=== PATIENT | male | born 1960 | race Caucasian/White ===

== ENCOUNTER 2018-12-15 09:43 | Outpatient (CLI) | payer BC, SELFPAY ==
--- NOTE | 2018-12-15 09:28 | DI.RAD_ITS ---
SYMPTOMS/DIAGNOSIS: HIP PAIN, HAND PAIN LEFT HAND: Three views. No priors. At the first carpal metacarpal joint there is joint space narrowing, periarticular osteophytes and subchondral cysts. The interphalangeal joints of the hand show mild degrees of joint space narrowing, periarticular spurring and subchondral cyst formation. The findings are most marked at the PIP joint of the left middle finger. The joint spaces are otherwise well maintained. The bones are intact. The soft tissues are unremarkable. IMPRESSION: Mild degenerative changes of the left hand. RIGHT HAND: Three views. No priors. At the first carpal metacarpal joint there is joint space narrowing, subchondral sclerosis and cyst formation and osteophytes of the middle finger. There is soft tissue swelling in the right middle finger. No radiopaque foreign bodies are seen. The bones are intact. IMPRESSION: Moderate degenerative changes of the right hand. BILATERAL HIPS: No priors for comparison. The hip joints are well maintained. The bones are intact and normally mineralized. The sacroiliac joints and symphysis pubis appear intact. The soft tissues are grossly unremarkable. IMPRESSION: No acute abnormality.
== END 2018-12-15 10:03 ==
PROVIDERS: PCP Nurse Practitioner Family; Visit Provider Student in an Organized Health Care Education/Training Program
DX: M25.551 Pain in right hip (principal); M25.552 Pain in left hip; M79.641 Pain in right hand; M79.642 Pain in left hand; M19.041 Primary osteoarthritis, right hand; M19.042 Primary osteoarthritis, left hand
CPT/HCPCS: 73521; 73130

== ENCOUNTER 2018-12-25 00:40 | Outpatient (CLI) | payer BC, SELFPAY ==
--- NOTE | 2018-12-25 15:30 | DI.MRI_ITS ---
SYMPTOM/DIAGNOSIS: LOW BACK PAIN, M54.5, RT LEG, FOOT NUMBNESS LUMBAR SPINE MRI: Routine noncontrast examination was performed. The conus medullaris has a normal appearance. At L 5-S 1, there is no focal disc herniation, central spinal canal or neural foraminal stenosis. There is a mild right convex scoliosis of the lumbar spine. At L 4-5, there is disc desiccation. There is a mild diffuse disc bulge. No central spinal canal stenosis is seen. No focal disc herniation is appreciated. There is mild narrowing of the right neural foramen but no nerve root compression is seen. The left neural foramen is patent. At L 3-4, there are degenerative endplate signal changes and disc desiccation. There is a diffuse disc bulge slightly eccentric toward the right. No significant central spinal canal stenosis is seen. There is moderate narrowing of the right neural foramen and mild narrowing of the left neural foramen. At L 2-3, there does appear to be disc space narrowing. There are endplate degenerative signal changes, osteophytes and disc desiccation. There is a diffuse disc bulge present. No significant central spinal canal stenosis is seen. There is mild bilateral neural foraminal stenosis. At L 1-2, there are degenerative endplate signal changes, degenerative disc disease and a diffuse disc bulge eccentric to the left. No significant central spinal canal stenosis is seen. No right neural foraminal stenosis is seen. There is mild narrowing of the left neural foramen. There does appear to be 3 mm. of retrolisthesis of L 2 on L 3 and minimal retrolisthesis of L 1 on L 2. IMPRESSION: Multi level degenerative changes in the lumbar spine resulting in multi level neural foraminal stenosis as described above.
== END 2018-12-25 01:00 ==
PROVIDERS: PCP Nurse Practitioner Family; Visit Provider Nurse Practitioner Family
DX: M54.5 Low back pain (principal); R20.0 Anesthesia of skin; M51.16 Intervertebral disc disorders with radiculopathy, lumbar region
CPT/HCPCS: 72148

== ENCOUNTER 2019-02-17 08:02 | Outpatient (CLI) | payer BC, SELFPAY ==
--- NOTE | 2019-02-17 06:00 | DI.RAD_ITS ---
SYMPTOMS/DIAGNOSIS: LUMBAR RADICULOPATHY C-ARM FLUOROSCOPY OF THE LUMBAR SPINE: Fluoroscopy Time: 28.4 sec Fluoroscopy was provided for guidance with lumbar spine pain clinic injection. Please see procedure note for details.
[2019-02-17 08:10] VITALS: BP 106/75; PULSE 78; RESP 16; TEMP 37.1; O2SAT 100
[2019-02-17] MEDS: Dexamethasone Sod. Phos./Pres-Free 10 MG/ML VIAL IJ (09:15)
[2019-02-17] MEDS: Omnipaque 240 MG/ML 50 ML BTL IJ (09:16)
--- NOTE | 2019-02-17 09:18 | PDOC.PAIN ---
Pain Clinic Procedure Note Current Active Problems Problem Status Onset Lumbar radiculitis Acute LUMBAR / SACRAL TRANSFORAMINAL INJECTION TERRY MCLAUGHLIN has been [facility] for a transforaminal nerve root block and steroid injection. COMMENTS: I did review the notes from Ms. Jonas from this clinic on 01/27/19. Patient was interviewed and the medical record reviewed. There were no medical, pharmacologic, radiographic or other structural contraindications to attempting fluoroscopically guided transforaminal nerve root block and epidural steroid injection. Risks and expected side effects as well as potential benefit of the procedure were reviewed and voiced concerns addressed. The printed consent form was signed and witnessed. Standard time-out procedure was performed. Patient was placed in the prone position on the fluoroscopy table and automated blood pressure cuff and pulse oximeter applied. Fluoroscopy was utilized to identify the left [id number] foramen between L1 and L2. A skin juanita was made for the needle insertion site. A Chlorhexadine prep was carried out, and sterile drapes were applied. Local anesthesia was achieved in the skin and subcutaneous tissues. A 22 gauge 3.5 curved tip spinal needle was then inserted, advanced with fluoroscopic guidance into the neural foramen, confirmed on the lateral view. After negative aspiration, 2 ml of Omnipaque 240 was injected confirming position in A/P and lateral views. This showed a good spread of dye transforaminally into the epidural space. There was no vascular update with contrast injection under continuous fluoroscopy and digital substraction. 15 mg of Dexamethasone was injected, followed by 0.5 ml of 1% Xylocaine flush for the nerve root block, as well. There was no unusual discomfort expressed.The needle was withdrawn. The patient tolerated the procedure well. A Band-Aid was applied. Vital signs were stable throughout the procedure and were as recorded in nursing records. If given, dosages of intravenous drugs for anxiolysis and analgesia were documented in nursing records. Follow up plans and appointments were discussed. Post procedure instruction was given as documented in nursing records and patient was discharged in the care of an identified motor coach bus driver. COMMENTS: Pain-free at 5 minutes post-procedure. CC: Francesca Curiel
[2019-02-17 09:23] VITALS: BP 141/72; PULSE 81; RESP 18; O2SAT 100
== END 2019-02-17 08:22 ==
PROVIDERS: PCP Nurse Practitioner Family; Visit Provider Preventive Medicine Occupational Medicine
DX: M54.16 Radiculopathy, lumbar region (principal)
CPT/HCPCS: 64483; 72100; Q9967

== ENCOUNTER 2019-04-08 15:55 | Outpatient (CLI) | payer BC, SELFPAY ==
--- NOTE | 2019-04-08 15:53 | DI.RAD_ITS ---
SYMPTOM/DIAGNOSIS: LEFT KNEE PAIN LEFT KNEE: Femoral tibial joint spaces are well maintained. There is mild narrowing and spurring at the patellofemoral joint. No joint effusion or loose bodies are seen. IMPRESSION: Mild degenerative changes.
--- NOTE | 2019-04-08 15:53 | DI.RAD_ITS ---
SYMPTOM/DIAGNOSIS: RIGHT KNEE PAIN RIGHT KNEE: There is severe narrowing of the lateral patellofemoral joint as well as some lateral patellar subluxation. There is a bony fragment at the lateral aspect of the patella. The femoral tibial joint spaces are well maintained and show mild periarticular spurring. IMPRESSION: Severe degenerative changes of the lateral patellofemoral joint.
== END 2019-04-08 16:15 ==
PROVIDERS: PCP Nurse Practitioner Family; Visit Provider Physician Assistant
DX: M25.561 Pain in right knee (principal); M25.562 Pain in left knee; M17.0 Bilateral primary osteoarthritis of knee
CPT/HCPCS: 73564

== ENCOUNTER 2019-07-20 18:37 | Emergency (ER) | payer BC, SELFPAY ==
[2019-07-20 18:42] VITALS: BP 126/76; PULSE 84; RESP 16; TEMP 36.7; O2SAT 100
--- NOTE | 2019-07-20 19:02 | NUR.NOTE ---
Hives since this am. Taking amoxicillin for upcoming dental procedure. Took a meloxicam yesterday for foot pain, is wifes prescription. Noted to have hives all over trunk, olivia arms. Airway patent, LSCTA. No lip or tongue swelling.
--- NOTE | 2019-07-20 19:15 | ED.GENADUL_ITS ---
Discharge Plan Disposition Patient Disposition: HOME Condition: Fair Discharge Details Chief Complaint: Allergic Clinical Impression: Allergic reaction Primary Care Provider: Francesca Curiel ED Provider: Renetta Shabazz Home Meds and New Rx's Prescriptions: New prednisone 20 mg tablet 40 mg PO DAILY Qty: 8 RF: 0 clindamycin HCl 150 mg capsule 450 mg PO TID Qty: 18 RF: 0 Continued saw palmetto 160 mg capsule 160 mg PO BID RF: 0 ibuprofen 200 mg capsule 200 mg PO DAILY PRNRF: 0 aspirin 81 MG tablet,chewable 81 mg PO DAILY RF: 0 magnesium citrate 100 MG tablet 100 mg PO BID RF: 0 cholecalciferol (vitamin D3) [Vitamin D3] 2,000 unit Capsule 2,000 unit PO DAILY RF: 0 vitamin E 400 UNIT capsule 400 unit PO DAILY RF: 0 Discharge Instructions Instructions: Clindamycin (By mouth), Prednisone (By mouth), General Allergic Reaction (ED) Additional Instructions: Encourage hydration. Please take the prednisone as prescribed for your reaction. Please not take the amoxicillin any longer and please do not take the meloxicam. My hunch is that this is secondary to the meloxicam but as I do not want to continue have any worsening symptoms, will also change the amoxicillin to clindamycin. Clindamycin is 3 tabs 3 times a day. We will continue the rest of the 2-day course she should be having. Please discuss this further with your dentist. Please take a probiotic while taking the antibiotic. Please follow-up with primary at the end the week for reevaluation. If you develop shortness of breath, wheezing, worsening rash, intraoral lesions or other new/worsening symptoms please seek care urgently once again. Referrals: Francesca Curiel [Primary Care Provider] - Medical Decision Making Patient is a 59-year-old male presents today with chief complaint of urticarial rash. Reports that symptoms began around midnight last night. States that he is currently on amoxicillin is been on this for the past few days. Did take meloxicam last night and states that the first time he is taking his medication. Was also trimming bushes yesterday. On exam, patient has a diffuse urticarial rash consistent with allergic reaction in upper extremities, spares the hands, chest and back. Neck and face are not involved. No intraoral lesions. Lungs are clear with no wheezes or stridor. Patient appears nontoxic and vital signs are within normal limits. I do not believe this is associated with the content he came in with yesterday as it does not follow where his skin would have been in contact with the tree. This is likely associate with meloxicam as this unusual new medication for the patient. Have asked that he not take this again. However, as he has been on the amoxicillin and is to is new over the past few days, will stop this medication and transition to clindamycin. I advised that he needs to take a probiotic with this. I encouraged hydration. We will begin him on prednisone for his allergic reaction. Advised that he may use Benadryl to help with symptomatic management. We also discussed topical options to help with itch. He was given strict return precautions. I have asked that he follow-up with primary care at the end of the week for reevaluation. I also asked that he contact his dentist who prescribed the amoxicillin to advise on the change of antibiotics. All his questions and concerns were addressed and he is in agreement this plan. HPI General Mode of arrival: ambulatory . Date/Time Provider Initiated Documentation: 07/20/19 18:37 . Limitations to Documentation: no limitations . Information obtained by: patient and RN notes reviewed . History of Present Illness 59 year old M presents to the emergency department with the chief complaint of urticarial rash, described as moderate, Quality is described as other (itching), and is localized to the chest, back, abdomen, pelvis, genitals, left, right, upper extremity and lower extremity. Patient started experiencing this hour(s) and it has been constant. No relieving factors improve symptom(s), No exacerbating factors reported . Patient notes no other symptoms.; denies chest pain, cough, diaphoresis, fever/chills, headaches, loss of appetite, malaise, nausea/vomiting and shortness of breath. Patient did receive the following treatments prior to arrival, none Related Data Home Medications Medication Instructions Recorded Confirmed aspirin 81 mg PO DAILY tab-cap 03/25/18 07/20/19 magnesium citrate 100 mg PO BID 03/25/18 07/20/19 vitamin E 400 unit PO DAILY 04/23/18 07/20/19 saw palmetto 160 mg capsule 160 mg PO BID 12/15/18 07/20/19 cholecalciferol (vitamin D3) 2,000 unit PO DAILY 01/22/19 07/20/19 [Vitamin D3] ibuprofen 200 mg capsule 200 mg PO DAILY PRN cap 01/27/19 07/20/19 clindamycin HCl 450 mg PO TID #18 cap 07/20/19 prednisone 40 mg PO DAILY #8 tab 07/20/19 Previous Rx's Medication Instructions Recorded clindamycin HCl 450 mg PO TID #18 cap 07/20/19 prednisone 40 mg PO DAILY #8 tab 07/20/19 Allergies Allergy/AdvReac Type Severity Reaction Status Date / Time No Known Allergies Allergy Unverified 07/20/19 18:46 General Stated Complaint: Allergic CASPER: 4 Review of Systems Constitutional Constitutional: Reports as per HPI, Denies chills, Denies fever(s), Denies headache(s) and Denies poor appetite Eyes Eyes: Reports as per HPI, Denies eye discharge and Denies irritation ENT Ears, Nose, Mouth, and Throat: Reports as per HPI and Denies headache(s) Cardiovascular Cardiovascular: Reports as per HPI, Denies chest pain and Denies dyspnea Respiratory Respiratory: Reports as per HPI and Denies dyspnea Gastrointestinal Gastrointestinal: Reports as per HPI, Denies abdominal pain, Denies change in bowel habits, Denies nausea and Denies vomiting Integumentary/Breasts Skin/Breast: Reports as per HPI, Reports rash and Denies skin pain Neurologic Neurologic: Reports as per HPI and Denies headache(s) [facility] Medical History Actinic keratitis Anemia Bilateral hip pain Bilateral thumb pain Chronic pruritus Cold sore DDD (degenerative disc disease), lumbar (Chronic) Foot pain, left (Acute) Leg cramps Low back pain (Chronic) Nocturnal leg cramps Right knee pain Surgical History Colonoscopy - IV Sedation 2009- normal Colonoscopy - MAC EGD - MAC (04/28/18) Hx of tonsillectomy (Chronic) Social History Smoking/Tobacco Use Status: Never Alcohol Intake: current Alcohol Intake frequency: a few times a week Alcohol type: beer Drug use: Never Household members: spouse Housing: house Number of Children: 2 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 What is your relationship status?: Panel score (0-1 are the most socially isolated patients): 1 What type of physical activity do you participate in: weight lifting Duration: 30-45 minutes/day Frequency: 3-4 times per week Exam Const General: cooperative, healthy appearing, comfortable, no acute distress, well developed and well groomed Nutritional Appearance: average body habitus and well nourished Orientation: alert and awake [facility] Head: normal to inspection, normocephalic and atraumatic Ears: hearing grossly normal bilaterally Face and sinus: normal facial exam, sinuses nontender and face symmetric Mouth: oral mucosae normal, lip normal, tongue normal, oropharynx normal and moist mucous membranes Teeth and gingiva: dentition normal Throat: posterior oropharynx normal, tonsils normal and uvula midline Eyes General: appearance normal, both eyes and all related structures Neck Neck: normal visual inspection, full ROM, no lymphadenopathy and no meningeal signs Resp Effort & Inspection: normal respiratory effort, able to speak in complete sentences and no respiratory distress Auscultation: clear to auscultation bilaterally, no rales, no rhonchi and no wheezes Cardio Rate: regular rate Rhythm: regular rhythm Heart Sounds: S1 normal and S2 normal Skin Rashes: rashes noted (diffuse urticarial blanching rash to BUE, chest, back) Neuro General: alert and awake Cognition: normal cognition Speech: speech normal Gait: normal gait Extrem General: abnormal to inspection (rash as above, spares hands), full ROM and normal capillary refill Psych Appearance: grossly normal and well kempt Mental Status: mental status grossly normal Speech and Movement: speech and movement normal Course Vital Signs Vital signs: Vital Signs Temperature 36.7 C 07/20/19 18:42 Pulse 84 07/20/19 18:42 Respiratory Rate 16 07/20/19 18:42 Blood Pressure 126/76 07/20/19 18:42 Pulse Oximetry 100 07/20/19 18:42 Temperature 36.7 C 07/20/19 18:42 Temperature Source Skin 07/20/19 18:42 Pulse 84 07/20/19 18:42 Respiratory Rate 16 07/20/19 18:42 Respiratory Effort 07/20/19 19:01 Respiratory Pattern Normal 07/20/19 19:01 Blood Pressure 126/76 07/20/19 18:42 Blood Pressure Position Sitting 07/20/19 18:42 Pulse Oximetry 100 07/20/19 18:42 Oxygen Delivery Method Room Air 07/20/19 18:42 Oxygen Flow Rate 0 07/20/19 18:42 Pain Level 9 07/20/19 18:42
[2019-07-20] MEDS: Clindamycin 150 MG CAP 450 MG PO ×2 (19:47→19:48)
[2019-07-20] MEDS: predniSONE 20 MG TAB 40 MG PO (19:48)
== END 2019-07-20 19:50 | disposition home or self-care (01) ==
PROVIDERS: Emergency Provider Physician Assistant; PCP Nurse Practitioner Family
DX: L50.0 Allergic urticaria (principal)
CPT/HCPCS: 99283; J7512

== ENCOUNTER 2019-12-11 06:05 | Day surgery (SDC) | payer BC, SELFPAY ==
[2019-12-11] VITALS (7 sets, daily range): BP systolic 112–126; BP diastolic 74–81; PULSE 66–74; RESP 10–18; TEMP 36.4–36.7; O2SAT 99–100
[2019-12-11] MEDS: Lactated Ringers 1,000 ML 80 ML IV ×2 (06:37→09:35)
--- NOTE | 2019-12-11 06:57 | W.PM.HP.N ---
Date of service: 12/11/19 Time of Service: 06:58 History of Present Illness History of Present Illness Chief Complaint: Left bunion deformity and second and third hammertoe deformities Narrative: 59-year-old male with longstanding bunion and hammertoe deformities of the left foot which are progressed to the point that they are interfering with daily activities shoe gear and ambulation. Nonoperative treatments no longer provide relief of symptoms. [facility] Medical History Actinic keratitis Anemia Bilateral hip pain Bilateral thumb pain Chronic pruritus Cold sore DDD (degenerative disc disease), lumbar (Chronic) Foot pain, left (Acute) Leg cramps Low back pain (Chronic) Nocturnal leg cramps Right knee pain Surgical History Colonoscopy - IV Sedation 2010- normal Colonoscopy - MAC EGD - MAC (04/28/18) Hx of tonsillectomy (Chronic) Social History Smoking/Tobacco Use Status: Never Alcohol Intake: current Alcohol Intake frequency: a few times a week Alcohol type: beer Drug use: Never Substance use type: does not use Household members: spouse Housing: house Number of Children: 2 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 What is your relationship status?: Panel score (0-1 are the most socially isolated patients): 1 What type of physical activity do you participate in: weight lifting Duration: 30-45 minutes/day Frequency: 3-4 times per week Do you feel safe at home: Yes Do you feel safe in your relationship?: Yes Meds Home Medications and Allergies Home Medications Medication Instructions Recorded Confirmed Type aspirin 81 mg PO DAILY tab-cap 03/25/18 12/08/19 History magnesium citrate 100 mg PO BID 03/25/18 12/11/19 History vitamin E 400 unit PO DAILY 04/23/18 12/11/19 History saw palmetto 160 mg capsule 160 mg PO BID 12/15/18 12/11/19 History cholecalciferol (vitamin D3) 2,000 unit PO DAILY 01/22/19 12/11/19 History [Vitamin D3] ibuprofen 200 mg capsule 400 mg PO HS cap 01/27/19 12/11/19 History Allergies Allergy/AdvReac Type Severity Reaction Status Date / Time No Known Allergies Allergy Unverified 12/11/19 06:22 Exam Narrative Exam Narrative: Head is normocephalic eyes PERRLA hearing is unremarkable oropharynx is moist no suspicious lesions uvular is midline airway looks assessable heart had regular rate and rhythm without gallops rubs murmurs no chest pain mentioned or experienced lung nance are clear abdomen was soft nontender bowel sounds appreciated x4. Peripheral pulses easily palpable at the ankles 2 out of 4 bilaterally CFT under 3 seconds no edema calves soft to palpation Muscle groups 5 out of 5 bilaterally Skeletal exam is remarkable for a moderate left HAV deformity with slight lateral rotation range of motion is good some dorsal restriction appreciated no crepitance noted sesamoids were asymptomatic to palpation semirigid contractures of hammertoes 2 and 3 noted deformity primarily at the proximal interphalangeal joints Neurologically toes were downgoing no focal deficits were appreciated Impressions left bunion deformity second and third hammertoe deformities Plan: Epstein being brought to the OR for surgical repair of the left bunion second and third digits risk and complications have been disclosed including the potential for pain scarring infection overcorrection under correction malunion nonunion delayed union of osteotomies recurrence of deformities potentially requiring revisional procedures informed consents been obtained no promises made final outcome of surgery. Results Last Vital Signs Temp 36.7 C 12/11/19 06:15 Pulse 70 12/11/19 06:15 Resp 18 12/11/19 06:15 BP 119/80 12/11/19 06:15 Pulse Ox 99 12/11/19 06:15
[2019-12-11] MEDS: ceFAZolin 1 GM/50 ML BAG IVPB (07:29)
[2019-12-11] MEDS: Bupivacaine 0.5% Pres-Free 30 ML VIAL (07:35)
[2019-12-11] MEDS: Lidocaine 1% Pres-Free 5 ML VIAL (07:35)
[2019-12-11] MEDS: Dexamethasone 4 MG/ML VIAL (09:18)
--- NOTE | 2019-12-11 09:27 | W.PM.DSUDISC ---
Discharge Plan Disposition Patient Disposition: HOME Condition: Good Discharge Details Reason For Visit: correction left bunion second and third hammertoe Attending Provider: Asaf Bueno Primary Care Provider: Francesca Curiel Home Meds and New Rx's Prescriptions: No Action saw palmetto 160 mg capsule 160 mg PO BID RF: 0 ibuprofen 200 mg capsule 400 mg PO HS RF: 0 aspirin 81 MG tablet,chewable 81 mg PO DAILY RF: 0 magnesium citrate 100 MG tablet 100 mg PO BID RF: 0 cholecalciferol (vitamin D3) [Vitamin D3] 2,000 unit Capsule 2,000 unit PO DAILY RF: 0 vitamin E 400 UNIT capsule 400 unit PO DAILY RF: 0 Discharge Instructions Activity:: Elevate Remove Dressings/Wound Care:: Do Not Remove Shower/Bathe:: Cover Diet:: Normal Diet Discharge Orders Discharge Orders: Discharge Order (Routine); Ordered 12/11/19 Ordered By: Asaf Bueno DS: Diagnosis Discharge Diagnosis (1) Hallux valgus of left foot: Status: Acute (2) Hammertoe of left foot: Status: Acute
--- NOTE | 2019-12-11 09:39 | ROE_ITS ---
DATE: DECEMBER 11, 2019 Preoperative Diagnosis: 1. Symptomatic left hallux abducto-valgus deformity. 2. Symptomatic left second hammer toe. 3. Symptomatic left third hammer toe. Postoperative Diagnosis: same Operation: 1. Scarf-type bunionectomy with internal screw fixation, Synthes 2.7 and 3.5 screws, 16 mm. 2. Arthroplasty left second DIPJ with 0.062 K-wire fixation. 3. Arthroplasty left third DIPJ with 0.062 K-wire fixation. Anesthesia: General, LMA anesthesia. Anesthesia Provider: Leonardo Engel CRNA Surgeon: Asaf Bueno DPM Indications: 60 year-old male with progressive pain associated with a left bunion deformity, second and third hammer toe deformities. No operative treatments have failed to provide sufficient relief of symptoms. He understands the risks and complications of surgery pertaining to pain, scarring, infection, nonunion, mansion and delayed union of the osteotomy, over- correction or under-correction of the deformities potentially requiring provisional procedures. Informed consent has been obtained. No promises made to the final outcome of surgery. Procedure: Cristo was brought to the Operating Suite and placed in the supine position. Timeout was performed. Anesthesia was obtained initially with deep monitored anesthesia with local infiltration of the left first, second and third rays utilizing a total of 20 cc. 50/50 mixture 1% Lidocaine plain, 0.5% Marcaine plain. Upon the administration of systemic anesthesia, Cristo became very restless with his legs constantly moving and the case needed to be converted to an LMA/general. Once this was obtained we were able to proceed with surgery. The left foot was exsanguinated. A well-padded ankle tourniquet was inflated to 250 mm. of mercury. Attention was directed to the dorsal aspect of the first MP joint where 5 cm. incision was made medial to the EHL tendon. The incision was deepened in controlled depth fashion. Hemostasis was acquired with electrocautery as needed. A lateral dissection was performed consisting of a lateral capsulotomy, adductor tendon release, and fibular sesamoid mobilization. Attention was now directed medially and inverted L capsulotomy was performed. The joint capsule was reflected. Erosive change was noted over the dorsal medial aspect of the first metatarsal head where significant hypertrophy of bone was also observed. With power instrumentation, the medial hyperostosis was resected. A single small bone cyst was identified which was quite shallow. This was removed with a freer elevator. The remaining bony structures appeared solid. An offset V-osteotomy was then performed consistent with a Scarf bunionectomy leaving a longer dorsal wing than usual. The head was subsequently translocated laterally and impacted. Good correction was identified. Fixation was achieved with a 2.7 screws, 16 mm. followed by a 3.5 mm. screw, also 16 mm. Good stability was appreciated. The medial shelf and all hyperosmotic tissue was removed. Copious irrigation was performed. The joint capsule was repaired performing a medial capsulorrhaphy then closing it with simple interrupted suture of #3-0 Vicryl. The subcutaneous layer was repaired with simple interrupted suture of #4-0 Vicryl and the skin was coated with continuous running suture of #4-0 Monocryl. Attention was now directed to the DIPJ of digits two and three. Two convergent transverse elliptical incisions were placed over the DIPJs. These incisions were placed through controlled depth and the skin wedges excised. Each step was done simultaneously on the second and the third toe. Soft tissue mobilization was performed. With a #15 scalpel a transverse tenotomy capsulotomy was performed at the DIPJ level. The extensor tendon and joint capsule was dissected free of the head of the middle phalanx. The medial and lateral collaterals were released. The same procedure was done to the third toe. With power instrumentation using a 145 blade, the head of the middle phalanx was resected. All bony edges were rasped smooth and copious irrigation was performed. Stabilization was then performed in retrograde fashion utilizing 0.62 K-wire. The extensor tendons were repaired end to end with #3-0 Vicryl simple interrupted suture. The skin was coated with simple interrupted suture #4-0 nylon. 4 mg. of Dexamethasone phosphate was infused about the first MP joint. Betadine ointment was applied to the K-wire tips. Xeroform was applied to all sutured incisions. 1/2 inch STERIS-strips were applied over the bunion incision followed by Xeroform. Gauze fluff compression dressings were applied. The tourniquet was released at 93 minutes with vascularity returning immediately to all toes. Cristo left the Operating Room with vital signs stable and vascular status intact. Sharp and sponge counts were correct. He will be followed by myself in the office next week.
== END 2019-12-11 11:10 | disposition home or self-care (01) ==
PROVIDERS: PCP Nurse Practitioner Family; Visit Provider Podiatrist
PROC: (CPT 28292; principal; 2019-12-11 07:30)
PROC: (CPT 28306; 2019-12-11 07:30)
DX: M20.12 Hallux valgus (acquired), left foot (principal); M20.42 Other hammer toe(s) (acquired), left foot; M21.612 Bunion of left foot
CPT/HCPCS: 28306; 28285; 99236; J0690; J1100

== ENCOUNTER 2020-03-29 08:03 | Outpatient (CLI) | payer BC, SELFPAY ==
[2020-03-29 22:41] LABS: COVID-19 RT-PCR UVMMC Result Negative (Negative)
== END 2020-03-29 08:23 ==
PROVIDERS: PCP Nurse Practitioner Family; Visit Provider Podiatrist
DX: Z01.818 Encounter for other preprocedural examination (principal); Z11.59 Encounter for screening for other viral diseases
CPT/HCPCS: U0003

== ENCOUNTER 2020-04-01 06:04 | Day surgery (SDC) | payer BC, SELFPAY ==
[2020-04-01] VITALS (7 sets, daily range): BP systolic 100–118; BP diastolic 65–74; PULSE 63–74; RESP 11–18; TEMP 36.2–36.5; O2SAT 98–100
[2020-04-01] MEDS: Lactated Ringers 1,000 ML 80 ML IV (06:53)
--- NOTE | 2020-04-01 07:15 | HPE_ITS ---
Date of service: 04/01/20 Time of Service: 07:16 History of Present Illness History of Present Illness Chief Complaint: Symptomatic right bunion and third hammertoe deformity Narrative: 60-year-old male with increasing and chronic pain associated with a right bunion and third hammertoe deformity which is interfering in shoe gear daily activities and work. Nonsurgical treatment failed to provide significant relief of symptoms. He is opting to proceed with surgical repair of these deformities. [facility] Medical History Actinic keratitis Anemia Bilateral hip pain Bilateral thumb pain Chronic pruritus Cold sore DDD (degenerative disc disease), lumbar (Chronic) Foot pain, left (Acute) Leg cramps Low back pain (Chronic) Nocturnal leg cramps Right knee pain Surgical History Colonoscopy - IV Sedation 2009- normal Colonoscopy - MAC EGD - MAC (04/28/18) Hx of tonsillectomy (Chronic) Social History Smoking/Tobacco Use Status: Never Alcohol Intake: current Alcohol Intake frequency: a few times a week Alcohol type: beer Drug use: Never Substance use type: does not use Household members: spouse Housing: house Number of Children: 2 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 What is your relationship status?: Panel score (0-1 are the most socially isolated patients): 1 What type of physical activity do you participate in: weight lifting Duration: 30-45 minutes/day Frequency: 3-4 times per week Do you feel safe at home: Yes Do you feel safe in your relationship?: Yes Meds Home Medications and Allergies Home Medications Medication Instructions Recorded Confirmed Type aspirin 81 mg PO DAILY tab-cap 03/25/18 03/30/20 History magnesium citrate 100 mg PO BID 03/25/18 04/01/20 History vitamin E 400 unit PO DAILY 04/23/18 04/01/20 History saw palmetto 160 mg capsule 160 mg PO BID 12/15/18 04/01/20 History cholecalciferol (vitamin D3) 2,000 unit PO DAILY 01/22/19 04/01/20 History [Vitamin D3] ibuprofen 200 mg capsule 400 mg PO HS cap 01/27/19 04/01/20 History ibuprofen 600 mg PO Q6H PRN #40 tab 12/11/19 03/30/20 Rx Allergies Allergy/AdvReac Type Severity Reaction Status Date / Time No Known Allergies Allergy Verified 04/01/20 06:13 Exam Narrative Exam Narrative: Head is normocephalic Eyes PERRLA Hearing is adequate Uvula is midline, airway looks assessable Heart has regular rate and rhythm without gallops rubs or murmurs noted Lung nance were clear Abdomen is soft and nontender, bowel sounds x4 Peripheral pulses are manually palpable at the ankles 2 out of 4. Capillary fill time is under 3 seconds to all digits, no edema Muscle groups of 5 out of 5 bilaterally Skeletal exam is remarkable for a moderate right HAV deformity with a large medial bump with periarticular tenderness to direct palpation. Range of motion is adequate with mild reduction of dorsiflexion appreciated. No crepitance was noted. Flexion contracture of the right third toe is appreciated at the distal interphalangeal joint with hypersensitivity is noted dorsally over the joint. Neurologically he is grossly intact. Impression: Symptomatic right HAV deformity and third digit hammertoe Plan: Festus is being brought to the OR for surgical repair of the right bunion and third hammertoe deformities. Potential risk and complications including alternative treatments have been reviewed he is fully aware of the potential for pain, scarring, infection, overcorrection, under correction, malunion nonunion delayed union of the osteotomy as well as difficulty with the retained hardware potentially requiring its removal. All questions have been answered in detail. Informed consent has been obtained. No promises have been made to the final outcome of surgery. Results Last Vital Signs Temp 36.4 C L 04/01/20 06:17 Pulse 74 04/01/20 06:17 Resp 18 04/01/20 06:17 BP 118/73 04/01/20 06:17 Pulse Ox 99 04/01/20 06:17 COVID-19 Screening In the past 14 days, have you traveled outside of [place]?: NO Had IN PERSON contact w/suspected or confirmed C-19 person: Yes
[2020-04-01] MEDS: ceFAZolin 1 GM/50 ML BAG IVPB (07:33)
[2020-04-01] MEDS: Bupivacaine 0.5% Pres-Free 30 ML VIAL (07:35)
[2020-04-01] MEDS: Lidocaine 1% Multi-Dose 50 ML VIAL (07:45)
--- NOTE | 2020-04-01 09:25 | W.PM.DSUDISC ---
Discharge Plan Disposition Patient Disposition: HOME Condition: Good Discharge Details Reason For Visit: Right bunionectomy, hammertoe repair right third t Attending Provider: Asaf Bueno Primary Care Provider: Francesca Curiel Home Meds and New Rx's Prescriptions: Continued saw palmetto 160 mg capsule 160 mg PO BID RF: 0 ibuprofen 200 mg capsule 400 mg PO HS RF: 0 aspirin 81 MG tablet,chewable 81 mg PO DAILY RF: 0 magnesium citrate 100 MG tablet 100 mg PO BID RF: 0 cholecalciferol (vitamin D3) [Vitamin D3] 2,000 unit Capsule 2,000 unit PO DAILY RF: 0 vitamin E 400 UNIT capsule 400 unit PO DAILY RF: 0 ibuprofen 600 mg tablet 600 mg PO Q6H PRN (Reason: post op pain and inflamation) Qty: 40 RF: 1 Discharge Instructions Activity:: Elevate Remove Dressings/Wound Care:: Do Not Remove Shower/Bathe:: Cover Discharge Orders Discharge Orders: Discharge Order (Routine); Ordered 04/01/20 Ordered By: Asaf Bueno DS: Diagnosis Discharge Diagnosis (1) Hallux valgus (acquired), right foot: Status: Acute
--- NOTE | 2020-04-01 09:27 | W.PM.OP ---
Date of service: 04/01/20 Time of Service: 09:27 Operative Note Operative Note DATE OF PROCEDURE: 04/01/20 PRE-OP DIAGNOSIS: Hallux valgus, hammertoe third digit right foot POST-OP DIAGNOSIS: same PROCEDURE: Genaro type bunionectomy with internal screw fixation, arthroplasty third toe with 0.045 K wire fixation all to the right foot ANESTHESIA: GETA ESTIMATED BLOOD LOSS: 3 PATHOLOGY: none sent TOURNIQUET TIME: 70 COMPLICATIONS: None Patient was transported to: PACU Patient's condition: stable Implants: Synthes 2.7 cortical screws x2; 0.045 K wire third toe Indications: 60-year-old male with increasing pain associated with a right bunion and third hammertoe deformity. The deformity is a progressive causing discomfort in shoes interfering with daily activities and ambulation. Nonoperative treatments have failed to provide sufficient relief of symptoms. Procedure Description: Cristo was brought to the operative suite, placed in the supine position with the right foot prepped and draped in the usual sterile podiatric fashion . General Anesthesia and an ankle block being obtained attention was directed to the right foot. Timeout was performed per protocol. The right foot was exsanguinated well-padded ankle tourniquet inflated 250 mmHg. Attention was directed to the first MPJ where a 5 cm incision was placed medial and parallel to the EHL tendon. The incision was deepened in controlled depth fashion hemostasis being acquired with electrocautery as needed. Dissection was carried down to the joint capsule. Contracture along the lateral aspect of the joint was appreciated. A lateral capsulotomy was performed followed by a adductor tendon release. The great toe was more relaxed at this time. Attention was now directed medially where an inverted L capsulotomy was performed. Joint capsule was reflected. The head of the first metatarsal was delivered into the surgical wound. Hypertrophy was appreciated along the medial and medial dorsal aspects of the first metatarsal head. The articular surface appeared viable although somewhat degenerated. With power instrumentation the medial hyperostosis was resected. A offset V osteotomy was then performed through the O segment of the first metatarsal. The head was translocated impacted and subsequently fixated with 2 Synthes 2.7 cortical screws the medial shelf was resected all rough and bony edges rasped move. Copious irrigation was performed. Good correction was appreciated. A medial capsulorrhaphy was performed and the medial capsule repaired with simple interrupted suture of 3-0 Vicryl. I felt that there was still a little valgus pull to the hallux so a extensor hallucis brevis tenotomy was performed. The hallux looked to be in a good position. Mastisol was applied to the skin, half-inch Steri-Strips applied attention was now directed to the third toe where a transverse incision was made over the PIPJ. The incision was deepened in controlled depth fashion. A transverse tenotomy capsulotomy was performed at the DIPJ level and the joint was incised. Soft tissue dissection was performed in the head of the middle phalanx delivered into the surgical wound. With power instrumentation the head of the middle phalanx was resected. [place] was used to remove any rough and bony edges and a hand rasp used to smooth all remaining bone edges. Copious irrigation performed with normal saline. The third toe was then stabilized in retrograde fashion with a 0.45 K wire. The extensor tendon was repaired with simple interrupted suture 3-0 Vicryl and the skin was coapted with simple interrupted suture of 4-0 nylon. Xeroform was applied to all incisions. 4 mg of dexamethasone phosphate was injected and around the first MPJ. Betadine ointment was applied to the K wire, gauze fluff compression dressings were applied. Tourniquet was released at approximately 70 minutes with vascularity returning immediately to all toes. Festus left the OR with vital signs stable vascular status intact sharp and sponge counts were correct x2. He will be followed by myself in the office next week.
== END 2020-04-01 11:05 | disposition home or self-care (01) ==
PROVIDERS: PCP Nurse Practitioner Family; Visit Provider Podiatrist
PROC: (CPT 28292; principal; 2020-04-01 07:30)
PROC: (CPT 28296; 2020-04-01 07:30)
DX: M20.11 Hallux valgus (acquired), right foot (principal); M20.41 Other hammer toe(s) (acquired), right foot; M21.611 Bunion of right foot
CPT/HCPCS: 28296; 28285; 99223; J0690; J1100; J1885; J2001; J2405

== ENCOUNTER 2020-12-20 20:55 | Outpatient (REF) | payer BC, SELFPAY ==
[2020-12-20 12:16] LABS: Abs Immature Grans 0.02 10^3/uL (0.0-0.06); Absolute Basophil Count 0.06 10^3/uL (0.0-0.2); Absolute Eosinophil Count 0.13 10^3/uL (0.0-0.7); Absolute Lymphocyte Count 1.13 10^3/uL (1.2-3.4); Absolute Monocyte Count 0.58 10^3/uL (0.1-0.8); Absolute Neutrophil Count 3.46 10^3/uL (1.2-6.7); Basophils % 1.1; Eosinophils % 2.4; HCT 36.9 % (40.0-50.0); HGB 13.2 g/dL (13.5-17.5); Immature Grans % 0.4; MCH 31.4 pg (27.0-33.0); MCHC 35.8 % (32.0-36.0); MCV 87.9 fL (80-95); MPV 9.3 fL (8.0-11.0); Monocytes % 10.8; Neutrophils % 64.3; Nucleated RBC 0 %; Platelet Count 351 10^3/uL (130-400); RDW 13.6 % (11.8-14.1); RDW-SD 44.2 fL; WBC 5.38 10^3/uL (4.4-10.8)
[2020-12-20 12:21] LABS: Iron 63 ug/dL (65-175)
[2020-12-20 12:46] LABS: Anion Gap 8.5 mmol/L (3-11); BUN 15 mg/dL (7-18); CO2 27.5 mmol/L (21.0-32.0); CREATININE 0.9 mg/dL (0.70-1.30); Chloride 106 mmol/L (98-107); Glucose 110 mg/dL (74-106); Magnesium 2.1 mg/dL (1.8-2.4); Potassium 4.2 mmol/L (3.5-5.1); Sodium 142 mmol/L (136-145); TSH (W/Ref FT4) 3.05 uIU/mL (0.36-3.74); Vitamin B12 276 pg/mL (193-986)
== END 2020-12-20 20:56 | disposition home or self-care (01) ==
LOC: NCHCN 20:55
PROVIDERS: PCP Nurse Practitioner Family; Visit Provider Nurse Practitioner Family
DX: G47.62 Sleep related leg cramps (principal); G60.9 Hereditary and idiopathic neuropathy, unspecified; M54.5 Low back pain; M51.36 Other intervertebral disc degeneration, lumbar region
CPT/HCPCS: 80048; 82607; 83540; 83735; 84443; 85025

== ENCOUNTER 2021-02-21 07:36 | Outpatient (CLI) | payer BC, SELFPAY ==
--- NOTE | 2021-02-21 06:00 | DI.RAD_ITS ---
Exam(s) XR PAIN CLINIC LUMBAR SP 2V EXAM: XR PAIN CLINIC LUMBAR SP 2V CLINICAL HISTORY: Dx: Lumbar Spondylosis,LUMBAR MEDIAL BRANCH BLOCK TECHNIQUE: Fluoroscopy was provided for the referring physician for guidance with performing injecti on procedure. COMPARISON: No exams were available for comparison FINDINGS: Please see procedure note for details. RADIATION DOSE DELIVERED: jose antonio Montgomery= 11.05 mGy
[2021-02-21 07:49] VITALS: BP 119/71; PULSE 74; RESP 18; TEMP 36.8; O2SAT 99
--- NOTE | 2021-02-21 08:42 | PDOC.PAIN ---
Pain Clinic Procedure Note Procedure Note Procedure Note: Lumbar/Sacral Medial Branch Blocks TERRY MCLAUGHLIN has been referred to the [facility] for lumbar/sacral medial branch blocks. Pre-operative diagnosis: lumbar spondylosis Post-operative diagnosis: same as above COMMENTS: patient has on average pain level moderate to severe that impairs his daily functional activity. 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 he was evaluated by Ms Danya Jonas APRN in our pain clinic and referred for diagnostic bilateral lumbar medial branch nerve block. Patient was interviewed and the medical record reviewed. There were no medical, pharmacologic, radiographic or other structural contraindications to attempting fluoroscopically guided local anesthetic lumbar/sacral medial branch blocks. Risks and expected side effects as well as potential benefit of the procedure were reviewed and voiced concerns addressed. The printed consent form was signed and witnessed. Standard time-out procedure was performed. Patient was placed in the prone position on the fluoroscopy table and automated blood pressure cuff and pulse oximeter applied. The skin entry points for approaching the anatomic target points of the segmental medial branches of bilateral L3, L4, L5-DR were identified with anfluoroscopy and marked. Following thorough Chlorhexadine preparation of the skin and draping and 1% lidocaine infiltration of the skin entry points and subcutaneous tissues, a 22 gauge spinal needle was placed under fluoroscopic guidance down on to the target point for each respective segmental medial branch.Position was confirmed in A/P, oblique and lateral views with 0.25ml of omnipaque 240. Coult be this method 0.5ml 0.5% Bupivacaine was injected. Vital signs were stable throughout the procedure and were as recorded in the docflowsheet by the nursing staff. Follow up plans and appointments were discussed and was instructed to keep careful note of how the usual pain was modified by these injections. Specifically was asked to keep a pain diary for the next 24 hours using a numeric pain scale of 0-10 and report these results at the follow-up visit. Post procedure instruction was given as documented in the nursing documentation and having met discharge criteria. Patient was discharged from the [facility] Management [facility]. Based on the medial branches blocked today, if the patient has adequate relief and we are able to proceed to radiofrequency ablation, the treatment should result in the denervation of the bilateral L4/5 and L5/S1. We would expect to denervate a total of 4 facets during the radiofrequency ablation. COMMENTS: pre-procedure pain level 5 out of 10 and post-procedure pain level 0 out of 10. Tonja Connors MD Pain Management CC: Francesca Curiel
[2021-02-21 08:48] VITALS: BP 132/87; PULSE 84; RESP 14; O2SAT 100
[2021-02-21] MEDS: Omnipaque 240 MG/ML 50 ML BTL IJ (08:55)
[2021-02-21] MEDS: Bupivacaine 0.5% Pres-Free 10 ML VIAL IJ (08:55)
== END 2021-02-21 07:37 | disposition home or self-care (01) ==
PROVIDERS: PCP Nurse Practitioner Family; Visit Provider Internal Medicine
DX: M47.816 Spondylosis without myelopathy or radiculopathy, lumbar region (principal)
CPT/HCPCS: 64493; 64494; 72100; Q9967

== ENCOUNTER 2021-03-20 09:16 | Outpatient (REF) | payer BC, SELFPAY ==
[2021-03-20 14:29] LABS: Abs Immature Grans 0.01 10^3/uL (0.0-0.06); Absolute Basophil Count 0.06 10^3/uL (0.0-0.2); Absolute Eosinophil Count 0.18 10^3/uL (0.0-0.7); Absolute Lymphocyte Count 1.26 10^3/uL (1.2-3.4); Absolute Neutrophil Count 2.59 10^3/uL (1.2-6.7); Basophils % 1.3; Eosinophils % 3.8; HCT 39.9 % (40.0-50.0); HGB 13.5 g/dL (13.5-17.5); Immature Grans % 0.2; Lymphocytes % 26.8; MCH 29.3 pg (27.0-33.0); MCHC 33.8 % (32.0-36.0); MCV 86.6 fL (80-95); MPV 9.5 fL (8.0-11.0); Monocytes % 12.8; Neutrophils % 55.1; Nucleated RBC 0 %; Platelet Count 314 10^3/uL (130-400); RBC 4.61 10^6/uL (4.36-5.78); RDW 13.7 % (11.8-14.1); RDW-SD 43.3 fL
[2021-03-20 15:09] LABS: Iron 97 ug/dL (65-175); Total Iron Binding Capacity 264 ug/dL (250-450); Transferrin Sat 37 % (20-55)
[2021-03-20 15:18] LABS: Ferritin 124 ng/mL (26-388)
== END 2021-03-20 09:17 | disposition home or self-care (01) ==
LOC: NCHCN 09:16
PROVIDERS: PCP Nurse Practitioner Family; Visit Provider Nurse Practitioner Family
DX: G60.9 Hereditary and idiopathic neuropathy, unspecified (principal); M25.561 Pain in right knee; G47.62 Sleep related leg cramps; M51.36 Other intervertebral disc degeneration, lumbar region; M54.5 Low back pain
CPT/HCPCS: 82728; 83540; 83550; 85025

== ENCOUNTER 2021-03-23 13:06 | Outpatient (CLI) | payer BC, SELFPAY ==
--- NOTE | 2021-03-23 06:00 | DI.RAD_ITS ---
Exam(s) XR PAIN CLINIC LUMBAR SP 2V EXAM: XR PAIN CLINIC LUMBAR SP 2V CLINICAL HISTORY: Dx:Lumbar Spondylosis TECHNIQUE: 2D and realtime digital imaging was performed. Radiologist not present. CONTRAST MATERIAL: None. COMPARISON: No exams were available for comparison FINDINGS: Fluoroscopy was provided for pain management therapy. No submitted images. Please refer to procedure report or details. Cumulative dose: Ka,r=8.15 mGy IMPRESSION: RADIATION DOSE DELIVERED:
[2021-03-23 13:17] VITALS: BP 119/75; PULSE 64; RESP 17; TEMP 36.6; O2SAT 100
--- NOTE | 2021-03-23 14:18 | PDOC.PAIN_ITS ---
Pain Clinic Procedure Note Procedure Note Procedure Note: Date of service: March 23, 2021 Lumbar/Sacral Medial Branch Blocks #2 Cristo Guo has been referred to the [facility] for lumbar/sacral medial branch blocks. COMMENTS: He had his first block on 02/21/21 with excellent results. Pre- procedure pain VAS was 6/10 Dx: Lumbosacral spondylosis without myelopathy Patient was interviewed and the medical record reviewed. There were no medical, pharmacologic, radiographic or other structural contraindications to attempting fluoroscopically guided local anesthetic lumbar/sacral medial branch blocks. Risks and expected side effects as well as potential benefit of the procedure were reviewed and voiced concerns addressed. The printed consent form was signed and witnessed. Standard time-out procedure was performed. Patient was placed in the prone position on the fluoroscopy table and automated blood pressure cuff and pulse oximeter applied. The skin entry points for approaching the anatomic target points of the segmental medial branches of the bilateral L3-L5DR were identified with anfluoroscopy and marked. Following thorough Chlorhexadine preparation of the skin and draping and 1% lidocaine infiltration of the skin entry points and subcutaneous tissues, a 22 gauge spinal needle was placed under fluoroscopic guidance down on to the target point for each respective segmental medial branch.Position was confirmed in A/P, oblique and lateral views with 0.25ml of omnipaque 240. At this point 0.5cc of 2% Lidocaine was injected at each segmental sensory nerve. Vital signs were stable throughout the procedure and were as recorded in the docflowsheet by the nursing staff. Follow up plans and appointments were discussed and was instructed to keep careful note of how the usual pain was modified by these injections. Specifically was asked to keep a pain diary for the next 24 hours using a numeric pain scale of 0-10 and report these results at the follow-up visit. Post procedure instruction was given as documented in the nursing documentation and having met discharge criteria. Patient was discharged from the Pain Management Center. Based on the medial branches blocked today, if the patient has adequate relief and we are able to proceed to radiofrequency ablation, the treatment should result in the denervation of the bilateral L4-L5 and L5-S1 FACET JOINTS. We would expect to denervate a total of 4 facets during the radiofrequency ablation. COMMENTS: Post-procedure pain VAS of 0/10. Oneil Cloud DO, MPH Pain Management CC: Francesca Curiel
[2021-03-23 14:23] VITALS: BP 132/79; PULSE 76; RESP 18; O2SAT 100
[2021-03-23] MEDS: Lidocaine 2% Pres-Free 5 ML VIAL IJ (14:27)
[2021-03-23] MEDS: Omnipaque 240 MG/ML 50 ML BTL IJ (14:27)
== END 2021-03-23 13:07 | disposition home or self-care (01) ==
LOC: PC 13:06
PROVIDERS: PCP Nurse Practitioner Family; Visit Provider Preventive Medicine Occupational Medicine
DX: M47.816 Spondylosis without myelopathy or radiculopathy, lumbar region (principal)
CPT/HCPCS: 64493; 64494; 72100; Q9967

== ENCOUNTER 2021-05-25 09:18 | Outpatient (CLI) | payer BC, SELFPAY ==
[2021-05-25 09:31] VITALS: BP 126/74; PULSE 68; RESP 18; TEMP 36.7; O2SAT 100
[2021-05-25] MEDS: Lactated Ringers 1,000 ML 80 ML IV (10:00)
[2021-05-25] MEDS: fentaNYL 100 MCG/2 ML VIAL IVP ×4 (10:06→10:34)
[2021-05-25] MEDS: Midazolam 2 MG/2 ML VIAL IVP (10:06)
--- NOTE | 2021-05-25 10:42 | DI.RAD_ITS ---
Exam(s) XR PAIN CLINIC LUMBAR SP 2V EXAM: XR PAIN CLINIC LUMBAR SP 2V CLINICAL HISTORY: Dx: Lumbar Spondylosis TECHNIQUE: 2D and realtime digital imaging was performed. Radiologist not present. CONTRAST MATERIAL: None. COMPARISON: No exams were available for comparison FINDINGS: Fluoroscopy was provided for pain management therapy. Please refer to procedure report or details. Procedure images not supplied. Lumbar level radiofrequency ablation. Cumulative dose: Ka,r=11.43 mGy IMPRESSION: RADIATION DOSE DELIVERED:
[2021-05-25 10:43] VITALS: BP 142/85; PULSE 80; RESP 13; O2SAT 100
--- NOTE | 2021-05-25 10:47 | PDOC.PAIN_ITS ---
Pain Clinic Procedure Note Procedure Note Procedure Note: Bilateral Lumbar Radiofrequency with Coolief Machine PROCEDURE NOTE Date of Service: May 25, 2021 Patient: Cristo Guo Provider: Oneil Cloud DO, MPH Pre Operative Diagnosis: Lumbosacral Spondylosis without Myelopathy Post Operative Diagnosis: Same Post procedure pain; VAS= 6/10 PROCEDURE: Radiofrequency Ablation of medial branches - Bilateral L3 L4 L5DR and lateral branches of bilateral S1. Cristo Guo was brought into the fluoroscopy suite and positioned into the prone position on the fluoroscopy table and allowed to adjust to a position of comfort. A grounding pad was placed on the [right/left] thigh. The lumbar region was widely prepped with a chloraprep solution, allowed to air dry and draped in standard sterile surgical fashion. Local anesthesia was provided by a total of 8 mL of 2% Lidocaine delivered with a 25g needle. A 17g 100 mm radiofrequency introducer needle was placed to the planned anatomic targets guided with intermittent fluoroscopy with a perpendicular approach to terminally place at the junction of the superior articular process and the transverse process of the bilateral L3 L4 L5DR, the base of the sacral ala on the bilateral for the L5 medial branch nerve and the area between base of the sacral ala to the S1 foramen bilaterally. The stylets were removed and radiofrequency probes with a 4mm active tip were then inserted. Needle tip position of the probes was verified in the AP, oblique, and lateral views. At each site, the medial branch nerve was stimulated at 2 Hz to a maximum 1-2 volts determined to finalize safe needle and electrode placement. The patient was awake and responsive during this portion of the procedure. Each target was anesthetized with 1-2 mL of 2% Lidocaine for anesthesia for lesioning and then each target was lesioned at 80 degrees Celsius for 2 minutes and 30 seconds. Tissue impedences were noted to be between 250 and 500 Ohms. I then injected 1/4 cc of Depomedrol (40 mg/cc) and 1 cc of Bupivicaine at each sensory nerve location. Electrodes and needles were then removed and bandages placed over the needle placement sites, the patient then returned to the supine position on a stretcher and transported to the recovery room without hemodynamic, neurologi c, or allergic reactions. Fluoroscopic images were printed for hard copy recording and digitally archived. POST PROCEDURE EVALUATION: IMPRESSION: 1. Summary of procedure. Medication given is documented in the MAR. 2. The patient will be contacted in 1-3 weeks 3. Estimated Blood Loss: <5 mls 4. Fluoroscopy time: Documented in the EMR. Follow up plans and appointments were discussed with the Cristo . Post procedure instruction was given as documented in nursing documentation and having met discharge criteria, Cristo was discharged from the [facility]. COMMENTS: No apparent complications. Post-procedure pain: VAS= 1/10. F/U with our office as needed. I personally performed this entire procedure. Oneil Cloud DO, MPH Attending Physician Pain Management
[2021-05-25] MEDS: methylPREDNISolone ACETATE 40 MG/ML VIAL IJ (10:49)
[2021-05-25] MEDS: Lidocaine 2% Pres-Free 5 ML VIAL IJ (10:49)
[2021-05-25] MEDS: Bupivacaine 0.5% Pres-Free 10 ML VIAL IJ (10:49)
== END 2021-05-25 09:19 | disposition home or self-care (01) ==
LOC: PC 09:19
PROVIDERS: PCP Nurse Practitioner Family; Visit Provider Preventive Medicine Occupational Medicine
DX: M47.817 Spondylosis without myelopathy or radiculopathy, lumbosacral region (principal)
CPT/HCPCS: 64635; 64636; 72100; J1030; J2250; J3010

== ENCOUNTER 2021-08-24 10:14 | Outpatient (REF) | payer BC, SELFPAY ==
[2021-08-24 17:05] LABS: Hemoglobin A1C 5.5 % (<5.7)
[2021-08-25 12:01] LABS: Total Protein 7.4 g/dL (6.3-8.2)
== END 2021-08-24 10:15 | disposition home or self-care (01) ==
LOC: NCHCN 10:14
PROVIDERS: PCP Nurse Practitioner Family; Visit Provider Nurse Practitioner Family
DX: R73.9 Hyperglycemia, unspecified (principal); G62.9 Polyneuropathy, unspecified
CPT/HCPCS: 83036; 84165

== ENCOUNTER → 2022-05-21 01:10 | Outpatient (CLI) | payer BC, SELFPAY ==
--- NOTE | 2022-05-21 | DI.RAD_ITS ---
Exam(s) XR LUMBAR SPINE COMPLETE EXAM: XR LUMBAR SPINE COMPLETE CLINICAL HISTORY: DOT LEG PAIN, CHRONIC DOT LOW BACK PAIN W/O SCIATICA, M79.604, M79.605. TECHNIQUE: 2D digital imaging was performed. COMPARISON: No exams were available for comparison FINDINGS: Five views: There is no evidence of acute fracture. However, there is degenerative retrolisthesis of L2 upon L3, with approximately 11 millimeters retrolisthesis at this level and this may be causing an element of spinal canal stenosis. In addition there is advanced disc space narrowing both above and below the L 2 vertebral body at L1-2 and L2-3 levels. There is moderate-advanced disc space narrowing also lea dent at L3-4. L4-5 level exhibits mild narrowing. L5-S1 exhibits normal disc height. Sacroiliac lincoln ints appear unremarkable. Mild degenerative facet arthrosis. No osseous lesions. Bone density norm al. IMPRESSION: Findings as above. Suspect an element of spinal canal stenosis due to the significant retrolisthesis of L2 upon L3. If clinically indicated this can be further investigated with MRI. DATA REPOSITORY: RADIATION DOSE DELIVERED:
--- NOTE | 2022-05-21 | DI.MRI_ITS ---
Exam(s) MR LUMBAR SPINE WO EXAM: MR LUMBAR SPINE WO CLINICAL HISTORY: DOT LEG PAIN, CHRONIC LOW BACK, M79.604, M79.605, M54.50, G89.29. TECHNIQUE: Multiplanar multisequence MRI of the Lumbar spine was performed. COMPARISON: MR MR lumbar spine wo from 12/25/2018 CR XR LUMBAR SPINE COMPLETE from 05/21/2022 FINDINGS: Plain films performed earlier same day were reviewed. Conus medullaris is at normal level. There is no evidence of conus mass nor subjacent clumping of in trathecal nerve roots to suggest arachnoiditis. The distal thecal sac appears unremarkable.There is no evidence of Tarlov intrasacral cysts nor other significant findings within the sacral canal Bones:There are no fractures nor ominous osseous lesions in the lumbar vertebral bodies and visualize d sacrum. With respect to the individual levels... T12-L1: Unremarkable L1-2: Advanced disc space narrowing noted, more so on the left than right side and there are Modic ty pe 1 sub endplate marrow edema changes on the left side at this level. There is mild retrolisthesis of L1 upon L2. Mild annular bulging but no dominant disc herniation. Central canal dimensions lower normal.No significant foraminal stenosis on either side at this level. Mild degenerative changes in the facet joints. L2-3: This level also exhibits advanced disc space narrowing and Modic type 1 sub endplate marrow johnnie ma changes (mild). There is 8 millimeters retrolisthesis of L2 upon L3. There is some annular bulgi ng at this level without a dominant disc herniation. Mild central canal stenosis. There does not ap pear to be significant foraminal stenosis despite the retrolisthesis here. Mild facet joint degenera tive changes. L3-4: Moderate decreased disc height on both sides of the disc space. There is annular bulging into the floor both exiting neural foramina. However, there does not appear to be significant foraminal s tenosis. Also no evidence of significant central canal stenosis. L4-5: There is asymmetric disc space narrowing on the right side of this disc space with Modic type 1 sub endplate marrow edema changes at this level. There is no central canal stenosis. No disc herni ation posteriorly although there is annular bulging into the floor of the exiting right neural forame n. Mild right-sided foraminal stenosis. Left neural foramen unremarkable. L5-S1: Normal disc height and signal. No disc herniation or spinal canal stenosis. No foraminal bo nosis. Soft tissues: paraspinal soft tissues appear unremarkable. IMPRESSION: 1. Significant retrolisthesis L2 upon L3 and (lesser amount) L1 upon L2. However, there is no promin ent central canal stenosis at these levels. There is mild central canal stenosis at L2-3 (no signifi cant foraminal stenosis). 2. At L4-5 level there is mild right-sided foraminal stenosis which is due to asymmetric disc space n arrowing on the right side at this level as well as some mild annular bulging into the floor of the e xiting right neural foramen at this level. 3. Other findings as above. However, there is no prominent central canal stenosis nor severe foramin al stenosis in the lumbar spine. DATA REPOSITORY:
== END ==
PROVIDERS: PCP Nurse Practitioner Family; Visit Provider Physician Assistant
DX: M43.16 Spondylolisthesis, lumbar region (principal)
CPT/HCPCS: 72110; 72148

== ENCOUNTER 2022-06-20 12:18 | Outpatient (CLI) | payer BC, SELFPAY ==
[2022-06-20 12:32] VITALS: BP 116/71; PULSE 80; RESP 20; TEMP 36.5; O2SAT 94
[2022-06-20 13:03] VITALS: BP 120/84; PULSE 75; RESP 14; O2SAT 100
--- NOTE | 2022-06-20 13:05 | DI.RAD_ITS ---
Exam(s) XR PAIN CLINIC SACRIOILIAC 2V EXAM: XR PAIN CLINIC SACRIOILIAC 2V CLINICAL HISTORY: DX: SI Joint Dysfunction TECHNIQUE: 2D and realtime digital imaging was performed. Radiologist not present. CONTRAST MATERIAL: None. COMPARISON: No exams were available for comparison FINDINGS: Fluoroscopy was provided for pain management therapy. Please refer to procedure report or details. Cumulative dose: Ka,r=5.21 mGy IMPRESSION: RADIATION DOSE DELIVERED:
--- NOTE | 2022-06-20 13:07 | PDOC.PAIN_ITS ---
Pain Clinic Procedure Note Procedure Note Procedure Note: INTRA-ARTICULAR SI JOINT INJECTION Cristo Guo has been referred to the [facility] Management [facility] for intra- articular SI joint injection. COMMENTS: He was sent for this by his orthopedic surgeon. Pre-procedure pain VAS was 6/10. Dx: Sacroiliac joint dysfunction Patient was interviewed and the medical record reviewed. There were no medical, pharmacologic, radiographic or other structural contraindications to attempting fluoroscopically guided intra-articular SI joint injection. Risks and expected side effects as well as potential benefit of the procedure were reviewed and voiced concerns addressed. The printed consent form was signed and witnessed. Standard time-out procedure was performed. Patient was placed in the prone position on the fluoroscopy table and automated blood pressure cuff and pulse oximeter applied. The skin entry point for approaching the bilateral SI joints was identified under the most advantageous fluoroscopic view and marked. Following thorough Chlorhexadine preparation of the skin and draping and 1% lidocaine infiltration of the skin entry point and subcutaneous tissues, a 22 gauge spinal needle was placed under fluoroscopic guidance into the bilateral SI joints was identified under the most advantageous fluoroscopic view and marked. Intra-articular placement was confirmed by a clear arthrogram resulting from the injection of 0.25ml Omnipaque 240, 1ml 1% lidocaine, and 40mg Depomedrol were injected intra-articularily into each joint with an initial reproduction of a significant component of the usual pain. Vital signs were stable throughout the procedure and were as recorded in the docflowsheet by the nursing staff. If given, dosages of intravenous drugs for anxiolysis and analgesia were documented in MAR. Follow up plans and appointments were discussed with the patient. Post procedure instruction was given as documented in nursing documentation and having met discharge criteria, and was discharged from the Pain Management Center. COMMENTS: Post-procedure pain VAS was 1/10. Oneil Cloud DO, MPH [facility]-Pain Management [facility] CC: Francesca Curiel
[2022-06-20] MEDS: Omnipaque 240 MG/ML 50 ML BTL IJ (13:10)
[2022-06-20] MEDS: Lidocaine 1% Pres-Free 5 ML VIAL IJ (13:10)
[2022-06-20] MEDS: methylPREDNISolone ACETATE 40 MG/ML VIAL IJ (13:11)
== END 2022-06-20 12:19 | disposition home or self-care (01) ==
LOC: PC 12:19
PROVIDERS: PCP Nurse Practitioner Family; Visit Provider Preventive Medicine Occupational Medicine
DX: M53.3 Sacrococcygeal disorders, not elsewhere classified (principal)
CPT/HCPCS: 27096; 72200; J1030; Q9967

== ENCOUNTER 2022-10-18 15:46 | Outpatient (REF) | payer BC, SELFPAY ==
[2022-10-18 21:05] LABS: Abs Immature Grans 0.02 10^3/uL (0.0-0.06); Absolute Basophil Count 0.07 10^3/uL (0.0-0.2); Absolute Lymphocyte Count 1.51 10^3/uL (1.2-3.4); Absolute Monocyte Count 0.65 10^3/uL (0.1-0.8); Absolute Neutrophil Count 3.47 10^3/uL (1.2-6.7); Basophils % 1.2; Eosinophils % 1.7; HCT 37.4 % (40.0-50.0); HGB 12.3 g/dL (13.5-17.5); Immature Grans % 0.3; Lymphocytes % 25.9; MCH 29.3 pg (27.0-33.0); MCHC 32.9 % (32.0-36.0); MCV 89 fL (80-95); MPV 9.3 fL (8.0-11.0); Monocytes % 11.2; Neutrophils % 59.7; Platelet Count 352 10^3/uL (130-400); RDW 13.2 % (11.8-14.1); RDW-SD 43.4 fL; WBC 5.82 10^3/uL (4.4-10.8)
[2022-10-18 21:16] LABS: ESR 2 mm/hr (0-20)
[2022-10-18 21:27] LABS: ALT 24 U/L (16-63); AST 23 U/L (15-37); Alkaline Phosphatase 39 U/L (46-116); Anion Gap 5.7 mmol/L (3-11); BUN 15 mg/dL (7-18); Bilirubin, Total 0.4 mg/dL (0.2-1.0); CO2 30.3 mmol/L (21.0-32.0); Chloride 104 mmol/L (98-107); Glucose 90 mg/dL (74-106); Potassium 3.8 mmol/L (3.5-5.1); Sodium 140 mmol/L (136-145); Total Protein 6.8 g/dL (6.4-8.2)
== END 2022-10-18 15:47 | disposition home or self-care (01) ==
LOC: NCHCN 15:46
PROVIDERS: PCP Nurse Practitioner Family; Visit Provider Family Medicine
DX: L50.8 Other urticaria (principal)
CPT/HCPCS: 80053; 85652; 85025

== ENCOUNTER 2022-12-11 01:49 | Outpatient (CLI) | payer BC, SELFPAY ==
--- NOTE | 2022-12-11 | DI.MRI_ITS ---
Exam(s) MR IAC BRAIN WO/W EXAM: MR IAC BRAIN WO/W CLINICAL HISTORY: DIZZINESS R42 LOSS OF BALANCE R26.89 X 3 WEEKS, HEAD TRAUMA TECHNIQUE: Multiplanar multisequence MRI of the brain was performed. Both noninfused and contrast i nfused sequences were performed. IV Contrast injected was cc Dotarem. COMPARISON: No exams were available for comparison FINDINGS: CEREBRAL PARENCHYMA: No evidence of intracranial hemorrhage, mass effect nor shift of midline structu re. No extraaxial fluid collections. Ventricles are not enlarged nor shifted. There is no significant focal signal abnormality in the cerebellar hemispheres nor within the trish, m idbrain, and thalami. There is no abnormal signal abnormality in the periventricular white matter. DWI: No areas of restricted diffusion to suggest acute ischemic event. SWI: No microhemorrhages evident. There are no ring enhancing lesions in the brain. There is no abnormal meningeal enhancement. INTERNAL AUDITORY CANALS: No evidence of mass in the cerebellopontine angles. No evidence of intra c analicular acoustic neuroma. No enhancing lesions in the IAC's. Seventh and 8th cranial nerves appear unremarkable within the internal auditory canals on both sides. PITUITARY GLAND: No mass nor parasellar abnormality. No obvious abnormality in the cavernous sinuses. FLOW VOIDS: The expected flow void are noted. No evidence of obvious aneurysm nor obvious vascular ma lformation. PARANASAL SINUSES: The visualized paranasal sinuses appear unremarkable. ORBITS: No obvious abnormal findings. IMPRESSION: 1. No significant intracranial findings on this MRI scan of the brain. 2. No abnormal enhancing intracranial findings. There are no ring enhancing lesions in the brain and there is no abnormal meningeal enhancement. 3. No evidence of abnormality in the internal auditory canals. No masses in the cerebellopontine an gles. DATA REPOSITORY:
[2022-12-11] MEDS: Gadoterate meglumine 20 ML SYRINGE 14 ML IVP (09:19)
[2022-12-11] MEDS: Normal Saline Flush 10 ML SYR IVP (09:19)
== END 2022-12-11 02:09 ==
PROVIDERS: PCP Nurse Practitioner Family; Visit Provider Family Medicine
DX: R26.89 Other abnormalities of gait and mobility (principal); R42 Dizziness and giddiness; R51.9 Headache, unspecified; H53.8 Other visual disturbances
CPT/HCPCS: 70553

== ENCOUNTER 2023-07-03 10:08 | Outpatient (CLI) | payer BC, SELFPAY ==
--- NOTE | 2023-07-03 07:15 | DI.RAD_ITS ---
Exam(s) XR PAIN CLINIC SACRIOILIAC 2V EXAM: XR PAIN CLINIC SACRIOILIAC 2V CLINICAL HISTORY: DX: Sacroiliac Joint Dysfunction TECHNIQUE: 2D and realtime digital imaging was performed. CONTRAST MATERIAL: Refer to procedure report. COMPARISON: No exams were available for comparison FINDINGS: Fluoroscopy was provided for Dr. Cloud during the performance of a bilateral sacroiliac joint injecti ons. Please refer to the procedure report for complete details. Ka,r=2.43 mGy IMPRESSION:
[2023-07-03 10:23] VITALS: BP 128/88; PULSE 71; RESP 20; TEMP 36.6; O2SAT 98
[2023-07-03] MEDS: Dexamethasone Sod. Phos./Pres-Free 10 MG/ML VIAL (11:07)
[2023-07-03 11:17] VITALS: BP 101/49; PULSE 80; RESP 20
--- NOTE | 2023-07-03 11:17 | PDOC.PAIN ---
Date of service: 07/03/23 Time of Service: 11:17 Pain Managment Procedure Note Procedure Note Procedure Note: PROCEDURE NOTE BILATERAL INTRA-ARTICULAR SACROILIAC JOINT INJECTION Date of Service: July 03, 2023 Patient: Cristo Guo Provider: Oneil Mendoza DO, MPH COMMENTS: I previously evaluated the patient in the office and their symptoms in relation to the sacroiliac joint pain have remained the same. Questionable contrast allergy - will do this procedure without contrast Pre-operative diagnosis: Sacroiliac joint dysfunction Post-operative diagnosis: Same Pre-procedure pain: VAS= 5/10 Cristo Guo has been referred to our [facility] for a Right intra-articular Sacroiliac joint injection. Cristo was interviewed and the medical record reviewed. There were no medical, pharmacologic, radiographic or other structural contraindications to attempting a fluoroscopically-guided, contrast-enhanced, intra-articular Sacroiliac joint injection. The risks, benefits, and potential side effects of this procedure were reviewed with the patient. Questions and concerns were addressed. After it was clear that Cristo was fully informed about the procedure, the printed consent form was signed by the patient and myself. Cristo was placed in the prone position on the fluoroscopy table and an automated blood pressure cuff, 3 lead EKG, and pulse oximeter were applied. The skin entry point for approaching the Right sacroiliac joint was identified under the most advantageous fluoroscopic view and marked. Following thorough Chlorhexadine preparation of the skin and draping with sterile surgical drapes, 2 mls of 1% lidocaine was infiltrated into the skin at the entry point and the surrounding subcutaneous tissues. Next, a 3.5 22G spinal needle was placed under fluoroscopic guidance into the Right sacroiliac joint. Next, 0.75 ml of Dexamethasone (15 mg/ml) was injected intra-articularly with an initial reproduction of a significant component of the usual pain. This was followed with 1 ml of 1% Lidocaine. The needle was then removed without difficulty. The exact procedure was completed on the opposite sacroiliac joint. (48 ml of Omnipaque-240 was wasted). Cristo's vital signs were stable throughout the procedure and were as recorded in nursing records. Follow up plans and appointments were discussed with Cristo. Post procedure instructions were given as documented in nursing records. Having met discharge criteria, Cristo was discharged from the [facility]. COMMENTS: Post-procedure pain: VAS= 0/10. If the patient receives at least 50% improvement in pain and/or function for at least 3 months, this procedure can be repeated if needed. I personally performed this entire procedure. ONEIL MENDOZA DO, MPH ABPMR-subspecialty board certification in Pain Medicine [facility]-Center for Pain Management
== END 2023-07-03 10:09 | disposition home or self-care (01) ==
LOC: PC 10:09
PROVIDERS: PCP Nurse Practitioner Family; Visit Provider Preventive Medicine Occupational Medicine
DX: M46.1 Sacroiliitis, not elsewhere classified (principal)
CPT/HCPCS: 27096; 72200

== ENCOUNTER 2024-01-22 16:15 | Outpatient (CLI) | payer BC, SELFPAY ==
--- NOTE | 2024-01-22 06:00 | DI.RAD_ITS ---
Exam(s) XR PAIN CLINIC SACRIOILIAC 2V EXAM: XR PAIN CLINIC SACRIOILIAC 2V CLINICAL HISTORY: Dx: Sacroiliac Joint Dysfunction TECHNIQUE: 2D and realtime digital imaging was performed. CONTRAST MATERIAL: Refer to procedure report. COMPARISON: No exams were available for comparison FINDINGS: Fluoroscopy was provided for Dr. Cloud during the performance of a bilateral sacroiliac joint injecti on. Please refer to the procedure report for complete details. Ka,r=6.63 mGy IMPRESSION: RADIATION DOSE DELIVERED: 0.0 0.0 0
[2024-01-22 16:24] VITALS: BP 128/86; PULSE 75; RESP 20; TEMP 36.7; O2SAT 99
--- NOTE | 2024-01-22 16:47 | PDOC.PAIN_ITS ---
Date of service: 01/22/24 Time of Service: 16:47 Pain Managment Procedure Note Procedure Note Procedure Note: PROCEDURE NOTE BILATERAL INTRA-ARTICULAR SACROILIAC JOINT INJECTION Date of Service: January 22, 2024 Patient: Cristo Guo Provider: Oneil Mendoza DO, MPH COMMENTS: I previously evaluated the patient in the office and their symptoms in relation to the sacroiliac joint pain have remained the same. Pre-operative diagnosis: Sacroiliac joint dysfunction Post-operative diagnosis: Same Pre-procedure pain: VAS= 7/10 Cristo Guo has been referred to our [facility] for a Bilateral intra-articular Sacroiliac joint injection. Cristo was interviewed and the medical record reviewed. There were no medical, pharmacologic, radiographic or other structural contraindications to attempting a fluoroscopically-guided, contrast-enhanced, intra-articular Sacroiliac joint injection. The risks, benefits, and potential side effects of this procedure were reviewed with the patient. Questions and concerns were addressed. After it was clear that Cristo was fully informed about the procedure, the printed consent form was signed by the patient and myself. Cristo was placed in the prone position on the fluoroscopy table and an automated blood pressure cuff, 3 lead EKG, and pulse oximeter were applied. The skin entry point for approaching the Left sacroiliac joint was identified under the most advantageous fluoroscopic view and marked. Following thorough Chlorhexadine preparation of the skin and draping with sterile surgical drapes, 2 mls of 1% lidocaine was infiltrated into the skin at the entry point and the surrounding subcutaneous tissues. Next, a 3.5 22G spinal needle was placed under fluoroscopic guidance into the Left sacroiliac joint. Intra-articular placement was confirmed by a clear arthrogram resulting from the injection of 0.25ml of Omnipaque-240. Next, 1 ml of Depo- Medrol 40 mg/ml was injected intra- articularly with an initial reproduction of a significant component of the usual pain. This was followed with 1 ml of 1% Lidocaine. The needle was then removed without difficulty. (49 ml of Omnipaque-240 was wasted). The exact procedure was completed on the opposite sacroiliac joint. Cristo's vital signs were stable throughout the procedure and were as recorded in nursing records. Follow up plans and appointments were discussed with Cristo. Post procedure instructions were given as documented in nursing records. Having met discharge criteria, Cristo was discharged from the [facility]. COMMENTS: Post-procedure pain: VAS= 0/10. If the patient receives at least 50% improvement in pain and/or function for at least 3 months, this procedure can be repeated if needed. I personally performed this entire procedure. ONEIL MENDOZA DO, MPH ABPMR-subspecialty board certification in Pain Medicine [facility] [facility]
[2024-01-22 17:11] VITALS: BP 132/95; PULSE 81; RESP 17; O2SAT 99
[2024-01-22] MEDS: Omnipaque 240 MG/ML 50 ML BTL IJ (17:14)
[2024-01-22] MEDS: methylPREDNISolone ACETATE 40 MG/ML VIAL IJ (17:15)
[2024-01-22] MEDS: Nerve Block Tray 1 EACH MC (17:15)
== END 2024-01-22 16:16 | disposition home or self-care (01) ==
LOC: PC 16:16
PROVIDERS: PCP Nurse Practitioner Family; Visit Provider Preventive Medicine Occupational Medicine
DX: M46.1 Sacroiliitis, not elsewhere classified (principal)
CPT/HCPCS: 27096; 72200; J1010; Q9967

== ENCOUNTER → 2024-02-17 18:47 | Outpatient (CLI) | payer BC, SELFPAY ==
--- NOTE | 2024-02-17 | DI.RAD_ITS ---
Exam(s) XR SHOULDER RT COMPLETE 2+V EXAM: XR SHOULDER RT COMPLETE 2+V CLINICAL HISTORY: Atraumatic rt shoulder pain, M25.511, h/o OA, ? calcific tendinitis. TECHNIQUE: 2D digital imaging was performed. COMPARISON: No exams were available for comparison FINDINGS: Five views. No evidence of acute fracture or dislocation. Subacromial space is not diminished but there is promi nent soft tissue calcification adjacent to the greater tuberosity consistent with calcific tendinitis -bursitis. There are minimal degenerative changes in the glenohumeral joint. AC joint unremarkable. IMPRESSION: Calcific rotator cuff tendinitis-bursitis. DATA REPOSITORY: RADIATION DOSE DELIVERED:
--- NOTE | 2024-02-17 16:55 | DI.VRAD_ITS ---
PROCEDURE INFORMATION: Exam: XR Right Shoulder Exam date and time: 02/17/2024 4:35 PM Age: 63 years old Clinical indication: Right; Patient HX: Atraumatic RT shoulder pain, h/0 oa, ? calcific tendinitis TECHNIQUE: Imaging protocol: Radiologic exam of the right shoulder. Views: 2 or more views. COMPARISON: No relevant prior studies available. FINDINGS: Bones/joints: No evidence of acute fracture or dislocation. The alignment is anatomic. There are foci of calcification seen adjacent to the greater tubercle, concerning for calcific tendinosis. Mild foci of calcification also seen at the acromioclavicular joint. Soft tissues: No evidence of subcutaneous soft tissue edema. A lobulated appearance on the Y-view may represent underlying musculature. IMPRESSION: 1. No acute fracture or dislocation. 2. Calcifications noted in the region of the right greater tubercle and acromioclavicular joint, concerning for calcific tendinosis. Clinical correlation recommended to evaluate for tendinitis. Dictated and Authenticated by: Jessica Deal MD. Ordering:JACOB Fields MD
== END ==
PROVIDERS: PCP Nurse Practitioner Family; Visit Provider Physician Assistant
DX: M75.31 Calcific tendinitis of right shoulder (principal)
CPT/HCPCS: 73030

== ENCOUNTER 2024-04-13 15:06 | Outpatient (CLI) | payer BC, SELFPAY ==
--- NOTE | 2024-04-13 14:30 | DI.RAD_ITS ---
Exam(s) XR KNEE RT 2V AP,LAT XR STANDING ALIGNMENT EXAM: XR STANDING ALIGNMENT CLINICAL HISTORY: TKR planning. TECHNIQUE: 2D digital imaging was performed. Standing AP views were performed from the pelvis throu gh the ankles. COMPARISON: CR XR KNEE RT 2V AP,LAT from 04/13/2024 FINDINGS: BONES: No acute fracture is present. No bony destructive lesion is seen. Leg length discrepancy: No significant overall leg length discrepancy. JOINTS: Knees: Femoral tibial joint spaces are maintained. Mild spurring at the medial femoral condy le medial tibial plateau. Severe narrowing of the right patellofemoral joint, with a [id number] ap pearance. The ankle joints are unremarkable. The hip joints show mild narrowing and acetabular spurring.. SOFT TISSUE: Normal. IMPRESSION: Severe degenerative changes of the right patellofemoral joint.. No significant leg length discrepancy. DATA REPOSITORY: RADIATION DOSE DELIVERED:
--- NOTE | 2024-04-13 15:00 | DI.RAD_ITS ---
Exam(s) XR KNEE RT 2V AP,LAT XR STANDING ALIGNMENT EXAM: XR STANDING ALIGNMENT CLINICAL HISTORY: TKR planning. TECHNIQUE: 2D digital imaging was performed. Standing AP views were performed from the pelvis throu gh the ankles. COMPARISON: CR XR KNEE RT 2V AP,LAT from 04/13/2024 FINDINGS: BONES: No acute fracture is present. No bony destructive lesion is seen. Leg length discrepancy: No significant overall leg length discrepancy. JOINTS: Knees: Femoral tibial joint spaces are maintained. Mild spurring at the medial femoral condy le medial tibial plateau. Severe narrowing of the right patellofemoral joint, with a [id number] ap pearance. The ankle joints are unremarkable. The hip joints show mild narrowing and acetabular spurring.. SOFT TISSUE: Normal. IMPRESSION: Severe degenerative changes of the right patellofemoral joint.. No significant leg length discrepancy. DATA REPOSITORY: RADIATION DOSE DELIVERED:
== END 2024-04-13 15:07 | disposition home or self-care (01) ==
LOC: DIORS 15:10
PROVIDERS: PCP Nurse Practitioner Family; Visit Provider Physician Assistant
DX: M25.561 Pain in right knee (principal); M17.11 Unilateral primary osteoarthritis, right knee
CPT/HCPCS: 73560; 77073

== ENCOUNTER 2024-05-08 02:26 | Outpatient (CLI) | payer BC, SELFPAY ==
--- OUTSIDE RECORDS SUMMARY | 2024-05-08 02:47 | XMS_ITS | Encounter Summary ---
Author Organization [facility] Address [address] [place] [address] Care Team Providers Care Acquisition Cost Estimator Name Role Phone Francesca Curiel APRN Primary Care Provider [phone] Reason for Referral * PT/OT/ST (Routine/Next Available) - Closed Specialty Diagnoses / Procedures Referred By Contac t Referred To Contact Diagnoses Primary osteoarthritis of right knee Brenna Shoemaker PA-C [address] [place] [address] Referral ID Status Reason Start Date Expiration Date V isits Requested Visits Authorized [id number] Closed Specialty Services Required 12/28/2022 1 1 Question Answer Reason for Request: PF arthritis Comments VMO intensive quad strengthening HEP Reason for Visit * Reason Comments Pain * Referral (Routine) - Receiving Office to Obtain Authorization Specialty Diagnoses / Procedures Referred By Contac t Referred To Contact Orthopedic Surgery Diagnoses Knee pain, right Francesca Curiel APRN [address] [place] [address] [facility] [address] [place] [address] Referral ID Status Reason Start Date Expiration Date Visits Requested Visits Authorized [id number] Receiving Office to Obtain Authorization 1 1 Encounter Details Date Type Department Care Team (Late st Contact Info) Description 12/28/2022 10:[address] [facility] [place] [address] Brenna Shoemaker PA-C [address] [place] [address] Chronic pain of right knee (Primary Dx); Primary osteoarthritis of right knee; Primary osteoarthritis of both hips Social History Tobacco Use Types Packs/Day Years Used Date Smoking Tobacco: Never Smokeless Tobacco: Never Tobacco Cessation:Counseling Given: Not Answered Interpersonal Safety Answer Date Record ed Physically Hurt Never 08/30/2020 Verbally Threaten Not on file 08/30/2020 Sex and Gender Information Value Date Recorded Sex Assigned at Not on file Gender Identity Male 03/14/2022 13:05 EDT Sexual Orientation Not on file documented as of this encounter Functional Status Functional Status Response Date of Assess ment Because of a physical, menta l, or emotional condition, does this person have difficulty doing errands alone such as visiting a doctor's office or shopping? No 03/29/2022 Cognitive Status Response Date of Assessm ent Because of a physical, menta l, or emotional condition, does this person have serious difficulty concentrating, remembering, or making decisions? No 03/29/2022 documented as of this encounter Progress Notes * Brenna Shoemaker PA-C - 12/28/2022 1030 EDTAssociated Order(s): Large Joint Injection/Arthrocentesis: R knee Patient ID: Cristo Guo is a 62 y.o. male. Chief Complaint: Chief Complaint Patient presents with ??? Right Knee - Pain HPI: This is a 62 y.o. male with no significant past medical history who presents to the office with right knee pain. Onset of pain: Last 6 years Injury and DOI: Injury while skiing 30 years ago. He may have dislocated his patella and spontaneously reduce this, but had no insurance at the time, and did not have this investigated. He reports that it took roughly 3 years for improvement in pain Character of pain: Dull ache pain, occasionally sharp Location of pain: All over the knee, particularly anteriorly Mechanical symptoms: Denies other than occasional pop anterior Worsens: Stairs, being on his feet for longer periods of time Alleviating: Occasional ibuprofen with partial relief Swelling: Occasionally Medications tried: Ibuprofen Injections: None Physical Therapy: None. Patient performs home exercises 3 times a week including upper extremity weights and core exercises. He had to discontinue lower extremity exercises Braces/Assistive devices: None Previous surgeries: None Wakes at night? Yes Hip pain: Denies The patient was recently evaluated by Dr. Charles for back and right lower extremity pain. He reported onset of right lower extremity pain in March,. He reported sharp shooting pain along the right lateral calf to the ankle with mild buttock discomfort. He was using meloxicam and repair and all at nighttime. He attended PT, had bilateral RFA L3-S1, which was helpful. On MRI, there is no clear neural compression. EMG of the right lower extremity and possible subsequent nerve root block wasordered. Occupation: The patient works in [employer]. He uses knee pads that placed the majority of his weight onto his shins, see is not applying direct pressure History reviewed. No pertinent past medical history. Past Surgical History: Procedure Laterality Date ??? BUNIONECTOMY Bilateral ??? TONSILLECTOMY as child Family History Problem Relation Age of Onset ??? Arthritis Father Current Outpatient Medications: ??? aspirin chewable 81 mg tablet, Take 81 mg by mouth daily., Disp: , Rfl: ??? cholecalciferol, Vitamin D3, 25 mcg (1,000 unit) tablet, Take 1,000 Units by mouth daily., Disp: , Rfl: ??? ELDERBERRY FRUIT ORAL, Take by mouth., Disp: , Rfl: ??? ferrous fumarate/vit Bcomp,C (SUPER B COMPLEX ORAL), Take by mouth., Disp: , Rfl: ??? ferrous sulfate 325 mg (65 mg iron) tablet, Take 325 mg by mouth daily., Disp: , Rfl: ??? hydrOXYzine (ATARAX) 25 mg tablet, , Disp: , Rfl: ??? ibuprofen (MOTRIN) 200 mg tablet, Take 200 mg by mouth if needed for Pain. 2-3 at times, Disp: , Rfl: ??? MAGNESIUM CITRATE ORAL, Take by mouth., Disp: , Rfl: ??? meloxicam (MOBIC) 15 mg tablet, Take 15 mg by mouth at bedtime. 2 tabs at night (Patient not taking: No sig reported), Disp: , Rfl: ??? rOPINIRole (REQUIP) 1 mg tablet, Take 1 mg by mouth at bedtime. , Disp: , Rfl: ??? saw palmetto xtr/zinc picolin (SAW PALMETTO EXTRACT ORAL), Take by mouth., Disp: , Rfl: ??? UNABLE TO FIND, if needed. OTC leg quinine leg cramp supplement, Disp: , Rfl: Allergies Allergen Reactions ??? Amoxicillin Hives ??? Meloxicam Hives Physical Exam: There were no vitals taken for this visit. Exam of the right knee: - extension lag, + crepitus with active extension. Able to straight leg raise against gravity. ROM 0-130 degrees of flexion. - Shital's. -Theresa's. -Posterior drawer. -MJLT.-LJLT. 2+ effusion. - posterior fullness consistent with Victoria's cyst. Stable with varus and valgusstress in flexion and extension. Pes anserine bursa is nontender. + grind. Full and nonirritable left knee and bilateral hip range of motion Xrays that were obtained today and independently visualized by me: Weightbearing AP, notch, lateral, sunrise views of the right knee with 3 view comparisons of the left: Advanced patellofemoral arthritis on the right, mild left patellofemoral arthritis. Mild medial lateral compartment arthritis bilaterally. AP pelvis: Mild bilateral hip arthritis. Assessment: 1. Advanced right knee patellofemoral arthritis, mild medial and lateral compartment arthritis, questionable patella dislocation 30 years ago, never investigated. 2. Asymptomatic mild left tricompartmental knee arthritis 3. Asymptomatic mild bilateral hip arthritis Plan: 1. Patient would like to pursue cortisone injection today. The indications and contraindication as well as the risks and benefits of the injection were reviewed with the patient. The patient understands the risks, including failure to relieve pain, infection, allergic reaction, and increased pain. At this time, the patient elects to proceed with the cortisone injection. A verbal consent was obtained. A procedural timeout was performed confirming the patient's identity, procedure, and laterality. Using ethyl chloride as a local anesthetic, under sterile conditions, the right knee was injected with 1cc of 0.5% bupivacaine, 1cc of 1% lidocaine, and 1cc of 80 mg/ml of depo-medrol via 22 gauge needle. There were no complications. The patient tolerated this well. 2. The patient may have repeat cortisone injection every 3 months at the soonest if effective. If he does not have improvement, he may phone the office for an order for Monovisc injection for the right knee. This can be arranged over the phone. 3. He is not interested in any sort of knee replacement at that time. He is currently hoping to improve symptoms so he can exercise more. I advised him that this will likely not improve any nerve type pain to his lower leg. 4. PT prescription for VMO intensive quad strengthening. 5. Follow-up visit as needed. If patient does wish to pursue possible patellofemoral replacement, would like to investigate the integrity of the MPFL on exam. I was directly supervised by Dr. Prescott, who was in the suite and immediately available for the entire length of the service that was provided. Please note: This note was transcribed using voice recognition software. Because of this technology, there are often unintended grammatical, spelling, and other firmware developer errors. Please disregardthese errors. I spent a total of 40 minutes on the date of this encounter meeting with the patient and reviewing documentation/coordinating care as described in the above note. This was separate from any procedures performed at the time of the visit. Procedure: Large Joint Injection/Arthrocentesis: R knee on 12/28/2022 10:30 Indications: pain Details: 22 G needle Medications: 1 mL bupivacaine (PF) 0.5%; 80 mg methylPREDNISolone ACETATE 80 mg/mL; 1 mL lidocaine (PF) 10 mg/mL (1 %) Outcome: tolerated well, no immediate complications Procedure, treatment alternatives, risks and benefits explained, specific risks discussed. Consent was given by the patient. Immediately prior to procedure a time out was called to verify the correctpatient, procedure, equipment, medical support assistant and site/side marked as required. Patient was prepped and draped in the usual sterile fashion. documented in this encounter Plan of Treatment Scheduled Referrals Name Type Priority Associated Diagnoses Orde r Schedule AMB CONS/FOLLOW UP PHYSICAL THERAPY - OUTSIDE OF NETWORK Outpatient Referral Routine/Next Available Primary osteoarthritis of right knee Expected: 01/04/2023 (Approximate), Expires: 12/29/2023 documented as of this encounter Procedures Procedure Name Priority Date/Time Associated Diagnosis Comments LARGE JOINT INJECTION/ARTHROCE NTESIS Routine 12/28/2022 10:30 EDT Primary osteoarthritis of right knee XR PELVIS 1-2 VIEWS Routine 12/28/2022 10:20 EDT Chronic pain of right knee documented in this encounter Results * CT ARTHROCENTESIS ASPIR&/INJ MAJOR JT/BURSA W/O US (12/28/2022 10:30 EDT) Narrative [facility] POINT OF CARE - 12/28/2022 10:30 EDT Brenna Shoemaker PA-C ? 12/28/2022 19:01 Large Joint Injection/Arthrocentesis: R knee on 12/28/2022 10:30 Indications: pain Details: 22 G needle Medications: 1 mL bupivacaine (PF) 0.5%; 80 mg methylPREDNISolone ACETATE 80 mg/mL; 1 mL lidocaine (PF) 10 mg/mL (1 %) Outcome: tolerated well, no immediate complications Procedure, treatment alternatives, risks and benefits explained, specific risks discussed. Consent was given by the patient. Immediately prior to procedure a time out was called to verify the correct patient, procedure, equipment, medical support assistant and site/side marked as required. Patient was prepped and draped in the usual sterile fashion. Brenna Shoemaker PA-C PROCEDURE/MINOR S URGICAL ORDERABLES [facility] POINT OF CARE * XR PELVIS 1-2 VIEWS (12/28/2022 10:20 EDT) Anatomical Region Laterality Modality Body, Pelvis Computed Radiogr aphy 12/28/2022 15:2 7 EDT Impressions 12/28/2022 15:27 EDT FINDINGS / IMPRESSION: * ??Moderate bilateral hip degenerative changes. * ??Lower lumbar spine degenerative changes. * ??Mild osseous demineralization without evidence of fracture. Narrative 12/28/2022 15:27 EDT EXAM/TECHNIQUE: 12/28/2022 10:15 AM ??XR PELVIS 1-2 VIEWS 1 views ?? HISTORY: ??hip pain Procedure Note Jerson Pitts MD - 12/28/2022 EXAM/TECHNIQUE: 12/28/2022 10:15 AM XR PELVIS 1-2 VIEWS 1 views HISTORY: hip pain IMPRESSION FINDINGS / IMPRESSION: * Moderate bilateral hip degenerative changes. * Lower lumbar spine degenerative changes. * Mild osseous demineralization without evidence of fracture. Brenna Shoemaker PA-C IMG DIAGNOSTIC IM AGING ORDERABLES * XR KNEE LEFT 3 VIEWS (12/28/2022 10:20 EDT) Anatomical Region Laterality Modality Lower Extremities Left Computed Radio graphy 12/28/2022 15:2 7 EDT Impressions 12/28/2022 15:27 EDT FINDINGS / IMPRESSION: * ??Right knee 4 views: Compartment degenerative changes which are severe in the patellofemoral compartment. Moderate joint effusion. Mild osseous demineralization. * ??Left knee 3 views: Tricompartment degenerative changes which are moderate. Narrative 12/28/2022 15:27 EDT EXAM/TECHNIQUE: 12/28/2022 10:15 AM ??XR KNEE LEFT 3 VIEWS, XR KNEE RIGHT 4 OR MORE VIEWS 3 (accession [id number]), 4 (accession [id number]) views ?? HISTORY: ??Left Knee for Comparison Procedure Note Jerson Pitts MD - 12/28/2022 EXAM/TECHNIQUE: 12/28/2022 10:15 AM XR KNEE LEFT 3 VIEWS, XR KNEE RIGHT 4OR MORE VIEWS 3 (accession [id number]), 4 (accession [id number]) views HISTORY: Left Knee for Comparison IMPRESSION FINDINGS / IMPRESSION: * Right knee 4 views: Compartment degenerative changes which are severein the patellofemoral compartment. Moderate joint effusion. Mild osseousdemineralization. * Left knee 3 views: Tricompartment degenerative changes which aremoderate. Brenna Pérezch PA-C IMG DIAGNOSTIC IM AGING ORDERABLES * XR KNEE RIGHT 4 OR MORE VIEWS (12/28/2022 10:20 EDT) Anatomical Region Laterality Modality Lower Extremities Right Computed Radio graphy 12/28/2022 15:2 7 EDT Impressions 12/28/2022 15:27 EDT FINDINGS / IMPRESSION: * ??Right knee 4 views: Compartment degenerative changes which are severe in the patellofemoral compartment. Moderate joint effusion. Mild osseous demineralization. * ??Left knee 3 views: Tricompartment degenerative changes which are moderate. Narrative 12/28/2022 15:27 EDT EXAM/TECHNIQUE: 12/28/2022 10:15 AM ??XR KNEE LEFT 3 VIEWS, XR KNEE RIGHT 4 OR MORE VIEWS 3 (accession [id number]), 4 (accession [id number]) views ?? HISTORY: ??Left Knee for Comparison Procedure Note Jerson Pitts MD - 12/28/2022 EXAM/TECHNIQUE: 12/28/2022 10:15 AM XR KNEE LEFT 3 VIEWS, XR KNEE RIGHT 4OR MORE VIEWS 3 (accession [id number]), 4 (accession [id number]) views HISTORY: Left Knee for Comparison IMPRESSION FINDINGS / IMPRESSION: * Right knee 4 views: Compartment degenerative changes which are severein the patellofemoral compartment. Moderate joint effusion. Mild osseousdemineralization. * Left knee 3 views: Tricompartment degenerative changes which aremoderate. Brenna Shoemaker PA-C IMG DIAGNOSTIC IM AGING ORDERABLES documented in this encounter Visit Diagnoses Diagnosis Chronic pain of right knee- Primary Primary osteoarthritis of right knee Primary localized osteoarthrosis, lower leg Primary osteoarthritis of both hips Primary localized osteoarthrosis, pelvic region and thigh Chronic pain of right knee documented in this encounter Administered Medications Inactive Administered Medications - up to 3 most recent administrations Medication Order MAR Action Action Date Dose Rate Site BUPivacaine (PF) (MARCAINE) 0.5% injection 1 mL 1 mL, injection, Once PRN Procedure, 1 dose, Starting on Sat12/28/22 at 1030, Until Sat12/28/22 at 1030, Routine Given 12/28/2022 10:30 EDT 1 mL lidocaine (PF) 10 mg/mL (1 %) injection 1 mL 1 mL, other, Once PRN Procedure, 1 dose, Starting on Sat12/28/22 at 1030, Until Sat12/28/22 at 1030, Routine Given 12/28/2022 10:30 EDT 1 mL methylPREDNISolone ACETATE (DEPO-MEDROL) injection 80 mg 80 mg, intra-articular, Once PRN Procedure, 1 dose, Starting on Sat12/28/22 at 1030, Until Sat12/28/22 at 1030, Routine Given 12/28/2022 10:30 EDT 80 mg documented in this encounter Historical Medications * This list may reflect changes made after this encounter. Medication Sig Dispensed Refills Start Date End Date MAGNESIUM CITRATE ORAL Take by mouth. cholecalciferol, Vitamin D3, 25 mcg (1,000 unit) tablet Take 1 Tablet by mouth daily. aspirin chewable 81 mg tablet Take 1 Tablet by mouth daily. saw palmetto xtr/zinc picolin (SAW PALMETTO EXTRACT ORAL) Take by mouth. ferrous sulfate 325 mg (65 mg iron) tablet Take 1 Tablet by mouth daily. ELDERBERRY FRUIT ORAL Take by mouth. added in this encounter Care Teams Acquisition Cost Estimator Relationship Specialty Start Date End Date Francesca Curiel APRN [address] [address] PCP - General 03/22/22 documented as of this encounter
--- OUTSIDE RECORDS SUMMARY | 2024-05-08 02:47 | XMS_ITS | Encounter Summary ---
Author Organization [facility] Address [address] [place] [address] Care Team Providers Care Systems Developer Name Role Phone Francesca Curiel APRN Primary Care Provider [phone] [phone] Reason for Visit * Reason Comments Follow-up Rash on back and leg s Encounter Details Date Type Department Care Team (Late st Contact Info) Description 12/04/2023 10:30 EST Office Visit [facility] Dermatology 3rd [address] [address] Anirudh Asher, TESSIE [address] [place] [address], [address] [place] [address] Actinic keratoses (Primary Dx) Social History Tobacco Use Types Packs/Day Years [...] No 03/29/2022 documented as of this encounter Patient Instructions * Patient Instructions* Anirudh Asher PA-C - 12/04/2023 10:30 EST WOUND CARE INSTRUCTIONS FOR CRYOSURGERY (FREEZING THERAPY) Treatment with liquid nitrogen (cryosurgery) causes localized swelling, throbbing, and blister formation. Do not pop an intact blister. If the blisters open, apply Vaseline/petroleum jelly daily until the area heals. We do not recommend the use of triple antibiotic ointment or other ointments as they can cause allergic reactions and do not significantly reduce the incidence of infection, which is very rare to start with. . CONTACT THE OFFICE IF YOU EXPERIENCE: increasing redness warmth to touch increasing pain drainage with a foul odor rapid swelling of the wound fever or chills It was a pleasure taking care of you today. Please call our office or if you have any concerns or questions. documented in this encounter Progress Notes * Anirudh Asher PA-C - 12/04/2023 1030 EST Dermatology Outpatient Visit Note Chief Complaint Patient presents with Follow-up Rash on back and legs Dermatologic History: No specialty comments available. Last Dermatology office visit: 06/20/23 SUBJECTIVE Mr. Guo is a 63 y.o. male who presents for follow up for a rash. Cutaneous concerns listed below. History of red irritating rash on back and legs, resolves with moisturizing cream. None present today Rough spots on nose and cheeks He is otherwise feeling well and has no other cutaneous concerns today. OBJECTIVE A focused exam of the face, back, chest, thighs was performed. The examination was significant for the following: - left nasal sidewall, left inferomedial cheek: pink to brown non-indurated gritty thin papules ASSESSMENT/PLAN Actinic keratoses Etiology discussed. Discussed options for treatment including observation, cryosurgery and topical 5-FU (Efudex). Given the risk for actinic keratoses to progress to squamous cell carcinomas, recommend treatment with liquid nitrogen cryosurgery today. The patient will return if lesion fails to fully resolve. See procedure note below. History of rash Resolved. Continue moisturizing cream as needed PROCEDURE NOTE Cryotherapy procedure note A total of 2 AKs on the left nasal sidewall and left inferomedial cheek were treated with liquid nitrogen cryotherapy. Risks of the procedure were discussed, including pain, blistering, possible infection, resultant hypo-or hyperpigmentation and possibility of incomplete resolution. Verbal consent was obtained prior to the procedure. Wound care was discussed. He will f/u as planned or in the interim should problems arise. Return in about 1 year (around 12/04/2024) for FBSE, h/o AKs . The attending physician was available for this visit. Anirudh Asher PA-C 12/04/2023 11:51 documented in this encounter Plan of Treatment Not on file documented as of this encounter Visit Diagnoses Diagnosis Actinic keratoses- Primary Actinic keratosis documented in this encounter Care Teams Systems Developer Relationship Specialty Start Date End Date Francesca Curiel APRN [address] [place] [id number] PCP - General 03/22/22 documented as of this encounter
--- OUTSIDE RECORDS SUMMARY | 2024-05-08 02:47 | XMS_ITS | Encounter Summary ---
Author Organization [facility] Address [address] [place] [address] Care Team Providers Care Area Relief Pilot Name Role Phone Francesca Curiel APRN Primary Care Provider [phone] [phone] Reason for Referral * Laboratory Services (Routine/Next Available) - New Request Specialty Diagnoses / Procedures Referred By Contac t Referred To Contact Diagnoses Pain of both sacroiliac joints Bilateral leg pain Procedures HLA B27 SCREEN, DNA Jaimee Singh PA-C [address] [place] [address] Referral ID Status Reason Start Date Expiration Date V isits Requested Visits Authorized [id number] New Request 07/05/2022 1 1 * Laboratory Services (Routine/Next Available) - New Request Specialty Diagnoses / Procedures Referred By Contac t Referred To Contact Diagnoses Pain of both sacroiliac joints Bilateral leg pain Procedures C REACTIVE PROTEIN Jaimee Singh PA-C [address] [address] Referral ID Status Reason Start Date Expiration Date V isits Requested Visits Authorized [id number] New Request 07/05/2022 1 1 * Laboratory Services (Routine/Next Available) - New Request Specialty Diagnoses / Procedures Referred By Contac t Referred To Contact Diagnoses Pain of both sacroiliac joints Procedures SED RATE Jaimee Singh PA-C [address] [facility] [address] [place] [address] Referral ID Status Reason Start Date Expiration Date V isits Requested Visits Authorized [id number] New Request 07/05/2022 1 1 Reason for Visit * Reason Comments Pain Pain Pain Encounter Details Date Type Department Care Team (Late st Contact Info) Description 07/05/2022 10:[address] [facility] [address] [place] [address] Jaimee Singh PA-C [address] [id number] Pain of both sacroiliac joints (Primary Dx); Bilateral leg pain; Chronic bilateral low back pain without sciatica Social History Tobacco Use Types Packs/Day Years Used Date Smoking Tobacco: Never Smokeless Tobacco: Never Interpersonal Safety Answer Date Record ed Physically Hurt Never 08/30/2020 Verbally Threaten Not on file 08/30/2020 Sex and Gender Information Value Date Recorded Sex Assigned at Not on file Gender Identity Male 03/14/2022 13:05 EDT Sexual Orientation Not on file COVID-19 Exposure Response Date Recorded In the last 10 days, have yo u been in contact with someone who was confirmed or suspected to have Coronavirus/COVID-19? No / Unsure 07/05/2022 9:55 EDT documented as of this encounter Functional Status [...] as of this encounter Progress Notes * Jaimee Singh PA-C - 07/05/2022 1000 EDT History of Present Illness: Festus is a pleasant 62-year-old male whom I last saw as a new patient 03/29/2022, at which time Festus was complaining of chronic low back pain that had previously been mitigated with radiofrequency ablation spanning L3 to the sacrum in May 2021, providing him with about a month and a half of good pain relief. The pain in his low back was located in the region of his sacrum and bilateral sacroiliac joints. Aggravated with activities involving a lot of bending and lifting and with sitting for an extended period of time. In regard to his leg symptoms he had reported severe muscle cramping and spasms mainly occurring atnight and once laying with his feet up. Main muscle group involved seem to be the quadriceps, but also the anterior lower legs. The feet also cramp up. Patient takes quinine, ropinirole, and does exercises before he goes to bed, and drinks an excessive amount of water all day to help mitigate the symptoms. Does also get some numbness in his toes bilaterally. This seems to affect mostly the great and second toe slightly more on the left than the right. Symptoms have been ongoing for 30 years. At the time of this visit, we had decided to update his imaging, and I also recommended trialing bilateral sacroiliac joint injections to see if this could mitigate his pain in the low back. Today, Festus presents reporting that he had approximately 70% relief in his low back pain after his SI joint injection that was done about 2 weeks ago at [facility]. He is quite pleased about this, but sitting for a long period of time still starts to aggravate that back pain. The legs seems to be slightly improved after he changed his pillow, reporting that I told him that it might be coming from his neck, so he got a special kind of pillow. This seems to have helped. He is here to review his MRI. Conservative Treatment: Meds: Gabapentin, ropinirole, quinine PT: Relatively recently with continued HEP aimed at helping the leg cramping, lateral hip pain, andlow back pain Injections: [facility] MBB L3-5 02/21/2021 and 03/23/2021 Bilateral RFA L3-S1 05/25/2021 with relief of back symptoms for about 6 weeks [facility] in the distant past with no relief 06/07/2022 bilateral SI joint injection with 70% relief, so far sustained Review of Systems: As per HPI. I reviewed medications, allergies, medical, surgical and social history with the patient. Physical Examination: Pain Score (from Vitals) 07/05/2022 Initial score - Final score 3 Location BACK Comment at times Well developed, well nourished 62-year-old male, in no acute distress, appearing fairly comfortablein seated position Breathing non-labored Skin is warm and dry Patient stands with normal upright posture Ambulates with a normal gait No trouble heel and toe walking Reflexes mildly hyperreflexive throughout Image Review: Reviewed his lumbar spine MRI from 05/21/2022 that does show scoliotic deformity convex to the right, and multilevel degenerative disc changes. There is no evidence of spinal stenosis throughout the length of his visible thoracolumbar study. There are areas of mild to moderate foraminal stenosis such as at L4-5 and L3-4 on the right, but no clear nerve impingement that I can appreciate that would explain his symptoms. He does have fairly significant retrolisthesis at L2-3, and minimal retrolisthesis at L1-2 and L3-4. No clear evidence of anterolisthesis. Does have small facet effusions bilaterally at L2-3. Lumbar spine plain films without flexion and extension views shows a scoliotic deformity convex to the right with apex at L2. He does appear to have some degenerative changes to his bilateral sacroiliac joints. No anterolisthesis. Several levels of retrolisthesis Imaging read by me Assessment: 1. Chronic low back pain 2. Suspect sacroiliac joint pain 3. Bilateral leg pain with RLS Cristo Guo is a pleasant and straightforward 62-year-old male presenting for reevaluation of hischronic low back pain after he had his sacroiliac joint, which did mitigate his pain by 70%. Seems to be in an okay place at this point. In regard to his leg symptoms, I do not see any evidence of nerve compression that would explain his bilateral leg symptoms with cramping. I told the patient it really likely is from the diagnosis of RLS. I can try and do some research and see if there are any other options for treatment of this. He has is quite the regimen that he does at this point that doeshelp it to be more tolerable than it had been. In regard to his low back pain, it does follow a bit of an inflammatory pattern, and there is the option of considering working him up for spondyloarthropathy. Would like to recheck his primary care,versus ordering some labs to see if we can further evaluate for this. Patient is amenable to this plan. Patient encouraged to call with any questions, concerns, or worsening of condition. I spent a total of 30 minutes on the date of this encounter meeting with the patient and reviewing documentation/coordinating care as described in the above note. Plan: 1. Evaluate for inflammatory arthritis 2. Continue meds for RLS 3. Repeat SI joint injection as needed This document was produced using [employer]. Please excuse any grammatical or verbal errors. documented in this encounter Plan of Treatment Not on file documented as of this encounter Results * HLA B27 SCREEN, DNA (09/17/2022 12:18 EST) HLAB-B27 Result Negative Not Applicable 09/19/2022 14:09 EST [facility] [employer] Interpretation SEE NOTE 09/19/2022 14:09 EST [facility] [employer] Comment: RESULT: HLA-B27 antigen was not detected. ADDITIONAL INFORMATION Method: Flow Cytometry CLIA: [id number] ??CLIA Sealer Dry Cell: CASIMIRO CLARK MD,PhD Test Performed by: [address] [address] Sealer Dry Cell: Casimiro Clark M.D. Ph.D.; CLIA# [id number] Blood VENOUS BLOOD / Unknown Venipuncture / Unknown 09/17/2022 12:18 EST 09/17/2022 13:59 EST Jaimee Singh PA-C TISSUE TYPING ORD ERABLES [address] [address] * C REACTIVE PROTEIN (09/17/2022 12:18 EST) C-Reactive Protein <5.0 <10.0 mg/L 09/17/2022 13:52 EST [facility] Blood VENOUS BLOOD / Unknown Venipuncture / Unknown 09/17/2022 12:18 EST 09/17/2022 13:18 EST Jaimee Singh PA-C CHEMISTRY & BLOOD GAS ORDERABLES Performing Organization Address City/[facility]/ZIP Co de Phone Number [facility] [address] [place] [address] * SED RATE (09/17/2022 12:18 EST) Sed Rate <1 0 - 20 mm/hr 09/17/2022 14:05 EST [facility] Blood VENOUS BLOOD / Unknown Venipuncture / Unknown 09/17/2022 12:18 EST 09/17/2022 13:59 EST Jaimee Singh PA-C HEMATOLOGY & PF4 ORDERABLES Performing Organization Address City/[facility] de Phone Number [facility] [address] [place] [address] documented in this encounter Visit Diagnoses Diagnosis Pain of both sacroiliac joints- Primary Disorders of sacrum Bilateral leg pain Pain in limb Chronic bilateral low back pain without sciatica documented in this encounter Historical Medications * This list may reflect changes made after this encounter. Medication Sig Dispensed Refills Start Date End Date meloxicam (MOBIC) 15 mg tablet Take 15 mg by mouth at bedtime. 2 tabs at night added in this encounter Care Teams Area Relief Pilot Relationship Specialty Start Date End Date Francesca Curiel APRN [address] [facility] [address] [place] [address] PCP - General 03/22/22 documented as of this encounter
--- OUTSIDE RECORDS SUMMARY | 2024-05-08 02:47 | XMS_ITS | Clinical Summary ---
Author Organization [facility] Address [address] [place] [address] Care Team Providers Care Senior Test Engineer Name Role Phone Francesca Curiel APRN Primary Care Provider [phone] [phone] Allergies Active Allergy Reactions Criticality Noted Date Comments Amoxicillin Hives 03/06/2022 Medications Medication Sig Dispensed Refills Start Date End Date Status rOPINIRole (REQUIP) 1 mg tablet Take 1 Tablet by mouth at bedtime. 01/02/2022 Active ibuprofen (MOTRIN) 200 mg tablet Take 1 Tablet by mouth if needed for Pain. 2-3 at times Active UNABLE TO FIND if needed. OTC leg quinine leg cramp supplement Active meloxicam (MOBIC) 15 mg tablet Take 15 mg by mouth at bedtime. 2 tabs at night Active hydrOXYzine (ATARAX) 25 mg tablet 09/10/2022 Active ferrous fumarate/vit Bcomp,C (SUPER B COMPLEX ORAL) Take by mouth. Active ELDERBERRY FRUIT ORAL Take by mouth. Active ferrous sulfate 325 mg (65 mg iron) tablet Take 1 Tablet by mouth daily. Active saw palmetto xtr/zinc picolin (SAW PALMETTO EXTRACT ORAL) Take by mouth. Active aspirin chewable 81 mg tablet Take 1 Tablet by mouth daily. Active cholecalciferol, Vitamin D3, 25 mcg (1,000 unit) tablet Take 1 Tablet by mouth daily. Active MAGNESIUM CITRATE ORAL Take by mouth. Active Active Problems No known active problems Surgical History Surgery Date Site/Laterality Comments BUNIONECTOMY Bilateral TONSILLECTOMY as child Family History Medical History Relation Comments Arthritis Father Relation Status Comments Father alzhimers Mother Alive Social History Tobacco Use Types Packs/Day Years Used Date Smoking Tobacco: Never Smokeless Tobacco: Never Tobacco Cessation:Counseling Given: Not Answered Interpersonal Safety Answer Date Record ed Physically Hurt Never 08/30/2020 Verbally Threaten Not on file 08/30/2020 Sex and Gender Information Value Date Recorded Sex Assigned at Not on file Gender Identity Male 03/14/2022 13:05 EDT Sexual Orientation Not on file Obstetrics History Last Filed Vital Signs Vital Sign Reading Time Taken Comments Blood Pressure - - Pulse - - Temperature - - Respiratory Rate - - Oxygen Saturation - - Inhaled Oxygen Concentration - - Weight 70.8 kg (156 lb 1.6 oz) 03/29/2022916 E DT Height 173.4 cm (5' 8.25) 03/29/2022916 EDT Body Mass Index 23.56 03/29/2022916 EDT Plan of Treatment Health Maintenance Due Date Last Done Comments Hepatitis C Screen 1960 RSV Immunization ( o r 60+ Years) (1 - 1-dose 60+ series) 2020 COVID-19 Vaccine ( season) 2023 Care Teams Senior Test Engineer Relationship Specialty Start Date End Date Francesca Curiel APRN [address] [place] [phone] PCP - General 03/22/22
--- OUTSIDE RECORDS SUMMARY | 2024-05-08 02:47 | XMS_ITS | Referral Summary ---
Author Organization [facility] Address [address] [place] [address] Care Team Providers Care Maintenance Helper Utility Engineer Name Role Phone Francesca Curiel APRN Primary Care Provider [phone] [phone] Allergies Active Allergy Reactions Criticality Noted Date [...] Active Active Problems No known active problems Social History Tobacco Use Types Packs/Day Years Used Date Smoking Tobacco: Never Smokeless Tobacco: Never Tobacco Cessation:Counseling Given: Not Answered Interpersonal Safety Answer Date Record ed Physically Hurt Never 08/30/2020 Verbally Threaten Not on file 08/30/2020 Sex and Gender Information Value Date Recorded Sex Assigned at Not on file Gender Identity Male 03/14/2022 13:05 EDT Sexual Orientation Not on file Last Filed Vital Signs Vital Sign Reading Time Taken Comments Blood Pressure - - Pulse - - Temperature - - Respiratory Rate - - Oxygen Saturation - - Inhaled Oxygen Concentration - - Weight 70.8 kg (156 lb 1.6 oz) 03/29/2022916 E DT Height 173.4 cm (5' 8.25) 03/29/2022916 EDT Body Mass Index 23.56 03/29/2022916 EDT Functional Status Functional Status Response Date of [...] concentrating, remembering, or making decisions? No 03/29/2022 Plan of Treatment Not on file Care Teams Maintenance Helper Utility Engineer Relationship Specialty Start Date End Date Francesca Curiel APRN [address] [place] [phone] PCP - General 03/22/22
--- OUTSIDE RECORDS SUMMARY | 2024-05-08 02:47 | XMS_ITS | Encounter Summary ---
Author Organization [facility] Address [address] [place] [address] Care Team Providers Care Corporate Events Director Name Role Phone Francesca Curiel APRN Primary Care Provider +1 [phone] Encounter Details Date Type Department Care Team (Latest Contact Info) Description 09/17/2022 8:43 EST - 09/17/2022 23:59 EST Hospital Encounter [address] [facility] [address] [place] [address] Low back pain, unspecified back pain laterality, unspecified chronicity, unspecified whether sciatica present Discharge Disposition: Home or Self Care Social History Tobacco Use Types Packs/Day Years [...] No 03/29/2022 documented as of this encounter Medications at Time of Discharge Medication Sig Dispensed Refills Start Date End Date ferrous fumarate/vit Bcomp,C (SUPER B COMPLEX ORAL) Take by mouth. hydrOXYzine (ATARAX) 25 mg tablet 09/10/2022 ibuprofen (MOTRIN) 200 mg tablet Take 1 Tablet by mouth if needed for Pain. 2-3 at times meloxicam (MOBIC) 15 mg tablet Take 15 mg by mouth at bedtime. 2 tabs at night rOPINIRole (REQUIP) 1 mg tablet Take 1 Tablet by mouth at bedtime. 01/02/2022 UNABLE TO FIND if needed. OTC leg quinine leg cramp supplement documented as of this encounter Discharge Disposition Disposition Code Departure Means Destination Home or Self Care documented in this encounter Plan of Treatment Not on file documented as of this encounter Procedures Procedure Name Priority Date/Time Associated Diagnosis Comments XR LUMBAR SPINE BENDING VIEWS, 2 OR 3 VIEWS Routine 09/17/2022 8:59 EST Low back pain, unspecified back pain laterality, unspecified chronicity, unspecified whether sciatica present documented in this encounter Results * XR LUMBAR SPINE BENDING VIEWS, 2 OR 3 VIEWS (09/17/2022 8:59 EST) Anatomical Region Laterality Modality Computed Radiogr aphy 09/20/2022 17:0 6 EST Impressions 09/20/2022 17:06 EST Findings/Impression: Retrolisthesis of L1 on L2, L2 on L3, and L3 on L4 is unchanged compared to prior MRI. No significant change in alignment between flexion and extension given slight rotation of the spine on the extension view. Vertebral body heights are normal. Disc height loss most notable L1-L4 is unchanged. Narrative 09/20/2022 17:06 EST XR LUMBAR SPINE BENDING VIEWS, 2 OR 3 VIEWS ??09/17/2022 9:30 AM Clinical History/Comments: low back pain. Technique: Lateral flexion and extension views of the lumbar spine Comparison: Lumbar MRI May 21, 2022. Lumbar radiographs May 21, 2022 Procedure Note Mykel Roberts MD - 09/20/2022 XR LUMBAR SPINE BENDING VIEWS, 2 OR 3 VIEWS 09/17/2022 9:30 AM Clinical History/Comments: low back pain. Technique: Lateral flexion and extension views of the lumbar spine Comparison: Lumbar MRI May 21, 2022. Lumbar radiographs May 21, 2022 IMPRESSION Findings/Impression: Retrolisthesis of L1 on L2, L2 on L3, and L3 on L4 is unchanged comparedto prior MRI. No significant change in alignment between flexion andextension given slight rotation of the spine on the extension view.Vertebral body heights are normal. Disc height loss most notable L1-L4 isunchanged. Oneil Charles MD IMG DIAGNOSTIC IMAG ING ORDERABLES documented in this encounter Visit Diagnoses Diagnosis Low back pain, unspecified back pain laterality, unspecified chronicity, unspecified whether sciatica present documented in this encounter Care Teams Corporate Events Director Relationship Specialty Start Date End Date Francesca Curiel APRN [address] [phone] PCP - General 03/22/22 documented as of this encounter
--- OUTSIDE RECORDS SUMMARY | 2024-05-08 02:47 | XMS_ITS | Encounter Summary ---
Author Organization [facility] Address [address] [place] [address] Care Team Providers Care Software Development Leader Name Role Phone Francesca Curiel APRN Primary Care Provider [phone] [phone] Reason for Visit * Reason Onset Date Comments Coordination Of Care 11/15/2022 Encounter Details Date Type Department Care Team (Late st Contact Info) Description 11/15/2022 Telephone [facility] Spine Program - [address] [place] [address] Oneil Charles MD [address] [place] [phone] Coordination Of Care Social History Tobacco Use Types Packs/Day [...] No 03/29/2022 documented as of this encounter Miscellaneous Notes * Telephone Encounter - Oneil Charles MD - 11/15/2022 1351 EST EMG without any radiculolpathy. Images reviewed again, really no visible L5 root compression. Couldconsider right L5-S1 TFESI for diagnostic purposes. Called to speak with Cristo, no answer, left VM. documented in this encounter Plan of Treatment Not on file documented as of this encounter Visit Diagnoses Not on filedocumented in this encounter Care Teams Software Development Leader Relationship Specialty Start Date End Date Francesca Curiel APRN [address] [place] [phone] PCP - General 03/22/22 documented as of this encounter
--- OUTSIDE RECORDS SUMMARY | 2024-05-08 02:47 | XMS_ITS | Encounter Summary ---
Author Organization [facility] Address [address] [place] [address] Care Team Providers Care Creeler Name Role Phone Francesca Curiel APRN Primary Care Provider [phone] [phone] Encounter Details Date Type Department Care Team (Late st Contact Info) Description 09/05/2022 Orders Only [facility] Spine Program - [address] [place] [address] Oneil Charles MD [address] [place] [address] Low back pain, unspecified back pain laterality, unspecified chronicity, unspecified whether sciatica present (Primary Dx) Social History Tobacco Use Types [...] No 03/29/2022 documented as of this encounter Plan of Treatment Not on file documented as of this encounter Results * XR LUMBAR SPINE [...] pain laterality, unspecified chronicity, unspecified whether sciatica present- Primary Low back pain, unspecified back pain laterality, unspecified chronicity, unspecified whether sciatica present documented in this encounter Care Teams Creeler Relationship Specialty Start Date End Date Francesca Curiel APRN [address] [phone] PCP - General 03/22/22 documented as of this encounter
--- OUTSIDE RECORDS SUMMARY | 2024-05-08 02:47 | XMS_ITS | Encounter Summary ---
Author Organization [facility] Address [address] [place] [address] Care Team Providers Care Muffler Installer Name Role Phone Francesca Curiel APRN Primary Care Provider [phone] [phone] Encounter Details Date Type Department Care Team (Latest Contact Info) Description 12/28/2022 10:04 EDT - 12/28/2022 23:59 EDT Hospital Encounter [address] [facility] [address] [place] [address] Chronic pain of right knee Discharge Disposition: Home or Self Care Social [...] Sig Dispensed Refills Start Date End Date aspirin chewable 81 mg tablet Take 1 Tablet by mouth daily. cholecalciferol, Vitamin D3, 25 mcg (1,000 unit) tablet Take 1 Tablet by mouth daily. ELDERBERRY FRUIT ORAL Take by mouth. ferrous fumarate/vit Bcomp,C (SUPER B COMPLEX ORAL) Take by mouth. ferrous sulfate 325 mg (65 mg iron) tablet Take 1 Tablet by mouth daily. hydrOXYzine (ATARAX) 25 mg tablet 09/10/2022 ibuprofen (MOTRIN) 200 mg tablet Take 1 Tablet by mouth if needed for Pain. 2-3 at times MAGNESIUM CITRATE ORAL Take by mouth. meloxicam (MOBIC) 15 mg tablet Take 15 mg by mouth at bedtime. 2 tabs at night rOPINIRole (REQUIP) 1 mg tablet Take 1 Tablet by mouth at bedtime. 01/02/2022 saw palmetto xtr/zinc picolin (SAW PALMETTO EXTRACT ORAL) Take by mouth. UNABLE TO FIND if needed. OTC leg quinine leg cramp supplement documented as of this encounter Discharge Disposition Disposition Code Departure Means Destination Home or Self Care documented in this encounter Plan of Treatment Not on file documented as of this encounter Procedures Procedure Name Priority Date/Time Associated Diagnosis Comments XR PELVIS 1-2 VIEWS Routine 12/28/2022 1 0:20 EDT Chronic pain of right knee XR KNEE RIGHT 4 OR MORE VIEWS Routine 12/28/2022 10:20 EDT Chronic pain of right knee XR KNEE LEFT 3 VIEWS Routine 12/28/2022 10:20 EDT Chronic pain of right knee documented in this encounter Results * XR KNEE LEFT 3 VIEWS (12/28/2022 [...] RIGHT 4 OR MORE VIEWS 3 (accession [id number]), 4 (accession [id number]) views ?? HISTORY: ??Left Knee for Comparison Procedure Note Jerson Pitts MD - 12/28/2022 EXAM/TECHNIQUE: 12/28/2022 10:15 AM XR KNEE LEFT 3 VIEWS, XR KNEE RIGHT 4OR MORE VIEWS 3 (accession [id number]), 4 (accession [id number]) views HISTORY: Left Knee for Comparison IMPRESSION [...] RIGHT 4 OR MORE VIEWS 3 (accession [id number]), 4 (accession [id number]) views ?? HISTORY: ??Left Knee for Comparison Procedure Note Jerson Pitts MD - 12/28/2022 EXAM/TECHNIQUE: 12/28/2022 10:15 AM XR KNEE LEFT 3 VIEWS, XR KNEE RIGHT 4OR MORE VIEWS 3 (accession [id number]), 4 (accession [id number]) views HISTORY: Left Knee for Comparison IMPRESSION FINDINGS / IMPRESSION: * Right knee 4 views: Compartment degenerative changes which are severein the patellofemoral compartment. Moderate joint effusion. Mild osseousdemineralization. * Left knee 3 views: Tricompartment degenerative changes which aremoderate. Brenna Shoemaker PA-C IMG DIAGNOSTIC IM AGING ORDERABLES documented in this encounter Visit Diagnoses Diagnosis Chronic pain of right knee documented in this encounter Care Teams Muffler Installer Relationship Specialty Start Date End Date Francesca Curiel APRN [address] [facility] [address] [address] [place] [phone] PCP - General 03/22/22 documented as of this encounter
--- OUTSIDE RECORDS SUMMARY | 2024-05-08 02:47 | XMS_ITS | Encounter Summary ---
Author Organization [facility] Address [address] [place] [address] Care Team Providers Care Behavioral Analyst Name Role Phone Francesca Curiel APRN Primary Care Provider [phone] [phone] Reason for Visit * Laboratory Services (Routine/Next Available) - New Request Specialty Diagnoses / Procedures [facility] Referred To Contact Diagnoses Pain of both sacroiliac joints Procedures SED RATE Jaimee Singh PA-C [address] [facility] [address] [place] [address] Referral ID Status Reason Start Date Expiration Date V isits Requested Visits Authorized [id number] New Request 07/05/2022 1 1 Encounter Details Date Type Department Care Team (Late st Contact Info) Description 09/17/2022 12:05 EST Phlebotomy Only [facility] - Outpatient Phlebotomy Drawing [address] [place] [address] Lab, [facility] [place] [place] Op Phlebotomy Pain of both sacroiliac joints; Bilateral leg pain Social History Tobacco Use Types Packs/Day Years [...] Procedure Name Priority Date/Time Associated Diagnosis Comments HLA B27 SCREEN, DNA Routine 09/17/2022 1 2:18 EST Pain of both sacroiliac joints Bilateral leg pain SED RATE Routine 09/17/2022 12:18 EST Pain of both sacroiliac joints C REACTIVE PROTEIN Routine 09/17/2022 12 :18 EST Pain of both sacroiliac joints Bilateral leg pain documented in this encounter Results * HLA B27 SCREEN, DNA (09/17/2022 12:18 EST) Pathologist [facility] HLAB-B27 Result Negative Not Applicable 09/19/2022 14:09 EST [facility] Lionical Interpretation SEE NOTE 09/19/2022 14:09 EST [facility] Comment: RESULT: HLA-B27 antigen was not detected. ADDITIONAL INFORMATION Method: Flow Cytometry CLIA: [id number] ??CLIA Social Service Agency Director: CASIMIRO CLARK MD,PhD Test Performed by: [address] [address] Social Service Agency Director: Casimiro Clark M.D. Ph.D.; CLIA# [id number] Blood VENOUS BLOOD / Unknown Venipuncture / Unknown 09/17/2022 12:18 EST 09/17/2022 13:59 EST Jaimee Singh PA-C TISSUE TYPING ORD ERABLES [address] [address] * C REACTIVE PROTEIN (09/17/2022 12:18 EST) C-Reactive Protein <5.0 <10.0 mg/L 09/17/2022 13:52 EST [facility] Blood VENOUS BLOOD / Unknown Venipuncture / Unknown 09/17/2022 12:18 EST 09/17/2022 13:18 EST Jaimee Singh PA-C CHEMISTRY & BLOOD GAS ORDERABLES Performing Organization Address City/[facility]/ZIP Co de Phone Number [facility] [address] [place] [address] * SED RATE (09/17/2022 12:18 EST) Sed Rate <1 0 - 20 mm/hr 09/17/2022 14:05 EST [facility] Blood VENOUS BLOOD / Unknown Venipuncture / Unknown 09/17/2022 12:18 EST 09/17/2022 13:59 EST Jaimee Singh PA-C HEMATOLOGY & PF4 ORDERABLES Performing Organization Address City/[facility] de Phone Number [facility] [address] [place] [address] documented in this encounter Visit Diagnoses Diagnosis Pain of both sacroiliac joints Disorders of sacrum Bilateral leg pain Pain in limb documented in this encounter Care Teams Behavioral Analyst Relationship Specialty Start Date End Date Francesca Curiel APRN 26 [facility] [address] [place] [address] PCP - General 03/22/22 documented as of this encounter
--- OUTSIDE RECORDS SUMMARY | 2024-05-08 02:47 | XMS_ITS | Encounter Summary ---
Author Organization [facility] Address [address] [place] [address] Care Team Providers Care Pig Handler Name Role Phone Francesca Curiel APRN Primary Care Provider [phone] [phone] Reason for Referral * Office Procedure (Routine/Next Available) - Authorization Not Required Specialty Diagnoses / Procedures Referred By Contac t Referred To Contact Neurology Diagnoses Chronic midline low back pain without sciatica Procedures EMG/NERVE CONDUCTION STUDY Oneil Charles MD [address] [place] [address] Los Dias MD [address] [place] [address] [address] [place] [phone] Referral ID Status Reason Start Date Expiration Date Visits Requested Visits Authorized [id number] Authorization Not Required Specialty Services Required 09/17/20 22 1 1 Encounter Details Date Type Department Care Team (Late st Contact Info) Description 09/17/2022 Orders Only [facility] - [address] [place] [address] Oneil Charles MD [address] [place] [phone] Chronic midline low back pain without sciatica (Primary Dx) Social History Tobacco Use Types [...] documented as of this encounter Results * EMG/NERVE CONDUCTION STUDY (10/18/2022 9:00 EST) Narrative [facility] - 10/18/2022 9:00 EST Los Dias MD ? 10/18/2022 ??9:42 [facility] Clinical Neurophysiology Nerve Conduction and Electromyography Report PATIENT NAME: Cristo Guo PATIENT : 1960 PCP: ??Francesca Curiel DATE OF SERVICE: 10/18/2022 History: Cristo Guo is a 62 y.o. male who presents to EMG on referral by Oneil Charles MD for evaluation of right leg symptoms. He describes a few months of pain radiating from the right knee down the anterolateral right leg and into the top of the right foot. ?? He wonders whether this is related to an old knee injury he had. ?? He also has chronic low back pain and has had injections in the low back. ??Prior nerve conduction testing done by Dr. Parrish at [facility] was suggestive of peripheral neuropathy. ??EMG was not performed. Clinical Exam: Limbs studied were warmed if necessary with moist heat, and skin temperature of the feet was measured at 30 deg C before starting the study. Motor Exam: Normal bulk in the mild bilateral intrinsic foot atrophy. ??Full strength bilaterally with toe extension, ankle inversion, knee flexion and extension and hip flexion.. DTRs: Absent bilateral patellar and Achilles reflexes. Sensation: Mild pinprick hypoesthesia on the anterolateral right lower leg predominantly in the proximal region but otherwise normal throughout the remainder of the feet and legs. Electrodiagnostic Findings: Nerve Conduction: -The bilateral sural sensory responses were normal. -The right peroneal motor onset latency was mildly prolonged and the amplitude was mildly diminished, with very subtly diminished velocity. ??The bilateral tibial motor responses were normal, though he had trouble tolerating proximal stimulation which because of that was not supramaximal. EMG: -All muscles examined were normal including the right tibialis anterior, gastrocnemius, tibialis posterior, quadriceps, short head of the biceps femoris, and lower right lumbar paraspinal musculature. For waveforms/values/tables of EMG/nerve conduction study please see accompanying scanned document in the scans tab in EMR. Electrodiagnostic Impression: - This study was normal. ??There is no electrodiagnostic evidence of large fiber polyneuropathy or right lumbosacral radiculopathy. There is no evidence of right peroneal neuropathy at the knee. Clinical Impression: -This study was unfortunately unable to elucidate a neurogenic etiology for the patient's symptoms. ??Prior nerve conduction testing abnormalities noted in [facility] testing were likely due to cool limb noted in the report rather than a neurogenic process. Los Dias MD Oneil Charles MD PROCEDURE/MINOR ANA GICAL ORDERABLES [facility] documented in this encounter Visit Diagnoses Diagnosis Chronic midline low back pain without sciatica- Primary Pain in right lower leg- Primary Chronic midline low back pain without sciatica documented in this encounter Care Teams Pig Handler Relationship Specialty Start Date End Date Francesca Curiel APRN [address],[facility] [address] [place] [address] PCP - General 03/22/22 documented as of this encounter
--- OUTSIDE RECORDS SUMMARY | 2024-05-08 02:47 | XMS_ITS | Encounter Summary ---
Author Organization [facility] Address [address] [place] [address] Care Team Providers Care Nutrition Assistant Name Role Phone Francesca Curiel APRN Primary Care Provider [phone] [phone] Reason for Visit * Reason Comments EMG (Electomyography) * Office Procedure (Routine/Next Available) - Authorization Not Required Specialty Diagnoses / Procedures [facility] Referred To Contact Neurology Diagnoses Chronic midline low back pain without sciatica Procedures EMG/NERVE CONDUCTION STUDY Oneil Charles MD [address] [place] [phone] Los Dias MD [address] [place] [address] [address] Referral ID Status Reason Start Date Expiration Date Visits Requested Visits Authorized [id number] Authorization Not Required Specialty Services Required 09/17/20 22 1 1 Encounter Details Date Type Department Care Team (Late st Contact Info) Description 10/18/2022 9:00 EST Procedure visit [facility] [address] [place] [address] Los Dias MD [address] [place] [address] [address] Pain in right lower leg (Primary Dx); Chronic midline low back pain without sciatica Social History [...] No 03/29/2022 documented as of this encounter Procedure Notes * Los Dias MD - 10/18/2022 0900 ESTAssociated Order(s): EMG/NERVE CONDUCTION STUDY [facility] Clinical Neurophysiology Nerve Conduction and Electromyography Report PATIENT NAME: Cristo Guo PATIENT : 1960 PCP: Francesca Curiel DATE OF SERVICE: 10/18/2022 History: Cristo Guo is a 62 y.o. male who presents to EMG on referral by Oneil Charles MD for evaluation of right leg symptoms. He describes a few months of pain radiating from the right knee down theanterolateral right leg and into the top of the right foot. He wonders whether this is related to an old knee injury he had. He also has chronic low back pain and has had injections in the low back. Prior nerve conduction testing done by Dr. Parrish at [facility] was suggestive of peripheral neuropathy. EMG was not performed. Clinical Exam: Limbs studied were warmed if necessary with moist heat, and skin temperature of the feet was measured at 30 deg C before starting the study. Motor Exam: Normal bulk in the mild bilateral intrinsic foot atrophy. Full strength bilaterally with toe extension, ankle inversion, [...] mildly diminished, with very subtly diminished velocity. The bilateral tibial motor responses were normal, though hehad trouble tolerating proximal stimulation which because of that was not supramaximal. EMG: -All muscles examined were normal including the right tibialis anterior, gastrocnemius, tibialis posterior, quadriceps, short head of the biceps femoris, and lower right lumbar paraspinal musculature. For waveforms/values/tables of EMG/nerve conduction study please see accompanying scanned document in the scans tab in EMR. Electrodiagnostic Impression: - This study was normal. There is no electrodiagnostic evidence of large fiber polyneuropathy or right lumbosacral radiculopathy. There is no evidence of right peroneal neuropathy at the knee. Clinical Impression: -This study was unfortunately unable to elucidate a neurogenic etiology for the patient's symptoms.Prior nerve conduction testing abnormalities noted in [facility] testing were likely due to cool limb noted in the report rather than a neurogenic process. Los Dias MD documented in this encounter Plan of Treatment Not on file documented as of this encounter Procedures Procedure Name Priority Date/Time Associated Diagnosis Comments EMG/NERVE CONDUCTION STUDY Routine/Next Available 10/18/2022 9:00 EST Chronic midline low back pain without sciatica documented in this encounter Results * EMG/NERVE CONDUCTION STUDY (10/18/2022 9:00 EST) Narrative [facility] - 10/18/2022 9:00 EST Los Dias MD ? 10/18/2022 ??9:42 [facility] Clinical Neurophysiology Nerve Conduction and [...] conduction testing done by Dr. Parrish at [facility] was suggestive of peripheral neuropathy. ??EMG was [...] ??Prior nerve conduction testing abnormalities noted in [facility] testing were likely due to cool limb noted in the report rather than a neurogenic process. Los Dias MD Oneil Charles MD PROCEDURE/MINOR ANA GICAL ORDERABLES [facility] documented in this encounter Visit Diagnoses Diagnosis Pain in right lower leg- Primary Chronic midline low back pain without sciatica documented in this encounter Care Teams Nutrition Assistant Relationship Specialty Start Date End Date Francesca Curiel APRN [address] [place] [address] PCP - General 03/22/22 documented as of this encounter
--- OUTSIDE RECORDS SUMMARY | 2024-05-08 02:47 | XMS_ITS | Encounter Summary ---
Author Organization [facility] Address [address] [place] [address] Care Team Providers Care Engineer Assistant Name Role Phone Francesca Curiel APRN Primary Care Provider [phone] [phone] Reason for Visit * Reason Comments Pain * Referral (Routine) - Receiving Office to Obtain Authorization Specialty Diagnoses / Procedures Referred By Contac t Referred To Contact Orthopedic Surgery Diagnoses Other intervertebral disc degeneration, lumbar region Francesca Curiel, [place] [address] [place] [address] [facility] Ortho Spine [address] [place] [address] Referral ID Status Reason Start Date Expiration Date Visits Requested Visits Authorized [id number] Receiving Office to Obtain Authorization 1 1 Encounter Details Date Type Department Care Team (Late st Contact Info) Description 09/17/2022 9:30 EST Office Visit [facility] Spine Program [place] [address] Oneil Charles MD [address] [place] [address] Chronic midline low back pain without sciatica (Primary Dx); Right leg pain Social History Tobacco Use Types [...] as of this encounter Progress Notes * Oneil Charles MD - 09/17/2022 0992 EST Chief Complaint Patient presents with ??? Lower Back - Pain HPI Cristo Guo is a 62 y.o. male coming to clinic today with a chief complaint of back and RLE pain. He states that he has had usp LBP, helped recently ~70% by bilateral SI joint injections. Larger issue is 6 months of sharp shooting pain along the R lateral calf to the ankle. Mild buttock discomfort, no thigh symptoms. No left leg pain. No change in his LBP in relation to the onset of his Rleg symptoms. Taking Meloxicam and Ropinerol for night time cramping which is helping. He has done PT, and had bilateral RFA L3-S1 which was helpful. He does also endorse morning stiffness which improves throughout the day. VB 4-5 VL 5-6 ELLEN 28 Past Medical History none Past Surgical History Bunionectomy Social History Lives in [facility]. 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 Allergies NKDA Current Outpatient Medications Medication ??? ferrous fumarate/vit Bcomp,C (SUPER B COMPLEX ORAL) ??? hydrOXYzine (ATARAX) 25 mg tablet ??? ibuprofen (MOTRIN) 200 mg tablet ??? meloxicam (MOBIC) 15 mg tablet ??? rOPINIRole (REQUIP) 1 mg tablet ??? UNABLE TO FIND No current facility-administered medications for this visit. Review of Systems Pertinents included in HPI. See intake form for complete 13 system review. Physical Exam There were no vitals taken for this visit. The patient is a well developed, well nourished male, with normal body habitus. He is awake and alert, appropriately interactive, of normal mood and affect. The patient ambulates fluidly. Heel walking and toe walking normal and symmetric Hip exam reveals no significant limitations in ROM, and no pain with ROM. Sensory examination of bilateral lower extremities shows normal Lower extremity muscle tone is normal bilaterally. Manual strength testing of the lower extremities 4+ EHL bilaterally, 5/5 peroneal Knee exam shows no instability, slight flexion contracture, no joint line tenderness, (+) pain under lateral patella Seated straight leg raise neg bilaterally Reflexes muted achilles bilat Imaging Imaging studies and reports were personally reviewed by me, including AP/Lat/Flex/Ext of the lumbarspine, and lumbar MRI from May 2022 Imaging shows multi-level spondylosis, particularly mid/upper lumbar with some curvature. No listhesis. MRI without any overt neural compression. Specifically the right L5 root has minimal lateral recess and no foraminal stenosis. There is mild/moderate right L4 foraminal stenosis Assessment Cristo Guo is a very pleasant 62 y.o. male with longstanding back pain and R lateral calf pain of unclear etiology. I do not see any clear neural compression to explain. We discussed that moving forward with RLE EMG and possible subsequent nerve root block to further evaluate. I do also agree withDrea Singh that based on a multitude of features, eval for inflammatory arthritis with Rheum may be beneficial as well. They were appreciative of the opinion and I will be in touch after EMG is completed. Plan RLE EMG Phone f/u Consider ?L4 vs L5 nerve root block I spent a total of at least 30 minutes on the date of this encounter meeting with the patient and reviewing documentation/coordinating care as described in the above note. documented in this encounter Plan of Treatment Not on file documented as of this encounter Visit Diagnoses Diagnosis Chronic midline low back pain without sciatica- Primary Right leg pain Pain in limb documented in this encounter Historical Medications * This list may reflect changes made after this encounter. Medication Sig Dispensed Refills Start Date End Date ferrous fumarate/vit Bcomp,C (SUPER B COMPLEX ORAL) Take by mouth. hydrOXYzine (ATARAX) 25 mg tablet 09/10/2022 added in this encounter Care Teams Engineer Assistant Relationship Specialty Start Date End Date Francesca Curiel APRN [address] [facility] [address] [place] [address] PCP - General 03/22/22 documented as of this encounter
--- OUTSIDE RECORDS SUMMARY | 2024-05-08 02:47 | XMS_ITS | Encounter Summary ---
Author Organization [facility] Address [address] [place] [address] Care Team Providers Care Nuclear Equipment Test Engineer Name Role Phone Francesca Curiel APRN Primary Care Provider [phone] [phone] Reason for Visit * Reason Comments New Patient Visit Sun damage on face. Worse on L cheek, becomes sore and bleeds intermittently * Referral (Routine) - Authorization Not Required Specialty Diagnoses / Procedures [facility] Referred To Contact Dermatology Diagnoses Chronic urticaria Jan Villasenor MD [address] [place] [address] [facility] Dermatology [address] [place] [address] Referral ID Status Reason Start Date Expiration Date Visits Requested Visits Authorized [id number] Authorization Not Required 1 1 Encounter Details Date Type Department Care Team (Late st Contact Info) Description 06/20/2023 8:30 EDT Office Visit [facility] Dermatology 3rd [address] [address] Anirudh Asher PA-C [address] [place] [address], [address] [place] [address] Actinic keratoses (Primary Dx); Lentigines; Diffuse photodamage of skin Social History Tobacco Use Types Packs/Day Years [...] * Patient Instructions* Anirudh Asher PA-C - 06/20/2023 8:30 EDT DERMATOLOGY WOUND CARE INSTRUCTIONS FOR CRYOSURGERY The area you had treated with liquid nitrogen therapy may swell, blister and throb for 24 hours. You may see blood in the blisters. If the blisters open, apply Vaseline/petroleum jelly until the areahas healed. We do not recommend the use of triple antibiotic ointment or other ointments as they can cause allergic reactions. Any scabs that form should fall off within 14-21 days. CONTACT THE OFFICE IF YOU EXPERIENCE: increasing redness warmth to touch increasing pain drainage with a foul odor rapid swelling of the wound fever or chills Please call our office or . WOUND CARE INSTRUCTIONS FOR CRYOSURGERY (FREEZING THERAPY) [...] Progress Notes * Anirudh Asher PA-C - 06/20/2023 0827 EDT Dermatology Outpatient Visit Note Chief Complaint Patient presents with ??? New Patient Visit Sun damage on face. Worse on L cheek, becomes sore and bleeds intermittently Dermatologic History: No specialty comments available. Last Dermatology office visit: NPV SUBJECTIVE Mr. Guo is a 63 y.o. male who presents for new evaluation and treatment for a spot of concern. Cutaneous concerns listed below. ??? Denies personal history of skin cancer and history of first degree relatives with melanoma. ??? Rough spot on left cheek that intermittently scales and bleeds He is otherwise feeling well and has no other cutaneous concerns today. MEDICATION LIST He has a current medication list which includes the following prescription(s): aspirin chewable, cholecalciferol (vitamin d3), elderberry fruit, ferrous fumarate/vit bcomp,c, ferrous sulfate, hydroxyzine, ibuprofen, magnesium citrate, meloxicam, ropinirole, saw palmetto xtr/zinc picolin, and UNABLETO FIND. ALLERGY LIST He is allergic to amoxicillin and meloxicam. OBJECTIVE Mr. Guo is a well appearing and in no acute distress male, with a normal affect. He has fair skin. Cutaneous waist-up examination including the hair, scalp, face, eyelids, lips, neck, chest, back,abdomen, upper extremities, hands, digits and nails was performed. Patient deferred full exam. The examination was significant for the following: - photo-distribution: diffuse actinic injury, numerous brown smudged macules and mottled pigmentation - right zygoma, left zygoma and left malar cheek: non-indurated pink gritty thin papules ASSESSMENT/PLAN Actinic keratoses Etiology discussed. Discussed options for treatment including observation, cryosurgery and topical 5-FU (Efudex). Given the risk for actinic keratoses to progress to squamous cell carcinomas, recommend treatment with liquid nitrogen cryosurgery today. The patient will return if lesion fails to fully resolve. See procedure note below. Lentigines Diffuse photodamage of skin The nature of sun-induced photo-aging and skin cancers is discussed. Sun avoidance, protective clothing, and the use of OTC broad spectrum 50+-SPF sunscreens with both UVA and UVB coverage is advised. Observe closely for skin damage/changes, and call if such occurs. The ABCDE's of melanoma were reviewed (asymmetry, border, color, diameter, evolution). Also reviewed signs and symptoms of non-melanoma skin cancers. Advised to call office with any questions or concerns. Reviewed the ugly duckling sign and the importance of monthly self-surveilance. PROCEDURE NOTE Cryotherapy procedure note A total of 3 AKs were treated with liquid nitrogen cryotherapy. Risks of the procedure were discussed, including pain, blistering, possible infection, resultant hypo-or hyperpigmentation and possibility of incomplete resolution. Verbal consent was obtained prior to the procedure. Wound care was discussed. He will f/u as planned or in the interim should problems arise. Return in about 2 years (around 06/20/2025) for FBSE h/o AKs . The attending physician was available for this visit. Anirudh Asher PA-C 06/20/2023 8:47 documented in this encounter Plan of Treatment Not on file documented as of this encounter Visit Diagnoses Diagnosis Actinic keratoses- Primary Actinic keratosis Lentigines Other dyschromia Diffuse photodamage of skin Other chronic dermatitis due to solar radiation documented in this encounter Care Teams Nuclear Equipment Test Engineer Relationship Specialty Start Date End Date Francesca Curiel APRN [address] [address] PCP - General 03/22/22 documented as of this encounter
--- OUTSIDE RECORDS SUMMARY | 2024-05-08 02:47 | XMS_ITS | Encounter Summary ---
Author Organization [facility] Address [address] [place] [address] Care Team Providers Care Lathe Tender Name Role Phone Francesca Curiel APRN Primary Care Provider +1 -[phone] Encounter Details Date Type Department Care Team (Latest Contact Info) Description 07/05/2022 Travel Social History Tobacco Use Types Packs/Day Years [...] on filedocumented in this encounter Care Teams Lathe Tender Relationship Specialty Start Date End Date Francesca Curiel APRN [address] [place] [address] PCP - General 03/22/22 documented as of this encounter
--- OUTSIDE RECORDS SUMMARY | 2024-05-08 02:47 | XMS_ITS | Encounter Summary ---
Author Organization [facility] Address [address] [place] [address] Care Team Providers Care Water Resources Engineer Name Role Phone Francesca Curiel APRN Primary Care Provider +1 -[phone] Encounter Details Date Type Department Care Team (Late st Contact Info) Description 08/10/2022 Orders Only [facility] Neurosurgery - [address] [address] India Pickens NP [address] [facility], [address] [place] [id number] Lumbar radiculopathy (Primary Dx) Social History Tobacco Use Types [...] as of this encounter Visit Diagnoses Diagnosis Lumbar radiculopathy- Primary Thoracic or lumbosacral neuritis or radiculitis, unspecified documented in this encounter Care Teams Water Resources Engineer Relationship Specialty Start Date End Date Francesca Curiel, MERCHANDISING CONSULTANT [address] [place] [phone] PCP - General 03/22/22 documented as of this encounter
--- OUTSIDE RECORDS SUMMARY | 2024-05-08 02:48 | XMS_ITS | Encounter Summary ---
Author Organization [facility] Address [facility] [place] [address] Care Team Providers Care Underwriting Account Representative Name Role Phone Francesca Curiel APRN Primary Care Provider +1 -[phone] Reason for Visit * Consultation (Routine) - Closed Specialty Diagnoses / Procedures Referred By Patricia santana Referred To Contact Vascular Surgery Diagnoses Hereditary and idiopathic neuropathy, unspecified Francesca Curiel APRN [address] [place] [address] [facility] Vascular Surg [address] [place] [address] Referral ID Status Reason Start Date Expiration Date V isits Requested Visits Authorized [id number] Closed Consult, [facility] PCP Updated and/or Approved 02/15/2021 02/15/2022 6 6 Encounter Details Date Type Department Care Team (Late st Contact Info) Description 03/07/2021 2:30 PM EDT Office Visit [place] [address] Oneil Ramos MD [facility] [place] [address] Bilateral leg pain Social History Tobacco Use Types Packs/Day Years Used Date Smoking Tobacco: Never Smokeless Tobacco: Never Sex and Gender Information Value Date Recorded Sex Assigned at Not on file Gender Identity Not on file Sexual Orientation Not on file documented as of this encounter Last Filed Vital Signs Vital Sign Reading Time Taken Comments Blood Pressure 119/68 03/07/2021 2:31 PM EDT Pulse 68 03/07/2021 2:31 PM EDT Temperature - - Respiratory Rate - - Oxygen Saturation 100% 03/07/2021 2:31 PM EDT Inhaled Oxygen Concentration - - Weight - - Height - - Body Mass Index - - documented in this encounter Progress Notes * Oneil Ramos MD - 03/07/2021 2:30 PM EDT This is a new patient to the practice who is being evaluated for bilateral calf cramping at night and was referred by Francesca Curiel APRN. This has bothered the patient for many years although ithas worsened recently. He has known low back problems for which he has been undergoing branch blocks and possible upcoming radiofrequency ablation. He underwent FATOU testing today. PMHx: No past medical history on file. PSxHx: No past surgical history on file. Family Hx: No family history on file. Social Hx: Social History Tobacco Use ??? Smoking status: Never Smoker ??? Smokeless tobacco: Never Used Substance Use Topics ??? Alcohol use: Not on file Medications: Medications 03/07/21 1431 Not on File Allergies: No Known Allergies Review of Systems: Constitutional (weight change, fever) - Denies Neuro (dizziness, seizures, numbness, tingling) - Denies Eyes (vision) - Denies Ears, nose, throat (hearing) - Denies Cardiovascular (CP) - Denies Respiratory (SOB) - Denies GI (abd pain, nausea, emesis, blood in stool) - Denies (hematuria, dysuria, frequency) - Denies Muscoloskeletal (extremity pain, weakness) - bilateral calf cramping Skin (ulcers, rashes) - denies All other ROS negative Physical Exam: Vitals: Patient Vitals for the past 24 hrs: Pulse BP SpO2 03/07/21 1431 68 119/68 100 % Gen: No acute distress. HEENT: Normocephalic, atraumatic. PERR, EOMs intact bilaterally. No scleral icterus. Normal dentition Neck: Supple, no JVD. Heart: Regular rate and rhythm. (+) S1/S2. No snaps, clicks, rubs, or murmurs. No lifts/heaves Lungs: Regular respiratory rate with no increased work of breathing. Clear to auscultation bilaterally. Abd: Soft, nontender, not distended. Audible bowel sounds. No bruits or pulsatile mass on exam. No hepato/splenomegaly. Aortic pulsation normal Vascular Exam: R L Carotid 2/2 bruit (-) 2/2 bruit (-) Radial 2/2 2/2 Femoral 2/2 2/2 Popliteal 2/2 2/2 DP 2/2 2/2 PT 2/2 2/2 No edema or varicosities bilateral lower extremities <3 sec cap refill Skin: normal Digits/Nails: No evidence of clubbing, cyanosis, ischemia, or tissue loss. Musculoskeletal: Gait - normal, no notable motor sensory deficits on gross examination. Psych: AAOx3, mood/affect congruent Labs/Studies: Findings: ?? Right ?Pressure (mm Hg) ?? FATOU ??Waveform ?? Brachial Artery ?119 ? Common Femoral Artery ?Triphasic ?? Popliteal Artery ? Triphasic ?? Dorsalis Pedis (Ankle) Artery ?138 ? 1.14 ??Triphasic ?? Posterior Tibial (Ankle) Artery ??131 ? 1.08 ??Triphasic ? Left ? Pressure (mm Hg) ?? FATOU ??Waveform ?? Brachial Artery ?121 ? Common Femoral Artery ?Triphasic ?? Popliteal Artery ? Triphasic ?? Dorsalis Pedis (Ankle) Artery ?136 ? 1.12 ??Triphasic ?? Posterior Tibial (Ankle) Artery ??147 ? 1.21 ??Triphasic ? Interpretation: ?? RIGHT: No significant lower extremity arterial occlusive disease identifiable at rest. Normal ankle/brachial pressure ratios and ankle Doppler waveforms. ?? LEFT: No significant lower extremity arterial occlusive disease identifiable at rest. Normal ankle/brachial pressure ratios and ankle Doppler waveforms. Impression: Mr. Guo's ABIs are normal. He has no peripheral artery disease. His leg symptoms areunrelated to vascular causes. We will see him back in vascular clinic as needed. documented in this encounter Plan of Treatment Not on file documented as of this encounter Visit Diagnoses Diagnosis Bilateral leg pain Pain in limb documented in this encounter Care Teams Underwriting Account Representative Relationship Specialty Start Date End Date Francesca Curiel APRN [address] [place] [address] PCP - General Family Medicine 02/20/21 documented as of this encounter
--- OUTSIDE RECORDS SUMMARY | 2024-05-08 02:48 | XMS_ITS | Encounter Summary ---
[place] [address] Care Team Providers Care Book Critic Name Role Phone Francesca Curiel APRN Primary Care Provider +1 [phone] Encounter Details Date Type Department Care Team (Late st Contact Info) Description 03/23/2021 Ancillary Procedure Radiology Library at [facility] [place] [address] Francesca Curiel APRN [address] [place] [address] Social History Tobacco Use Types Packs/Day Years Used Date Smoking Tobacco: Never Smokeless Tobacco: Never Sex and Gender Information Value Date Recorded Sex Assigned at Not on file Gender Identity Not on file Sexual Orientation Not on file documented as of this encounter Plan of Treatment Not on file documented as of this encounter Procedures Procedure Name Priority Date/Time Associated Diagnosis Comments FILM LIBRARY STORAGE ONLY DX SPINE Routine 03/23/2021 12:00 AM EDT documented in this encounter Results * Film Library- Storage Only DX Spine (03/23/2021 12:00 AM EDT) Narrative [facility] - 07/26/2022 11:22 AM EDT This exam is auto-finalizing. It's purpose is for storage only. Francesca Curiel APRN IMG FILM LIBRARY ORDERABLES [place], [place] documented in this encounter Visit Diagnoses Not on filedocumented in this encounter Care Teams Book Critic Relationship Specialty Start Date End Date Francesca Curiel APRN [address] [place] [address] PCP - General Family Medicine 02/20/21 documented as of this encounter
--- OUTSIDE RECORDS SUMMARY | 2024-05-08 02:48 | XMS_ITS | Encounter Summary ---
Author Organization [facility] [place] [address] Care Team Providers Care Compensation Vice President Name Role Phone Francesca Curiel APRN Primary Care Provider +1 -[phone] Encounter Details Date Type Department Care Team (Late st Contact Info) Description 06/20/2022 Ancillary Procedure Radiology Library at [facility] [place] [address] Francesca Curiel APRN [address] [place] [address] Social History Tobacco Use Types [...] FILM LIBRARY STORAGE ONLY DX SPINE Routine 06/20/2022 12:00 AM EDT documented in this encounter Results * Film Library- Storage Only DX Spine (06/20/2022 12:00 AM EDT) Narrative [facility] - 07/26/2022 11:27 AM EDT This exam is auto-finalizing. It's purpose is for storage only. Francesca Curiel APRN IMG FILM LIBRARY ORDERABLES [place], [place] documented in this encounter Visit Diagnoses Not on filedocumented in this encounter Care Teams Compensation Vice President Relationship Specialty Start Date End Date Francesca Curiel APRN [address] [place] [address] PCP - General Family Medicine 02/20/21 documented as of this encounter
--- OUTSIDE RECORDS SUMMARY | 2024-05-08 02:48 | XMS_ITS | Encounter Summary ---
Author Organization [facility] Address [address] [place] [address] Care Team Providers Care Toys And Games Hand Finisher Name Role Phone Francesca Curiel APRN Primary Care Provider +1 [phone] Encounter Details Date Type Department Care Team (Late st Contact Info) Description 03/29/[address] [facility] Pathology & [place] [address] Outr Resulting Lab, Provider Social History Tobacco Use Types Packs/Day Years Used Date Smoking Tobacco: Never Assessed Sex and Gender Information Value Date Recorded Sex Assigned at Not on file Gender Identity Male 03/14/2022 13:05 EDT Sexual Orientation Not on file documented as of this encounter Plan of Treatment Not on file documented as of this encounter Procedures Procedure Name Priority Date/Time Associated Diagnosis Comments ZZCOVID-19 TEST [facility] PCR Today 03/29/2020 9:50 EDT COVID-19 TESTING Routine 03/29/2020 9:50 EDT documented in this encounter Results * COVID-19 TEST [facility] PCR (03/29/2020 9:50 EDT) Swab ENTIRE NASOPHARYNX / Unknown 03/29/2020 9:50 EDT 03/29/2020 15:41 EDT Provider Outr Resulting Lab MICROBIOLOGY - GENERAL ORDERABLES [facility] [address] [place] [address] * COVID-19 TESTING (03/29/2020 9:50 EDT) COVID-19 rt-PCR Result Negative Negative 03/29/2020 22:36 EDT [facility] Comment: This test has not been FDA cleared or approved. This test has been authorized by FDA under an EUA for use by authorized laboratories. This test has been authorized only for detection of nucleic acid from 2019-nCoV, not for any other viruses or pathogens. This test is only authorized for the duration of the declaration that circumstances exist justifying the authorization of emergency use of in vitro diagnostic tests for detection and/or diagnosis of 2019-nCoV under section 564(b)(1) of Act, 21 U.S.C ?? 360bbb-3(b) (1), unless the authorization is terminated or revoked sooner. Negative results do not preclude 2019-nCoV infection and should not be used as the sole basis for treatment or other patient management decisions. Negative results must be combined with clinical observations, patient history, and epidemiological information. Performed on the [employer] instrument Performing Lab [place] [facility] Lab 03/29/2020 22:36 EDT [facility] Swab 03/29/2020 9:50 EDT 03/29/2020 15:41 EDT Provider Outr Resulting Lab MICROBIOLOGY - GENERAL ORDERABLES [facility] [address] [place] [address] documented in this encounter Visit Diagnoses Not on filedocumented in this encounter Care Teams Toys And Games Hand Finisher Relationship Specialty Start Date End Date Francesca Curiel APRN [address] [place] [phone] PCP - General 03/22/22 documented as of this encounter
--- OUTSIDE RECORDS SUMMARY | 2024-05-08 02:48 | XMS_ITS | Encounter Summary ---
Author Organization [facility] Address [address] [place] [address] Care Team Providers Care Car Sealer Name Role Phone Francesca Curiel APRN Primary Care Provider +1 -[phone] Encounter Details Date Type Department Care Team (Late st Contact Info) Description 08/24/2021 Lab Requisition [facility] Pathology & Laboratory Medicine - [address] [address] Outr Resulting Lab, Provider Social History Tobacco Use Types Packs/Day Years Used Date Smoking Tobacco: Never Assessed Interpersonal Safety Answer Date Record ed Physically [...] Procedure Name Priority Date/Time Associated Diagnosis Comments SPEP, INCLUDES QUANTITATION OF MONOCLONAL SPIKE PERFORMABLE Today 08/24/2021 9:45 EST SPEP, INCLUDES QUANTITATION OF MONOCLONAL SPIKE Routine 08/24/2021 9:45 EST PROTEIN, TOTAL Today 08/24/2021 9:45 EST documented in this encounter Results * SPEP, INCLUDES QUANTITATION OF MONOCLONAL SPIKE PERFORMABLE (08/24/2021 9:45 EST) Albumin % 66.0 55.8 - 66.1 % 08/25/2021 11:55 [facility] Alpha-1 % 3.4 2.9 - 4.9 % 08/25/2021 11:55 [facility] Alpha-2 % 7.6 7.1 - 11.8 % 08/25/2021 11:55 [facility] Beta % 9.5 8.4 - 13.1 % 08/25/2021 11:55 [facility] Gamma % 13.5 11.1 - 18.8 % 08/25/2021 11:55 [facility] SPEP Comment No apparent monoclonal protein seen on serum electrophoresis 08/25/2021 11:55 [facility] Comment:See scanned/suppleme ntary report. Total Protein 7.4 6.3 - 8.2 g/dL 08/25/2021 11:55 [facility] Blood VENOUS BLOOD / Unknown 08/24/2021 9:45 EST 08/24/2021 21:06 EST Provider Outr Resulting Lab CHEMISTRY & BLOOD GAS ORDERABLES Performing Organization Address [facility] Co de Phone Number [facility] [address] [place] [address] * PROTEIN, TOTAL (08/24/2021 9:45 EST) Blood VENOUS BLOOD / Unknown 08/24/2021 9:45 EST 08/24/2021 21:06 EST Provider Outr Resulting Lab CHEMISTRY & BLOOD GAS ORDERABLES Performing Organization Address City/[facility] Co de Phone Number [facility] [address] [place] [address] documented in this encounter Visit Diagnoses Not on filedocumented in this encounter Care Teams Car Sealer Relationship Specialty Start Date End Date Francesca Curiel APRN [address] [address] [place] [address] PCP - General 03/22/22 documented as of this encounter
--- OUTSIDE RECORDS SUMMARY | 2024-05-08 02:48 | XMS_ITS | Clinical Summary ---
[place] [address] Care Team Providers Care Campus Dean Name Role Phone Francesca Curiel APRN Primary Care Provider +1 -[phone] Allergies No known active allergies Medications No known medications Social History Tobacco Use Types Packs/Day Years Used Date Smoking Tobacco: Never Smokeless Tobacco: Never Sex and Gender Information Value Date Recorded Sex Assigned at Not on file Gender Identity Not on file Sexual Orientation Not on file Last Filed Vital Signs Vital Sign Reading Time Taken Comments Blood Pressure 119/68 03/07/2021 2:31 PM EDT Pulse 68 03/07/2021 2:31 PM EDT Temperature - - Respiratory Rate - - Oxygen Saturation 100% 03/07/2021 2:31 PM EDT Inhaled Oxygen Concentration - - Weight - - Height - - Body Mass Index - - Plan of Treatment Health Maintenance Due Date Last Done Comments CT Colonography 1960 Colonoscopy 1960 Colorectal Cancer Screening 1960 FIT DNA 1960 FIT 1960 Sigmoidoscopy (10 year) with FIT yearly 1960 Sigmoidoscopy 1960 HIV screen 1978 Hepatitis C Screening 1978 Lipid Screening 1978 Tdap adult 1979 Tetanus vaccine 1979 Zoster vaccine (1 of 2) 2010 Advance Directive 2015 Covid-19 Vaccine ( season) 2023 Influenza (Flu) vaccine (1 o f 1 - Influenza standard series) 06/07/2024 Care Teams Campus Dean Relationship Specialty Start Date End Date Francesca Curiel APRN [address] [place], [place] [id number] PCP - General Family Medicine 02/20/21
--- OUTSIDE RECORDS SUMMARY | 2024-05-08 02:48 | XMS_ITS | Encounter Summary ---
[place] [address] Care Team Providers Care Estimating Manager Name Role Phone Francesca Curiel APRN Primary Care Provider +1 -[phone] Encounter Details Date Type Department Care Team (Late st Contact Info) Description 02/21/2021 Ancillary Procedure Radiology Library at [facility] [place] [address] Francesca Curiel APRN [address] [place] [address] Social History Tobacco Use Types [...] FILM LIBRARY STORAGE ONLY DX SPINE Routine 02/21/2021 12:00 AM EDT documented in this encounter Results * Film Library- Storage Only DX Spine (02/21/2021 12:00 AM EDT) Narrative [facility] - 07/26/2022 11:24 AM EDT This exam is auto-finalizing. It's purpose is for storage only. Francesca Curiel APRN IMPraneeth FILM LIBRARY ORDERABLES [place], [place] documented in this encounter Visit Diagnoses Not on filedocumented in this encounter Care Teams Estimating Manager Relationship Specialty Start Date End Date Francesca Curiel APRN [address] [place] [address] PCP - General Family Medicine 02/20/21 documented as of this encounter
--- OUTSIDE RECORDS SUMMARY | 2024-05-08 02:48 | XMS_ITS | Encounter Summary ---
Author Organization [facility] Address [facility] [address] Care Team Providers Care Smt Machine Operator Name Role Phone Francesca Curiel APRN Primary Care Provider +1 -[phone] Encounter Details Date Type Department Care Team (Late st Contact Info) Description 05/21/2022 12:05 AM EDT Ancillary Procedure Radiology Library at [facility] [place] [address] Francesca Curiel APRN [address] [place] [id number] Social History Tobacco Use Types Packs/Day Years [...] Associated Diagnosis Comments FILM LIBRARY STORAGE ONLY MR SPINE Routine 05/21/2022 12:05 AM EDT documented in this encounter Results * Film Library- Storage Only MR Spine (05/21/2022 12:05 AM EDT) Narrative [facility] - 07/26/2022 11:28 AM EDT This exam is auto-finalizing. It's purpose is for storage only. Francesca Curiel APRN IMG FILM LIBRARY ORDERABLES [place], [place] documented in this encounter Visit Diagnoses Not on filedocumented in this encounter Care Teams Smt Machine Operator Relationship Specialty Start Date End Date Francesca Curiel APRN [address] [place] [address] PCP - General Family Medicine 02/20/21 documented as of this encounter
--- OUTSIDE RECORDS SUMMARY | 2024-05-08 02:48 | XMS_ITS | Encounter Summary ---
Author Organization [facility] Address [address] [place] [address] Care Team Providers Care Pit Inspector Name Role Phone Francesca Curiel APRN Primary Care Provider +1 -[phone] Reason for Visit * Reason Onset Date Comments Other 04/27/2022 Encounter Details Date Type Department Care Team (Late st Contact Info) Description 04/27/2022 Telephone [facility] Orthopedics & Spine Medicine [address] [place], [place] [id number] Jaimee Singh PA-C [address] [facility] [address] [place] [address] Other Social History Tobacco Use Types Packs/Day Years Used Date Smoking Tobacco: Former Smokeless Tobacco: Never Interpersonal Safety Answer Date [...] suspected to have Coronavirus/COVID-19? No / Unsure 03/29/2022 9:14 EDT documented as of this encounter Functional [...] encounter Miscellaneous Notes * Telephone Encounter - Alethea Bauer LPN - 04/27/2022 0296 EDT Radiology leaves VM today asking for signed orders for this pt, I had printed and had Drea sign MRIorder 04/17/22, they say they never got that but also needs one for x-ray, Drea not here to sign, ifyou go to certain part of referral it does say electronically signed, when I called radiology back they said if I could print that and be sure electronically part shows I could just fax that to them,so I did that for MRI and x-ray today. They are running out of a[proval time frame given by insurance for MRI. documented in this encounter Plan of Treatment Not on file documented as of this encounter Visit Diagnoses Not on filedocumented in this encounter Care Teams Pit Inspector Relationship Specialty Start Date End Date Francesca Curiel, [place] [address] [place] [id number] PCP - General 03/22/22 documented as of this encounter
--- OUTSIDE RECORDS SUMMARY | 2024-05-08 02:48 | XMS_ITS | Encounter Summary ---
Author Organization [facility] Address [address] [place] [address] Care Team Providers Care Utilization Reviewer Name Role Phone Francesca Curiel APRN Primary Care Provider +1 [phone] Reason for Visit * Reason Onset Date Comments Referral Request 04/13/2022 Encounter Details Date Type Department Care Team (Late st Contact Info) Description 04/13/2022 Telephone [facility] - [facility] [address] [id number] Jaimee Singh PA-C [address] [place] [address] [place], [place] [id number] Referral Request Social History Tobacco Use Types Packs/Day Years [...] Telephone Encounter - Alethea Bauer LPN - 05/07/2022 1629 EDT Noted, pt has imaging F/U in Jun. * Telephone Encounter - Marily Benz - 05/07/2022 1100 EDT I called patient to schedule, and he wants to wait until after he gets xrays and MRI at [facility]. I told him that If he decides to proceed, to call me, and I could put him back on the cancellation list. Pt agreed * Telephone Encounter - Audrey Valerio - 04/17/2022 1546 EDT Sent referral to [facility] for injection. * Telephone Encounter - Alethea Bauer LPN - 04/17/2022 1309 EDT Pt left VM twice today, returning my call, I did call pt, he is happy to have order for bilat SI joint injections sent to [facility], I do not know why insurance said [facility] for injection out of network so he had to go to [facility], yet they did get approval for MRI at [facility], pt will make F/U after he gets MRI date. And if he does not hear from pain clinic in a week he will call [facility] pain clinic, reminded him once he gets injection date he needs an OV or TM to review results,pt happy with this plan.Audrey can you send SI joint injection order to [facility]. * Telephone Encounter - Marily Benz - 04/13/2022 1533 EDT Pt just called here, stating that he just missed call. And to call back at [phone] to discuss Insurance issue. * Telephone Encounter - Alethea Bauer LPN - 04/13/2022 1523 EDT I called pt, left VM to call me to discuss, little further down on referral Ngoc did speak with pt yesterday and [facility] would be covered as they are with in his insurance net work, I asked pt to callback and let me know he does want to go to [facility]. * Telephone Encounter - Marily Benz - 04/13/2022 0949 EDT Cassandra, Can you follow up with this patient? He LMM , but when I reviewed referral it showed this reply as denied: Dear Jaimee Singh: The referral that you have requested for Cristo Guo has been denied for the following reason: Not a Covered Benefit Comments: [facility] out of network with patient's insurance, patient is aware. Sincerely, Ngoclana Brady There is nothing I can do unless he wants to be self pay? Let me know. Marily Moss documented in this encounter Plan of Treatment Not on file documented as of this encounter Visit Diagnoses Not on filedocumented in this encounter Care Teams Utilization Reviewer Relationship Specialty Start Date End Date Francesca Curiel APRN [address] [place] [address] PCP - General 03/22/22 documented as of this encounter
--- OUTSIDE RECORDS SUMMARY | 2024-05-08 02:48 | XMS_ITS | Encounter Summary ---
Author Organization [facility] Address [address] [place] [address] Care Team Providers Care Escape Wheel Tooth Cutter Name Role Phone Francesca Curiel APRN Primary Care Provider [phone] [phone] Reason for Visit * Reason Onset Date Comments Other 04/17/2022 Encounter Details Date Type Department Care Team (Late st Contact Info) Description 04/17/2022 Telephone [facility] Orthopedics & Spine Medicine [address] [place], [place] [phone] Jaimee Singh PA-C [address] [facility] [address] [place] [address] Other Social History Tobacco Use [...] Encounter - Alethea Bauer LPN - 04/17/2022 1348 EDT Order did appear as electronically signed but we printed order, Drea signed and I did fax. * Telephone Encounter - Jaimee Singh PA-C - 04/17/2022 1345 EDT Thanks Cassandra! * Telephone Encounter - Alethea Bauer LPN - 04/17/2022 1053 EDT Radiology calls today, they received referral for lumbar MRI but it was not an electronically signed order, they will need that or printed order to be fax DANIEL, they have approval all ready but can not schedule pt till they get that order, approval only good till May 28 so they need to get that order today. Drea can you give me a printed order to fax? documented in this encounter Plan of Treatment Not on file documented as of this encounter Visit Diagnoses Not on filedocumented in this encounter Care Teams Escape Wheel Tooth Cutter Relationship Specialty Start Date End Date Francesca Curiel, [place] [address] [place] [address] PCP - General 03/22/22 documented as of this encounter
--- OUTSIDE RECORDS SUMMARY | 2024-05-08 02:48 | XMS_ITS | Encounter Summary ---
Author Organization [facility] [place] [address] Care Team Providers Care Supervisor Tubing Name Role Phone Francesca Curiel APRN Primary Care Provider [phone] Reason for Visit * Consultation (Routine) - Closed Specialty Diagnoses / Procedures Referred By Patricia santana Referred To Contact Vascular Surgery Diagnoses Hereditary and idiopathic neuropathy, unspecified Francesca Curiel APRN [address] [place] [address] [facility] Vascular Surg [address] [place] [address] Referral ID Status Reason Start Date Expiration Date V isits Requested Visits Authorized [id number] Closed Consult, Test & Treat Connection [facility] PCP Updated and/or Approved 02/15/2021 02/15/2022 6 6 Encounter Details Date Type Department Care Team (Late st Contact Info) Description 03/07/2021 2:00 PM EDT Tech [place] [address] Praful Donald, RVT Leg cramps; Neuropathy Social History Tobacco Use Types Packs/Day Years Used Date Smoking Tobacco: Never Smokeless Tobacco: Never Sex and Gender Information Value Date Recorded Sex Assigned at Not on file Gender Identity Not on file Sexual Orientation Not on file documented as of this encounter Plan of Treatment Not on file documented as of this encounter Procedures Procedure Name Priority Date/Time Associated Diagnosis Comments FATOU, LEGS, MULTIPLE LEVELS Routine 03/07/2021 1:52 PM EDT Leg cramps Neuropathy documented in this encounter Results * FATOU, legs, multiple levels (03/07/2021 1:52 PM EDT) VB Text Report Department: Vascular Surgery Lab Patient: [id number] (TERRY MCLAUGHLIN) CPT: 65946 ICD10: R25.2;G62.9 Referring Physician: LILLIAN FRANKLIN APRN ?? Indications: ??leg cramping at night, ? PVD Diabetes mellitus: no ICD10 Diagnosis Code: R25.2, G62.9 Findings: Right ?Pressure (mm Hg) ?? FATOU ??Waveform ?? Brachial Artery ?119 ? Common Femoral Artery ?Triphasic ?? Popliteal Artery ? Triphasic ?? Dorsalis Pedis (Ankle) Artery ?138 ? 1.14 ??Triphasic ?? Posterior Tibial (Ankle) Artery ??131 ? 1.08 ??Triphasic ?? Left ? Pressure (mm Hg) ?? FATOU ??Waveform ?? Brachial Artery ?121 ? Common Femoral Artery ?Triphasic ?? Popliteal Artery ? Triphasic ?? Dorsalis Pedis (Ankle) Artery ?136 ? 1.12 ??Triphasic ?? Posterior Tibial (Ankle) Artery ??147 ? 1.21 ??Triphasic ?? Interpretation: RIGHT: No significant lower extremity arterial occlusive disease identifiable at rest. Normal ankle/brachial pressure ratios and ankle Doppler waveforms. LEFT: No significant lower extremity arterial occlusive disease identifiable at rest. Normal ankle/brachial pressure ratios and ankle Doppler waveforms. Comparison: ??No previous study in our vascular lab database for comparison. Electronically Signed by: ROSA ALEX on 2021-03-10 09:24:25 AM VASCUBASE VB Text Report End of Report VASCUBASE 03/07/2021 1:52 PM EDT Lillian Franklin APRN VASCULAR ORDERABLE S VASCUBASE documented in this encounter Visit Diagnoses Diagnosis Leg cramps Cramp of limb Neuropathy Mononeuritis of unspecified site documented in this encounter Care Teams Supervisor Tubing Relationship Specialty Start Date End Date Francesca Curiel APRN [address] [place] [address] PCP - General Family Medicine 02/20/21 documented as of this encounter
--- OUTSIDE RECORDS SUMMARY | 2024-05-08 02:48 | XMS_ITS | Encounter Summary ---
Author Organization [facility] Address [address] [place] [address] Care Team Providers Care Cotton Jammer Name Role Phone Francesca Curiel APRN Primary Care Provider [phone] Reason for Visit * Reason Onset Date Comments Other 04/04/2022 Encounter Details Date Type Department Care Team (Late st Contact Info) Description 04/04/2022 Telephone [facility] Orthopedics & Spine Medicine [address] [place], [place] [phone] Jaimee Singh PA-C [address] [facility] [address] [place] [address] Other Social History Tobacco Use [...] Telephone Encounter - Alethea Bauer LPN - 04/04/2022 1328 EDT Pt leaves VM today, wants more information re injection ordered, wants Drea to call his insurance to give that info for coverage. I called pt, explained that pain clinic will be working on approval from insurance, referral was [facility] to [facility], pt states he will wait till they call to scheduleand he will make sure insurance approval was obtained, pt happy with this plan and thankful for return call. documented in this encounter Plan of Treatment Not on file documented as of this encounter Visit Diagnoses Not on filedocumented in this encounter Care Teams Cotton Jammer Relationship Specialty Start Date End Date Francesca Curiel APRN [address] [place] [address] PCP - General 03/22/22 documented as of this encounter
--- OUTSIDE RECORDS SUMMARY | 2024-05-08 02:48 | XMS_ITS | Encounter Summary ---
Author Organization [facility] Address [address] [place] [address] Care Team Providers Care Manager Web Name Role Phone Francesca Curiel APRN Primary Care Provider [phone] [phone] Reason for Visit * Reason Onset Date Comments Other 04/02/2022 Encounter Details Date Type Department Care Team (Late st Contact Info) Description 04/02/2022 Telephone [facility] Orthopedics & Spine Medicine [address] [place], [place] [phone] Jaimee Singh PA-C [address] [facility] [address] [place] [address] Other Social History Tobacco Use [...] Telephone Encounter - Alethea Bauer LPN - 04/02/2022 0917 EDT Pt calls today, states MRI approved but insurance wants to know what steroid injection was ordered,reviewed chart bilateral SI joint injections were ordered. documented in this encounter Plan of Treatment Not on file documented as of this encounter Visit Diagnoses Not on filedocumented in this encounter Care Teams Manager Web Relationship Specialty Start Date End Date Francesca Curiel APRN [address] [place] [address] PCP - General 03/22/22 documented as of this encounter
--- OUTSIDE RECORDS SUMMARY | 2024-05-08 02:48 | XMS_ITS | Encounter Summary ---
Author Organization [facility] Address [address] [place] [address] Care Team Providers Care Spout Positioner Name Role Phone Francesca Curiel APRN Primary Care Provider [phone] [phone] Reason for Referral * Radiology Services (Routine/Next Available) - Authorization Not Required Specialty Diagnoses / Procedures Referred By Contac t Referred To Contact Diagnoses Bilateral leg pain Chronic bilateral low back pain without sciatica Procedures XR LUMBAR SPINE 4+ VIEWS Jaimee Singh PA-C [address] [facility] [address] [place] [address] External Referral ID Status Reason Start Date Expiration Date Visits Requested Visits Authorized [id number] Authorization Not Required 03/29/2022 1 1 Reason for Visit * Reason Comments Pain * Referral (Routine) - Authorization Not Required Specialty Diagnoses / Procedures Referred By Contac t Referred To Contact Orthopedic Surgery Diagnoses Low back pain, unspecified Francesca Curiel APRN [address] [facility] [address] [place] [address] [facility] Ortho & Spine [address] [place] [address] Referral ID Status Reason Start Date Expiration Date Visits Requested Visits Authorized [id number] Authorization Not Required 1 1 Encounter Details Date Type Department Care Team (Late st Contact Info) Description 03/29/2022 9:15 EDT Office Visit [facility] Orthopedics & Spine Medicine [address] [place] [address] Jaimee Singh PA-C [address] [facility] [address] [place], [place] [phone] Bilateral leg pain (Primary Dx); Chronic bilateral low back pain without sciatica; Sacroiliac joint pain Social History Tobacco Use Types Packs/Day [...] 9:14 EDT documented as of this encounter Last Filed Vital Signs Vital Sign Reading Time Taken Comments Blood Pressure - - Pulse - - Temperature - - Respiratory Rate - - Oxygen Saturation - - Inhaled Oxygen Concentration - - Weight 70.8 kg (156 lb 1.6 oz) 03/29/2022 0917 E DT Height 173.4 cm (5' 8.25) 03/29/2022 0917 EDT Body Mass Index 23.56 03/29/2022 0917 EDT documented in this encounter Functional Status Functional Status Response [...] Progress Notes * Jaimee Singh PA-C - 03/29/2022 0915 EDT History of Present Illness: This is a 62-year-old male who has been referred by Francesca Curiel APRN of [facility] for evaluation of ongoing low back pain issues. Patient has been following with a pain clinic, as well as neurology for nocturnal leg cramps, and bilateral foot numbness. 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 It was thought it could be related to spine disease, but they did acknowledge that his imaging had not been impressive. It was noted that the patient has chronic low back pain developing numbness in the bottoms of his bilateral feet around 2019 or 2020. Had seen Dr. Bundy in 2019 for a surgical consult and was told that surgery was not recommended at that time. Leg cramping had responded to ropinirole. Today, Festus presents complaining of chronic low back pain, which had previously been mitigated withradiofrequency ablation spanning L3 to the sacrum in May 2021, providing him with approximately a month and a half of good pain relief. Patient's low back pain is located over the region of his sacrum, and bilateral sacroiliac joints. Pain is aggravated with activities involving a lot of bending and lifting, and with sitting for an extended period of time. His leg symptoms involve severe muscle cramping and spasms that mainly occur at night and once he is laying with his feet up. The main muscle group that is involved is the quadriceps, but he gets spasms also of the anterior lower legs. He does report that his feet cramp up as well. The only way that he is found to mitigate these nighttime symptoms is taking fair doses of quinine, ropinirole, and doing a set of exercises before he goes to bed at night, preceded by drinking a significant amount of water all day. He does also get some numbness of his toes bilaterally. Seems to affect mostly the great and second toe more on the left than the right. He feels that the spasms in his legs also occur slightly more often on the left than the right, and are aggravated with laying on his side. No reported change in bowel or bladder function. Symptoms have been ongoing for approximately 30 years. They do seem like they have increased in intensity somewhat, and in frequency. He had a bunionectomy bilaterally, after which the symptoms went from occurring in the posterior aspect of his legs to the anterior aspect of his legs. Conservative Treatment: Meds: Gabapentin, ropinirole, quinine PT: Recent physical therapy with continued home exercise program aimed at helping the leg cramping,lateral hip pain, and low back pain Injection History: [facility] MBB L3-5 02/21/2021, and 03/23/2021 Bilateral RFA L3-S1 05/25/2021 which provided him with relief of back symptoms lasting approximately6 weeks CASPER in distant past with no relief Review of Systems: As per HPI. I reviewed medications, allergies, medical, surgical and social history with the patient. Physical Examination: Pain Score (from Vitals) 03/29/2022 Initial score - Final score 3 Location BACK Comment 10+/10 at times Well developed, physically fit 62-year-old male, in no acute distress, appearing fairly comfortablein a seated position HEENT without gross abnormalities Breathing non-labored Skin is warm and dry Patient stands with minimally forward flexed posture Palpation reveals some tenderness to palpation over his bilateral right greater than left sacroiliac joints. No tenderness to palpation over his lumbar spinous processes or paraspinal musculature Ambulates with a normal gait Heel and toe walking without difficulty Range of motion of lumbar spine reasonable, with pain aggravation with lateral bending in the direction of the pain Strength: 5 out of 5 in his hip knee flexion and extension, ankle dorsiflexion and plantarflexion Sensation: Intact to light touch bilateral lower extremities DTRs: Bilateral bicep, tricep, brachioradialis deep tendon reflexes 0-1 negative Marjan bilaterally Bilateral patellar and Achilles deep tendon reflexes are absent. Negative clonus. Provocative maneuvers: Positive Feroz sign eliciting pain in the lateral aspects of his hips, or he is noted to be tender over his greater trochanters Image Review: Lumbar spine MRI dated 12/25/2018 shows multilevel degenerative disc changes, most advanced at L1-2 and L2-3, with retrolisthesis at both of these levels resulting in a mild hyperlordosis. He appears to have multilevel facet arthropathy, with bilateral facet effusions at L1-2 and L2-3 where he is noted to have the retrolisthesis. He has broad-based disc bulge with focal disc protrusion to the right likely leading to some extra foraminal stenosis, and certainly with some mild left foraminal stenosis. At L3-4, patient also has some mild foraminal stenosis on the right. He has on coronal view scoliotic deformity convex to the right with apex at L1-2, and lateral listhesis of L2 on 3 to the right Imaging read by me I did review an EMG that had been done and was in the scanned in records, 08/23/2021, that showed aprimary motor neuropathy. I gathered from neurology's note that they suspected the leg symptoms were related to possible restless leg syndrome, whereas the numbness that he experiences in his feet could possibly be from the lumbar spine. Assessment: 1. Chronic low back pain 2. Bilateral leg pain Cristo Guo is a pleasant and straightforward 62-year-old male presenting for evaluation of chronic low back pain as well as bilateral leg symptoms. His low back pain had responded positively to radiofrequency ablation, but only for approximately 6 weeks after which he feels like his low back pain returned to baseline. Currently, it seems that his back pain is coming from the region of his sacroiliac joints bilaterally, right greater than left today. This is not just based on physical exam, but also the clinical scenario of what aggravates his pain. We discussed the option of considering sacroiliac joint injections to see if this mitigates his pain. He is doing exercises that would be reasonable for sacroiliac related pain from his physical therapist, and he does state that when he doesthe exercises consistently it does he seem to help the low back pain as well as his lateral hip pain. He is interested in trying the sacroiliac joint injections, and referral was placed for this to be considered at [facility] where he has had his previous injections. In regard to his leg symptoms, I do not see anything in his lumbar spine MRI from 2019 that would explain his bilateral leg cramping. The symptoms he gets into his toes the most consistent with an [id number], and there is not clear nerve impingement that I can appreciate. The symptoms seem tohave come on after his MRI had been completed. The cramping in the legs has been ongoing for the last 30 years. We did discuss the option of getting a lumbar spine MRI as this 1 is relatively updatedto see if it provides us with any new information, as far as I can tell I have no explanation from his lumbar spine why his legs are cramping. I did consider that this could be coming from either thoracic or a cervical myelopathy, as he does report some balance issues and sense of weakness in the legs when he first gets up in the morning, but his gait is unremarkable, he has no trouble walking on his toes and heels, and he is rather hyporeflexive. We will plan on moving forward with bilateral SI joint injections, obtaining an updated MRI, plain films with flexion and extension and have him follow-up for reevaluation. Patient encouraged to call with any questions, concerns, or worsening of condition. I spent a total of 50 minutes on the date of this encounter meeting with the patient and reviewing documentation/coordinating care as described in the above note. Plan: 1. Lumbar spine MRI 2. LS plain films with flexion-extension views 3. Bilateral SI joint injections 4. Follow-up after the above is complete This document was produced using [employer]. Please excuse any grammatical or verbal errors. documented in this encounter Plan of Treatment Scheduled Orders Name Type Priority Associated Diagnoses Orde r Schedule XR LUMBAR SPINE 4+ VIEWS Imaging Routine Bilateral leg pain Chronic bilateral low back pain without sciatica Ordered: 03/29/2022 documented as of this encounter Visit Diagnoses Diagnosis Bilateral leg pain- Primary Pain in limb Chronic bilateral low back pain without sciatica Sacroiliac joint pain Disorders of sacrum documented in this encounter Historical Medications * This list may reflect changes made after this encounter. Medication Sig Dispensed Refills Start Date End Date UNABLE TO FIND if needed. OTC leg quinine leg cramp supplement ibuprofen (MOTRIN) 200 mg tablet Take 1 Tablet by mouth if needed for Pain. 2-3 at times rOPINIRole (REQUIP) 1 mg tablet Take 1 Tablet by mouth at bedtime. 01/02/2022 added in this encounter Care Teams Spout Positioner Relationship Specialty Start Date End Date Francesca Curiel APRN [address] [place] [id number] PCP - General 03/22/22 documented as of this encounter
--- OUTSIDE RECORDS SUMMARY | 2024-05-08 02:48 | XMS_ITS | Encounter Summary ---
[place] [address] Care Team Providers Care Slag Wheeler Name Role Phone Francesca Curiel APRN Primary Care Provider [phone] Encounter Details Date Type Department Care Team (Late st Contact Info) Description 05/25/2021 Ancillary Procedure Radiology Library at [facility] [place] [address] Francesca Curiel APRN [address] [place] [address] Social History Tobacco Use Types [...] FILM LIBRARY STORAGE ONLY DX SPINE Routine 05/25/2021 12:00 AM EDT documented in this encounter Results * Film Library- Storage Only DX Spine (05/25/2021 12:00 AM EDT) Narrative [facility] - 07/26/2022 11:25 AM EDT This exam is auto-finalizing. It's purpose is for storage only. Francesca Curiel APRN IMG FILM LIBRARY ORDERABLES [place], [place] documented in this encounter Visit Diagnoses Not on filedocumented in this encounter Care Teams Slag Wheeler Relationship Specialty Start Date End Date Francesca Curiel APRN [address] [place] [address] PCP - General Family Medicine 02/20/21 documented as of this encounter
--- OUTSIDE RECORDS SUMMARY | 2024-05-08 02:48 | XMS_ITS | Encounter Summary ---
Author Organization [facility] Address [address] [place] [address] Care Team Providers Care Manager Port Name Role Phone Francesca Curiel APRN Primary Care Provider [phone] Encounter Details Date Type Department Care Team (Late st Contact Info) Description 05/05/[address] [facility] [place] [facility] Orthopedics & Spine Medicine [address], [address] [place], [place] [id number] Jaimee Singh PA-C [address] [facility] [address] [place], [place] [id number] Pain of both sacroiliac joints (Primary Dx) Social History Tobacco Use Types [...] as of this encounter Visit Diagnoses Diagnosis Pain of both sacroiliac joints- Primary Disorders of sacrum documented in this encounter Care Teams Manager Port Relationship Specialty Start Date End Date Francesca Curiel APRN [address] [place] [address] PCP - General 03/22/22 documented as of this encounter
--- OUTSIDE RECORDS SUMMARY | 2024-05-08 02:48 | XMS_ITS | Encounter Summary ---
Author Organization [facility] Address [facility] [place] [address] Care Team Providers Care Aluminum Pourer Name Role Phone MoisésFrancesca alexander Kirsty MCGREGOR Primary Care Provider [phone] Reason for Referral * Diagnostic Test (Routine) - Closed Specialty Diagnoses / Procedures Referred By Patrciia santana Referred To Contact Diagnoses Leg cramps Neuropathy Procedures FATOU, legs, multiple levels Lillian Franklin APRN [facility] [place] [address] [facility] [address] [place] [address] Referral ID Status Reason Start Date Expiration Date V isits Requested Visits Authorized [id number] Closed Specialty Service Requested 02/21/2021 02/21/2022 1 1 Encounter Details Date Type Department Care Team (Late st Contact Info) Description 02/21/2021 Orders Only [place] [address] Lillian Franklin APRN [facility] [place] [address] Leg cramps; Neuropathy Social History Tobacco Use Types Packs/Day Years Used Date Smoking Tobacco: Never Assessed Sex and Gender Information Value Date Recorded Sex Assigned at Not on file Gender Identity Not on file Sexual Orientation Not on file documented as of this encounter Plan of Treatment Not on file documented as of this encounter Results * FATOU, legs, multiple levels (03/07/2021 1:52 PM EDT) [facility] VB Text Report Department: Vascular Surgery Lab Patient: [id number] (TERRY MCLAUGHLIN) CPT: 97115 ICD10: R25.2;G62.9 Referring Physician: LILLIAN FRANKLIN APRN [...] site documented in this encounter Care Teams Aluminum Pourer Relationship Specialty Start Date End Date Francesca Curiel APRN [address] [place] [address] PCP - General Family Medicine 02/20/21 documented as of this encounter
--- OUTSIDE RECORDS SUMMARY | 2024-05-08 02:48 | XMS_ITS | Encounter Summary ---
Author Organization [facility] Address [address] [place] [address] Care Team Providers Care Mushroom Press Operator Name Role Phone Francesca Curiel APRN Primary Care Provider [phone] Encounter Details Date Type Department Care Team (Latest Contact Info) Description 03/29/2022 Travel Social History Tobacco Use Types Packs/Day [...] on filedocumented in this encounter Care Teams Mushroom Press Operator Relationship Specialty Start Date End Date Francesca Curiel APRN [address] [place] [address] PCP - General 03/22/22 documented as of this encounter
--- OUTSIDE RECORDS SUMMARY | 2024-05-08 02:48 | XMS_ITS | Encounter Summary ---
[facility] [place] [address] Care Team Providers Care Printed Circuit Board Preassembler Name Role Phone Francesca Curiel APRN Primary Care Provider [phone] Encounter Details Date Type Department Care Team (Late st Contact Info) Description 05/21/2022 Ancillary Procedure Radiology Library at [facility] [place] [address] Francesca Curiel APRN [address] [place] [address] Social History Tobacco Use Types [...] FILM LIBRARY STORAGE ONLY DX SPINE Routine 05/21/2022 12:00 AM EDT documented in this encounter Results * Film Library- Storage Only DX Spine (05/21/2022 12:00 AM EDT) Narrative [facility] - 07/26/2022 11:26 AM EDT This exam is auto-finalizing. It's purpose is for storage only. Francesca Curiel APRN IMG FILM LIBRARY ORDERABLES [place], [place] documented in this encounter Visit Diagnoses Not on filedocumented in this encounter Care Teams Printed Circuit Board Preassembler Relationship Specialty Start Date End Date Francesca Curiel APRN [address] [place] [address] PCP - General Family Medicine 02/20/21 documented as of this encounter
[2024-05-08 10:00] LABS: HCT 39.4 % (40.0-50.0); HGB 13.2 g/dL (13.5-17.5); MCH 29.3 pg (27.0-33.0); MCHC 33.5 % (32.0-36.0); MCV 87 fL (80-95); MPV 8.8 fL (8.0-11.0); Platelet Count 313 10^3/uL (130-400); RBC 4.51 10^6/uL (4.36-5.78); RDW 13.7 % (11.8-14.1); RDW-SD 43.8 fL; WBC 5.67 10^3/uL (4.4-10.8)
[2024-05-08 10:59] LABS: Anion Gap 6.1 mmol/L (3-11); BUN 19 mg/dL (7-18); CO2 30.9 mmol/L (21.0-32.0); CREATININE 1.1 mg/dL (0.70-1.30); Calcium 9.2 mg/dL (8.5-10.1); Chloride 104 mmol/L (98-107); Estimated GFR 74.96 (mL/min/1.73m2); Glucose 94 mg/dL (74-106); Potassium 4.3 mmol/L (3.5-5.1); Sodium 141 mmol/L (136-145)
== END 2024-05-08 02:27 | disposition home or self-care (01) ==
LOC: LBO 02:26
PROVIDERS: PCP Nurse Practitioner Family; Visit Provider Student in an Organized Health Care Education/Training Program
DX: M17.11 Unilateral primary osteoarthritis, right knee (principal); Z01.818 Encounter for other preprocedural examination
CPT/HCPCS: 36415; 80048; 85027

== ENCOUNTER 2024-05-20 07:10 | Day surgery (SDC) | payer BC, SELFPAY ==
[2024-05-20] VITALS (24 sets, daily range): BP systolic 98–125; BP diastolic 53–75; PULSE 65–85; RESP 10–22; TEMP 36.1–36.8; O2SAT 97–100; BMI 22.4
--- NOTE | 2024-05-20 07:29 | PDOC.DSDIS_ITS ---
Date of service: 05/20/24 Time of Service: 07:29 Discharge Plan Disposition Patient Disposition: Home Condition: Good Discharge Details Reason For Visit: R TKR Attending Provider: Jerson Calderon Primary Care Provider: Francesca Curiel Home Meds and New Rx's Prescriptions: New celecoxib 200 mg capsule 200 mg PO BID Qty: 60 0RF aspirin 81 mg tablet,delayed release (DR/EC) 81 mg PO BID Qty: 60 0RF acetaminophen 500 mg tablet 1,000 mg PO TID Qty: 90 3RF pantoprazole 40 mg tablet,delayed release (DR/EC) 40 mg PO DAILY Qty: 30 0RF dexamethasone 4 mg tablet 4 mg PO DAILY Qty: 2 0RF gabapentin 300 mg capsule 300 mg PO QHS Qty: 14 0RF oxycodone 5 mg tablet 5 mg PO Q4H MDD 6 tabs PRN (Reason: pain) Qty: 20 0RF Continued High Potency Iron 134 mg (27 mg iron) tablet 134 mg PO DAILY elderberry fruit and flower 460-115 mg capsule 1 cap PO DAILY saw palmetto 160 mg capsule 580 mg PO BID magnesium citrate 125 mg capsule 210 mg PO DAILY ropinirole 2 mg tablet 2 mg PO QHS Qty: 90 3RF Rx Instructions: administer 1-3 hours before bedtime cholecalciferol (vitamin D3) [Vitamin D3] 2,000 unit Capsule 2,000 unit PO DAILY vitamin E 400 UNIT capsule 400 unit PO DAILY Discontinued ibuprofen 200 mg capsule 400 mg PO HS PRN aspirin 81 MG tablet,chewable 81 mg PO DAILY Discharge Instructions Additional Instructions: Total Knee Discharge Instructions Activity: The most important activity is to walk and to work on gentle motion (both flexion and extension). You should try to take short walks a few times a day. It is important that when resting you work on keeping the knee straight. Avoid putting a pillow behind the knee as this will encourage flexion. Work on range of motion exercises as provided by Physical Therapy. - Start outpatient physical therapy within 2 weeks. - You should wear the CECIL hose on both legs for 2 weeks. You may remove these at night. You may also use any compression sock in place of the CECIL hose. - Utilize [employer] to review exercises, see videos on exercises and obtain basic information pertaining to your surgery and your recovery. Dressing: Remove the Johan wrap by 2 days after your surgery and put on the CECIL stocking given to you from the hospital. Keep the surgical dressing (underneath the JOHAN wrap) in place for at least one week. After the first week it may be removed and replaced with light gauze and tape or nothing. The wound and dressing may get wet after 3 days but avoid soaking the dressing or otherwise it will need to be changed. Many people prefer covering the dressing with cling wrap (saran wrap) to minimize it from getting soaked. If it gets wet, just pat dry. If it starts to peel off then it will need to be changed. Medications: - You should take Tylenol and anti-inflammatory Celebrex as your primary pain control medications. If the Celebrex is too expensive or not covered, please call the office for another alternative (Advil/Ibuprofen or Naproxen/Aleve) - You have been prescribed a stronger pain medication Oxycodone for breakthrough pain, take as needed as prescribed. - You have also been prescribed a stomach acid reduction agent Pantoprozole to help reduce stomach acid and reflux. - You have been prescribed Gabapentin to take at night for restlessness and nerve pain. - You will be taking Aspirin 81mg twice a day for DVT prevention unless instructed otherwise. - You have also been prescribed Decadron to take to control post-operative nausea and pain. You will start this tomorrow. - If you have constipation you should take Colace or Miralax (both [id number]). It takes most people 3-4 days to have a bowel movement. Follow-up: 2 weeks If you have any acute concerns or questions, please do not hesitate to contact [facility] office at [phone]. You may contact Dr. Calderon with any questions after hours through the hospital at [phone] or on his cell phone at [phone]. Referrals: Jerson Calderon MD [ [facility] STAFF PHYSICIAN] - Equipment/Supplies: Walker Activity:: Activity as Tolerated Shower/Bathe:: 72 hours Diet:: As Tolerated Discharge Orders Discharge Orders: Discharge Order (Routine); Ordered 05/20/24 Ordered By: Festus Everett DS: Diagnosis Discharge Diagnosis (1) Osteoarthritis of right knee: Status: Acute
[2024-05-20] MEDS: Celecoxib 200 MG CAP 400 MG PO (08:02)
[2024-05-20] MEDS: Acetaminophen 500 MG TAB 1000 MG PO (08:02)
[2024-05-20] MEDS: Lactated Ringers 1,000 ML 80 ML IV (08:03)
[2024-05-20] MEDS: Gabapentin 300 MG CAP PO (08:03)
--- NOTE | 2024-05-20 08:13 | W.ANESPRE ---
General Info Date of Service Date Performed: 05/20/24 Height: 5 ft 9 in Weight: 68.946 kg Body Mass Index (BMI): 22.4 Surgical Procedure: Operation Date: 05/20/24 09:25 Proposed Procedure Side Surgeon p Knee Total Arthroplasty Right Jerson Calderon MD Meds Allergies and Home Medications Allergies Allergy/AdvReac Type Severity Reaction Status Date / Time No Known Allergies Allergy Verified 05/20/24 07:22 Home Medication ?Medication ?Instructions ?Recorded aspirin 81 mg chewable tablet 81 mg PO DAILY 03/25/18 vitamin E 268 mg (400 unit) capsule 400 unit PO DAILY 04/23/18 cholecalciferol (vitamin D3) 50 2,000 unit PO DAILY 01/22/19 mcg (2,000 unit) capsule (Vitamin D3) elderberry fruit 460 mg-elderberry 1 cap PO DAILY 06/29/21 flower 115 mg capsule ferrous sulfate 134 mg (27 mg 134 mg PO DAILY 06/29/21 iron) tablet (High Potency Iron) saw palmetto 160 mg capsule 580 mg PO BID 06/29/21 ibuprofen 200 mg capsule 400 mg PO HS PRN 08/01/22 ropinirole 2 mg tablet 2 mg PO QHS #90 tabs 01/23/24 magnesium citrate 125 mg capsule 210 mg PO DAILY 04/02/24 Current Visit Medications: Current Medications Generic Name Dose Route Start Last Admin Trade Name Freq PRN Reason Stop Dose Admin Acetaminophen 1,000 mg 05/20/24 06:00 05/20/24 08:02 Acetaminophen 500 Mg Tab PO 05/20/24 23:59 1,000 mg PREOP SUSIE Administration Acetaminophen 1,000 mg 05/20/24 07:28 Acetaminophen 500 Mg Tab PO 06/19/24 07:27 TID PRN PRN Analgesia Celecoxib 400 mg 05/20/24 06:00 05/20/24 08:02 Celecoxib 200 Mg Cap PO 05/20/24 23:59 400 mg PREOP SUSIE Administration Docusate Sodium 100 mg 05/20/24 07:28 Docusate Sodium 100 Mg Cap PO 06/19/24 07:27 BID PRN PRN Constipation Droperidol 0.625 mg 05/20/24 07:59 Droperidol 5 Mg/2 Ml Vial IVP 06/19/24 07:58 DIRECTED PRN Nausea Ephedrine Sulfate 0 mg 05/20/24 07:59 Ephedrine 25 Mg/5 Ml Syringe IVP 06/19/24 07:58 DIRECTED PRN Fentanyl 0 mcg 05/20/24 07:59 Fentanyl 100 Mcg/2 Ml Vial IVP 06/19/24 07:58 DIRECTED PRN Gabapentin 300 mg 05/20/24 06:00 05/20/24 08:03 Gabapentin 300 Mg Cap PO 05/20/24 23:59 300 mg PREOP SUSIE Administration Hydromorphone HCl 0 mg 05/20/24 07:59 Hydromorphone 2 Mg/Ml Syr IVP 06/19/24 07:58 DIRECTED PRN Ringer's Solution 1,000 mls @ 80 mls/hr 05/20/24 06:00 05/20/24 08:03 IV 05/20/24 23:59 80 mls/hr INFUSION SUSIE Administration Cefazolin Sodium/Dextrose 2 gm in 50 mls @ 100 mls/hr 05/20/24 06:00 Ancef Duplex IVPB 05/20/24 23:59 PREOP SUSIE Tranexamic Acid/Sodium Chloride 1,000 mg in 100 mls @ 600 mls/hr 05/20/24 06:00 IVPB 05/20/24 23:59 PREOP SUSIE IV Miscellaneous Supplies 1 each 05/20/24 06:00 Iv Access IV 05/20/24 23:59 DIRECTED SUSIE Naloxone HCl 0 mg 05/20/24 07:59 Naloxone 0.4 Mg/Ml Vial IVP 06/19/24 07:58 PRN PRN Ondansetron HCl 4 mg 05/20/24 07:28 Ondansetron 4 Mg/2 Ml Vial IVP 06/19/24 07:27 Q6H PRN PRN Nausea Oxycodone HCl 0 mg 05/20/24 07:28 Oxycodone 5 Mg Tab PO 06/19/24 07:27 Q3H PRN PRN Pain Polyethylene Glycol 17 gm 05/20/24 07:28 Polyethylene Glycol 3350 17 Gm Packet PO 06/19/24 07:27 BID PRN PRN Constipation Sodium Chloride 0 ml 05/20/24 06:00 Normal Saline Flush 10 Ml Syr IV 05/20/24 23:59 PRN PRN Sodium Chloride 0 ml 05/20/24 06:00 Normal Saline 10 Ml Vial IJ 05/20/24 23:59 DIRECTED PRN Sterile Water 0 ml 05/20/24 06:00 Water,Injection,Sterile 10 Ml Vial IJ 05/20/24 23:59 DIRECTED PRN PFSH Active Problems Active Problems: Problem Status Onset Code Osteoarthritis of right knee Acute M17.11 Calcific tendinitis of right shoulder Acute M75.31 Sacroiliac joint dysfunction of both sides Acute M53.3 Imbalance Acute R26.89 Sensorineural hearing loss, bilateral Acute H90.3 Restless leg Acute G25.81 Hallux valgus (acquired), right foot Acute M20.11 Impacted cerumen of both ears Acute H61.23 Osteoarthritis of left patellofemoral joint Chronic M17.12 Lumbar radiculitis Acute M54.16 Hammertoe of left foot Acute M20.42 Hallux valgus of left foot Acute M20.12 Arthritis of carpometacarpal (CMC) joint of left thumb Acute M18.12 Tendonitis involving right hip abductors Acute M76.891 Tendonitis involving left hip abductors Acute M76.892 Weakness of both hips Acute R29.898 Arthritis of carpometacarpal (CMC) joint of right thumb Acute M18.11 Nocturnal leg cramps Acute 04/22/18 G47.62 Conductive hearing loss, external ear Acute 14 H90.2 Medical History Medical History Hyperglycemia Actinic keratoses Acute hip pain, bilateral Degenerative disc disease Nausea Peripheral neuropathy Urticaria, acute Low back pain Foot pain, left DDD (degenerative disc disease), lumbar Right knee pain Bilateral hip pain Bilateral thumb pain Leg cramps Anemia Actinic keratitis Cold sore Nocturnal leg cramps Chronic pruritus Surgical History Surgical History H/O radiofrequency ablation (RFA) of nerve of lumbar spine History of cardiac radiofrequency ablation (RFA) Pt. states it was not a CARDIAC ablation but in his back History of bunionectomy Hx of tonsillectomy EGD - MAC (04/28/18) Colonoscopy - MAC Colonoscopy - IV Sedation 2010- normal Tobacco Smoking/Tobacco Use Status: Never Alcohol Alcohol Intake: current Alcohol intake frequency: a few times a week Alcohol type: beer Substance Use Substance use: Never Substance use type: does not use Vital Signs and Lab Results Vital Signs Most Recent Vital Signs in EMR: Most Recent Vital Signs Temp Pulse Resp BP Pulse Ox 36.6 C 67 16 125/75 98 05/20/24 07:57 05/20/24 07:57 05/20/24 07:57 05/20/24 07:57 05/20/24 07:57 Lab Results Blood Type / Crossmatch: No Data to Display Complete Blood Count: White Blood Count 5.67 10^3/uL (4.4-10.8) 05/08/24 09:50 Red Blood Count 4.51 10^6/uL (4.36-5.78) 05/08/24 09:50 Hemoglobin 13.2 g/dL (13.5-17.5) L 05/08/24 09:50 Hematocrit 39.4 % (40.0-50.0) L 05/08/24 09:50 Platelet Count 313 10^3/uL (130-400) 05/08/24 09:50 Complete Metabolic Panel: Sodium 141 mmol/L (136-145) 05/08/24 09:50 Potassium 4.3 mmol/L (3.5-5.1) 05/08/24 09:50 Chloride 104 mmol/L (98-107) 05/08/24 09:50 Carbon Dioxide 30.9 mmol/L (21.0-32.0) 05/08/24 09:50 BUN 19 mg/dL (7-18) H 05/08/24 09:50 Creatinine 1.1 mg/dL (0.70-1.30) 05/08/24 09:50 Est GFR (CKD-EPI 2020) 74.96 (mL/min/1.73m2) 05/08/24 09:50 Calcium 9.2 mg/dL (8.5-10.1) 05/08/24 09:50 Glucose 94 mg/dL (74-106) 05/08/24 09:50 Liver Function Panel: No Data to Display Coagulation Panel: No Data to Display Cardiac Panel: No Data to Display Arterial Blood Gas: No Data to Display Venous Blood Gas: No Data to Display Pancreas Panel: No Data to Display Thyroid Panel: No Data to Display Infectious Disease: No Data to Display Blood Cultures: No Data to Display Toxicology Panel: No Data to Display Anesthesia Assessment and Plan Anesthesia History Personal History: No History of Anesthesia Complications Family History: No Family History of Anesthesia Complications Exercise Tolerance Exercise Tolerance: Metabolic Equivalents>4 Pertinent Negatives Pertinent Negatives: No Symptoms of GERD Cardiac & Pulmonary Exam Cardiac Exam: Normal S1/S2 Heart Sounds Pulmonary Exam: Clear Bilateral Breath Sounds Implantable Cardiac Device Does patient have a Pacemaker or an ICD?: No Airway Exam Known Difficult Airway: No Mallampati Class: 2 Mouth Opening: Normal (> 3cm) Thyromental Distance: Greater than 3 cm Neck Range of Motion: Full ROM Neck Circumference: Normal Teeth Condition: Normal Dentition ASA Classification ASA Score: ASA 2 Emergency Case?: No NPO Status NPO Status: NPO Clears >2 hours, Solids >8 hours Anesthesia Plan Resuscitation Status: Full Code Anesthesia Technique: Spinal Anesthesia Airway Planned: Natural Airway Pain Management: Surgeon and patient request nerve block Monitors Used: Standard Monitors
--- NOTE | 2024-05-20 08:46 | W.ANESNERVE ---
Nerve Block Single Injection Procedure Date and Time Date Performed: 05/20/24 Procedure Start: 08:20 Location Where Procedure Performed Procedure Location: Day Surgery Unit Reason Performed: Postoperative Analgesia Requesting Provider: Jerson Calderon Timeout Performed Timeout Performed: Yes Monitoring Used ECG, Blood Pressure and See EMR for corresponding vital signs Sterility Sterility: Hand Hygiene, Surgical Cap, Sterile Gloves, Eye Protection and Chlorhexidine Sedation Given During Procedure Sedation Given (Indicate Dose Given): Versed IV Dose:: 3mg IVP Patient Mental Status Patient Mental Status: Sedate with meaningful communication Nerve Block 1st Nerve Block: Laterality: Right Block Type: Adductor Canal Ultrasound Image Saved?: Yes Needle / Catheter Used: 100mm SonoPlex II Local Anesthetic Bolus (Indicate Dose Given): Lidocaine used for local infiltration of skin, Injected in 3-5ml increments after negative blood aspiration and Ropivacaine 0.5% Dose:: 0.5%/20cc (100mg) Additives (Indicate Dose Given): Epinephrine to make 1:200,000 (5mcg/ml) Dose:: 100mcg and Decadron Dose:: 10mg PF Ultrasound: Sterile probe cover and gel used Nerve Stimulator: Not Used Paresthesia: None Procedure Tolerated: No Complications and Patient tolerated well Procedure Outcome: Successful Performed By: Mykel Apple
[2024-05-20] MEDS: ceFAZolin 2 GM/50 ML BAG IVPB (09:08)
[2024-05-20] MEDS: TRANEXAMIC ACID/SOD. CHL. 1,000 MG/100 ML BAG 600 MG IVPB (09:11)
--- NOTE | 2024-05-20 11:40 | W.ANESPOSTOP ---
Postoperative Evaluation Date, Time and Location Date Performed: 05/20/24 Time Performed: 11:41 Patient Location: Day Surgery Unit Vital Signs Most Recent Imported Vital Signs: Most Recent Vital Signs Temp Pulse Resp BP Pulse Ox 36.6 C 66 12 103/56 L 99 05/20/24 11:18 05/20/24 11:15 05/20/24 11:16 05/20/24 11:15 05/20/24 11:16 Pain Score Most Recent Pain Score: Most Recent Pain Score Pain Level 0 05/20/24 11:18 Assessment Mental Status: Awake (Alert & Oriented to Patient Baseline) Airway and Respiratory Function: Patent airway with normal (patient baseline) respiratory exam Cardiovascular Function: Hemodynamically Stable Hydration Status: Adequately Hydrated Nausea & Vomiting: No Nausea or Vomiting Pain: Pt. Denies Any Pain Peripheral Nerve Block: Regional nerve block not resolved at time of post operative discharge
--- NOTE | 2024-05-20 12:31 | IN_ITS ---
PT Notes Visit Reasons: R TKR Thank you for the opportunity to participate in the care of this patient. Please sign an return this page within 30 days if you agree with the above POC. Thank you! Physician Signature Date Physical Therapy Day Surgery Initial Evaluation Date: 05/20/2024 Referring Doctor: MAGDALENO Riddle PT Orders: PT CONSULT: S/P Ortho Surgery Precautions: WBAT on the R LE with AD. Patient Profile/Admitting Diagnosis: Festus is a 64-year-old male patient with degenerative joint disease of the right knee and is status post right total knee arthroplasty on postoperative day 0. PMHX: Medical History Hyperglycemia Actinic keratoses Acute hip pain, bilateral Degenerative disc disease Nausea Peripheral neuropathy Urticaria, acute Low back pain Foot pain, left DDD (degenerative disc disease), lumbar Right knee pain Bilateral hip pain Bilateral thumb pain Leg cramps Anemia Actinic keratitis Cold sore Nocturnal leg cramps Chronic pruritus Surgical History History of cardiac radiofrequency ablation (RFA) 2020 History of bunionectomy Hx of tonsillectomy EGD - MAC (04/28/18) Colonoscopy - MAC Colonoscopy - IV Sedation 2010- normal Social History/Home Situation: Lives with in a private home with 4 steps to enter with a rail. Independent with all aspects of ADls prior to surgery. 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 Equipment Owned/DME: [facility] Subjective: Complained of intermittent cramping with initiation of bed level exercises which patient and knew how to deal with using the roller that they brought in. Cramping subsided with ambulation activity. Objective: General Observation: SOLEDAD wraps on the r LE. TEDS to L leg and foot. Mental Status: A and O x 4 Pain: 2-3/10 in the R knee ROM: Right Lower Extremity: Hip flexion WFL. Hip abduction WFL. Knee flexion about 10 degrees to 90 degrees. Ankle dorsiflexion WFL. Ankle plantarflexion WFL. Left Lower Extremity: Hip flexion WFL. Hip abduction WFL. Knee flexion WFL. Ankle dorsiflexion WFL. Ankle plantarflexion WFL. Strength: Right Lower Extremity: Hip flexors 4/5. Hip abductors 4/5. Knee flexors 3-/5. Knee extensors 3-/5. Ankle dorsiflexors 5/5. Ankle plantarflexors 5/5. Left Lower Extremity:Hip flexors 5/5. Hip abductors 5/5. Knee flexors 5/5. Knee extensors 5/5. Ankle dorsiflexors 5/5. Ankle plantarflexors 5/5. Sensation: Intact as to pain and light pressure in B LE Bed Mobility/Transfers: Minimal cueing provided for use of B hands as needed for support, movement sequence, AD management, and posture to reduce fall risk and minimize pain report Supine to sit stand by assist Sit to stand conatct guard assist Stand to sit stand by assist Bed to chair stand by assist Gait: Facilitate safe and correct performance of level surface ambulation covering a distance of 150 feet with step through reciprocal heel-toe gait pattern requiring minimal verbal cueing for safe technique, limb advancement, weight distribution, and posture to minimize fall risk and decrease report of pain and muscle cramping in B LE. Front-wheeled walker fitted and used. Standby assist provided. Stairs: Guided patient with safe and correct negotiation of 6 x 4 inch steps and 4 x 6 inch steps while holding onto bilateral rails with step to gait pattern requiring minimal verbal cueing for increased flexion on the right knee during each ascent to minimize hiking of the right hip, hand placement, and posture. Standby assist provided. Balance: Static Sitting: Normal Dynamic Sitting: Normal Static Standing: Fair Dynamic Standing: Fair Special Tests: Mobility Limitations Standardized Measure [facility]-P[facility] 6 clicks Basic Mobility Inpatient Short Form: Raw Score: 24 CMS Score: 0% deficit Informed Consent/Education: Patient instructed in purpose of PT consult. Packet containing TKA exercise protocol has been given to patient. Education and training on initial set of exercises that can be done at home have been completed with patient. Trained patient with correct performance of exercises below to maximize motor control, joint flexibility, soft tissue extensibility of the R knee musculature: Access Code: [email or web address] URL: [email or web address] Date: 05/20/2024 Prepared by: Lizzette Stephens Exercises - Supine Quad Set - 1 x daily - 7 x weekly - 1 sets - 10 reps - 5 hold - Supine Heel Slide - 1 x daily - 7 x weekly - 1 sets - 10 reps - 5 hold - Supine Ankle Pumps - 1 x daily - 7 x weekly - 1 sets - 10 reps - 5 hold - Small Range Straight Leg Raise - 1 x daily - 7 x weekly - 1 sets - 10 reps - 5 hold - Seated March - 1 x daily - 7 x weekly - 1 sets - 10 reps - 5 hold Assessment: Patient requires the use of front wheeled walker for all mobility ADL performance maximize independence and reduce fall risk. Report of repeated cramping in bilateral lower extremities required slower transition with exercise performance for this session. Patient presents with clinical signs and symptoms consistent with current/admitting diagnoses that have resulted to mobility limitations, gait instability, generalized weakness, and impairment of motor control as demonstrated by the following impairment level findings: 1. Decreased strength to R knee major muscle groups 2. Impaired standing balance 3. Limitation of joint range of motion in R knee Impairments are contributing to the following functional limitations: 1. Inability to safely ambulate without assistive device 2. Increase completion time for mobility ADL performance 3. Increased fall risk Patient is assessed as a 83300 moderate complexity based on the following: History: 64-year-old male with impairment level findings, functional limitations, and past medical history as indicated above Examination: Demonstrable impairment in strength, balance, and mobility level with underlying impairments and functional limitations as documented above Presentation: Evolving Decision Makin moderate complexity Goals: N/A. PT evaluation and 1-2 treatment sessions only for functional mobility training using recommended AD and for HEP instruction. Plan of Care/Treatment Plan: N/A. PT evaluation and 1-2 treatment session only for functional mobility tra ining using recommended AD and for HEP instruction. DISCHARGE RECOMMENDATIONS: Home when medically cleared by orthopedic surgeon. Recommend outpatient PT services in order to optimize functional mobility outcomes and facilitate return to independent community ambulation without an assistive device. TREATMENT CODE/TIME: 44548 x 20 minutes for 1 unit, 14921 x 14 minutes for 1 unit (12:31?13: 05). Lizzette Stephens PT, DPT, CLT [facility], [place]
--- NOTE | 2024-05-20 15:16 | ROE_ITS ---
Date of service: 05/20/24 Time of Service: 09:05 Operative Note Operative Note DATE OF PROCEDURE: 05/20/24 PRE-OP DIAGNOSIS: Right Knee Osteoarthritis POST-OP DIAGNOSIS: same PROCEDURE: Right Total Knee Replacement SURGEON: Jerson Calderon ROADABILITY MACHINE OPERATOR: Juanita Everett ANESTHESIA TYPE: Spinal Refer to Anesthesia Record ESTIMATED BLOOD LOSS: 100 PATHOLOGY: none sent TOURNIQUET TIME: 0 COMPLICATIONS: None Patient was transported to: PACU Patient's condition: stable Implants: 1. Depuy Attune Cementless Cruciate Retaining Femoral Component, Size 7 2. Depuy Attune Cementless Fixed Bearing Tibial Component, Size 7 3. Depuy Attune 7x5 CR/FB Poly 4. Depuy Attune Patellar Component, Size 41 Indications: I have seen Cristo in clinic for symptoms of knee arthritis, confirmed with radiographic findings. He has exhausted nonoperative methods and was having s ignificant limitations in daily function and desired better function and less pain. I discussed the technical details of a knee replacement. I explained the risks of the procedure to include, but not limited to, bleeding, infection, pain, stiffness, fracture, damage to nerves and vessels, damage to muscles and tendons, loosening, need for repeat procedure, blood clot and cardiopulmonary demise. Despite these risks, Cristo elected to proceed. Findings: There was significant signs of throughout the knee but severe in the patellofemoral compartment with notable deformity of the patella and the trochlea and fraying of the distal undersurface of the quadriceps. Procedure Description: Cristo was greeted in the preoperative holding area where the correct side was identified and marked. The consent was reviewed with the patient and signed. The history and physical was updated. All questions were answered. Preoperative medications were administered: Acetaminophen 1000mg, Celebrex 400mg, and Gabapentin 300mg. An adductor canal block was then administered by the anesthesia team in the DSU. Cristo was taken back to the operating room. A spinal anesthestic was then administered. The patient was placed into the supine position on the operating room table. A nonsterile tourniquet was placed high onto the leg but only used for cementing. Posts were placed for positioning during the procedure. All bony prominences were well padded. Prophylactic antibiotics in the form of Cefazolin were administered. 1g of Tranxemic Acid was given intravenously within 30 minutes of incision. The right leg was then prepped with Chloraprep and draped in a standard fashion with impervious stockinette. A second prep with Chloraprep was performed prior to application of Iodine impregnated skin protection. A timeout to confirm correct identity, side and site, procedure, allergies, anesthesia, and medical concerns was performed. With the knee in some flexion, a midline incision was made overlying the knee. Full thickness skin flaps were raised once the extensor mechanism was encountered. These were raised medially and laterally. Any bleeding was controlled with electrocautery. Once the extensor mechanism was fully exposed, a medial parapatellar arthrotomy was performed in a flexed position. All bleeding from the arthrotomy and the geniculate arteries was coagulated. A medial subperiosteal peel was performed with electrocautery to the midcoronal plane. The fat pad was removed while keeping the patellar tendon protected. The anterior distal femur synovium was removed for later visualization. The ACL and PCL were resected and the anterior horn of the lateral meniscus was transected. The knee was then flexed with the patella everted. There was significant saucerization of the patella and some fraying of the undersurface of the distal quadriceps tendon. Using a step drill, and based on preoperative templating, the femoral canal was entered. This was done with a step drill without any difficulty. The intramedullary distal femoral cut guide was inserted, set to a 5 degree valgus cut and 9mm cut thickness. The distal femoral cut guide was then held in position and pinned. With the soft tissues protected, the distal cut was performed. This was passed over a few times to ensure a planar cut. I then turned attention to the tibia. The extramedullary guide was placed onto the leg. The distal aspect was slid medial to adjust for position of center of ankle and stay in line with shaft of the tibia. Approximately 3-5 degrees of posterior slope was kept in the proximal cutting guide. The center of the guide was aligned with the PCL. The stylus was used to assess cut thickness. The medial side, most involved side, was set for a 6mm cut, which corresponded to 8mm laterally. This was then held in position and pinned into place with 2 additional pins and a cross pin for stability. The medial and lateral collateral ligaments were protected and the cut was performed. With this completed, it was assessed and noted to be of appropriate dimensions. The guide was removed. A spacer block was inserted and the knee was brought into extension. The 5mm spacer block provided full extension, without hyperextension and with stability of both the medial and lateral collateral ligaments was assessed. The pins from the femur and the tibia were then removed. The distal femur was then sized. The anterior stylus was placed onto the lateral ridge of the anterior femur. This indicated a size 7 femur. The external rotation of the guide was adjusted to 3 degrees to match the epicondylar axis, perpendicular to Rakan?s line. The 4-in-1 cutting guide was the placed. The posterior medial femur cut was evaluated and appeared of good thickness. The spacer block was inserted underneath the cutting guide and stability was confirmed in 90 degrees of flexion. An narinder wing was used to confirm appropriate position of the anterior cut to avoid notching. This cutting guide was ensured to be flush on the cut surface and then pinned into place with headed pins. While protecting the soft tissues, quad tendon, and collateral ligaments, the anterior and posterior cuts were performed with a saw. The central two pins were removed and the posterior and anterior chamfers were cut next. The notch-cutting guide was placed. This was pinned to lateralize the femoral component as much as possible while keeping it flush on the cut surface. This was then pinned into position. A reciprocating saw was used to make the notch cut. A rasp smoothed the cut surfaces. The medial and lateral menisci were removed. A trial femoral component was then inserted, impacted down to the cut surfaces, and the lug holes were drilled. A provisional trial tibial component was placed and the knee was brought through range of motion. There was noted to be excellent extension and flexion. There was no significant instability. The patella was tracking without thumbs. A size 5mm polyethylene component provided the best range of motion and stability with less than 2mm gapping with medial and lateral stress and full extension without significant hyperextension. The tibial cut surface was fully exposed. The tibia was then sized as a 7. The tibia had been previously marked during trialing to correspond to the center of the tibial component to help with rotation. The trial was aligned to this juanita, approximately rotated to the medial 1/3rd of the tibial tubercle. The trial was pinned into place. The tibia was prepared with a reamer and a keel punch and lug holes. The knee was then brought into extension. Using the patellar clamp and cut guide, this was resected to a flat surface planer with just above the bottom of the saucerized divot which brought the thickness to about 13mm with an area of about 6-7mm in diameter about 1-2mm divot. The size 41mm patella fit the best and bridged the low remaining section. Given the eburnation of the bone this was prepared with a 2mm drill in multiple locations. The patella was oriented and then clamped into position. The lugs were drilled. The trial components were removed. The final components were opened on the back table. The periosteal and capsular tissues, especially posteriorly, around the knee were then systematically injected with a periarticular cocktail consisting of 246mg of Ropivacaine, 0.5mg of Epinephrine, 0.08mg of Clonidine, and 30mg of Ketorolac, diluted to 100cc. On the back table, with the implants opened, the cement was mixed. One batch of high viscosity cement was prepared with vacuum assistance. After the cement was ready a small amount was placed on the cut surface of the patella and the patellar button was clamped into position and held. While the cement was hardening, the cementless knee components were placed. Starting with the tibial component, the tibia was subluxed anteriorly and the lug holes of the component were lined up. The tibia was then impacted with an impactor and mallet until the tibial component was in contact with the tibia. The final polyethylene component was inserted. Then, the femoral component was inserted. The lug holes were aligned and the component was impacted into position. The knee was irrigated with Surgiphor Betadine solution. This was allowed to sit in the knee for 3 minutes and then it was irrigated out with saline. After the cement had finally cured, approximately 15min, the clamp was removed from the patella and the knee was taken through range of motion. The patella was tracking with a no-thumbs technique. The capsule was then reapproximated with a No. 1 Vicryl at multiple locations. The capsule was finally closed with a No. 2 Stratafix, barbed suture. The second dosing of 1g TXA was started. Deep tissues were then reapproximated with 0 Vicryl and 2-0 Vicryl. The skin was closed with a running 3-0 Monocryl in a subcuticular fashion. This was reinforced with skin glue. A Mepilex silver dressing was applied along with a [id number] SOLEDAD wrap. A CryoCuff was dov sheridan. Cristo was transferred to the hospital bed without difficulty an suffering no apparent complication. Cristo has a good prognosis. Physical therapy will start today and without restrictions, weight-bearing as tolerated. Aspirin 81mg BID will be used for DVT prophylaxis.
== END 2024-05-20 13:49 | disposition home or self-care (01) ==
PROVIDERS: PCP Nurse Practitioner Family; Visit Provider Student in an Organized Health Care Education/Training Program
PROC: (CPT 27447; principal; 2024-05-20 09:15)
DX: M17.11 Unilateral primary osteoarthritis, right knee (principal); G62.9 Polyneuropathy, unspecified; D64.9 Anemia, unspecified
CPT/HCPCS: 27447; 76942; 97162; 97530; C1776; J0171; J0690; J1100; J2001; J2250; J2371; J2401; J2405; J2704; J2795

== ENCOUNTER 2024-06-04 15:18 | Outpatient (CLI) | payer BC, SELFPAY ==
--- NOTE | 2024-06-04 10:45 | DI.RAD_ITS ---
Exam(s) XR KNEE RT 1V XR STANDING ALIGNMENT EXAM: XR STANDING ALIGNMENT CLINICAL HISTORY: 1ST POST OP S/P R TKA. TECHNIQUE: 2D digital imaging was performed. Standing AP views were performed from the pelvis throu gh the ankles. COMPARISON: CR XR STANDING ALIGNMENT from 04/13/2024 CR XR KNEE RT 2V AP,LAT from 04/13/2024 CR XR KNEE RT 1V from 06/04/2024 FINDINGS: BONES: No acute fracture is present. No bony destructive lesion is seen. Leg length discrepancy: None JOINTS: Knees: A right total knee prosthesis is now in place which show satisfactory alignment. The left knee joint spaces are maintained. The ankle joints are unremarkable. The hip joints show mild degenerative changes. SOFT TISSUE: Normal. IMPRESSION: Status post placement of right knee prosthesis. No significant leg length discrepancy. DATA REPOSITORY: RADIATION DOSE DELIVERED:
== END 2024-06-04 15:19 | disposition home or self-care (01) ==
LOC: DIORS 15:18
PROVIDERS: PCP Nurse Practitioner Family; Visit Provider Student in an Organized Health Care Education/Training Program
DX: Z96.651 Presence of right artificial knee joint (principal)
CPT/HCPCS: 73560; 77073

== ENCOUNTER 2024-07-01 16:07 | Outpatient (CLI) | payer BC, SELFPAY ==
--- NOTE | 2024-07-01 10:04 | DI.RAD_ITS ---
Exam(s) XR SHOULDER RT 1V EXAM: XR SHOULDER RT 1V CLINICAL HISTORY: reassess calcium. TECHNIQUE: 2D digital imaging was performed of the right shoulder. One images were obtained. AP vi ews were obtained. COMPARISON: CR,XR XR SHOULDER RT COMPLETE 2+V from 02/17/2024 FINDINGS: There is a single faint tiny calcific density adjacent to the greater tuberosity. The acromioclavicu lar and glenohumeral joints are well maintained. The bones are normally mineralized. IMPRESSION: DATA REPOSITORY: RADIATION DOSE DELIVERED:
== END 2024-07-01 16:08 | disposition home or self-care (01) ==
LOC: DIORS 16:08
PROVIDERS: PCP Nurse Practitioner Family; Visit Provider Student in an Organized Health Care Education/Training Program
DX: M75.31 Calcific tendinitis of right shoulder (principal)
CPT/HCPCS: 73020

== ENCOUNTER 2024-07-08 14:31 | Day surgery (SDC) | payer BC, SELFPAY ==
[2024-07-08] VITALS (11 sets, daily range): BP systolic 107–125; BP diastolic 66–83; PULSE 70–94; RESP 12–17; TEMP 36.4–36.8; O2SAT 98–100; BMI 22.3
--- NOTE | 2024-07-08 09:59 | W.PM.DSUDISC ---
Date of service: 07/08/24 Time of Service: 09:59 Discharge Plan Disposition Patient Disposition: Home Condition: Good Discharge Details Reason For Visit: Manipulation R TKR Attending Provider: Jerson Calderon Primary Care Provider: Francesca Curiel Home Meds and New Rx's Prescriptions: New celecoxib 200 mg capsule 200 mg PO BID Qty: 60 0RF acetaminophen 500 mg tablet 1,000 mg PO TID Qty: 90 0RF oxycodone 5 mg tablet 5 mg PO Q4H MDD 6 tabs PRN (Reason: pain) Qty: 20 0RF methocarbamol 750 mg tablet 750 mg PO Q8H Qty: 30 0RF Continued High Potency Iron 134 mg (27 mg iron) tablet 134 mg PO DAILY elderberry fruit and flower 460-115 mg capsule 1 cap PO DAILY methocarbamol 750 mg tablet 750 mg PO Q8H PRN (Reason: pain) Qty: 30 0RF saw palmetto 160 mg capsule 580 mg PO BID magnesium citrate 125 mg capsule 210 mg PO DAILY ropinirole 2 mg tablet 2 mg PO QHS Qty: 90 3RF Rx Instructions: administer 1-3 hours before bedtime aspirin 81 mg tablet,delayed release (DR/EC) 81 mg PO DAILY cholecalciferol (vitamin D3) [Vitamin D3] 2,000 unit Capsule 2,000 unit PO DAILY vitamin E 400 UNIT capsule 400 unit PO DAILY acetaminophen 500 mg tablet 1,000 mg PO TID Qty: 90 3RF Discharge Instructions Additional Instructions: Knee Manipulation Discharge Instructions Activity: You should begin moving as soon as possible. You may work on flexion but also equally maintain extension. You may bear weight as tolerated, using crutches only for support/comfort. You should apply ice to help with swelling and elevate when possible (especially in the first few days). Medications: - You have been prescribed a refill of your oxycodone for pain control. - Recommend to take up to 1000mg of Acetaminophen (Tylenol) and 600mg of Ibuprofen (Advil) every 8 hours as needed. These larger strength tablets were called in but you also may use [id number]. - You have also been prescribed a refill of your methocarbamol to continue to take for muscle spasms. Follow-up: 7-10 days Equipment/Supplies: Partial Weight Bearing Crutches Activity:: Activity as Tolerated Diet:: As Tolerated Discharge Orders Discharge Orders: Discharge Order (Routine); Ordered 07/08/24 Ordered By: Festus Everett DS: Diagnosis Discharge Diagnosis (1) Arthrofibrosis of total knee replacement: Status: Acute
--- NOTE | 2024-07-08 14:23 | ANES.PREOP_ITS ---
General Info Date of Service Date Performed: 07/08/24 Height: 5 ft 9 in Weight: 68.492 kg Body Mass Index (BMI): 22.3 Surgical Procedure: Operation Date: 07/08/24 16:10 Proposed Procedure Side Surgeon p Knee Manipulation of Knee Right Jerson Calderon MD Meds Allergies and Home Medications Allergies Allergy/AdvReac Type Severity Reaction Status Date / Time No Known Allergies Allergy Verified 07/08/24 15:03 Home Medication ?Medication ?Instructions ?Recorded vitamin E 268 mg (400 unit) capsule 400 unit PO DAILY 04/23/18 cholecalciferol (vitamin D3) 50 2,000 unit PO DAILY 01/22/19 mcg (2,000 unit) capsule (Vitamin D3) elderberry fruit 460 mg-elderberry 1 cap PO DAILY 06/29/21 flower 115 mg capsule ferrous sulfate 134 mg (27 mg 134 mg PO DAILY 06/29/21 iron) tablet (High Potency Iron) saw palmetto 160 mg capsule 580 mg PO BID 06/29/21 ropinirole 2 mg tablet 2 mg PO QHS #90 tabs 01/23/24 magnesium citrate 125 mg capsule 210 mg PO DAILY 04/02/24 acetaminophen 500 mg tablet 1,000 mg (2 x 500 mg) PO TID #90 05/20/24 tabs methocarbamol 750 mg tablet 750 mg PO Q8H PRN pain #30 tabs 06/04/24 aspirin 81 mg tablet,delayed 81 mg PO DAILY 07/01/24 release acetaminophen 500 mg tablet 1,000 mg (2 x 500 mg) PO TID #90 07/08/24 tabs celecoxib 200 mg capsule 200 mg PO BID #60 caps 07/08/24 methocarbamol 750 mg tablet 750 mg PO Q8H #30 tabs 07/08/24 oxycodone 5 mg tablet 5 mg PO Q4H PRN pain #20 tabs 07/08/24 Current Visit Medications: Current Medications Generic Name Dose Route Start Last Admin Trade Name Freq PRN Reason Stop Dose Admin Acetaminophen 1,000 mg 07/08/24 06:00 Acetaminophen 500 Mg Tab PO 07/08/24 23:59 PREOP SUSIE Acetaminophen 650 mg 07/08/24 09:58 Acetaminophen 325 Mg Tab PO 08/07/24 09:57 Q4H PRN PRN Celecoxib 400 mg 07/08/24 06:00 Celecoxib 200 Mg Cap PO 07/08/24 23:59 PREOP [facility] Ringer's Solution 1,000 mls @ 80 mls/hr 07/08/24 06:00 IV 07/08/24 23:59 INFUSION [facility] IV Miscellaneous Supplies 1 each 07/08/24 06:00 Iv Access IV 07/08/24 23:59 DIRECTED SUSIE Oxycodone/Acetaminophen 1 tab 07/08/24 09:58 Oxycodone 5 Mg/Acetaminophen 325 Mg Tab PO 08/07/24 09:57 Q4H PRN PRN Pain Sodium Chloride 0 ml 07/08/24 06:00 Normal Saline Flush 10 Ml Syr IV 07/08/24 23:59 PRN PRN Sodium Chloride 0 ml 07/08/24 06:00 Normal Saline 10 Ml Vial IJ 07/08/24 23:59 DIRECTED PRN Sterile Water 0 ml 07/08/24 06:00 Water,Injection,Sterile 10 Ml Vial IJ 07/08/24 23:59 DIRECTED PRN PFSH Active Problems Active Problems: Problem Status Onset Code Arthrofibrosis of total knee replacement Acute T84.82XA History of total right knee replacement Acute 05/20/24 Z96.651 Calcific tendinitis of right shoulder Acute M75.31 Sacroiliac joint dysfunction of both sides Acute M53.3 Imbalance Acute R26.89 Sensorineural hearing loss, bilateral Acute H90.3 Restless leg Acute G25.81 Hallux valgus (acquired), right foot Acute M20.11 Impacted cerumen of both ears Acute H61.23 Osteoarthritis of left patellofemoral joint Chronic M17.12 Lumbar radiculitis Acute M54.16 Hammertoe of left foot Acute M20.42 Hallux valgus of left foot Acute M20.12 Arthritis of carpometacarpal (CMC) joint of left thumb Acute M18.12 Tendonitis involving right hip abductors Acute M76.891 Tendonitis involving left hip abductors Acute M76.892 Weakness of both hips Acute R29.898 Arthritis of carpometacarpal (CMC) joint of right thumb Acute M18.11 Nocturnal leg cramps Acute 04/22/18 G47.62 Conductive hearing loss, external ear Acute 08/19/14 H90.2 Medical History Medical History Hyperglycemia Actinic keratoses Acute hip pain, bilateral Degenerative disc disease Nausea Peripheral neuropathy Urticaria, acute Low back pain Foot pain, left DDD (degenerative disc disease), lumbar Right knee pain Bilateral hip pain Bilateral thumb pain Leg cramps Anemia Actinic keratitis Cold sore Nocturnal leg cramps Chronic pruritus Surgical History Surgical History H/O radiofrequency ablation (RFA) of nerve of lumbar spine History of cardiac radiofrequency ablation (RFA) Pt. states it was not a CARDIAC ablation but in his back History of bunionectomy Hx of tonsillectomy EGD - MAC (04/28/18) Colonoscopy - MAC Colonoscopy - IV Sedation 2010- normal Tobacco Smoking/Tobacco Use Status: Never Alcohol Alcohol Intake: current Alcohol intake frequency: a few times a week Alcohol type: beer Substance Use Substance use: Never Substance use type: does not use Vital Signs and Lab Results Lab Results Blood Type / Crossmatch: No Data to Display Complete Blood Count: No Data to Display Complete Metabolic Panel: No Data to Display Liver Function Panel: No Data to Display Coagulation Panel: No Data to Display Cardiac Panel: No Data to Display Arterial Blood Gas: No Data to Display Venous Blood Gas: No Data to Display Pancreas Panel: No Data to Display Thyroid Panel: No Data to Display Infectious Disease: No Data to Display Blood Cultures: No Data to Display Toxicology Panel: No Data to Display Anesthesia Assessment and Plan Anesthesia History Personal History: No History of Anesthesia Complications Family History: No Family History of Anesthesia Complications Exercise Tolerance Exercise Tolerance: Metabolic Equivalents>4 Cardiac & Pulmonary Exam Cardiac Exam: Normal S1/S2 Heart Sounds Pulmonary Exam: Clear Bilateral Breath Sounds Implantable Cardiac Device Does patient have a Pacemaker or an ICD?: No Airway Exam Known Difficult Airway: No Mallampati Class: 2 Mouth Opening: Normal (> 3cm) Thyromental Distance: Greater than 3 cm Neck Range of Motion: Full ROM Neck Circumference: Normal Teeth Condition: Normal Dentition ASA Classification ASA Score: ASA 2 Emergency Case?: No NPO Status NPO Status: NPO Clears >2 hours, Solids >8 hours Anesthesia Plan Resuscitation Status: Full Code Anesthesia Technique: General Anesthesia Airway Planned: Natural Airway Monitors Used: Standard Monitors Preoperative Comments:: 64 yo male for knee manipulation. Denies health history change since his TKA, and had no complications. Sig PMHx: peripheral neuropathy, never smoker, occ etOH. Previous Anes: - TKA, spinal chloro, prop sedation, no issues. - bunion, LMA 5.
[2024-07-08] MEDS: Lactated Ringers 1,000 ML 80 ML IV (15:05)
[2024-07-08] MEDS: Celecoxib 200 MG CAP 400 MG PO (15:20)
[2024-07-08] MEDS: Acetaminophen 500 MG TAB 1000 MG PO (15:20)
[2024-07-08] MEDS: Bupivacaine 0.5% Pres-Free W/EPI 30 ML VIAL (16:32)
--- NOTE | 2024-07-08 16:40 | ROE_ITS ---
Date of service: 07/08/24 Time of Service: 16:20 Operative Note Operative Note DATE OF PROCEDURE: 07/08/24 PRE-OP DIAGNOSIS: Right Knee Arthrofibrosis s/p Replacement POST-OP DIAGNOSIS: same PROCEDURE: Right Knee Manipulation Under Anesthesia SURGEON: Jerson Calderon ANESTHESIA TYPE: General:No Airway Refer to Anesthesia Record ESTIMATED BLOOD LOSS: 0 PATHOLOGY: none sent TOURNIQUET TIME: 0 COMPLICATIONS: None Patient was transported to: PACU Patient's condition: stable Indications: Cristo is a 64 year old active male who is s/p knee replacement. Despite diligent work with physical therapy there has been continued stiffness. To assist with mobility, I offered a manipulation under anesthesia. I discussed the risks of the procedure to include bleeding, pain, recurrent stiffness, fracture. Despite these risks, he elects to proceed. Findings: Preoperative flexion = 80 Postoperative flexion = 115-120 Preoperative extension = 5 Postoperative extension = 0 Procedure Description: The patient was greeted in the preoperative holding area. Identity was confirmed and the correct side was identified and marked. The consent was reviewed the patient and signed. History and physical was updated. Cristo was taken back to the operating room. The right side was identified as the correct side. A timeout was performed for safe surgery. A general anesthetic was administered. The knee was then prepped with ChloraPrep and an intra-articular injection of 10 cc of 0.5% bupivacaine was administered. Once a muscle relaxant was fully on board manipulation was performed. Pre- manipulation range of motion was noted. A gentle manipulation was performed first into flexion using a very small lever arm and adding gentle and progressive pressure to the tibia. There is audible and palpable crepitus with improvement in range of motion. This was cycled and repeated multiple times. The leg was then brought into extension and gentle anterior posterior pressure was applied with a supported hand behind the proximal tibia and knee. This was brought back into flexion was once again manipulated with gentle and progressive pressure. Patellar glides were performed. Final range of motion numbers were recorded. A Band-Aid was applied to the injection site. He was awakened from anesthesia and taken to the PACU in stable condition.
--- NOTE | 2024-07-08 17:00 | W.ANESPOSTOP ---
Postoperative Evaluation Date, Time and Location Date Performed: 07/08/24 Time Performed: 16:50 Patient Location: PACU Vital Signs Most Recent Imported Vital Signs: Most Recent Vital Signs Temp Pulse Resp BP Pulse Ox 36.7 C 82 14 107/79 98 07/08/24 16:51 07/08/24 16:50 07/08/24 16:51 07/08/24 16:50 07/08/24 16:51 Pain Score Most Recent Pain Score: Most Recent Pain Score Pain Level 0 07/08/24 16:51 Assessment Mental Status: Awake (Alert & Oriented to Patient Baseline) Airway and Respiratory Function: Patent airway with normal (patient baseline) respiratory exam Cardiovascular Function: Hemodynamically Stable Hydration Status: Adequately Hydrated Nausea & Vomiting: No Nausea or Vomiting Pain: Pain is tolerable per patient Peripheral Nerve Block: Patient did not receive a nerve block
== END 2024-07-08 17:34 | disposition home or self-care (01) ==
LOC: SUR 14:32
PROVIDERS: PCP Nurse Practitioner Family; Visit Provider Student in an Organized Health Care Education/Training Program
PROC: (CPT 27570; principal; 2024-07-08 16:00)
DX: T84.82XA Fibrosis due to internal orthopedic prosthetic devices, implants and grafts, initial encounter (principal); Z96.651 Presence of right artificial knee joint; G62.9 Polyneuropathy, unspecified; M51.369 Other intervertebral disc degeneration, lumbar region without mention of lumbar back pain or lower extremity pain; D64.9 Anemia, unspecified
CPT/HCPCS: 27570; J0330; J2704

== ENCOUNTER 2024-07-31 13:06 | Outpatient (REF) | payer BC, SELFPAY ==
--- OUTSIDE RECORDS SUMMARY | 2024-07-31 13:08 | XMS_ITS | Encounter Summary ---
Author Organization [facility] Address [address] [place] [address] Care Team Providers Care Nuclear Physician Name Role Phone Francesca Curiel APRN Primary Care Provider +1 [phone] Reason for Visit * Reason Onset Date Comments Other 04/04/2022 Encounter Details Date Type Department Care Team (Late st Contact Info) Description 04/04/2022 Telephone [facility] [address] [place], [place] [id number] Jaimee Singh PA-C [address] [facility] [address] [place] [address] Other Social History Tobacco Use [...] approval from insurance, referral was sent to [facility], pt states he will wait till they call to scheduleand he will make sure insurance approval was obtained, pt happy with this plan and thankful for return call. documented in this encounter Plan of Treatment Not on file documented as of this encounter Visit Diagnoses Not on filedocumented in this encounter Care Teams Nuclear Physician Relationship Specialty Start Date End Date Francesca Curiel, BALB[place] [address] [place] [address] PCP - General 03/22/22 documented as of this encounter
--- OUTSIDE RECORDS SUMMARY | 2024-07-31 13:08 | XMS_ITS | Encounter Summary ---
Author Organization [facility] [place] [address] Care Team Providers Care Lean Engineer Name Role Phone Francesca Curiel APRN Primary Care Provider +1 [phone] Encounter Details Date Type Department Care Team (Late st Contact Info) Description 06/20/2022 Ancillary Procedure Radiology Library at [facility] [place] [address] Francesca Curiel APRN [address] [place] [phone] Social History Tobacco Use Types Packs/Day Years [...] DX Spine (06/20/2022 12:00 AM EDT) Narrative [facility] - 07/26/2022 11:27 AM EDT This exam is auto-finalizing. It's purpose is for storage only. Francesca Curiel APRN IMG FILM LIBRARY ORDERABLES [facility] [place], [place] documented in this encounter Visit Diagnoses Not on filedocumented in this encounter Care Teams Lean Engineer Relationship Specialty Start Date End Date Francesca Curiel APRN [address] [place] [address] PCP - General Family Medicine 02/20/21 documented as of this encounter
--- OUTSIDE RECORDS SUMMARY | 2024-07-31 13:08 | XMS_ITS | Encounter Summary ---
Author Organization [facility] Address [address] [place] [address] Care Team Providers Care Manager Registration Name Role Phone Francesca Curiel APRN Primary Care Provider +1 [phone] Encounter Details Date Type Department Care Team (Late st Contact Info) Description 05/05/2022 Orders Only [facility] Orthopedics & Spine Medicine [address] [place], [place] [id number] Jaimee Singh PA-C [address] [facility] [address] [place] [address] Pain of both sacroiliac joints (Primary Dx) [...] documented in this encounter Care Teams Manager Registration Relationship Specialty Start Date End Date Francesca Curiel APRN [address] [place] [address] PCP - General 03/22/22 documented as of this encounter
--- OUTSIDE RECORDS SUMMARY | 2024-07-31 13:08 | XMS_ITS | Encounter Summary ---
Author Organization [facility] Address [address] [place] [address] Care Team Providers Care Chief Business Officer Name Role Phone Francesca Curiel APRN Primary Care Provider +1 [phone] Encounter Details Date Type Department Care Team (Late st Contact Info) Description 03/29/2020 Lab Requisition [facility] Pathology & [place] [address] Outr Resulting Lab, Provider Social History Tobacco [...] Resulting Lab MICROBIOLOGY - GENERAL ORDERABLES [facility] [address] [place] [address] * COVID-19 TESTING (03/29/2020 9:50 EDT) COVID-19 rt-PCR Result Negative Negative 03/29/2020 22:36 EDT [facility] Comment: This test has [...] history, and epidemiological information. Performed on the MoSo instrument Performing Lab [place] [facility] Lab 03/29/2020 22:36 EDT [facility] Swab 03/29/2020 9:50 EDT 03/29/2020 15:41 EDT Provider Outr Resulting Lab MICROBIOLOGY - GENERAL ORDERABLES [facility] [address] [place] [address] documented in this encounter Visit Diagnoses Not on filedocumented in this encounter Care Teams Chief Business Officer Relationship Specialty Start Date End Date Francesca Curiel APRN [address] [facility] [address] [place] [phone] PCP - General 03/22/22 documented as of this encounter
--- OUTSIDE RECORDS SUMMARY | 2024-07-31 13:08 | XMS_ITS | Encounter Summary ---
Author Organization [facility] Address [address] [place] [address] Care Team Providers Care Rn Lpn Lvn Name Role Phone Francesca Curiel APRN Primary Care Provider [phone] [phone] Reason for Referral * PT/OT/ST (Routine/Next Available) - Closed Specialty Diagnoses / Procedures Referred By Contac t Referred To Contact Diagnoses Primary osteoarthritis of right knee Brenna Shoemaker PA-C [address] [place] [address] Referral ID Status Reason Start Date Expiration Date V isits Requested Visits Authorized [id number] Closed Specialty Services Required 12/28/2022 1 1 Question Answer Reason for Request: PF arthritis Comments VMO intensive quad strengthening HEP Reason for Visit * Reason Comments Pain * Referral (Routine) - Receiving Office to Obtain Authorization Specialty Diagnoses / Procedures Referred By Contac t Referred To Contact Orthopedic Surgery Diagnoses Knee pain, right Francesca Curiel APRN [address] [place] [address] [facility] [address] [place] [address] Referral ID Status Reason Start Date Expiration Date Visits Requested Visits Authorized [id number] Receiving Office to Obtain Authorization 1 1 Encounter Details Date Type Department Care Team (Late st Contact Info) Description 12/28/2022 10:30 EDT Office Visit [facility] Total [facility] Program [place] [address] Brenna Shoemaker PA-C [address] [place] [address] Chronic pain of right knee [...] block wasordered. Occupation: The patient works in [employer]. He uses knee pads that placed the [...] are often unintended grammatical, spelling, and other extruder operator multiple errors. Please disregardthese errors. I spent a [...] called to verify the correctpatient, procedure, equipment, production support developer and site/side marked as required. Patient was [...] knee documented in this encounter Results * [place] ARTHROCENTESIS ASPIR&/INJ MAJOR JT/BURSA W/O US (12/28/2022 10:30 EDT) Narrative [facility] POINT OF CARE - 12/28/2022 10:30 [...] to verify the correct patient, procedure, equipment, production support developer and site/side marked as required. Patient was prepped and draped in the usual sterile fashion. Brenna Shoemaker PA-C PROCEDURE/MINOR S URGICAL ORDERABLES [facility] POINT OF CARE * XR PELVIS [...] RIGHT 4 OR MORE VIEWS 3 (accession [id number]), 4 (accession [id number]) views ?? HISTORY: ??Left Knee for Comparison Procedure Note Jerson Pitts MD - 12/28/2022 EXAM/TECHNIQUE: 12/28/2022 10:15 AM XR KNEE LEFT 3 VIEWS, XR KNEE RIGHT 4OR MORE VIEWS 3 (accession [id number]), 4 (accession [id number]) views HISTORY: Left Knee for Comparison IMPRESSION [...] RIGHT 4 OR MORE VIEWS 3 (accession [id number]), 4 (accession [id number]) views ?? HISTORY: ??Left Knee for Comparison Procedure Note Jerson Pitts MD - 12/28/2022 EXAM/TECHNIQUE: 12/28/2022 10:15 AM XR KNEE LEFT 3 VIEWS, XR KNEE RIGHT 4OR MORE VIEWS 3 (accession [id number]), 4 (accession [id number]) views HISTORY: Left Knee for Comparison IMPRESSION [...] mouth. added in this encounter Care Teams Rn Lpn Lvn Relationship Specialty Start Date End Date Francesca Curiel APRN [address] [address] PCP - General 03/22/22 documented as of this encounter
--- OUTSIDE RECORDS SUMMARY | 2024-07-31 13:08 | XMS_ITS | Encounter Summary ---
Author Organization [facility] Address [address] [place] [address] Care Team Providers Care Nursing Scheduler Name Role Phone Francesca Curiel APRN Primary Care Provider [phone] [phone] Reason for Referral * Radiology Services (Routine/Next Available) - Authorization Not Required Specialty Diagnoses / Procedures Referred By Contac t Referred To Contact Diagnoses Bilateral leg pain Chronic bilateral low back pain without sciatica Procedures XR LUMBAR SPINE 4+ VIEWS Jaimee Singh PA-C [address] [facility] [address] [place] [address] External Referral ID Status Reason Start Date Expiration Date Visits Requested Visits Authorized [id number] Authorization Not Required 03/29/2022 1 1 Reason for Visit * Reason Comments Pain * Referral (Routine) - Authorization Not Required Specialty Diagnoses / Procedures Referred By Contac t Referred To Contact Orthopedic Surgery Diagnoses Low back pain, unspecified Francesca Curiel APRN [address] [facility] [address] [place] [address] [facility] [address] [place] [address] Referral ID Status Reason Start Date Expiration Date Visits Requested Visits Authorized [id number] Authorization Not Required 1 1 Encounter Details Date Type Department Care Team (Late st Contact Info) Description 03/29/2022 9:15 EDT Office Visit [facility] Orthopedics & Spine Medicine [address] [place], [place] [address] Jaimee Singh PA-C [address] [facility] [address] [place] [address] Bilateral leg pain (Primary Dx); Chronic bilateral [...] been referred by Francesca Curiel APRN of [facility] for evaluation of ongoing low back pain [...] or 2020. Had seen Dr. Bundy in 2018 for a surgical consult and was told [...] placed for this to be considered at [facility] where he has had his previous injections. In regard to his leg symptoms, I do not see anything in his lumbar spine MRI from 2019 that would explain his bilateral leg cramping. The symptoms he gets into his toes the most consistent with an [id number], and there is not clear nerve impingement [...] is complete This document was produced using [employer]. Please excuse any grammatical or verbal errors. [...] 01/02/2022 added in this encounter Care Teams Nursing Scheduler Relationship Specialty Start Date End Date Francesca Curiel APRN [address] [place] [address] PCP - General 03/22/22 documented as of this encounter
--- OUTSIDE RECORDS SUMMARY | 2024-07-31 13:08 | XMS_ITS | Clinical Summary ---
Author Organization [facility] Address [address] [place] [address] Care Team Providers Care Tube Room Cashier Name Role Phone Francesca Curiel APRN Primary Care Provider +1 -[phone] Allergies No known active allergies Medications Medication Sig Dispensed Refills Start Date [...] Active Active Problems No known active problems Encounters Date Type Department Care Team Description 07/22/2024 14:10 EDT Office Visit [facility] Dermatology [address] [facility] [address] [place] [address] Anirudh Asher PA-C Actinic keratoses (Primary Dx); Seborrheic keratosis from Last 3 Months Surgical History Surgery Date Site/Laterality Comments BUNIONECTOMY Bilateral TONSILLECTOMY as child Family History Medical History Relation Comments Arthritis Father Relation Status Comments Father naty Mother Alive Social History Tobacco Use Types [...] 60+ series) 2020 COVID-19 Vaccine ( season) 2024 Care Teams Tube Room Cashier Relationship Specialty Start Date End Date Francesca Curiel APRN [address] [place] [address] PCP - General 03/22/22
--- OUTSIDE RECORDS SUMMARY | 2024-07-31 13:08 | XMS_ITS | Encounter Summary ---
Author Organization [facility] Address [address] [place] [address] Care Team Providers Care Blood Coordinator Name Role Phone Francesca Curiel APRN Primary Care Provider +1 -[phone] Reason for Visit * Reason Comments Follow-up Rash on back and leg s Encounter Details Date Type Department Care Team (Late st Contact Info) Description 12/04/2023 10:30 EST Office Visit [facility] Dermatology 3rd Floor [address] [address] Anirudh Asher, TESSIE [address] [place] [address], [address] [place] [address] Actinic keratoses (Primary Dx) Social [...] keratosis documented in this encounter Care Teams Blood Coordinator Relationship Specialty Start Date End Date Francesca Curiel APRN [address] [place] [phone] PCP - General 03/22/22 documented as of this encounter
--- OUTSIDE RECORDS SUMMARY | 2024-07-31 13:08 | XMS_ITS | Encounter Summary ---
Author Organization [facility] Address [address] [place] [address] Care Team Providers Care Psychiatry Adult Physician Name Role Phone Francesca Curiel APRN Primary Care Provider +1 -[phone] Encounter Details Date Type Department Care Team [...] on filedocumented in this encounter Care Teams Psychiatry Adult Physician Relationship Specialty Start Date End Date Francesca Curiel APRN [address] [place] [address] PCP - General 03/22/22 documented as of this encounter
--- OUTSIDE RECORDS SUMMARY | 2024-07-31 13:08 | XMS_ITS | Encounter Summary ---
Author Organization [facility] Address [address] [place] [address] Care Team Providers Care Arm Maker Name Role Phone Francesca Curiel APRN Primary Care Provider +1 -[phone] Encounter Details Date Type Department Care Team [...] on filedocumented in this encounter Care Teams Arm Maker Relationship Specialty Start Date End Date Francesca Curiel APRN [address] [place] [address] PCP - General 03/22/22 documented as of this encounter
--- OUTSIDE RECORDS SUMMARY | 2024-07-31 13:08 | XMS_ITS | Encounter Summary ---
Author Organization [facility] Address [address] [place] [address] Care Team Providers Care Light Technician Name Role Phone Francesca Curiel APRN Primary Care Provider +1 -[phone] Reason for Referral * Laboratory Services (Routine/Next Available) - New Request Specialty Diagnoses / Procedures Referred By Patricia santnaa Referred To Contact Diagnoses Pain of both sacroiliac joints Bilateral leg pain Procedures HLA B27 SCREEN, DNA Jaimee Singh PA-C [address] [place] [address] Referral ID Status Reason Start Date Expiration Date V isits Requested Visits Authorized [id number] New Request 07/05/2022 1 1 * Laboratory Services (Routine/Next Available) - New Request Specialty Diagnoses / Procedures Referred By Patricia santana Referred To Contact Diagnoses Pain of both sacroiliac joints Bilateral leg pain Procedures C REACTIVE PROTEIN Jaimee Singh PA-C [address] [address] Referral ID Status Reason Start Date Expiration Date V isits Requested Visits Authorized [id number] New Request 07/05/2022 1 1 * Laboratory Services (Routine/Next Available) - New Request Specialty Diagnoses / Procedures Referred By Patricia t Referred To Contact Diagnoses Pain of both sacroiliac joints Procedures SED RATE Jaimee Singh PA-C [address] [facility] [address] [place] [address] Referral ID Status Reason Start Date Expiration Date V isits Requested Visits Authorized [id number] New Request 07/05/2022 1 1 Reason for Visit * Reason Comments Pain Pain Pain Encounter Details Date Type Department Care Team (Late st Contact Info) Description 07/05/2022 10:00 EDT Office Visit [facility] Orthopedics & Spine Medicine [address] [place] [address] Jaimee Singh PA-C 13[address] [facility] [address] [place], [place] [id number] Pain of both sacroiliac joints (Primary Dx); [...] was done about 2 weeks ago at [facility]. He is quite pleased about this, but [...] lateral hip pain, andlow back pain Injections: [facility] MBB L3-5 02/21/2021 and 03/23/2021 Bilateral RFA [...] - Final score 3 Location BACK Comment -05/16 at times Well developed, well nourished 62-year-old [...] as needed This document was produced using [employer]. Please excuse any grammatical or verbal errors. documented in this encounter Plan of Treatment Not on file documented as of this encounter Results * HLA B27 SCREEN, DNA (09/17/2022 12:18 EST) HLAB-B27 Result Negative Not Applicable 09/19/2022 14:09 EST [facility] [employer] Interpretation SEE NOTE 09/19/2022 14:09 EST [facility] [employer] Comment: RESULT: HLA-B27 antigen was not detected. ADDITIONAL INFORMATION Method: Flow Cytometry CLIA: [id number] ??CLIA Surface Grinding Machine Hand: CASIMIRO CLARK MD,PhD Test Performed by: [address] [address] Surface Grinding Machine Hand: Casimiro Clark M.D. Ph.D.; CLIA# [id number] Blood VENOUS BLOOD / Unknown Venipuncture / Unknown 09/17/2022 12:18 EST 09/17/2022 13:59 EST Jaimee Singh PA-C TISSUE TYPING ORDER MAISHA [address] [address] * C REACTIVE PROTEIN (09/17/2022 12:18 EST) C-Reactive Protein <5.0 <10.0 mg/L 09/17/2022 13:52 EST [facility] Blood VENOUS BLOOD / Unknown Venipuncture / Unknown 09/17/2022 12:18 EST 09/17/2022 13:18 EST Jaimee Singh PA-C CHEMISTRY & BLOOD G ORDERABLES Performing Organization Address City/[facility] [[email or web address]] Co de Phone Number [facility] [address] [place] [address] * SED RATE (09/17/2022 12:18 EST) Sed Rate <1 0 - 20 mm/hr 09/17/2022 14:05 EST [facility] Blood VENOUS BLOOD / Unknown Venipuncture / Unknown 09/17/2022 12:18 EST 09/17/2022 13:59 EST Jaimee Singh PA-C HEMATOLOGY & PF4 OR DERABLES Performing Organization Address City/[facility] de Phone Number [facility] [address] [place] [address] documented in this encounter Visit Diagnoses Diagnosis [...] night added in this encounter Care Teams Light Technician Relationship Specialty Start Date End Date Francesca Curiel APRN 26 [facility] [address] [place] [phone] PCP - General 03/22/22 documented as of this encounter
--- OUTSIDE RECORDS SUMMARY | 2024-07-31 13:08 | XMS_ITS | Encounter Summary ---
Author Organization [facility] Address [address] [place] [address] Care Team Providers Care Venture Capitalist Name Role Phone Francesca Curiel APRN Primary Care Provider +1 -[phone] Encounter Details Date Type Department Care Team (Late st Contact Info) Description 08/10/2022 Orders Only [facility] - [address] [address] India Pickens NP [address] [facility], [address] [place] [phone] Lumbar radiculopathy (Primary Dx) Social History Tobacco [...] unspecified documented in this encounter Care Teams Venture Capitalist Relationship Specialty Start Date End Date Francesca Curiel, COARSE WIRE DRAWER [address] [place] [address] PCP - General 03/22/22 documented as of this encounter
--- OUTSIDE RECORDS SUMMARY | 2024-07-31 13:08 | XMS_ITS | Encounter Summary ---
Author Organization [facility] Address [address] [place] [address] Care Team Providers Care Assembler Insulator Name Role Phone Francesca Curiel APRN Primary Care Provider +1 -[phone] Encounter Details Date Type Department Care Team (Latest Contact Info) Description 12/28/2022 10:04 EDT - 12/28/2022 23:59 EDT Hospital Encounter [address] [place] [address] Chronic pain of right knee [...] RIGHT 4 OR MORE VIEWS 3 (accession [id number]), 4 (accession [id number]) views ?? HISTORY: ??Left Knee for Comparison Procedure Note Jerson Pitts MD - 12/28/2022 EXAM/TECHNIQUE: 12/28/2022 10:15 AM XR KNEE LEFT 3 VIEWS, XR KNEE RIGHT 4OR MORE VIEWS 3 (accession [id number]), 4 (accession [id number]) views HISTORY: Left Knee for Comparison IMPRESSION [...] RIGHT 4 OR MORE VIEWS 3 (accession [id number]), 4 (accession [id number]) views ?? HISTORY: ??Left Knee for Comparison Procedure Note Jerson Pitts MD - 12/28/2022 EXAM/TECHNIQUE: 12/28/2022 10:15 AM XR KNEE LEFT 3 VIEWS, XR KNEE RIGHT 4OR MORE VIEWS 3 (accession [id number]), 4 (accession [id number]) views HISTORY: Left Knee for Comparison IMPRESSION [...] knee documented in this encounter Care Teams Assembler Insulator Relationship Specialty Start Date End Date Francesca Curiel APRN 26 [facility]qu[facility] [address] [place] [address] PCP - General 03/22/22 documented as of this encounter
--- OUTSIDE RECORDS SUMMARY | 2024-07-31 13:08 | XMS_ITS | Encounter Summary ---
Author Organization [facility] Address [address] [place] [address] Care Team Providers Care Neurocritical Care Physician Name Role Phone Francesca Curiel APRN Primary Care Provider +1 -[phone] Reason for Visit * Reason Comments New Patient Visit Sun damage on face. Worse on L cheek, becomes sore and bleeds intermittently * Referral (Routine) - Authorization Not Required Specialty Diagnoses / Procedures [facility] Referred To Contact Dermatology Diagnoses Chronic urticaria Jan Villasenor MD [address] [place] [address] [facility] Dermatology [address] [place] [address] Referral ID Status Reason Start Date Expiration Date Visits Requested Visits Authorized [id number] Authorization Not Required 1 1 Encounter Details Date Type Department Care Team (Late st Contact Info) Description 06/20/2023 8:30 EDT Office Visit [facility] Dermatology 3rd [address] [address] Anirudh Asher PA-C [address] [place] [address], [address] [place] [address] Actinic keratoses (Primary Dx); Lentigines; [...] Notes * Anirudh Asher PA-C - 06/20/2023 0815 EDT Dermatology Outpatient Visit Note Chief Complaint [...] radiation documented in this encounter Care Teams Neurocritical Care Physician Relationship Specialty Start Date End Date Francesca Curiel APRN [address] [address] PCP - General 03/22/22 documented as of this encounter
--- OUTSIDE RECORDS SUMMARY | 2024-07-31 13:08 | XMS_ITS | Encounter Summary ---
Author Organization [facility] Address [address] [place] [address] Care Team Providers Care Manager Aerospace Name Role Phone Francesca Curiel APRN Primary Care Provider +1 -[phone] Reason for Visit * Laboratory Services (Routine/Next Available) - New Request Specialty Diagnoses / Procedures [facility] Referred To Contact Diagnoses Pain of both sacroiliac joints Procedures SED RATE Jaimee Singh PA-C 1311 [facility] [address] [place] [address] Referral ID Status Reason Start Date Expiration Date V isits Requested Visits Authorized [id number] New Request 07/05/2022 1 1 Encounter Details Date Type Department Care Team (Late st Contact Info) Description 09/17/2022 12:05 EST Phlebotomy Only [facility] - Outpatient Phlebotomy Drawing [address] [place] [address] Lab, [facility] Pain of both sacroiliac joints; [...] B27 SCREEN, DNA (09/17/2022 12:18 EST) Pathologist [facility] HLAB-B27 Result Negative Not Applicable 09/19/2022 14:09 EST [facility] [employer] Interpretation SEE NOTE 09/19/2022 14:09 EST [facility] [employer] Comment: RESULT: HLA-B27 antigen was not detected. ADDITIONAL INFORMATION Method: Flow Cytometry CLIA: [id number] ??CLIA Senior Mainframe Programmer Analyst: CASIMIRO CLARK MD,PhD Test Performed by: [facility] - [address] [address] Senior Mainframe Programmer Analyst: Casimiro Clark M.D. Ph.D.; CLIA# [id number] Blood VENOUS BLOOD / Unknown Venipuncture / Unknown 09/17/2022 12:18 EST 09/17/2022 13:59 EST Jaimee Singh PA-C TISSUE TYPING ORDER MAISHA [address] [address] * C REACTIVE PROTEIN (09/17/2022 12:18 EST) C-Reactive Protein <5.0 <10.0 mg/L 09/17/2022 13:52 EST [facility] Blood VENOUS BLOOD / Unknown Venipuncture / Unknown 09/17/2022 12:18 EST 09/17/2022 13:18 EST Jaimee DOLAN-Abida CHEMISTRY & BLOOD G ORDERABLES Performing Organization Address City/[facility] Co de Phone Number [facility] [address] [place] [address] * SED RATE (09/17/2022 12:18 EST) Sed Rate <1 0 - 20 mm/hr 09/17/2022 14:05 EST [facility] Blood VENOUS BLOOD / Unknown Venipuncture / Unknown 09/17/2022 12:18 EST 09/17/2022 13:59 EST Jaimee Singh PA-C HEMATOLOGY & PF4 OR DERABLES Performing Organization Address City/[facility] Co de Phone Number [facility] [address] [place] [address] documented in this encounter Visit Diagnoses Diagnosis Pain of both sacroiliac joints Disorders of sacrum Bilateral leg pain Pain in limb documented in this encounter Care Teams Manager Aerospace Relationship Specialty Start Date End Date Francesca Curiel APRN 26 [place] [address] [place] [address] PCP - General 03/22/22 documented as of this encounter
--- OUTSIDE RECORDS SUMMARY | 2024-07-31 13:08 | XMS_ITS | Encounter Summary ---
Author Organization [facility] Address [address] [place] [address] Care Team Providers Care Vacuum Kettle Cook Name Role Phone Francesca Curiel APRN Primary Care Provider +1 -[phone] Reason for Visit * Reason Onset Date Comments Other 04/27/2022 Encounter Details Date Type Department Care Team (Late st Contact Info) Description 04/27/[address] [facility] Medicine [address], [address] [place], [place] [phone] Jaimee Singh PA-C 13[address] [facility] [address] [place] [address] Other Social History Tobacco Use [...] Encounter - Alethea Bauer LPN - 04/27/2022 5222 EDT Radiology leaves today asking for signed orders for this [...] on filedocumented in this encounter Care Teams Vacuum Kettle Cook Relationship Specialty Start Date End Date Francesca Curiel APRN [address] [place] [address] PCP - General 03/22/22 documented as of this encounter
--- OUTSIDE RECORDS SUMMARY | 2024-07-31 13:08 | XMS_ITS | Encounter Summary ---
Author Organization [facility] Address [address] [place] [address] Care Team Providers Care Patcher Helper Name Role Phone Francesca Curiel APRN Primary Care Provider +1 -[phone] Encounter Details Date Type Department Care Team (Latest Contact Info) Description 09/17/2022 8:43 EST - 09/17/2022 23:59 EST Hospital Encounter [address] [place] [address] Low back pain, unspecified back [...] present documented in this encounter Care Teams Patcher Helper Relationship Specialty Start Date End Date Francesca Curiel APRN [address] [address] PCP - General 03/22/22 documented as of this encounter
--- OUTSIDE RECORDS SUMMARY | 2024-07-31 13:08 | XMS_ITS | Encounter Summary ---
Author Organization [facility] Address [address] [place] [address] Care Team Providers Care [place] Baggage Name Role Phone Francesca Curiel APRN Primary Care Provider +1 -[phone] Reason for Visit * Reason Onset Date Comments Other 04/02/2022 Encounter Details Date Type Department Care Team (Late st Contact Info) Description 04/02/2022 Telephone [facility] Orthopedics & Spine Medicine [address], [address] [place], [place] [phone] Jaimee Singh PA-C 13[address] [facility] [address] [place] [address] Other Social History Tobacco Use [...] on filedocumented in this encounter Care Teams [place] Baggage Relationship Specialty Start Date End Date Francesca Curiel APRN [address] [place] [address] PCP - General 03/22/22 documented as of this encounter
--- OUTSIDE RECORDS SUMMARY | 2024-07-31 13:08 | XMS_ITS | Encounter Summary ---
Author Organization [facility] Address [address] [place] [address] Care Team Providers Care Forensic Pathologist Name Role Phone Francesca Curiel APRN Primary Care Provider +1 -[phone] Encounter Details Date Type Department Care Team (Late st Contact Info) Description 08/24/2021 Lab Requisition [facility] Pathology & Laboratory Medicine - [address] [address] Outr Resulting Lab, Provider Social History Tobacco [...] 66.0 55.8 - 66.1 % 08/25/2021 11:55 [facility] Alpha-1 % 3.4 2.9 - 4.9 % 08/25/2021 11:55 [facility] Alpha-2 % 7.6 7.1 - 11.8 % 08/25/2021 11:55 [facility] Beta % 9.5 8.4 - 13.1 % 08/25/2021 11:55 [facility] Gamma % 13.5 11.1 - 18.8 % 08/25/2021 11:55 [facility] SPEP Comment No apparent monoclonal protein seen on serum electrophoresis 08/25/2021 11:55 [facility] Comment:See scanned/suppleme ntary report. Total Protein 7.4 6.3 - 8.2 g/dL 08/25/2021 11:55 [facility] Blood VENOUS BLOOD / Unknown 08/24/2021 9:45 EST 08/24/2021 21:06 EST Provider Outr Resulting Lab CHEMISTRY & BLOOD GAS ORDERABLES Performing Organization Address [facility] Co de Phone Number [facility] [address] [place] [address] * PROTEIN, TOTAL (08/24/2021 9:45 EST) Blood VENOUS BLOOD / Unknown 08/24/2021 9:45 EST 08/24/2021 21:06 EST Provider Outr Resulting Lab CHEMISTRY & BLOOD GAS ORDERABLES Performing Organization Address City/[facility] Co de Phone Number [facility] [address] [place] [address] documented in this encounter Visit Diagnoses Not on filedocumented in this encounter Care Teams Forensic Pathologist Relationship Specialty Start Date End Date Francesca Curiel APRN [address],[facility] [address] [place] [address] PCP - General 03/22/22 documented as of this encounter
--- OUTSIDE RECORDS SUMMARY | 2024-07-31 13:08 | XMS_ITS | Encounter Summary ---
Author Organization [facility] Address [address] [place] [address] Care Team Providers Care Block Hacker Name Role Phone Francesca Curiel APRN Primary Care Provider +1 -[phone] Reason for Visit * Reason Comments Follow-up Spot check, left mina ek Encounter Details Date Type Department Care Team (Late st Contact Info) Description 07/22/2024 14:10 EDT Office Visit [facility] Dermatology [address] [facility] [address] [place] [address] Anirudh Asher, PAJb [address] [facility], [address] [place] [address] Actinic keratoses (Primary Dx); Seborrheic keratosis Social History Tobacco Use Types Packs/Day Years [...] as of this encounter Progress Notes * Anirudh Asher PA-C - 07/22/2024 1410 EDT Dermatology Outpatient Visit Note Chief Complaint Patient presents with Follow-up Spot check, left cheek Dermatologic History: No specialty comments available. Last Dermatology office visit: 12/04/23 SUBJECTIVE Mr. Guo is a 64 y.o. male who presents for follow up for a spot check. Cutaneous concerns listedbelow. Raised spot on left cheek Rough spots on nose He is otherwise feeling well and has no other cutaneous concerns today. OBJECTIVE Focused cutaneous examination was performed. The examination was significant for the following: - temples, cheeks, nose: erythematous gritty macules - left cheek: alvarez stuck on appearing low papule ASSESSMENT/PLAN Actinic keratoses Etiology discussed as well as treatment options including observation, photodynamic therapy, cryosurgery and topical 5-FU (Efudex). Due to subtle nature of lesion the patient has opted to observe fornow but will call with any changes of the lesion including growth or bleeding. Observation for now and plan to treat at next visit if lesion(s) become more prominent or symptomatic. Seborrheic keratosis Reassured the patient that these are benign lesions and they may continue to increase in size, number and thickness over time. They are not considered cancerous or precancerous and no treatment is necessary, unless they become symptomatic. He will f/u as planned or in the interim should problems arise. Return in about 1 year (around 07/22/2025) for h/o AKs. The attending physician was available for this visit. Anirudh Asher PA-C 07/22/2024 14:24 documented in this encounter Plan of Treatment Not on file documented as of this encounter Visit Diagnoses Diagnosis Actinic keratoses- Primary Actinic keratosis Seborrheic keratosis Other seborrheic keratosis documented in this encounter Care Teams Block Hacker Relationship Specialty Start Date End Date Francesca Curiel APRN [address] [place] [address] PCP - General 03/22/22 documented as of this encounter
--- OUTSIDE RECORDS SUMMARY | 2024-07-31 13:08 | XMS_ITS | Referral Summary ---
Author Organization [facility] Address [address] [place] [address] Care Team Providers Care Credit Processor Name Role Phone Francesca Curiel APRN Primary Care Provider +1 -[phone] Encounters Date Type Department Care Team Description 07/22/2024 14:10 EDT Office Visit [facility] Dermatology 3rd Floor [address] [address] Anirudh Asher, PAJb Actinic keratoses (Primary Dx); Seborrheic keratosis from Last 3 Months Allergies No known active allergies Medications Medication [...] of Treatment Not on file Care Teams Credit Processor Relationship Specialty Start Date End Date Francesca Curiel APRN [address] [place] [address] PCP - General 03/22/22
--- OUTSIDE RECORDS SUMMARY | 2024-07-31 13:08 | XMS_ITS | Encounter Summary ---
Author Organization [facility] Address [address] [place] [address] Care Team Providers Care Bank Courier Name Role Phone Francesca Curiel APRN Primary Care Provider +1 -[phone] Reason for Visit * Reason Onset Date Comments Other 04/17/2022 Encounter Details Date Type Department Care Team (Late st Contact Info) Description 04/17/2022 Telephone [facility] Medicine [address], [address] [place], [place] [phone] Jaimee Singh PA-C 13[address] [facility] [address] [place] [address] Other Social History Tobacco Use [...] on filedocumented in this encounter Care Teams Bank Courier Relationship Specialty Start Date End Date Francesca Curiel, [place] [address] [place] [address] PCP - General 03/22/22 documented as of this encounter
--- OUTSIDE RECORDS SUMMARY | 2024-07-31 13:08 | XMS_ITS | Clinical Summary ---
[place] [address] Care Team Providers Care Marketing Planner Name Role Phone Francesca Curiel APRN Primary Care Provider +1 -[phone] Allergies No known active allergies Medications No [...] Hepatitis C Screening 1978 Lipid Screening 1978 Tetanus/Diphtheria/Pertussis Vaccines (1 - Tdap) 03/13 Zoster vaccine (1 of 2) 2010 Advance Directive 2015 Covid-19 Vaccine (1 - season) 2024 Influenza (Flu) vaccine (1 o f 1 - Influenza standard series) 06/07/2024 Care Teams Marketing Planner Relationship Specialty Start Date End Date Francesca Curiel APRN [address] [place], [place] [phone] PCP - General Family Medicine 02/20/21
--- OUTSIDE RECORDS SUMMARY | 2024-07-31 13:08 | XMS_ITS | Encounter Summary ---
Author Organization [facility] Address [address] [place] [address] Care Team Providers Care Sales Receptionist Name Role Phone Francesca Curiel APRN Primary Care Provider +1 -[phone] Reason for Visit * Reason Onset Date Comments Coordination Of Care 11/15/2022 Encounter Details Date Type Department Care Team (Late st Contact Info) Description 11/15/2022 Telephone [facility] Spine Program - [address] [place] [address] Oneil Charles MD [address] [place] [phone] Coordination Of Care Social History Tobacco [...] on filedocumented in this encounter Care Teams Sales Receptionist Relationship Specialty Start Date End Date Francesca Curiel APRN [address] [phone] PCP - General 03/22/22 documented as of this encounter
--- OUTSIDE RECORDS SUMMARY | 2024-07-31 13:08 | XMS_ITS | Encounter Summary ---
Author Organization [facility] Address [address] [place] [address] Care Team Providers Care Javascript Web Developer Name Role Phone Francesca Curiel APRN Primary Care Provider +1 -[phone] Reason for Visit * Reason Comments Pain * Referral (Routine) - Receiving Office to Obtain Authorization Specialty Diagnoses / Procedures Referred By Contac t Referred To Contact Orthopedic Surgery Diagnoses Other intervertebral disc degeneration, lumbar region Francesca Curiel, [place] [address] [place] [address] [facility] Ortho Spine [address] [place] [address] Referral ID Status Reason Start Date Expiration Date Visits Requested Visits Authorized [id number] Receiving Office to Obtain Authorization 1 1 Encounter Details Date Type Department Care Team (Late st Contact Info) Description 09/17/2022 9:30 EST Office Visit [facility] Spine Program [place] [address] Oneil Charles MD [address] [place] [address] Chronic midline low back pain [...] Notes * Oneil Charles MD - 09/17/2022 0956 EST Chief Complaint Patient presents with ??? Lower Back - Pain HPI Cristo Guo is a 62 y.o. male coming to clinic today with a chief complaint of back and RLE pain. He states that he has had nursing home LBP, helped recently ~70% by bilateral SI [...] Surgical History Bunionectomy Social History Lives in [facility]. 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 Allergies NKDA Current Outpatient Medications Medication ??? [...] 09/10/2022 added in this encounter Care Teams Javascript Web Developer Relationship Specialty Start Date End Date Francesca Curiel APRN [address] [facility] [address] [place] [address] PCP - General 03/22/22 documented as of this encounter
--- OUTSIDE RECORDS SUMMARY | 2024-07-31 13:08 | XMS_ITS | Encounter Summary ---
Author Organization [facility] Address [address] [place] [address] Care Team Providers Care Supervisor Unloading Name Role Phone Francesca Curiel APRN Primary Care Provider +1 -[phone] Encounter Details Date Type Department Care Team (Late st Contact Info) Description 09/05/2022 Orders Only [facility] Spine Program - [address] [place] [address] Oneil Charles MD [address] [place] [address] Low back pain, unspecified back [...] present documented in this encounter Care Teams Supervisor Unloading Relationship Specialty Start Date End Date Francesca Curiel APRN [address] [phone] PCP - General 03/22/22 documented as of this encounter
--- OUTSIDE RECORDS SUMMARY | 2024-07-31 13:08 | XMS_ITS | Encounter Summary ---
Author Organization Health system Address [address] [place] [address] Care Team Providers Care Engagement Manager Name Role Phone Francesca Curiel APRN Primary Care Provider +1 -[phone] Reason for Visit * Reason Comments EMG (Electomyography) * Office Procedure (Routine/Next Available) - Authorization Not Required Specialty Diagnoses / Procedures [facility] Referred To Contact Neurology Diagnoses Chronic midline low back pain without sciatica Procedures EMG/NERVE CONDUCTION STUDY Oneil Charles MD [address] [place] [phone] Los Dias MD [address] [place] [address] [address] Referral ID Status Reason Start Date Expiration Date Visits Requested Visits Authorized [id number] Authorization Not Required Specialty Services Required 09/17/20 22 1 1 Encounter Details Date Type Department Care Team (Late st Contact Info) Description 10/18/2022 9:00 EST Procedure visit [facility] [address] [place] [address] Los Dias MD [address] [place] [address] [address] Pain in right lower leg [...] 10/18/2022 0900 ESTAssociated Order(s): EMG/NERVE CONDUCTION STUDY [facility] Clinical Neurophysiology Nerve Conduction and Electromyography [...] conduction testing done by Dr. Parrish at [facility] was suggestive of peripheral neuropathy. EMG was [...] symptoms.Prior nerve conduction testing abnormalities noted in [facility] testing were likely due to cool limb [...] EMG/NERVE CONDUCTION STUDY (10/18/2022 9:00 EST) Narrative [facility] - 10/18/2022 9:00 EST Los Dias MD ? 10/18/2022 ??9:42 [facility] Clinical Neurophysiology Nerve Conduction and Electromyography [...] conduction testing done by Dr. Parrish at [facility] was suggestive of peripheral neuropathy. ??EMG was [...] ??Prior nerve conduction testing abnormalities noted in [facility] testing were likely due to cool limb noted in the report rather than a neurogenic process. Los Dias MD Oneil Charles MD PROCEDURE/MINOR ANA GICAL ORDERABLES [facility] documented in this encounter Visit Diagnoses Diagnosis Pain in right lower leg- Primary Chronic midline low back pain without sciatica documented in this encounter Care Teams Engagement Manager Relationship Specialty Start Date End Date Francesca Curiel APRN [address] [place] [address] PCP - General 03/22/22 documented as of this encounter
--- OUTSIDE RECORDS SUMMARY | 2024-07-31 13:08 | XMS_ITS | Encounter Summary ---
Author Organization [facility] Address [address] [place] [address] Care Team Providers Care Paraplanner Name Role Phone Francesca Curiel APRN Primary Care Provider +1 -[phone] Reason for Referral * Office Procedure (Routine/Next Available) - Authorization Not Required Specialty Diagnoses / Procedures Referred By Contac t Referred To Contact Neurology Diagnoses Chronic midline low back pain without sciatica Procedures EMG/NERVE CONDUCTION STUDY Oneil Charles MD [address] [place] [address] Los Dias MD [address] [place] [address] [address] [place] [phone] Referral ID Status Reason Start Date Expiration Date Visits Requested Visits Authorized [id number] Authorization Not Required Specialty Services Required 09/17/20 22 1 1 Encounter Details Date Type Department Care Team (Late st Contact Info) Description 09/17/2022 Orders Only [facility] Spine Program - [address] [place] [address] Oneil Charles MD [address] [place] [address] Chronic midline low back pain without [...] EMG/NERVE CONDUCTION STUDY (10/18/2022 9:00 EST) Narrative [facility] - 10/18/2022 9:00 EST Los Dias MD ? 10/18/2022 ??9:42 [facility] Clinical Neurophysiology Nerve Conduction and Electromyography [...] conduction testing done by Dr. Parrish at [facility] was suggestive of peripheral neuropathy. ??EMG was [...] ??Prior nerve conduction testing abnormalities noted in [facility] testing were likely due to cool limb noted in the report rather than a neurogenic process. Los Dias MD Oneil Charles MD PROCEDURE/MINOR ANA GICAL ORDERABLES [facility] documented in this encounter Visit Diagnoses Diagnosis Chronic midline low back pain without sciatica- Primary Pain in right lower leg- Primary Chronic midline low back pain without sciatica documented in this encounter Care Teams Paraplanner Relationship Specialty Start Date End Date Francesca Curiel APRN [address] [address] [place] [address] PCP - General 03/22/22 documented as of this encounter
--- OUTSIDE RECORDS SUMMARY | 2024-07-31 13:08 | XMS_ITS | Encounter Summary ---
Author Organization [facility] Address [address] [place] [address] Care Team Providers Care Roofer Name Role Phone Francesca Curiel APRN Primary Care Provider +1 -[phone] Reason for Visit * Reason Onset Date Comments Referral Request 04/13/2022 Encounter Details Date Type Department Care Team (Late st Contact Info) Description 04/13/2022 Telephone [facility] [address] [address] Jaimee Singh PA-C [address] [place] [address] [place], [place] [id number] Referral Request Social History Tobacco Use Types [...] after he gets xrays and MRI at [facility]. I told him that If he decides to proceed, to call me, and I could put him back on the cancellation list. Pt agreed * Telephone Encounter - Audrey Valerio - 04/17/2022 1546 EDT Sent referral to [facility] for injection. * Telephone Encounter - Alethea Bauer LPN - 04/17/2022 1309 EDT Pt left VM twice today, returning my call, I did call pt, he is happy to have order for bilat SI joint injections sent to [facility], I do not know why insurance said [facility] for injection out of network so he had to go to [facility], yet they did get approval for MRI at [facility], pt will make F/U after he gets MRI date. And if he does not hear from pain clinic in a week he will call [facility] pain clinic, reminded him once he gets injection date he needs an OV or TM to review results,pt happy with this plan.Audrey can you send SI joint injection order to [facility]. * Telephone Encounter - Marily Benz - 04/13/2022 1533 EDT Pt just called here, stating that he just missed call. And to call back at [phone] to discuss Insurance issue. * Telephone Encounter - Alethea Bauer LPN - 04/13/2022 1523 EDT I called pt, left VM to call me to discuss, little further down on referral Ngoc did speak with pt yesterday and [facility] would be covered as they are with in his insurance net work, I asked pt to callback and let me know he does want to go to [facility]. * Telephone Encounter - Marily Benz - 04/13/2022 0949 EDT Cassandra, Can you follow up with this patient? He LMM , but when I reviewed referral it showed this reply as denied: Dear Jaimee Singh: The referral that you have requested for Cristo Guo has been denied for the following reason: Not a Covered Benefit Comments: [facility] out of network with patient's insurance, patient is aware. Sincerely, Ngoclana Brady There is nothing I can do unless he wants to be self pay? Let me know. Marily Moss documented in this encounter Plan of Treatment Not on file documented as of this encounter Visit Diagnoses Not on filedocumented in this encounter Care Teams Roofer Relationship Specialty Start Date End Date Francesca Curiel APRN [address] [place] [address] PCP - General 03/22/22 documented as of this encounter
--- OUTSIDE RECORDS SUMMARY | 2024-07-31 13:09 | XMS_ITS | Encounter Summary ---
Author Organization [facility] [place] [address] Care Team Providers Care De Icer Kit Assembler Name Role Phone Francesca Curiel APRN Primary Care Provider +1 -[phone] Encounter Details Date Type Department Care Team (Late st Contact Info) Description 05/25/2021 Ancillary Procedure Radiology Library at [facility] [place] [address] Francesca Curiel APRN [address] [place] [phone] Social History Tobacco Use Types Packs/Day Years [...] DX Spine (05/25/2021 12:00 AM EDT) Narrative [facility] - 07/26/2022 11:25 AM EDT This exam is auto-finalizing. It's purpose is for storage only. Francesca Curiel APRN IMG FILM LIBRARY ORDERABLES [facility] [place], [place] documented in this encounter Visit Diagnoses Not on filedocumented in this encounter Care Teams De Icer Kit Assembler Relationship Specialty Start Date End Date Francesca Curiel APRN [address] [place] [address] PCP - General Family Medicine 02/20/21 documented as of this encounter
--- OUTSIDE RECORDS SUMMARY | 2024-07-31 13:09 | XMS_ITS | Encounter Summary ---
Author Organization [facility] [place] [address] Care Team Providers Care Car Mechanic Name Role Phone Francesca Curiel APRN Primary Care Provider +1 -[phone] Reason for Visit * Consultation (Routine) - Closed Specialty Diagnoses / Procedures Referred By Patricia santana Referred To Contact Vascular Surgery Diagnoses Hereditary and idiopathic neuropathy, unspecified Francesca Curiel APRN [address] [place] [address] [facility] [address] [place] [address] Referral ID Status Reason Start Date Expiration Date V isits Requested Visits Authorized [id number] Closed Consult, Test & Treat Connection [facility] PCP Updated and/or Approved 02/15/2021 02/15/2022 6 6 Encounter Details Date Type Department Care Team (Late st Contact Info) Description 03/07/2021 2:00 PM EDT Tech [place] [address] Praful Donald, RVT Leg cramps; [...] Text Report Department: Vascular Surgery Lab Patient: [id number] (TERRY MCLAUGHLIN) CPT: 08195 ICD10: R25.2;G62.9 Referring Physician: LILLIAN FRANKLIN APRN [...] site documented in this encounter Care Teams Car Mechanic Relationship Specialty Start Date End Date Francesca Curiel APRN [address] [place] [address] PCP - General Family Medicine 02/20/21 documented as of this encounter
--- OUTSIDE RECORDS SUMMARY | 2024-07-31 13:09 | XMS_ITS | Encounter Summary ---
Author Organization [facility] Address [facility] [place] [address] Care Team Providers Care Office Support Associate Name Role Phone Francesca Curiel APRN Primary Care Provider +1 -[phone] Reason for Visit * Consultation (Routine) - Closed Specialty Diagnoses / Procedures Referred By Patricia santana Referred To Contact Vascular Surgery Diagnoses Hereditary and idiopathic neuropathy, unspecified Francesca Curiel APRN [address] [place] [address] [facility] Surg [address] [place] [address] Referral ID Status Reason Start Date Expiration Date V isits Requested Visits Authorized [id number] Closed Consult, Test & Treat Connection Center PCP Updated and/or Approved 02/15/2021 02/15/2022 6 6 Encounter Details Date Type Department Care Team (Late st Contact Info) Description 03/07/2021 2:30 PM EDT Office Visit [place] [address] Oneil Ramos MD [facility] [place] [address] Bilateral leg pain Social History Tobacco Use [...] limb documented in this encounter Care Teams Office Support Associate Relationship Specialty Start Date End Date Francesca Curiel APRN [address] [place] [address] PCP - General Family Medicine 02/20/21 documented as of this encounter
--- OUTSIDE RECORDS SUMMARY | 2024-07-31 13:09 | XMS_ITS | Encounter Summary ---
Author Organization [facility] [place] [address] Care Team Providers Care Council On Aging Director Name Role Phone Francesca Curiel APRN Primary Care Provider +1 -[phone] Encounter Details Date Type Department Care Team (Late st Contact Info) Description 05/21/2022 Ancillary Procedure Radiology Library at [facility] [place] [address] Francesca Curiel APRN [address] [place] [address] [phone] Social History Tobacco Use Types Packs/Day Years [...] DX Spine (05/21/2022 12:00 AM EDT) Narrative [facility] - 07/26/2022 11:26 AM EDT This exam is auto-finalizing. It's purpose is for storage only. Francesca Curiel APRN IMG FILM LIBRARY ORDERABLES [facility] [place], [place] documented in this encounter Visit Diagnoses Not on filedocumented in this encounter Care Teams Council On Aging Director Relationship Specialty Start Date End Date Francesca Curiel APRN [address] [place] [address] PCP - General Family Medicine 02/20/21 documented as of this encounter
--- OUTSIDE RECORDS SUMMARY | 2024-07-31 13:09 | XMS_ITS | Encounter Summary ---
Author Organization [facility] Address [facility] [place] [address] Care Team Providers Care Guest Relations Agent Name Role Phone Francesca Curiel APRN Primary Care Provider +1 -[phone] Encounter Details Date Type Department Care Team (Late st Contact Info) Description 05/21/2022 12:05 AM EDT Ancillary Procedure Radiology Library at [facility] [place] [address] Francesca Curiel APRN [address] [place] [address] Social History Tobacco Use Types Packs/Day [...] MR Spine (05/21/2022 12:05 AM EDT) Narrative [facility] - 07/26/2022 11:28 AM EDT This exam is auto-finalizing. It's purpose is for storage only. Francesca Curiel APRN IMPraneeth FILM LIBRARY ORDERABLES [place], [place] documented in this encounter Visit Diagnoses Not on filedocumented in this encounter Care Teams Guest Relations Agent Relationship Specialty Start Date End Date Francesca Curiel APRN [address] [place] [address] PCP - General Family Medicine 02/20/21 documented as of this encounter
--- OUTSIDE RECORDS SUMMARY | 2024-07-31 13:09 | XMS_ITS | Encounter Summary ---
Author Organization [facility] [place] [address] Care Team Providers Care Judicial Assistant Name Role Phone Francesca Curiel APRN Primary Care Provider +1 -[phone] Encounter Details Date Type Department Care Team (Late st Contact Info) Description 02/21/2021 Ancillary Procedure Radiology Library at [facility] [place] [address] Francesca Curiel APRN [address] [place] [address] Social History Tobacco Use Types [...] DX Spine (02/21/2021 12:00 AM EDT) Narrative [facility] - 07/26/2022 11:24 AM EDT This exam is auto-finalizing. It's purpose is for storage only. Francesca Curiel APRN IMPraneeth FILM LIBRARY ORDERABLES [facility] [place], [place] documented in this encounter Visit Diagnoses Not on filedocumented in this encounter Care Teams Judicial Assistant Relationship Specialty Start Date End Date Francesca Curiel APRN [address] [place] [address] PCP - General Family Medicine 02/20/21 documented as of this encounter
--- OUTSIDE RECORDS SUMMARY | 2024-07-31 13:09 | XMS_ITS | Encounter Summary ---
Author Organization [facility] [place] [address] Care Team Providers Care Oracle Brm Developer Name Role Phone Francesca Curiel APRN Primary Care Provider +1 -[phone] Encounter Details Date Type Department Care Team (Late st Contact Info) Description 03/23/2021 Ancillary Procedure Radiology Library at [facility] [place] [address] Francesca Curiel APRN [address] [place] [address] [phone] Social History Tobacco Use Types Packs/Day Years [...] DX Spine (03/23/2021 12:00 AM EDT) Narrative [facility] - 07/26/2022 11:22 AM EDT This exam is auto-finalizing. It's purpose is for storage only. Francesca Curiel APRN IMG FILM LIBRARY ORDERABLES [facility] [place], [place] documented in this encounter Visit Diagnoses Not on filedocumented in this encounter Care Teams Oracle Brm Developer Relationship Specialty Start Date End Date Francesca Curiel APRN [address] [place] [address] PCP - General Family Medicine 02/20/21 documented as of this encounter
--- OUTSIDE RECORDS SUMMARY | 2024-07-31 13:09 | XMS_ITS | Encounter Summary ---
Author Organization [facility] Address [facility] [address] Care Team Providers Care [place] Roofer Helper Name Role Phone MoisésFrancesca alexander Kirsty MCGREGOR Primary Care Provider +1 -[phone] Reason for Referral * Diagnostic Test (Routine) - Closed Specialty Diagnoses / Procedures Referred By Patricia santana Referred To Contact Diagnoses Leg cramps Neuropathy Procedures FATOU, legs, multiple levels Lillian Franklin APRN [facility] [place] [address] [facility] Vascular Lab [address] [place] [address] Referral ID Status Reason Start Date Expiration Date V isits Requested Visits Authorized [id number] Closed Specialty Service Requested 02/21/2021 02/21/2022 1 1 Encounter Details Date Type Department Care Team (Late st Contact Info) Description 02/21/2021 Orders [place] [address] Lillian Franklin APRN [facility] [place] [address] Leg cramps; Neuropathy Social History Tobacco Use [...] legs, multiple levels (03/07/2021 1:52 PM EDT) [facility] VB Text Report Department: Vascular Surgery Lab Patient: [id number] (TERRY MCLAUGHLIN) CPT: 29949 ICD10: R25.2;G62.9 Referring Physician: LILLIAN FRANKLIN APRN [...] site documented in this encounter Care Teams [place] Roofer Helper Relationship Specialty Start Date End Date Francesca Curiel APRN [address] [place] [address] PCP - General Family Medicine 02/20/21 documented as of this encounter
[2024-07-31 15:19] LABS: ALT 19 U/L (16-63); AST 16 U/L (15-37); Albumin 3.8 g/dL (3.4-5.0); Alkaline Phosphatase 51 U/L (46-116); Anion Gap 8.5 mmol/L (3-11); BUN 10 mg/dL (7-18); Bilirubin, Total 0.48 mg/dL (0.2-1.0); CO2 26.5 mmol/L (21.0-32.0); CREATININE 0.8 mg/dL (0.70-1.30); Calculated LDL 121 mg/dL (<100); Chloride 106 mmol/L (98-107); Cholesterol 228 mg/dL (<200); Estimated GFR 98.83 (mL/min/1.73m2); Ferritin 133 ng/mL (26-388); Glucose 95 mg/dL (74-106); HDL Cholesterol 85 mg/dL (40-60); Potassium 4.4 mmol/L (3.5-5.1); Sodium 141 mmol/L (136-145); TSH (W/Ref FT4) 2.82 uIU/mL (0.36-3.74); Total Protein 6.7 g/dL (6.4-8.2); Triglyceride 111 mg/dL (<150)
[2024-07-31 16:08] LABS: Iron 85 ug/dL (65-175); Total Iron Binding Capacity 239 ug/dL (250-450); Transferrin Sat 36 % (20-55)
== END 2024-07-31 13:07 | disposition home or self-care (01) ==
LOC: NCHCN 13:06
PROVIDERS: PCP Nurse Practitioner Family; Visit Provider Nurse Practitioner Family
DX: D64.9 Anemia, unspecified (principal); R63.4 Abnormal weight loss; Z00.00 Encounter for general adult medical examination without abnormal findings
CPT/HCPCS: 80053; 80061; 82728; 83540; 83550; 84443

== ENCOUNTER 2024-08-25 15:21 | Outpatient (REF) | payer BC, SELFPAY ==
--- OUTSIDE RECORDS SUMMARY | 2024-08-25 15:30 | XMS_ITS | Encounter Summary ---
Author Organization [facility] Address [address] [place] [address] Care Team Providers Care Lift Builder Whole Name Role Phone Francesca Curiel APRN Primary Care Provider +1 -[phone] Reason for Referral * Office Procedure (Routine/Next Available) - Authorization Not Required Specialty Diagnoses / Procedures Referred By Contac t Referred To Contact Neurology Diagnoses Chronic midline low back pain without sciatica Procedures EMG/NERVE CONDUCTION STUDY Oneil Charles MD Phone: tel: fax: [place] MD Phone: tel: fax: Referral ID Status Reason Start Date Expiration Date Visits Requested Visits Authorized [id number] Authorization Not Required Specialty Services Required 09/17/20 22 1 1 Encounter Details Date Type Department Care Team (Late st Contact Info) Description 09/17/2022 Orders Only [facility] - [address] [address] Oneil Charles MD [address] [place] [phone] Chronic midline low back pain without sciatica (Primary Dx) Social History Tobacco Use Types Packs/Day Years Used Date Smoking Tobacco: Never Smokeless Tobacco: Never Interpersonal Safety Answer Date Record ed Physically Hurt Never 08/30/2020 Verbally Threaten Not on file 08/30/2020 Sex and Gender Information Value Date Recorded Sex Assigned at Not on file Legal Sex Male 12:42 EDT Gender Identity Male 03/14/2022 13:05 EDT Sexual Orientation Not on file documented as of this encounter Functional Status * Because of a physical, mental, or emotional condition, does this person have difficulty doing errands alone such as visiting a doctor's office or shopping? Answer Date of Assessment Author No 03/29/2022 9:24 EDT documented as of this encounter Mental Status * Because of a physical, mental, or emotional condition, does this person have serious difficulty concentrating, remembering, or making decisions? Answer Entry Date Author No 03/29/2022 9:24 EDT documented in this encounter Plan of Treatment Not on file documented as of this encounter Results * EMG/NERVE CONDUCTION STUDY (10/18/2022 9:00 EST) Narrative [facility] - 10/18/2022 9:00 EST [place] [...] conduction testing done by Dr. Parrish at [facility] was suggestive of peripheral neuropathy. ??EMG was [...] ??Prior nerve conduction testing abnormalities noted in [facility] testing were likely due to cool limb noted in the report rather than a neurogenic process. [place] MD us Oneil Charles MD PROCEDURE/MINOR SURGICAL OR DERABLES Final Result [facility] documented in this encounter Visit Diagnoses Diagnosis Chronic midline low back pain without sciatica- Primary Pain in right lower leg- Primary Chronic midline low back pain without sciatica documented in this encounter Care Teams Lift Builder Whole Relationship Specialty Start Date End Date Francesca Curiel APRN 26 [facility] [address] [place] [address] PCP - General 03/22/22 documented as of this encounter
--- OUTSIDE RECORDS SUMMARY | 2024-08-25 15:30 | XMS_ITS | Clinical Summary ---
Author Organization [facility] Address [address] [place] [address] Care Team Providers Care Corporate Officer Name Role Phone Francesca Curiel APRN Primary Care Provider [phone] [phone] Allergies No known active allergies Medications rOPINIRole (REQUIP) 1 mg tablet Take 1 Tablet by mouth at bedtime. 2 Active ibuprofen (MOTRIN) 200 mg tablet Take 1 Tablet by mouth if needed for Pain. 2-3 at times Active UNABLE TO FIND if needed. OTC leg quinine leg cramp supplement Active meloxicam (MOBIC) 15 mg tablet Take 15 mg by mouth at bedtime. 2 tabs at night Active hydrOXYzine (ATARAX) 25 mg tablet 2 Active ferrous fumarate/vit Bcomp,C (SUPER B COMPLEX ORAL) Take by mouth. Active ELDERBERRY FRUIT ORAL Take by mouth. Acti ve ferrous sulfate 325 mg (65 mg iron) tablet Take 1 Tablet by mouth daily. Active saw palmetto xtr/zinc picolin (SAW PALMETTO EXTRACT ORAL) Take by mouth. A ctive aspirin chewable 81 mg tablet Take 1 Tablet by mouth daily. Active cholecalciferol , Vitamin D3, 25 mcg (1,000 unit) tablet Take 1 Tablet by mouth daily. Active MAGNESIUM CITRATE ORAL Take by mouth. Ac tive Active Problems No known active problems Encounters Date Type Department Care Team Description 07/22/2024 14:10 EDT Office Visit [facility] Dermatology 3rd Floor [facility] [address] [place] [address] Anirudh Asher, JOSE MANUELC Actinic keratoses (Primary Dx); Seborrheic keratosis from [...] Body Mass Index 23.56 03/29/2022 0917 EDT Plan of Treatment Health Maintenance Due Date Last Done Comments Hepatitis C Screen 1960 COVID-19 Vaccine (2023- season) 2024 RSV Immunization ( o r 60+ Years) (1 - 1-dose 75+ series) 2035 Insurance [facility] Care Teams Corporate Officer Relationship Specialty Start Date End Date Francesca Curiel APRN [address] [place] [phone] PCP - General 03/22/22
--- OUTSIDE RECORDS SUMMARY | 2024-08-25 15:30 | XMS_ITS | Encounter Summary ---
Author Organization [facility] Address [address] [place] [address] Care Team Providers Care Hospice Office Coordinator Name Role Phone Francesca Curiel APRN Primary Care Provider +1 [phone] Encounter Details Date Type Department Care Team (Latest Contact Info) Description 12/28/2022 10:04 EDT - 12/28/2022 23:59 [address]T [address] Encounter [address] [facility] [address] [place] [address] Chronic pain of right knee [...] 03/29/2022 9:24 EDT documented in this encounter Medications at Time of Discharge aspirin chewable 81 mg tablet Take 1 [...] RIGHT 4 OR MORE VIEWS 3 (accession [id number]), 4 (accession [id number]) views ?? HISTORY: ??Left Knee for Comparison Procedure Note Jerson Pitts MD - 12/28/2022 EXAM/TECHNIQUE: 12/28/2022 10:15 AM XR KNEE LEFT 3 VIEWS, XR KNEE RIGHT 4OR MORE VIEWS 3 (accession [id number]), 4 (accession [id number]) views HISTORY: Left Knee for Comparison IMPRESSION FINDINGS / IMPRESSION: * Right knee 4 views: Compartment degenerative changes which are severein the patellofemoral compartment. Moderate joint effusion. Mild osseousdemineralization. * Left knee 3 views: Tricompartment degenerative changes which aremoderate. Brenna Shoemaker PA-C IMPraneeth DIAGNOSTIC IMAGING OR DERABLES Final Result * XR KNEE RIGHT 4 OR MORE [...] RIGHT 4 OR MORE VIEWS 3 (accession [id number]), 4 (accession [id number]) views ?? HISTORY: ??Left Knee for Comparison Procedure Note Jerson Pitts MD - 12/28/2022 EXAM/TECHNIQUE: 12/28/2022 10:15 AM XR KNEE LEFT 3 VIEWS, XR KNEE RIGHT 4OR MORE VIEWS 3 (accession [id number]), 4 (accession [id number]) views HISTORY: Left Knee for Comparison IMPRESSION FINDINGS / IMPRESSION: * Right knee 4 views: Compartment degenerative changes which are severein the patellofemoral compartment. Moderate joint effusion. Mild osseousdemineralization. * Left knee 3 views: Tricompartment degenerative changes which aremoderate. Brenna Shoemaker PA-C IMPraneeth DIAGNOSTIC IMAGING OR DERABLES Final Result documented in this encounter Visit Diagnoses Diagnosis Chronic pain of right knee documented in this encounter Care Teams Hospice Office Coordinator Relationship Specialty Start Date End Date Francesca Curiel, JEWEL STAKER [address] [place] [address] PCP - General 03/22/22 documented as of this encounter
--- OUTSIDE RECORDS SUMMARY | 2024-08-25 15:30 | XMS_ITS | Encounter Summary ---
Author Organization [facility] Address [address] [place] [address] Care Team Providers Care Terra Cotta Roofer Helper Name Role Phone Francesca Curiel APRN Primary Care Provider +1 -[phone] Reason for Visit * Reason Comments Follow-up Spot check, left mina ek Encounter Details Date Type Department Care Team (Late st Contact Info) Description 07/22/2024 14:10 EDT Office Visit [facility] Dermatology 3rd Floor [facility] [address] [place] [address] Anirudh Asher, PAJb [address] [facility], [facility], [address] [place] [address] Actinic keratoses (Primary Dx); Seborrheic [...] 03/29/2022 9:24 EDT documented in this encounter Progress Notes * [...] keratosis documented in this encounter Care Teams Terra Cotta Roofer Helper Relationship Specialty Start Date End Date Francesca Curiel APRN [address] [place] [phone] PCP - General 03/22/22 documented as of this encounter
--- OUTSIDE RECORDS SUMMARY | 2024-08-25 15:30 | XMS_ITS | Encounter Summary ---
Author Organization [facility] Address [address] [place] [address] Care Team Providers Care Hvac R Tech Name Role Phone Francesca Curiel APRN Primary Care Provider [phone] -[phone] Reason for Visit * Laboratory Services (Routine/Next Available) - New Request Specialty Diagnoses / Procedures [facility] Referred To Contact Diagnoses Pain of both sacroiliac joints Procedures SED RATE Jaimee Singh PA-C Phone: tel: fax: Referral ID Status Reason Start Date Expiration Date V isits Requested Visits Authorized [id number] New Request 07/05/2022 1 1 Encounter Details Date Type Department Care Team (Late st Contact Info) Description 09/17/2022 12:05 EST Phlebotomy Only [facility] - Outpatient Phlebotomy Drawing [address] [place] [address] [place], [facility] [place] Pain of both sacroiliac joints; [...] Result Negative Not Applicable 09/19/2022 14:09 EST [facility] Interpretation SEE NOTE 09/19/2022 14:09 EST [facility] [employer] Comment: RESULT: HLA-B27 antigen was not detected. ADDITIONAL INFORMATION Method: Flow Cytometry CLIA: [id number] ??CLIA Customer Care Associate: CASIMIRO CLARK MD,PhD Test Performed by: [address] [address] Customer Care Associate: Casimiro Clark M.D. Ph.D.; CLIA# [id number] Blood VENOUS BLOOD / Unknown Venipuncture / Unknown 09/17/2022 12:18 EST 09/17/2022 13:59 EST us Jaimee Singh PA-C TISSUE TYPING ORDERABLES Fi nal Result [address] [address] * C REACTIVE PROTEIN (09/17/2022 12:18 EST) Pathologist [facility] C-Reactive Protein <5.0 <10.0 mg/L 09/17/2022 13:52 EST [facility] Blood VENOUS BLOOD / Unknown Venipuncture / Unknown 09/17/2022 12:18 EST 09/17/2022 13:18 EST Jaimee DOLAN-C CHEMISTRY & BLOOD GAS ORDER MAISHA Final Result [facility] [address] [place] [address] * SED RATE (09/17/2022 12:18 EST) Pathologist [facility] Sed Rate <1 0 - 20 mm/hr 09/17/2022 14:05 EST [facility] Blood VENOUS BLOOD / Unknown Venipuncture / Unknown 09/17/2022 12:18 EST 09/17/2022 13:59 EST Jaimee DOLAN-C HEMATOLOGY & PF4 ORDERABLES Final Result Performing Organization Address City/[facility] Co de Phone Number [facility] [address] [place] [address] documented in this encounter Visit Diagnoses Diagnosis Pain of both sacroiliac joints Disorders of sacrum Bilateral leg pain Pain in limb documented in this encounter Care Teams Hvac R Tech Relationship Specialty Start Date End Date Francesca Curiel APRN 26 [facility] [address] [place] [address] PCP - General 03/22/22 documented as of this encounter
--- OUTSIDE RECORDS SUMMARY | 2024-08-25 15:30 | XMS_ITS | Encounter Summary ---
Author Organization [facility] Address [address] [place] [address] Care Team Providers Care Textile Designer Name Role Phone Francesca Curiel APRN Primary Care Provider +1 -[phone] Reason for Visit * Reason Comments Follow-up Rash on back and leg s Encounter Details Date Type Department Care Team (Late st Contact Info) Description 12/04/2023 10:30 EST Office Visit [facility] Dermatology 3rd Floor [address] [address] Anirudh Asher, TESSIE [address] [place] [address], [address] [place] [address] Actinic keratoses (Primary Dx) Social [...] 03/29/2022 9:24 EDT documented in this encounter Patient Instructions * Patient Instructions* [...] keratosis documented in this encounter Care Teams Textile Designer Relationship Specialty Start Date End Date Francesca Curiel APRN [address] [place] [address] PCP - General 03/22/22 documented as of this encounter
--- OUTSIDE RECORDS SUMMARY | 2024-08-25 15:30 | XMS_ITS | Referral Summary ---
Author Organization [facility] Address [address] [place] [address] Care Team Providers Care Hospice Massage Therapist Name Role Phone Francesca Curiel APRN Primary Care Provider +1 -[phone] Encounters Date Type Department Care Team Description 07/22/2024 14:10 EDT Office Visit [facility] Dermatology 3rd Floor [address] [address] Anirudh Asher, PAJb Actinic keratoses (Primary Dx); Seborrheic keratosis from Last 3 Months Allergies No known active allergies Medications rOPINIRole [...] tive Active Problems No known active problems Social [...] DT Height 173.4 cm (5' 8.25) 03/29/2022 09 EDT Body Mass Index 23.56 03/29/2022916 EDT Functional Status * Because of a physical, mental, or emotional condition, does this person have difficulty doing errands alone such as visiting a doctor's office or shopping? Answer Date of Assessment Author No 03/29/2022 9:24 EDT Mental Status * Because of a physical, mental, or emotional condition, does this person have serious difficulty concentrating, remembering, or making decisions? Answer Entry Date Author No 03/29/2022 9:24 EDT Plan of Treatment Not on file Insurance [facility] OOS Care Teams Hospice Massage Therapist Relationship Specialty Start Date End Date Francesca Curiel APRN [address] [place] [phone] PCP - General 03/22/22
--- OUTSIDE RECORDS SUMMARY | 2024-08-25 15:30 | XMS_ITS | Encounter Summary ---
Author Organization [facility] Address [address] [place] [address] Care Team Providers Care Jig Boring Machine Operator For Metal Name Role Phone Francesca Curiel APRN Primary Care Provider +1 -[phone] Reason for Visit * Reason Comments New Patient Visit Sun damage on face. Worse on L cheek, becomes sore and bleeds intermittently * Referral (Routine) - Authorization Not Required Specialty Diagnoses / Procedures [facility] Referred To Contact Dermatology Diagnoses Chronic urticaria Jan Villasenor MD [address] [facility] [address] [place] [address] Phone: tel: fax: [facility] Dermatology 5th [address] [address] Phone: tel: fax: Referral ID Status Reason Start Date Expiration Date Visits Requested Visits Authorized [id number] Authorization Not Required 1 1 Encounter Details Date Type Department Care Team (Late st Contact Info) Description 06/20/2023 8:30 EDT Office Visit [facility] Dermatology 3rd Floor [address] [address] Anirudh Asher PA-C [address] [place] [address], [facility] [address] [place] [phone] Actinic keratoses (Primary Dx); Lentigines; Diffuse photodamage [...] Notes * Anirudh Asher PA-C - 06/20/2023 0830 EDT Dermatology Outpatient Visit Note Chief Complaint [...] radiation documented in this encounter Care Teams Jig Boring Machine Operator For Metal Relationship Specialty Start Date End Date Francesca Curiel APRN 26 [facility] [address] [place] [address] PCP - General 03/22/22 documented as of this encounter
--- OUTSIDE RECORDS SUMMARY | 2024-08-25 15:30 | XMS_ITS | Encounter Summary ---
Author Organization [facility] Address [address] [place] [address] Care Team Providers Care Installment Loan Collector Name Role Phone Francesca Curiel APRN Primary Care Provider +1 -[phone] Reason for Visit * Reason Comments EMG (Electomyography) * Office Procedure (Routine/Next Available) - Authorization Not Required Specialty Diagnoses / Procedures [facility] Referred To Contact Neurology Diagnoses Chronic midline low back pain without sciatica Procedures EMG/NERVE CONDUCTION STUDY Oneil Charles MD Phone: tel: fax: [place] MD Phone: tel: fax: Referral ID Status Reason Start Date Expiration Date Visits Requested Visits Authorized [id number] Authorization Not Required Specialty Services Required 09/17/20 22 1 1 Encounter Details Date Type Department Care Team (Late st Contact Info) Description 10/18/2022 9:00 EST Procedure visit [facility] [address] [place] [address] [place] Dias MD [address] [facility] [address] [place] [address] Pain in right lower leg (Primary [...] 03/29/2022 9:24 EDT documented in this encounter Procedure Notes * [place] MD - 10/18/2022 0900 ESTAssociated Order(s): EMG/NERVE CONDUCTION STUDY [facility] Clinical Neurophysiology Nerve Conduction and Electromyography [...] conduction testing done by Dr. Parrish at [facility] was suggestive of peripheral neuropathy. EMG was [...] symptoms.Prior nerve conduction testing abnormalities noted in [facility] testing were likely due to cool [...] EST [place] MD ? 10/18/2022 ??9:42 [facility] Clinical Neurophysiology Nerve Conduction and Electromyography [...] conduction testing done by Dr. Parrish at [facility] was suggestive of peripheral neuropathy. ??EMG [...] ??Prior nerve conduction testing abnormalities noted in [facility] testing were likely due to cool limb noted in the report rather than a neurogenic process. [place] MD us Oneil Charles MD PROCEDURE/MINOR SURGICAL OR DERABLES Final Result [facility] documented in this encounter Visit Diagnoses Diagnosis Pain in right lower leg- Primary Chronic midline low back pain without sciatica documented in this encounter Care Teams Installment Loan Collector Relationship Specialty Start Date End Date Francesca Curiel APRN [address] [address] [place] [phone] PCP - General 03/22/22 documented as of this encounter
--- OUTSIDE RECORDS SUMMARY | 2024-08-25 15:30 | XMS_ITS | Encounter Summary ---
Author Organization [facility] Address [address] [place] [address] Care Team Providers Care Cosmetician Apprentice Name Role Phone Francesca Curiel APRN Primary Care Provider +1 -[phone] Reason for Referral * PT/OT/ST (Routine/Next Available) - Closed Specialty Diagnoses / Procedures Referred By Contac t Referred To Contact Diagnoses Primary osteoarthritis of right knee Brenna Shoemaker PA-C Phone: tel: fax: Referral ID Status Reason Start Date Expiration Date V isits Requested Visits Authorized [id number] Closed Specialty Services Required 12/28/2022 1 1 Question Answer Reason for Request: PF arthritis Comments VMO intensive quad strengthening HEP Reason for Visit * Reason Comments Pain * Referral (Routine) - Receiving Office to Obtain Authorization Specialty Diagnoses / Procedures Referred By Contac t Referred To Contact Orthopedic Surgery Diagnoses Knee pain, right Francesca Curiel, BAL[place] 26 [facility] [address] [place] [address] Phone: tel: fax: [facility] [place] [address] Phone: tel: fax: Referral ID Status Reason Start Date Expiration Date Visits Requested Visits Authorized [id number] Receiving Office to Obtain Authorization 1 1 Encounter Details Date Type Department Care Team (Late st Contact Info) Description 12/28/2022 10:30 EDT Office Visit [facility] [place] [address] Brenna Shoemaker PA-C [address] [place] [address] Chronic pain of right knee [...] documented in this encounter Progress Notes * Brenna Shoemaker [...] block wasordered. Occupation: The patient works in [employer]. He uses knee pads that placed the [...] are often unintended grammatical, spelling, and other supply planner errors. Please disregardthese errors. I spent a [...] called to verify the correctpatient, procedure, equipment, ground support equipment assembler and site/side marked as required. Patient was [...] knee documented in this encounter Results * MA ARTHROCENTESIS ASPIR&/INJ MAJOR JT/BURSA W/O US (12/28/2022 10:30 EDT) Narrative [facility] - 12/28/2022 10:30 EDT [...] to verify the correct patient, procedure, equipment, ground support equipment assembler and site/side marked as required. Patient was prepped and draped in the usual sterile fashion. us Brenna Shoemaker PA-C PROCEDURE/MINOR SURGICAL ORDERABLES Final Result [facility] * XR PELVIS 1-2 [...] of fracture. Brenna Shoemaker PA-C IMG DIAGNOSTIC IMAGING OR DERABLES Final Result * XR KNEE LEFT 3 VIEWS (12/28/2022 [...] RIGHT 4 OR MORE VIEWS 3 (accession [id number]), 4 (accession [id number]) views ?? HISTORY: ??Left Knee for Comparison Procedure Note Jerson Pitts MD - 12/28/2022 EXAM/TECHNIQUE: 12/28/2022 10:15 AM XR KNEE LEFT 3 VIEWS, XR KNEE RIGHT 4OR MORE VIEWS 3 (accession [id number]), 4 (accession [id number]) views HISTORY: Left Knee for Comparison IMPRESSION FINDINGS / IMPRESSION: * Right knee 4 views: Compartment degenerative changes which are severein the patellofemoral compartment. Moderate joint effusion. Mild osseousdemineralization. * Left knee 3 views: Tricompartment degenerative changes which aremoderate. Brenna Shoemaker PA-C IMG DIAGNOSTIC IMAGING OR DERABLES Final Result * [...] RIGHT 4 OR MORE VIEWS 3 (accession [id number]), 4 (accession [id number]) views ?? HISTORY: ??Left Knee for Comparison Procedure Note Jerson Pitts MD - 12/28/2022 EXAM/TECHNIQUE: 12/28/2022 10:15 AM XR KNEE LEFT 3 VIEWS, XR KNEE RIGHT 4OR MORE VIEWS 3 (accession [id number]), 4 (accession [id number]) views HISTORY: Left Knee for Comparison IMPRESSION [...] Once PRN Procedure, 1 dose, Starting on 3/24/23 at 1030, Until Sat12/28/22 at 1030, RoutineIndications:Primary osteoarthritis of right knee Given 12/28/2022 10:30 EDT 1 mL lidocaine (PF) 10 mg/mL (1 %) injection 1 mL 1 mL, other, Once PRN Procedure, 1 dose, Starting on Sat12/28/22 at 1030, Until Sat12/28/22 at 1030, RoutineIndications:Primary osteoarthritis of right knee Given 12/28/2022 10:30 EDT 1 mL methylPREDNISolone ACETATE (DEPO-MEDROL) injection 80 mg 80 mg, intra-articular, Once PRN Procedure, 1 dose, Starting on Sat12/28/22 at 1030, Until Sat12/28/22 at 1030, RoutineIndications:Primary osteoarthritis of right knee Given 12/28/2022 10:30 EDT 80 mg documented in this encounter Historical Medications * This list may reflect changes made after this encounter. MAGNESIUM CITRATE ORAL Take by mouth. cholecalciferol, [...] mouth. added in this encounter Care Teams Cosmetician Apprentice Relationship Specialty Start Date End Date Francesca Curiel APRN [address] [address] PCP - General 03/22/22 documented as of this encounter
--- OUTSIDE RECORDS SUMMARY | 2024-08-25 15:31 | XMS_ITS | Encounter Summary ---
Author Organization [facility] Address [facility] [place] [address] Care Team Providers Care Manager Clinical Informatics Name Role Phone MoisésFrancesca alexander Kirsty MCGREGOR Primary Care Provider +1 -[phone] Reason for Referral * Diagnostic Test (Routine) - Closed Specialty Diagnoses / Procedures Referred By Patricia santana Referred To Contact Diagnoses Leg cramps Neuropathy Procedures FATOU, legs, multiple levels Lillian Franklin APRN [facility] [place] [address] [facility] Vascular Lab [address] [place] [address] Referral ID Status Reason Start Date Expiration Date V isits Requested Visits Authorized [id number] Closed Specialty Service Requested 02/21/2021 02/21/2022 1 1 Encounter Details Date Type Department Care Team (Late st Contact Info) Description 02/21/2021 Orders [place] [address] Lillian Franklin APRN [facility] [place] [address] Leg cramps; Neuropathy Social History Tobacco Use [...] legs, multiple levels (03/07/2021 1:52 PM EDT) [facility] VB Text Report Department: Vascular Surgery Lab Patient: [id number] (TERRY MCLAUGHLIN) CPT: 11601 ICD10: R25.2;G62.9 Referring Physician: LILLIAN FRANKLIN APRN [...] site documented in this encounter Care Teams Manager Clinical Informatics Relationship Specialty Start Date End Date Francesca Curiel APRN [address] [place] [address] PCP - General Family Medicine 02/20/21 documented as of this encounter
--- OUTSIDE RECORDS SUMMARY | 2024-08-25 15:31 | XMS_ITS | Encounter Summary ---
Author Organization [facility] Address [address] [place] [address] Care Team Providers Care Pug Mill Operator Name Role Phone Francesca Curiel APRN Primary Care Provider +1 -[phone] Encounter Details Date Type Department Care Team [...] on filedocumented in this encounter Care Teams Pug Mill Operator Relationship Specialty Start Date End Date Francesca Curiel APRN [address] [place] [address] PCP - General 03/22/22 documented as of this encounter
--- OUTSIDE RECORDS SUMMARY | 2024-08-25 15:31 | XMS_ITS | Encounter Summary ---
Author Organization [facility] Address [address] [place] [address] Care Team Providers Care Sourcing Specialist Name Role Phone Francesca Curiel APRN Primary Care Provider +1 -[phone] Encounter Details Date Type Department Care Team (Late st Contact Info) Description 08/10/2022 Orders Only [facility] Neurosurgery - [address] [address] India Pickens NP [address] [facility] [place] [id number] Lumbar radiculopathy (Primary Dx) Social History Tobacco [...] unspecified documented in this encounter Care Teams Sourcing Specialist Relationship Specialty Start Date End Date Francesca Curiel, BIODIESEL TECHNOLOGY MANAGER [address] [place] [address] PCP - General 03/22/22 documented as of this encounter
--- OUTSIDE RECORDS SUMMARY | 2024-08-25 15:31 | XMS_ITS | Encounter Summary ---
Author Organization [facility] Address [address] [place] [address] Care Team Providers Care Geosciences Associate Professor Name Role Phone Francesca Curiel APRN Primary Care Provider +1 -[phone] Reason for Visit * Reason Onset Date Comments Other 04/17/2022 Encounter Details Date Type Department Care Team (Late st Contact Info) Description 04/17/2022 Telephone [facility] Orthopedics & Spine Medicine [address], [address] [place], [place] [phone] Jaimee Singh PA-C [address] [facility] [address] [place] [address] Other Social History Tobacco Use [...] 03/29/2022 9:24 EDT documented in this encounter Miscellaneous Notes * Telephone Encounter [...] on filedocumented in this encounter Care Teams Geosciences Associate Professor Relationship Specialty Start Date End Date Francesca Curiel APRN [address] [place] [address] PCP - General 03/22/22 documented as of this encounter
--- OUTSIDE RECORDS SUMMARY | 2024-08-25 15:31 | XMS_ITS | Encounter Summary ---
Author Organization [facility] Address [facility] [place] [address] Care Team Providers Care Superintendent Gas Distribution Name Role Phone Francesca Curiel APRN Primary Care Provider +1 -[phone] Reason for Visit * Consultation (Routine) - Closed Specialty Diagnoses / Procedures Referred By Patricia santana Referred To Contact Vascular Surgery Diagnoses Hereditary and idiopathic neuropathy, unspecified Francesca Curiel APRN [address] [place] [address] [facility] Vascular Surg [address] [place] [address] Referral ID Status Reason Start Date Expiration Date V isits Requested Visits Authorized [id number] Closed Consult, Test & Treat Connection Center PCP Updated and/or Approved 02/15/2021 02/15/2022 6 6 Encounter Details Date Type Department Care Team (Late st Contact Info) Description 03/07/2021 2:30 PM EDT Office [place] [address] Oneil Ramos MD [facility] [place] [address] Bilateral leg pain Social History Tobacco Use [...] limb documented in this encounter Care Teams Superintendent Gas Distribution Relationship Specialty Start Date End Date Francesca Curiel APRN [address] [place] [address] PCP - General Family Medicine 02/20/21 documented as of this encounter
--- OUTSIDE RECORDS SUMMARY | 2024-08-25 15:31 | XMS_ITS | Encounter Summary ---
Author Organization [facility] Address [address] [place] [address] Care Team Providers Care In House Counsel Name Role Phone Francesca Curiel APRN Primary Care Provider +1 -[phone] Encounter Details Date Type Department Care Team [...] on filedocumented in this encounter Care Teams In House Counsel Relationship Specialty Start Date End Date Francesca Curiel APRN [address] [facility] [address] [place] [address] PCP - General 03/22/22 documented as of this encounter
--- OUTSIDE RECORDS SUMMARY | 2024-08-25 15:31 | XMS_ITS | Encounter Summary ---
Author Organization [facility] Address [address] [place] [address] Care Team Providers Care Physical Therapy Supervisor Name Role Phone Francesca Curiel APRN Primary Care Provider +1 -[phone] Reason for Referral * Laboratory Services (Routine/Next Available) - New Request Specialty Diagnoses / Procedures Referred By Contac t Referred To Contact Diagnoses Pain of both sacroiliac joints Bilateral leg pain Procedures HLA B27 SCREEN, DNA Jaimee Singh PA-C Phone: tel: fax: Referral ID Status Reason Start Date Expiration Date V isits Requested Visits Authorized [id number] New Request 07/05/2022 1 1 * Laboratory Services (Routine/Next Available) - New Request Specialty Diagnoses / Procedures Referred By Contac t Referred To Contact Diagnoses Pain of both sacroiliac joints Bilateral leg pain Procedures C REACTIVE PROTEIN Jaimee Singh PA-C Phone: tel: fax: Referral ID Status Reason Start Date Expiration Date V isits Requested Visits Authorized [id number] New Request 07/05/2022 1 1 * Laboratory Services (Routine/Next Available) - New Request Specialty Diagnoses / Procedures Referred By Contac t Referred To Contact Diagnoses Pain of both sacroiliac joints Procedures SED RATE Jaimee Singh PA-C Phone: tel: fax: Referral ID Status Reason Start Date Expiration Date V isits Requested Visits Authorized [id number] New Request 07/05/2022 1 1 Reason for Visit * Reason Comments Pain Pain Pain Encounter Details Date Type Department Care Team (Late st Contact Info) Description 07/05/2022 10:00 EDT Office Visit [facility] Orthopedics & Spine Medicine [address] [place] [address] Jaimee Singh PA-C [address] [facility] [address] [place] [address] Pain of both sacroiliac joints (Primary Dx); [...] documented in this encounter Progress Notes * Jaimee Singh [...] was done about 2 weeks ago at [facility]. He is quite pleased about this, [...] lateral hip pain, andlow back pain Injections: [facility] MBB L3-5 02/21/2021 and 03/23/2021 Bilateral [...] as needed This document was produced using SPARQ. Please excuse any grammatical or verbal errors. documented in this encounter Plan of Treatment Not on file documented as of this encounter Results * HLA B27 SCREEN, DNA (09/17/2022 12:18 EST) HLAB-B27 Result Negative Not Applicable 09/19/2022 14:09 EST [facility] [employer] Interpretation SEE NOTE 09/19/2022 14:09 EST [facility] [employer] Comment: RESULT: HLA-B27 antigen was not detected. ADDITIONAL INFORMATION Method: Flow Cytometry CLIA: [id number] ??CLIA Safety Fire Boss: CASIMIRO CLARK MD,PhD Test Performed by: [address] [address] Safety Fire Boss: Casimiro Clark M.D. Ph.D.; CLIA# [id number] Blood VENOUS BLOOD / Unknown Venipuncture / Unknown 09/17/2022 12:18 EST 09/17/2022 13:59 EST Jaimee Singh PA-C TISSUE TYPING ORDERABLES Fi nal Result [address] [address] * C REACTIVE PROTEIN (09/17/2022 12:18 EST) C-Reactive Protein <5.0 <10.0 mg/L 09/17/2022 13:52 EST [facility] Blood VENOUS BLOOD / Unknown Venipuncture / Unknown 09/17/2022 12:18 EST 09/17/2022 13:18 EST Jaimee DOLAN-C CHEMISTRY & BLOOD GAS ORDER MAISHA Final Result Performing Organization Address City/[facility]/ZIP Co de Phone Number [facility] [address] [place] [address] * SED RATE (09/17/2022 12:18 EST) Pathologist [facility] Sed Rate <1 0 - 20 mm/hr 09/17/2022 14:05 EST [facility] Blood VENOUS BLOOD / Unknown Venipuncture / Unknown 09/17/2022 12:18 EST 09/17/2022 13:59 EST Jaimee DOLAN-C HEMATOLOGY & PF4 ORDERABLES Final Result Performing Organization Address City/[facility]/ZIP Co de Phone Number [facility] [address] [place] [address] documented in this encounter Visit Diagnoses Diagnosis Pain of both sacroiliac joints- Primary Disorders of sacrum Bilateral leg pain Pain in limb Chronic bilateral low back pain without sciatica documented in this encounter Historical Medications * This list may reflect changes made after this encounter. meloxicam (MOBIC) 15 mg tablet Take 15 mg by mouth at bedtime. 2 tabs at night added in this encounter Care Teams Physical Therapy Supervisor Relationship Specialty Start Date End Date Francesca Curiel APRN [address] [facility] [address] [place] [address] PCP - General 03/22/22 documented as of this encounter
--- OUTSIDE RECORDS SUMMARY | 2024-08-25 15:31 | XMS_ITS | Encounter Summary ---
Author Organization [facility] [place] [address] Care Team Providers Care Keno Terminal Operator Name Role Phone Francesca Curiel APRN Primary Care Provider +1 -[phone] Encounter Details Date Type Department Care Team (Late st Contact Info) Description 03/23/2021 Ancillary Procedure Radiology Library at [facility] [place] [address] Francesca Curiel APRN [address] [place] [phone] Social History Tobacco Use Types Packs/Day Years [...] DX Spine (03/23/2021 12:00 AM EDT) Narrative [facility] - 07/26/2022 11:22 AM EDT This exam is auto-finalizing. It's purpose is for storage only. Francesca Curiel APRN IMG FILM LIBRARY ORDERABLES [facility] [place] documented in this encounter Visit Diagnoses Not on filedocumented in this encounter Care Teams Keno Terminal Operator Relationship Specialty Start Date End Date Francesca Curiel APRN [address] [place] [address] PCP - General Family Medicine 02/20/21 documented as of this encounter
--- OUTSIDE RECORDS SUMMARY | 2024-08-25 15:31 | XMS_ITS | Encounter Summary ---
Author Organization [facility] Address [address] [place] [address] Care Team Providers Care Clip And Hanger Attacher Name Role Phone Francesca Curiel APRN Primary Care Provider +1 -[phone] Reason for Visit * Reason Onset Date Comments Referral Request 04/13/2022 Encounter Details Date Type Department Care Team (Late st Contact Info) Description 04/13/2022 Telephone [facility] [address] [place] [id number] Jaimee Singh PA-C [address] [place] [address] [place], [place] [phone] Referral Request Social History Tobacco Use Types [...] after he gets xrays and MRI at [facility]. I told him that If he decides to proceed, to call me, and I could put him back on the cancellation list. Pt agreed * Telephone Encounter - Audrey Valerio - 04/17/2022 1546 EDT Sent referral to [facility] for injection. * Telephone Encounter - Alethea Bauer LPN - 04/17/2022 1309 EDT Pt left twice today, returning my call, I did call pt, he is happy to have order for bilat SI joint injections sent to [facility], I do not know why insurance said [facility] for injection out of network so he had to go to [facility], yet they did get approval for MRI at [place], pt will make F/U after he gets MRI date. And if he does not hear from pain clinic in a week he will call [facility] pain clinic, reminded him once he gets injection date he needs an OV or TM to review results,pt happy with this plan.Audrey can you send SI joint injection order to [facility]. * Telephone Encounter - Marily Benz - 04/13/2022 1533 EDT Pt just called here, stating that he just missed call. And to call back at [phone] to discuss Insurance issue. * Telephone Encounter - Alethea Bauer LPN - 04/13/2022 1523 EDT I called pt, left VM to call me to discuss, little further down on referral Ngoc did speak with pt yesterday and [facility] would be covered as they are with in his insurance net work, I asked pt to callback and let me know he does want to go to [facility]. * Telephone Encounter - Marily Benz - 04/13/2022 0949 EDT Cassandra, Can you follow up with this patient? He LMM , but when I reviewed referral it showed this reply as denied: Dear Jaimee Singh: The referral that you have requested for Cristo Guo has been denied for the following reason: Not a Covered Benefit Comments: [facility] out of network with patient's insurance, patient is aware. Sincerely, Ngoc Brady There is nothing I can do unless he wants to be self pay? Let me know. Marily Moss documented in this encounter Plan of Treatment Not on file documented as of this encounter Visit Diagnoses Not on filedocumented in this encounter Care Teams Clip And Hanger Attacher Relationship Specialty Start Date End Date Francesca Curiel APRN [address] [place] [address] PCP - General 03/22/22 documented as of this encounter
--- OUTSIDE RECORDS SUMMARY | 2024-08-25 15:31 | XMS_ITS | Encounter Summary ---
Author Organization [facility] Address [address] [place] [address] Care Team Providers Care Financial Intern Name Role Phone Francesca Curiel APRN Primary Care Provider +1 -[phone] Encounter Details Date Type Department Care Team (Late st Contact Info) Description 09/05/2022 Orders Only [facility] Spine Program - [address] [place] [address] Oneil Charles MD [address] [place] [address] Low back pain, unspecified back [...] Disc height loss most notable L1-L4 isunchanged. us Oneil Charles MD [facility] DIAGNOSTIC IMAGING [place] Final Result documented in this encounter Visit Diagnoses Diagnosis Low back pain, unspecified back pain laterality, unspecified chronicity, unspecified whether sciatica present- Primary Low back pain, unspecified back pain laterality, unspecified chronicity, unspecified whether sciatica present documented in this encounter Care Teams Financial Intern Relationship Specialty Start Date End Date Francesca Curiel APRN [address] [facility] [address] [address] [place] [address] PCP - General 03/22/22 documented as of this encounter
--- OUTSIDE RECORDS SUMMARY | 2024-08-25 15:31 | XMS_ITS | Encounter Summary ---
Author Organization [facility] [place] [address] Care Team Providers Care Publication Distributor Name Role Phone Francesca Curiel APRN Primary Care Provider +1 -[phone] Encounter Details Date Type Department Care Team (Late st Contact Info) Description 02/21/2021 Ancillary Procedure Radiology Library at [facility] [place] [address] Francesca Curiel APRN [address] [place] [address] Social History Tobacco Use Types [...] DX Spine (02/21/2021 12:00 AM EDT) Narrative [facility] 2] - 07/26/2022 11:24 AM EDT This exam is auto-finalizing. It's purpose is for storage only. Francesca Curiel APRN IMPraneeth FILM LIBRARY ORDERABLES [facility]NOTE 2] [place], [place] documented in this encounter Visit Diagnoses Not on filedocumented in this encounter Care Teams Publication Distributor Relationship Specialty Start Date End Date Francesca Curiel APRN [address] [place] [address] PCP - General Family Medicine 02/20/21 documented as of this encounter
--- OUTSIDE RECORDS SUMMARY | 2024-08-25 15:31 | XMS_ITS | Encounter Summary ---
Author Organization [facility] Address [address] [place] [address] Care Team Providers Care Assistant Chief Of Police Name Role Phone Francesca Curiel APRN Primary Care Provider +1 -[phone] Reason for Referral * Radiology Services (Routine/Next Available) - Authorization Not Required Specialty Diagnoses / Procedures Referred By Contac t Referred To Contact Diagnoses Bilateral leg pain Chronic bilateral low back pain without sciatica Procedures XR LUMBAR SPINE 4+ VIEWS Jaimee Singh PA-C Phone: tel: fax: External Referral ID Status Reason Start Date Expiration Date Visits Requested Visits Authorized [id number] Authorization Not Required 03/29/2022 1 1 Reason for Visit * Reason Comments Pain * Referral (Routine) - Authorization Not Required Specialty Diagnoses / Procedures Referred By Contac t Referred To Contact Orthopedic Surgery Diagnoses Low back pain, unspecified Francesca Curiel APRN 26 [facility] [address] [place] [address] Phone: tel: fax: [facility] Orthopedics & Spine Medicine [address] [place] [address] Phone: tel: fax: Referral ID Status Reason Start Date Expiration Date Visits Requested Visits Authorized [id number] Authorization Not Required 1 1 Encounter Details Date Type Department Care Team (Late st Contact Info) Description 03/29/2022 9:15 EDT Office Visit [facility] Orthopedics & Spine Medicine [address] [place] [address] Jaimee Singh PA-C [address] [facility] [address] [place], [place] [address] Bilateral leg pain (Primary Dx); Chronic bilateral [...] EDT documented in this encounter Functional Status * Because of [...] been referred by Francesca Curiel APRN of [facility] for evaluation of ongoing low back pain [...] placed for this to be considered at [facility] where he has had his previous injections. In regard to his leg symptoms, I do not see anything in his lumbar spine MRI from 2019 that would explain his bilateral leg cramping. The symptoms he gets into his toes the most consistent with an [id number], and there is not clear nerve impingement [...] is complete This document was produced using Munchkination. Please excuse any grammatical or verbal errors. [...] may reflect changes made after this encounter. UNABLE TO FIND if needed. OTC leg quinine leg cramp supplement ibuprofen (MOTRIN) 200 mg tablet Take 1 Tablet by mouth if needed for Pain. 2-3 at times rOPINIRole (REQUIP) 1 mg tablet Take 1 Tablet by mouth at bedtime. 01/02/2022 added in this encounter Care Teams Assistant Chief Of Police Relationship Specialty Start Date End Date Francesca Curiel APRN [address] [place] [address] [address] [place] [address] PCP - General 03/22/22 documented as of this encounter
--- OUTSIDE RECORDS SUMMARY | 2024-08-25 15:31 | XMS_ITS | Encounter Summary ---
Author Organization [facility] Address [address] [place] [address] Care Team Providers Care Carpet Inspector Name Role Phone Francesca Curiel APRN Primary Care Provider +1 -[phone] Reason for Visit * Reason Onset Date Comments Other 04/27/2022 Encounter Details Date Type Department Care Team (Late st Contact Info) Description 04/27/2022 Telephone [facility] Orthopedics & Spine Medicine [address] [place], [place] [id number] Jaimee Singh PA-C [address] [facility] [address] [place] [address] Other Social History Tobacco Use [...] Encounter - Alethea Bauer LPN - 04/27/2022 6884 EDT Radiology leaves today asking for signed [...] on filedocumented in this encounter Care Teams Carpet Inspector Relationship Specialty Start Date End Date Francesca Curiel APRN [address] [place] [address] PCP - General 03/22/22 documented as of this encounter
--- OUTSIDE RECORDS SUMMARY | 2024-08-25 15:31 | XMS_ITS | Encounter Summary ---
Author Organization [facility] [place] [address] Care Team Providers Care Battery Builder Name Role Phone Francesca Curiel APRN Primary Care Provider +1 -[phone] Reason for Visit * Consultation (Routine) - Closed Specialty Diagnoses / Procedures Referred By Patricia santana Referred To Contact Vascular Surgery Diagnoses Hereditary and idiopathic neuropathy, unspecified Francesca Curiel APRN [address] [place] [address] [facility] Vascular Surg [address] [place] [address] Referral ID Status Reason Start Date Expiration Date V isits Requested Visits Authorized [id number] Closed Consult, Test & Treat Connection Center PCP Updated and/or Approved 02/15/2021 02/15/2022 6 6 Encounter Details Date Type Department Care Team (Late st Contact Info) Description 03/07/2021 2:00 PM EDT Tech Visit [place] [address] Praful Donald, RVT Leg cramps; [...] Text Report Department: Vascular Surgery Lab Patient: [id number] (TERRY MCLAUGHLIN) CPT: 67069 ICD10: R25.2;G62.9 Referring Physician: LILLIAN FRANKLIN APRN [...] site documented in this encounter Care Teams Battery Builder Relationship Specialty Start Date End Date Francesca Curiel APRN [address] [place] [address] PCP - General Family Medicine 02/20/21 documented as of this encounter
--- OUTSIDE RECORDS SUMMARY | 2024-08-25 15:31 | XMS_ITS | Encounter Summary ---
Author Organization [facility] Address [address] [place] [address] Care Team Providers Care Spot Machine Operator Name Role Phone Francesca Curiel APRN Primary Care Provider +1 -[phone] Encounter Details Date Type Department Care Team (Late st Contact Info) Description 05/05/2022 Orders Only [facility] Orthopedics & Spine Medicine [address] [place], [place] [id number] Jaimee Singh PA-C [address] [facility] [address] [place] [address] Pain of both sacroiliac joints [...] sacrum documented in this encounter Care Teams Spot Machine Operator Relationship Specialty Start Date End Date Francesca Curiel APRN [address] [place] [address] PCP - General 03/22/22 documented as of this encounter
--- OUTSIDE RECORDS SUMMARY | 2024-08-25 15:31 | XMS_ITS | Encounter Summary ---
Author Organization [facility] Address [address] [place] [address] Care Team Providers Care Road Engineer Freight Name Role Phone Francesca Curiel APRN Primary Care Provider +1 -[phone] Encounter Details Date Type Department Care Team (Late st Contact Info) Description 03/29/2020 Lab Requisition [facility] Pathology & Laboratory Medicine - [facility] [address] [place] [address] Outr Resulting Lab, Provider Social History Tobacco [...] Unknown 03/29/2020 9:50 EDT 03/29/2020 15:41 EDT us Provider Outr Resulting Lab MICROBIOLOGY - GENER AL ORDERABLES Final Result [facility] [address] [place] [address] * COVID-19 TESTING (03/29/2020 9:50 EDT) COVID-19 rt-PCR Result Negative Negative 03/29/2020 22:36 EDT [facility] Comment: This test has not [...] history, and epidemiological information. Performed on the SIMIher Fusion instrument Performing Lab [place] Lab 03/29/2020 22:36 EDT [facility] Swab 03/29/2020 9:50 EDT 03/29/2020 15:41 EDT us Provider Outr Resulting Lab MICROBIOLOGY - GENER AL ORDERABLES Final Result [facility] [address] [place] [address] documented in this encounter Visit Diagnoses Not on filedocumented in this encounter Care Teams Road Engineer Freight Relationship Specialty Start Date End Date Francesca Curiel APRN [address] [place] [address] PCP - General 03/22/22 documented as of this encounter
--- OUTSIDE RECORDS SUMMARY | 2024-08-25 15:31 | XMS_ITS | Clinical Summary ---
[place] [address] Care Team Providers Care Plant Operator Control Room Operator Name Role Phone Francesca Curiel APRN Primary Care Provider +1 -[phone] Allergies No known active allergies Medications No [...] 2010 Advance Directive 2015 Covid-19 Vaccine ( - 2023- season) 2024 Influenza (Flu) vaccine (1 o f 1 - Influenza standard series) 06/07/2024 Care Teams Plant Operator Control Room Operator Relationship Specialty Start Date End Date Francesca Curiel APRN [address] [place], [place] [phone] PCP - General Family Medicine 02/20/21
--- OUTSIDE RECORDS SUMMARY | 2024-08-25 15:31 | XMS_ITS | Encounter Summary ---
Author Organization [facility] [place] [address] Care Team Providers Care Drum Stock Clerk Name Role Phone Francesca Curiel APRN Primary Care Provider +1 -[phone] Encounter Details Date Type Department Care Team (Late st Contact Info) Description 06/20/2022 Ancillary Procedure Radiology Library at [facility] [place] [address] Francesca Curiel APRN [address] [place] [phone] Social History Tobacco Use Types Packs/Day Years [...] DX Spine (06/20/2022 12:00 AM EDT) Narrative [facility] - 07/26/2022 11:27 AM EDT This exam is auto-finalizing. It's purpose is for storage only. Francesca Curiel APRN IMG FILM LIBRARY ORDERABLES [facility] [place], [place] documented in this encounter Visit Diagnoses Not on filedocumented in this encounter Care Teams Drum Stock Clerk Relationship Specialty Start Date End Date Francesca Curiel APRN [address] [place] [address] PCP - General Family Medicine 02/20/21 documented as of this encounter
--- OUTSIDE RECORDS SUMMARY | 2024-08-25 15:31 | XMS_ITS | Encounter Summary ---
Author Organization [facility] Address [address] [place] [address] Care Team Providers Care Camp Head Counselor Name Role Phone Francesca Curiel APRN Primary Care Provider +1 -[phone] Encounter Details Date Type Department Care Team (Late st Contact Info) Description 08/24/2021 Lab Requisition [facility] Pathology & Laboratory Medicine - [address] [address] Outr Resulting Lab, Provider Social History Tobacco [...] 66.0 55.8 - 66.1 % 08/25/2021 11:55 [facility] Alpha-1 % 3.4 2.9 - 4.9 % 08/25/2021 11:55 [facility] Alpha-2 % 7.6 7.1 - 11.8 % 08/25/2021 11:55 [facility] Beta % 9.5 8.4 - 13.1 % 08/25/2021 11:55 [facility] Gamma % 13.5 11.1 - 18.8 % 08/25/2021 11:55 [facility] SPEP Comment No apparent monoclonal protein seen on serum electrophoresis 08/25/2021 11:55 [facility] Comment:See scanned/suppleme ntary report. Total Protein 7.4 6.3 - 8.2 g/dL 08/25/2021 11:55 [facility] Blood VENOUS BLOOD / Unknown 08/24/2021 9:45 EST 08/24/2021 21:06 EST Provider Outr Resulting Lab CHEMISTRY & BLOOD GA S ORDERABLES Final Result Performing Organization Address [facility] Co de Phone Number [facility] [address] [place] [address] * PROTEIN, TOTAL (08/24/2021 9:45 EST) Blood VENOUS BLOOD / Unknown 08/24/2021 9:45 EST 08/24/2021 21:06 EST Provider Outr Resulting Lab CHEMISTRY & BLOOD GA S ORDERABLES Final Result Performing Organization Address City/[facility]/ZIP Co de Phone Number [facility] [address] [place] [address] documented in this encounter Visit Diagnoses Not on filedocumented in this encounter Care Teams Camp Head Counselor Relationship Specialty Start Date End Date Francesca Curiel APRN [address] [facility] [address] [place] [phone] PCP - General 03/22/22 documented as of this encounter
--- OUTSIDE RECORDS SUMMARY | 2024-08-25 15:31 | XMS_ITS | Encounter Summary ---
Author Organization [facility] Address [address] [place] [address] Care Team Providers Care Director Of Distribution Name Role Phone Francesca Curiel APRN Primary Care Provider +1 -[phone] Reason for Visit * Reason Comments Pain * Referral (Routine) - Receiving Office to Obtain Authorization Specialty Diagnoses / Procedures Referred By Contac t Referred To Contact Orthopedic Surgery Diagnoses Other intervertebral disc degeneration, lumbar region Francesca Curiel APRN [address] [place] [address] Phone: tel: fax: [facility] [place] [address] [address] [place] [address] Phone: tel: fax: Referral ID Status Reason Start Date Expiration Date Visits Requested Visits Authorized [id number] Receiving Office to Obtain Authorization 1 1 Encounter Details Date Type Department Care Team (Late st Contact Info) Description 09/17/2022 9:30 EST Office Visit [facility] [place] [address] [place] [address] Oneil Charles MD [address] [place] [address] Chronic midline low back pain [...] in this encounter Progress Notes * Oneil Charles MD - 09/17/2022 0989 EST Chief Complaint Patient presents with ??? Lower Back - Pain HPI Cristo Guo is a 62 y.o. male coming to clinic today with a chief complaint of back and RLE pain. He states that he has had retirement LBP, helped recently ~70% by bilateral SI [...] Surgical History Bunionectomy Social History Lives in [facility]. 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 Allergies NKDA Current Outpatient Medications Medication ??? [...] may reflect changes made after this encounter. ferrous fumarate/vit Bcomp,C (SUPER B COMPLEX ORAL) Take by mouth. hydrOXYzine (ATARAX) 25 mg tablet 09/10/2022 added in this encounter Care Teams Director Of Distribution Relationship Specialty Start Date End Date Francesca Curiel APRN [address] [place] [phone] PCP - General 03/22/22 documented as of this encounter
--- OUTSIDE RECORDS SUMMARY | 2024-08-25 15:31 | XMS_ITS | Encounter Summary ---
Author Organization [facility] [place] [address] Care Team Providers Care Lock Expert Name Role Phone Francesca Curiel APRN Primary Care Provider +1 -[phone] Encounter Details Date Type Department Care Team (Late st Contact Info) Description 05/21/2022 Ancillary Procedure Radiology Library at [facility] [place] [address] Francesca Curiel APRN [address] [place] [phone] Social History Tobacco Use Types Packs/Day Years [...] DX Spine (05/21/2022 12:00 AM EDT) Narrative [facility] - 07/26/2022 11:26 AM EDT This exam is auto-finalizing. It's purpose is for storage only. Francesca Curiel APRN IMG FILM LIBRARY ORDERABLES [facility] [place], [place] documented in this encounter Visit Diagnoses Not on filedocumented in this encounter Care Teams Lock Expert Relationship Specialty Start Date End Date Francesca Curiel APRN [address] [place] [address] PCP - General Family Medicine 02/20/21 documented as of this encounter
--- OUTSIDE RECORDS SUMMARY | 2024-08-25 15:31 | XMS_ITS | Encounter Summary ---
Author Organization [facility] Address [address] [place] [address] Care Team Providers Care Clinical Trials Specialist Name Role Phone Francesca Curiel APRN Primary Care Provider +1 -[phone] Encounter Details Date Type Department Care Team (Latest Contact Info) Description 09/17/2022 8:43 EST - 09/17/2022 23:59 EST Hospital Encounter [address] [facility] [address] [place] [address] Low back pain, unspecified back [...] this encounter Medications at Time of Discharge ferrous fumarate/vit Bcomp,C (SUPER B COMPLEX ORAL) [...] notable L1-L4 isunchanged. us Oneil Charles MD IMG DIAGNOSTIC IMAGING [facility] Final Result documented in this encounter Visit Diagnoses Diagnosis Low back pain, unspecified back pain laterality, unspecified chronicity, unspecified whether sciatica present documented in this encounter Care Teams Clinical Trials Specialist Relationship Specialty Start Date End Date Francesca Curiel, [place] [address] [place] [address] PCP - General 03/22/22 documented as of this encounter
--- OUTSIDE RECORDS SUMMARY | 2024-08-25 15:31 | XMS_ITS | Encounter Summary ---
Author Organization [facility] Address [address] [place] [address] Care Team Providers Care Power Wheelchair Mechanic Name Role Phone Francesca Curiel APRN Primary Care Provider +1 -[phone] Reason for Visit * Reason Onset Date Comments Other 04/04/2022 Encounter Details Date Type Department Care Team (Late st Contact Info) Description 04/04/2022 Telephone [facility] Orthopedics & Spine Medicine [address], [address] [place], [place] [id number] Jaimee Singh PA-C [address] [facility] [address] [place] [address] Other Social History Tobacco Use [...] approval from insurance, referral was sent to [facility], pt states he will wait till they call to scheduleand he will make sure insurance approval was obtained, pt happy with this plan and thankful for return call. documented in this encounter Plan of Treatment Not on file documented as of this encounter Visit Diagnoses Not on filedocumented in this encounter Care Teams Power Wheelchair Mechanic Relationship Specialty Start Date End Date Francesca Curiel, ORTHODONTIC LAB TECHNICIAN [address] [place] [phone] PCP - General 03/22/22 documented as of this encounter
--- OUTSIDE RECORDS SUMMARY | 2024-08-25 15:31 | XMS_ITS | Encounter Summary ---
Author Organization [facility] Address [facility] [place] [address] Care Team Providers Care Degreasing Solution Mixer Name Role Phone Francesca Curiel APRN Primary Care Provider +1 -[phone] Encounter Details Date Type Department Care Team (Late st Contact Info) Description 05/21/2022 12:05 AM EDT Ancillary Procedure Radiology Library at [facility] [place] [address] Francesca Curiel APRN [address] [place] [address] Social History Tobacco Use Types Packs/Day [...] Spine (05/21/2022 12:05 AM EDT) Narrative [facility] - 07/26/2022 11:28 AM EDT This exam is auto-finalizing. It's purpose is for storage only. Francesca Curiel APRN IMPraneeth FILM LIBRARY ORDERABLES [place], [place] documented in this encounter Visit Diagnoses Not on filedocumented in this encounter Care Teams Degreasing Solution Mixer Relationship Specialty Start Date End Date Francesca Curiel APRN [address] [place] [address] PCP - General Family Medicine 02/20/21 documented as of this encounter
[2024-08-25 21:50] LABS: Abs Immature Grans 0.02 10^3/uL (0.0-0.06); Absolute Basophil Count 0.08 10^3/uL (0.0-0.2); Absolute Eosinophil Count 0.21 10^3/uL (0.0-0.7); Absolute Lymphocyte Count 1.37 10^3/uL (1.2-3.4); Absolute Neutrophil Count 4.93 10^3/uL (1.2-6.7); Basophils % 1.1 %; Eosinophils % 2.8 %; HCT 36.9 % (40.0-50.0); HGB 12.2 g/dL (13.5-17.5); Immature Grans % 0.3 %; Lymphocytes % 18.2 %; MCH 29.6 pg (27.0-33.0); MCHC 33.1 % (32.0-36.0); MCV 90 fL (80-95); MPV 9.3 fL (8.0-11.0); Neutrophils % 65.6 %; Platelet Count 379 10^3/uL (130-400); RBC 4.12 10^6/uL (4.36-5.78); RDW-SD 42.7 fL; WBC 7.51 10^3/uL (4.4-10.8)
[2024-08-25 22:33] LABS: Hemoglobin A1C 5.7 % (<5.7)
[2024-08-26 18:28] LABS: PSA, Screening 1.2 ng/mL (<=4.5)
[2024-08-26 19:05] LABS: Hepatitis C Ab w Rflx HCV PCR Negative (Negative)
[2024-08-27 08:06] LABS: Iron 49 ug/dL (65-175); Total Iron Binding Capacity 254 ug/dL (250-450); Transferrin Sat 19 % (20-55)
[2024-08-27 08:31] LABS: Ferritin 113 ng/mL (26-388)
== END 2024-08-25 15:22 | disposition home or self-care (01) ==
LOC: NCHCN 15:21
PROVIDERS: PCP Nurse Practitioner Family; Visit Provider Nurse Practitioner Family
DX: R73.9 Hyperglycemia, unspecified (principal); Z00.00 Encounter for general adult medical examination without abnormal findings; D64.9 Anemia, unspecified
CPT/HCPCS: 84153; 86803; 82728; 83036; 83540; 83550; 85025

== ENCOUNTER 2024-10-01 10:28 | Emergency (ER) | payer BC, SELFPAY ==
[2024-10-01] VITALS (12 sets, daily range): BP systolic 130–149; BP diastolic 76–88; PULSE 75–94; RESP 10–19; TEMP 36.9; O2SAT 99–100
--- NOTE | 2024-10-01 10:30 | RT.EKG_ITS ---
APPROVED REPORT Exam: Resting ECG Reason for Exam: dizziness Patient Location: E HR:78 bpm ECG Measurements Heart Rate 78 AXIS WI 150 P 79 QRSd 79 QRS 73 QT 351 T 62 QTc 401 Conclusion Sinus rhythm 78 normal axis no stemi
--- NOTE | 2024-10-01 10:45 | DI.MRI_ITS ---
Exam(s) MR BRAIN WO EXAM: MR BRAIN WO CLINICAL HISTORY: dizziness TECHNIQUE: Multiplanar multisequence MRI of the brain was performed. COMPARISON: MR MR IAC BRAIN WO/W from 12/11/2022 FINDINGS: VENTRICLES AND EXTRA AXIAL SPACES: Normal in size and morphology for the patient's age. MIDLINE SHIFT: None. CEREBRAL PARENCHYMA: No focus of restricted diffusion to suggest acute infarct. No space-occupying le viridiana identified. No abnormal high signal lesions in the white matter. BRAINSTEM/CEREBELLUM: Normal. VISUALIZED PARANASAL SINUSES: Clear. MASTOIDS:Clear. Vasculature: Normal flow void. PITUITARY GLAND: Unremarkable. ORBITS: Unremarkable. IMPRESSION: Unremarkable MRI of the brain. DATA REPOSITORY:
--- OUTSIDE RECORDS SUMMARY | 2024-10-01 10:59 | XMS_ITS | Referral Summary ---
Author Organization [facility] Address [address] [place] [address] Care Team Providers Care Tamper Operator Name Role Phone Francesca Curiel APRN Primary Care Provider +1 -[phone] Encounters Date Type Department Care Team Description 08/26/2024 Lab Requisition [facility] Pathology & Laboratory Medicine [address] [address] Outr Resulting Lab, Provider 07/22/2024 14:[address] [facility] Dermatology 3rd Floor [address] [address] Anirudh Asher, TESSIE Actinic keratoses (Primary Dx); Seborrheic keratosis from [...] Body Mass Index 23.56 03/29/2022 0917 EDT Functional Status * Because of a [...] No 03/29/2022 9:24 EDT Plan of Treatment Upcoming Encounters Date Type Department Care Team (Late st Contact Info) Description 12/01/2024 9:50 EST Office Visit [facility] Dermatology [address] [place] [address] Anirudh Asher PA-C [address] [place] [address], [address] [place] [address] Procedures Procedure Name Priority Date/Time Associated Diagnosis Comments PSA TOTAL, DIAGNOSTIC Routine 08/25/2024 14:25 EST HEPATITIS C AB W REFLEX TO HCV RNA BY PCR Routine 08/25/2024 14:25 EST from Last 3 Months Results * HEPATITIS C AB W REFLEX TO HCV RNA BY PCR (08/25/2024 14:25 EST) Hep C Antibody Negative Negative 08/26/2024 19:01 EST [facility] Blood VENOUS BLOOD / Unknown 08/25/2024 14:25 EST 08/26/2024 17:33 EST us Provider Outr Resulting Lab CHEMISTRY & BLOOD GA S ORDERABLES Final Result Performing Organization Address [facility] Co de Phone Number [facility] [address] [place] [address] * PSA, DIAGNOSTIC (08/25/2024 14:25 EST) PSA 1.2 <=4.5 ng/mL 08/26/2024 18:22 EST [facility] Blood VENOUS BLOOD / Unknown 08/25/2024 14:25 EST 08/26/2024 17:33 EST Narrative [facility] - 08/26/2024 18:22 EST NOTE: Serum PSA concentration should not be interpreted as absolute evidence for the presence or absence of malignant disease. Assayed on Siemens ADVIA Centaur XPT using chemiluminescent technology.??Values obtained by using different assay methods cannot be used interchangeably. us Provider Outr Resulting Lab CHEMISTRY & BLOOD GA S ORDERABLES Final Result [facility] [address] [place] [address] from Last 3 Months Insurance BCBS OOS [facility] OOS Care Teams Tamper Operator Relationship Specialty Start Date End Date Francesca Curiel APRN [address] [place] [phone] PCP - General 03/22/22
--- OUTSIDE RECORDS SUMMARY | 2024-10-01 10:59 | XMS_ITS | Encounter Summary ---
Author Organization [facility] Address [address] [place] [address] Care Team Providers Care Police Lieutenant Precinct Name Role Phone Francesca Curiel APRN Primary Care Provider +1 -[phone] Reason for Visit * Reason Comments Follow-up Spot check, left mina ek Encounter Details Date Type Department Care Team (Late st Contact Info) Description 07/22/2024 14:10 EDT Office Visit [facility] Dermatology 3rd Floor [facility] [address] [place] [address] Anirudh Asher, PAJb [address] [facility], [facility], Level [address] [place] [address] Actinic keratoses (Primary Dx); Seborrheic [...] documented in this encounter Plan of Treatment Upcoming Encounters Date Type Department Care Team (Late st Contact Info) Description 12/01/2024 9:50 EST Office Visit [facility] Dermatology [address] [place], [place] [phone] Anirudh Asher PA-C [address] [facility], [address] [place] [address] documented as of this encounter Visit Diagnoses Diagnosis Actinic keratoses- Primary Actinic keratosis Seborrheic keratosis Other seborrheic keratosis documented in this encounter Care Teams Police Lieutenant Precinct Relationship Specialty Start Date End Date Francesca Curiel APRN [address] [place] [address] PCP - General 03/22/22 documented as of this encounter
--- OUTSIDE RECORDS SUMMARY | 2024-10-01 10:59 | XMS_ITS | Clinical Summary ---
Author Organization [facility] Address [address] [place] [address] Care Team Providers Care Dental Hygiene Instructor Name Role Phone Francesca Curiel APRN Primary Care Provider +1 -[phone] Allergies No known active allergies Medications rOPINIRole [...] Department Care Team Description 08/26/2024 Lab Requisition [facility] Pathology & Laboratory Medicine - [facility] [address] [place] [address] Outr Resulting Lab, Provider 07/22/2024 14:10 EDT Office Visit [facility] Dermatology 3rd Floor [address] [phone] Anirudh Asher PA-C Actinic keratoses (Primary Dx); [...] 23.56 03/29/2022 0917 EDT Plan of Treatment Upcoming Encounters Date Type Department Care Team (Late st Contact Info) Description 12/01/2024 9:50 EST Office Visit [facility] Dermatology [address] [place] [address] Anirudh Asher PA-C [address] [place] [address], [address] [place] [phone] Health Maintenance Due Date Last Done Comments COVID-19 Vaccine (2023- season) 2024 RSV Immunization ( o r 60+ Years) (1 - 1-dose 75+ series) 2035 Hepatitis C Screen Completed 08/25/2024 Procedures Procedure Name Priority Date/Time Associated Diagnosis Comments PSA TOTAL, DIAGNOSTIC Routine 08/25/2024 14:25 EST HEPATITIS C AB W REFLEX TO HCV RNA BY PCR Routine 08/25/2024 14:25 EST from Last 3 Months Results * HEPATITIS C AB W REFLEX TO HCV RNA BY PCR (08/25/2024 14:25 EST) Hep C Antibody Negative Negative 08/26/2024 19:01 EST [facility] Blood VENOUS BLOOD / Unknown 08/25/2024 14:25 EST 08/26/2024 17:33 EST us Provider Outr Resulting Lab CHEMISTRY & BLOOD GA S ORDERABLES Final Result Performing Organization Address [facility] Co de Phone Number [facility] [address] [place] [address] * PSA, DIAGNOSTIC (08/25/2024 14:25 EST) PSA 1.2 <=4.5 ng/mL 08/26/2024 18:22 EST [facility] Blood VENOUS BLOOD / Unknown 08/25/2024 14:25 EST 08/26/2024 17:33 EST Narrative [facility] - 08/26/2024 18:22 EST NOTE: Serum PSA concentration should not be interpreted as absolute evidence for the presence or absence of malignant disease. Assayed on Siemens ADVIA Centaur XPT using chemiluminescent technology.??Values obtained by using different assay methods cannot be used interchangeably. us Provider Outr Resulting Lab CHEMISTRY & BLOOD GA S ORDERABLES Final Result [facility] [address] [place], [place] [phone] from Last 3 Months Insurance BCBS OOS [facility] OOS Care Teams Dental Hygiene Instructor Relationship Specialty Start Date End Date Francesca Curiel APRN [address] [place] [phone] PCP - General 03/22/22
--- OUTSIDE RECORDS SUMMARY | 2024-10-01 10:59 | XMS_ITS | Encounter Summary ---
Author Organization [facility] Address [address] [place] [address] Care Team Providers Care Ladder Operator Name Role Phone Francesca Curiel APRN Primary Care Provider +1 -[phone] Encounter Details Date Type Department Care Team (Late st Contact Info) Description 08/26/2024 Lab Requisition [facility] Pathology & Laboratory Medicine - [address] [address] Outr Resulting Lab, Provider Social History Tobacco [...] Info) Description 12/01/2024 9:50 EST Office Visit [facility] Dermatology [address] [place] [address] Anirudh Asher PA-C [address] [facility], [address] [place] [address] documented as of this encounter Procedures Procedure Name Priority Date/Time Associated Diagnosis Comments HEPATITIS C AB W REFLEX TO HCV RNA BY PCR Routine 08/25/2024 14:25 EST PSA TOTAL, DIAGNOSTIC Routine 08/25/2024 14:25 EST documented in this encounter Results * PSA, DIAGNOSTIC (08/25/2024 14:25 EST) PSA 1.2 <=4.5 ng/mL 08/26/2024 18:22 EST [facility] Blood VENOUS BLOOD / Unknown 08/25/2024 14:25 EST 08/26/2024 17:33 EST Narrative [facility] - 08/26/2024 18:22 EST NOTE: Serum PSA concentration should not be interpreted as absolute evidence for the presence or absence of malignant disease. Assayed on Siemens ADVIA Centaur XPT using chemiluminescent technology.??Values obtained by using different assay methods cannot be used interchangeably. us Provider Outr Resulting Lab CHEMISTRY & BLOOD GA S ORDERABLES Final Result [facility] [address] [place] [address] * HEPATITIS C AB W REFLEX TO HCV RNA BY PCR (08/25/2024 14:25 EST) Hep C Antibody Negative Negative 08/26/2024 19:01 EST [facility] Blood VENOUS BLOOD / Unknown 08/25/2024 14:25 EST 08/26/2024 17:33 EST us Provider Outr Resulting Lab CHEMISTRY & BLOOD GA S ORDERABLES Final Result [facility] [address] [place] [address] documented in this encounter Visit Diagnoses Not on filedocumented in this encounter Care Teams Ladder Operator Relationship Specialty Start Date End Date Francesca Curiel APRN [address] [address] [place] [phone] PCP - General 03/22/22 documented as of this encounter
--- OUTSIDE RECORDS SUMMARY | 2024-10-01 10:59 | XMS_ITS | Encounter Summary ---
Author Organization [facility] Address [address] [place] [address] Care Team Providers Care News Assignment Editor Name Role Phone Francesca Curiel APRN Primary Care Provider +1 -[phone] Reason for Visit * Reason Comments Follow-up Rash on back and leg s Encounter Details Date Type Department Care Team (Late st Contact Info) Description 12/04/2023 10:30 EST Office Visit [facility] Dermatology 3rd Floor [address] [address] Anirudh Asher, TESSIE [address] [place] [address], [address] [place] [address] Actinic keratoses (Primary Dx) Social [...] Info) Description 12/01/2024 9:50 EST Office Visit [facility] Dermatology [address] [place] [address] Anirudh Asher PA-C 111 [facility], [address] [place] [phone] documented as of this encounter Visit Diagnoses Diagnosis Actinic keratoses- Primary Actinic keratosis documented in this encounter Care Teams News Assignment Editor Relationship Specialty Start Date End Date Francesca Curiel APRN 26 [facility] [address] [place] [phone] PCP - General 03/22/22 documented as of this encounter
--- OUTSIDE RECORDS SUMMARY | 2024-10-01 11:00 | XMS_ITS | Encounter Summary ---
Author Organization [facility] [place] [address] Care Team Providers Care Foundry Melt Supervisor Name Role Phone Francesca Curiel APRN Primary Care Provider +1 -[phone] Reason for Visit * Consultation (Routine) - Closed Specialty Diagnoses / Procedures Referred By Patricia santana Referred To Contact Vascular Surgery Diagnoses Hereditary and idiopathic neuropathy, unspecified Francesca Curiel APRN [address] [place] [address] [facility] [address] [place] [address] Referral ID Status Reason Start Date Expiration Date V isits Requested Visits Authorized [id number] Closed Consult, Test & Treat [facility] PCP Updated and/or Approved 02/15/2021 02/15/2022 6 6 Encounter Details Date Type Department Care Team (Late st Contact Info) Description 03/07/2021 2:00 PM EDT Tech [place] [address] Praful Donald, RVT Leg cramps; [...] Text Report Department: Vascular Surgery Lab Patient: [id number] (TERRY MCLAUGHLIN) CPT: 26328 ICD10: R25.2;G62.9 Referring Physician: LILLIAN FRANKLIN APRN [...] site documented in this encounter Care Teams Foundry Melt Supervisor Relationship Specialty Start Date End Date Francesca Curiel APRN [address] [place] [address] PCP - General Family Medicine 02/20/21 documented as of this encounter
--- OUTSIDE RECORDS SUMMARY | 2024-10-01 11:00 | XMS_ITS | Encounter Summary ---
Author Organization [facility] Address [address] [place] [address] Care Team Providers Care Supervisor Ovens Name Role Phone Francesca Curiel APRN Primary Care Provider +1 -[phone] Encounter Details Date Type Department Care Team (Late st Contact Info) Description 09/05/2022 Orders Only [facility] Spine Program - [address] [place] [address] Oneil Charles MD [address] [place] [address] Low back pain, unspecified back [...] Info) Description 12/01/2024 9:50 EST Office Visit [facility] Dermatology [address] [place] [address] Anirudh Asher PA-C 111 [facility], [address] [place] [address] documented as of this encounter Results * [...] us Oneil Charles MD IMG DIAGNOSTIC IMAGING [place] Final Result documented in this encounter Visit Diagnoses Diagnosis Low back pain, unspecified back pain laterality, unspecified chronicity, unspecified whether sciatica present- Primary Low back pain, unspecified back pain laterality, unspecified chronicity, unspecified whether sciatica present documented in this encounter Care Teams Supervisor Ovens Relationship Specialty Start Date End Date Francesca Curiel APRN [address] [place] [phone] PCP - General 03/22/22 documented as of this encounter
--- OUTSIDE RECORDS SUMMARY | 2024-10-01 11:00 | XMS_ITS | Clinical Summary ---
[place] [address] Care Team Providers Care Crm Marketing Specialist Name Role Phone Francesca Curiel APRN Primary Care Provider +1 -[phone] Allergies No known active allergies Medications No [...] - Influenza standard series) 06/07/2024 Care Teams Crm Marketing Specialist Relationship Specialty Start Date End Date Francesca Curiel APRN [address] [place], [place] [phone] PCP - General Family Medicine 02/20/21
--- OUTSIDE RECORDS SUMMARY | 2024-10-01 11:00 | XMS_ITS | Encounter Summary ---
Author Organization [facility] Address [address] [place] [address] Care Team Providers Care Electrician Research Name Role Phone Francesca Curiel APRN Primary Care Provider +1 -[phone] Reason for Visit * Reason Comments Pain * Referral (Routine) - Receiving Office to Obtain Authorization Specialty Diagnoses / Procedures Referred By Contac t Referred To Contact Orthopedic Surgery Diagnoses Other intervertebral disc degeneration, lumbar region Francesca Curiel APRN [address] [place] [address] Phone: tel: fax: [facility] Spine [place] [address] [place] [address] Phone: tel: fax: Referral ID Status Reason Start Date Expiration Date Visits Requested Visits Authorized [id number] Receiving Office to Obtain Authorization 1 1 Encounter Details Date Type Department Care Team (Late st Contact Info) Description 09/17/2022 9:30 EST Office Visit [facility] Spine [place] [address] [place] [address] Oneil Charles MD [address] [place] [address] Chronic midline low back pain [...] Notes * Oneil Charles MD - 09/17/2022 0966 EST Chief Complaint Patient presents with ??? Lower Back - Pain HPI Cristo Guo is a 62 y.o. male coming to clinic today with a chief complaint of back and RLE pain. He states that he has had fci LBP, helped recently ~70% by bilateral SI [...] Surgical History Bunionectomy Social History Lives in [facility]. 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 Allergies NKDA Current Outpatient Medications Medication ??? [...] Info) Description 12/01/2024 9:50 EST Office Visit [facility] Dermatology [address] [place] [phone] Anirudh Asher, TESSIE [address] [place] [address], [address] [place] [phone] documented as of this encounter Visit Diagnoses Diagnosis Chronic midline low back pain without sciatica- Primary Right leg pain Pain in limb documented in this encounter Historical Medications * This list may reflect changes made after this encounter. ferrous fumarate/vit Bcomp,C (SUPER B COMPLEX ORAL) Take by mouth. hydrOXYzine (ATARAX) 25 mg tablet 09/10/2022 added in this encounter Care Teams Electrician Research Relationship Specialty Start Date End Date Francesca Curiel APRN [address] [place] [address] PCP - General 03/22/22 documented as of this encounter
--- OUTSIDE RECORDS SUMMARY | 2024-10-01 11:00 | XMS_ITS | Encounter Summary ---
Author Organization [facility] [place] [address] Care Team Providers Care Parts Clerk Plant Maintenance Name Role Phone Francesca Curiel APRN Primary Care Provider +1 -[phone] Encounter Details Date Type Department Care Team (Late st Contact Info) Description 05/21/2022 Ancillary Procedure Radiology Library at [facility] [place] [place] [address] Francesca Curiel APRN [address] [place] [phone] Social History Tobacco Use Types Packs/Day Years [...] DX Spine (05/21/2022 12:00 AM EDT) Narrative [facility] - 07/26/2022 11:26 AM EDT This exam is auto-finalizing. It's purpose is for storage only. Francesca Curiel APRN IMG FILM LIBRARY ORDERABLES [facility] [place], [place] documented in this encounter Visit Diagnoses Not on filedocumented in this encounter Care Teams Parts Clerk Plant Maintenance Relationship Specialty Start Date End Date Francesca Curiel APRN [address] [place] [address] PCP - General Family Medicine 02/20/21 documented as of this encounter
--- OUTSIDE RECORDS SUMMARY | 2024-10-01 11:00 | XMS_ITS | Encounter Summary ---
Author Organization [facility] Address [address] [place] [address] Care Team Providers Care Puppy Trainer Name Role Phone Francesca Curiel APRN Primary Care Provider +1 [phone] Reason for Visit * Reason Onset Date Comments Other 04/04/2022 Encounter Details Date Type Department Care Team (Late st Contact Info) Description 04/04/2022 Telephone [facility] Orthopedics & Spine Medicine [address], [address] [place], [place] [phone] Jaimee Singh PA-C [address] [facility] [address] [place] [address] Other Social History Tobacco Use [...] LPN - 04/04/2022 1328 EDT Pt leaves today, wants more information re injection ordered, wants Drea to call his insurance to give that info for coverage. I called pt, explained that pain clinic will be working on approval from insurance, referral was sent to [facility], pt states he will wait till they call to scheduleand he will make sure insurance approval was obtained, pt happy with this plan and thankful for return call. documented in this encounter Plan of Treatment Upcoming Encounters Date Type Department Care Team (Late st Contact Info) Description 12/01/2024 9:50 EST Office Visit [facility] Dermatology [address] [place], [place] [phone] Anirudh Asher PA-C 111 [facility], [address] [place] [address] documented as of this encounter Visit Diagnoses Not on filedocumented in this encounter Care Teams Puppy Trainer Relationship Specialty Start Date End Date Francesca Curiel APRN [address] [place] [address] PCP - General 03/22/22 documented as of this encounter
--- OUTSIDE RECORDS SUMMARY | 2024-10-01 11:00 | XMS_ITS | Encounter Summary ---
Author Organization [facility] Address [address] [place] [address] Care Team Providers Care Recruiting Assistant Name Role Phone Francesca Curiel APRN Primary Care Provider +1 -[phone] Reason for Visit * Reason Onset Date Comments Other 04/27/2022 Encounter Details Date Type Department Care Team (Late st Contact Info) Description 04/27/2022 Telephone [facility] Orthopedics & Spine Medicine [address], [address] [place], [place] [phone] Jaimee Singh PA-C 13[address] [facility] [address] [place] [address] Other Social History Tobacco Use [...] Encounter - Alethea Bauer LPN - 04/27/2022 7924 EDT Radiology leaves today asking for signed [...] Office Visit [facility] Dermatology [address] [place] [address] Anirudh Asher PA-C 111 [facility], [address] [place] [phone] documented as of this encounter Visit Diagnoses Not on filedocumented in this encounter Care Teams Recruiting Assistant Relationship Specialty Start Date End Date Francesca Curiel APRN [address] [place] [address] PCP - General 03/22/22 documented as of this encounter
--- OUTSIDE RECORDS SUMMARY | 2024-10-01 11:00 | XMS_ITS | Encounter Summary ---
Author Organization [facility] Address [address] [place] [address] Care Team Providers Care Cafe Server Name Role Phone Francesca Curiel APRN Primary Care Provider +1 -[phone] Reason for Referral * Radiology Services (Routine/Next Available) - Authorization Not Required Specialty Diagnoses / Procedures Referred By Contac t Referred To Contact Diagnoses Bilateral leg pain Chronic bilateral low back pain without sciatica Procedures XR LUMBAR SPINE 4+ VIEWS Jaimee Singh PA-C Phone: tel: fax: External Referral ID Status Reason Start Date Expiration Date Visits Requested Visits Authorized [id number] Authorization Not Required 03/29/2022 1 1 Reason for Visit * Reason Comments Pain * Referral (Routine) - Authorization Not Required Specialty Diagnoses / Procedures Referred By Contac t Referred To Contact Orthopedic Surgery Diagnoses Low back pain, unspecified Francesca Curiel APRN 26 [facility] [address] [place] [address] Phone: tel: fax: [facility] Orthopedics & Spine Medicine [address] [place] [address] Phone: tel: fax: Referral ID Status Reason Start Date Expiration Date Visits Requested Visits Authorized [id number] Authorization Not Required 1 1 Encounter Details Date Type Department Care Team (Late st Contact Info) Description 03/29/2022 9:15 EDT Office Visit [facility] Orthopedics & Spine Medicine [address] [place] [address] Jaimee Singh PA-C 13[address] [facility] [address] [place], [place] [address] Bilateral leg pain (Primary Dx); Chronic bilateral [...] been referred by Francesca Curiel APRN of [facility] for evaluation of ongoing low [...] placed for this to be considered at [facility] where he has had his previous injections. In regard to his leg symptoms, I do not see anything in his lumbar spine MRI from 2019 that would explain his bilateral leg cramping. The symptoms he gets into his toes the most consistent with an [id number], and there is not clear nerve impingement [...] is complete This document was produced using Weiju dictation. Please excuse any grammatical or verbal errors. documented in this encounter Plan of Treatment Upcoming Encounters Date Type Department Care Team (Late st Contact Info) Description 12/01/2024 9:50 EST Office Visit [facility] Dermatology [address] [place] [address] Anirudh Asher PA-C 111 [facility], [address] [place] [address] Scheduled Orders Name Type Priority Associated Diagnoses [...] 01/02/2022 added in this encounter Care Teams Cafe Server Relationship Specialty Start Date End Date Francesca Curiel APRN [address] [place] [address] PCP - General 03/22/22 documented as of this encounter
--- OUTSIDE RECORDS SUMMARY | 2024-10-01 11:00 | XMS_ITS | Encounter Summary ---
Author Organization [facility] [place] [address] Care Team Providers Care Program Manager Name Role Phone Francesca Curiel APRN Primary Care Provider +1 -[phone] Encounter Details Date Type Department Care Team (Late st Contact Info) Description 05/25/2021 Ancillary Procedure Radiology Library at [facility] [place] [address] Francesca Curiel APRN [address] [place] [phone] Social History Tobacco Use Types Packs/Day Years [...] DX Spine (05/25/2021 12:00 AM EDT) Narrative [facility] - 07/26/2022 11:25 AM EDT This exam is auto-finalizing. It's purpose is for storage only. Francesca Curiel APRN IMG FILM LIBRARY ORDERABLES [facility] [place], [place] documented in this encounter Visit Diagnoses Not on filedocumented in this encounter Care Teams Program Manager Relationship Specialty Start Date End Date Francesca Curiel APRN [address] [place] [address] PCP - General Family Medicine 02/20/21 documented as of this encounter
--- OUTSIDE RECORDS SUMMARY | 2024-10-01 11:00 | XMS_ITS | Encounter Summary ---
Author Organization [facility] Address [facility] [place] [address] Care Team Providers Care Director Nursery School Name Role Phone Francesca Curiel APRN Primary Care Provider +1 -[phone] Encounter Details Date Type Department Care Team (Late st Contact Info) Description 05/21/2022 12:05 AM EDT Ancillary Procedure Radiology Library at [facility] [place] [address] Francesca Curiel APRN [address] [place] [address] Social History Tobacco Use Types Packs/Day [...] MR Spine (05/21/2022 12:05 AM EDT) Narrative [facility] - 07/26/2022 11:28 AM EDT This exam is auto-finalizing. It's purpose is for storage only. Francesca Curiel APRN IMPraneeth FILM LIBRARY ORDERABLES [place], [place] documented in this encounter Visit Diagnoses Not on filedocumented in this encounter Care Teams Director Nursery School Relationship Specialty Start Date End Date Francesca Curiel APRN [address] [place] [address] PCP - General Family Medicine 02/20/21 documented as of this encounter
--- OUTSIDE RECORDS SUMMARY | 2024-10-01 11:00 | XMS_ITS | Encounter Summary ---
Author Organization [facility] Address [address] [place] [address] Care Team Providers Care Forestry Laborer Name Role Phone Francesca Curiel APRN Primary Care Provider +1 -[phone] Reason for Referral * Laboratory Services (Routine/Next Available) - New Request Specialty Diagnoses / Procedures Referred By Contac t Referred To Contact Diagnoses Pain of both sacroiliac joints Bilateral leg pain Procedures HLA B27 SCREEN, DNA Jaimee Singh PA-C Phone: tel: fax: Referral ID Status Reason Start Date Expiration Date V isits Requested Visits Authorized [id number] New Request 07/05/2022 1 1 * Laboratory Services (Routine/Next Available) - New Request Specialty Diagnoses / Procedures Referred By Contac t Referred To Contact Diagnoses Pain of both sacroiliac joints Bilateral leg pain Procedures C REACTIVE PROTEIN Jaimee Singh PA-C Phone: tel: fax: Referral ID Status Reason Start Date Expiration Date V isits Requested Visits Authorized [id number] New Request 07/05/2022 1 1 * Laboratory Services (Routine/Next Available) - New Request Specialty Diagnoses / Procedures Referred By Contac t Referred To Contact Diagnoses Pain of both sacroiliac joints Procedures SED RATE Jaimee Singh PA-C Phone: tel: fax: Referral ID Status Reason Start Date Expiration Date V isits Requested Visits Authorized [id number] New Request 07/05/2022 1 1 Reason for Visit * Reason Comments Pain Pain Pain Encounter Details Date Type Department Care Team (Late st Contact Info) Description 07/05/2022 10:00 EDT Office Visit [facility] Orthopedics & Spine Medicine [address] [place] [address] Jaimee Singh PA-C 13[address] [facility] [address] [place] [address] Pain of both sacroiliac joints [...] was done about 2 weeks ago at [facility]. He is quite pleased about this, [...] lateral hip pain, andlow back pain Injections: [facility] MBB L3-5 02/21/2021 and 03/23/2021 Bilateral [...] as needed This document was produced using AMResortsation. Please excuse any grammatical or verbal errors. documented in this encounter Plan of Treatment Upcoming Encounters Date Type Department Care Team (Late st Contact Info) Description 12/01/2024 9:50 EST Office Visit [facility] Dermatology [address] [place] [address] Anirudh Asher PA-C 111 [facility], [address] [place] [address] documented as of this encounter Results * HLA B27 SCREEN, DNA (09/17/2022 12:18 EST) HLAB-B27 Result Negative Not Applicable 09/19/2022 14:[address] [facility] Accredible Interpretation SEE NOTE 09/19/2022 14:[address] [facility] Accredible Comment: RESULT: HLA-B27 antigen was not detected. ADDITIONAL INFORMATION Method: Flow Cytometry CLIA: [id number] ??CLIA Rn School: CASIMIRO CLARK MD,PhD Test Performed by: [facility] - [address] [address] Rn School: Casimiro Clark M.D. Ph.D.; CLIA# [id number] Blood VENOUS BLOOD / Unknown Venipuncture / Unknown 09/17/2022 12:18 EST 09/17/2022 13:59 EST Jaimee Singh PA-C TISSUE TYPING ORDERABLES Fi nal Result [facility] [address] [place] [address] * C REACTIVE PROTEIN (09/17/2022 12:18 EST) C-Reactive Protein <5.0 <10.0 mg/L 09/17/2022 13:52 EST [facility] Blood VENOUS BLOOD / Unknown Venipuncture / Unknown 09/17/2022 12:18 EST 09/17/2022 13:18 EST Jaimee Singh PA-C CHEMISTRY & BLOOD GAS ORDER MAISHA Final Result Performing Organization Address City/[facility]/ZIP Co de Phone Number [facility] [address] [place] [address] * SED RATE (09/17/2022 12:18 EST) Sed Rate <1 0 - 20 mm/hr 09/17/2022 14:05 EST [facility] Blood VENOUS BLOOD / Unknown Venipuncture / Unknown 09/17/2022 12:18 EST 09/17/2022 13:59 EST Jaimee Singh PA-C HEMATOLOGY & PF4 ORDERABLES Final Result Performing Organization Address City/[facility] Co de Phone Number [facility] [address] [place] [address] documented in this encounter Visit Diagnoses Diagnosis [...] night added in this encounter Care Teams Forestry Laborer Relationship Specialty Start Date End Date Francesca Curiel APRN [address] [place] [address] PCP - General 03/22/22 documented as of this encounter
--- OUTSIDE RECORDS SUMMARY | 2024-10-01 11:00 | XMS_ITS | Encounter Summary ---
Author Organization [facility] [address] Care Team Providers Care Cosmetics Supervisor Name Role Phone Francesca Curiel BALBIR Primary Care Provider +1 -[phone] Reason for Referral * Diagnostic Test (Routine) - Closed Specialty Diagnoses / Procedures Referred By Patricia santana Referred To Contact Diagnoses Leg cramps Neuropathy Procedures FATOU, legs, multiple levels Lillian Franklin APRN [facility] [address] VASCULAR SURGERY [place], [place] [id number] [place] [address] Vascular Lab [address], [place] [address] Referral ID Status Reason Start Date Expiration Date V isits Requested Visits Authorized [id number] Closed Specialty Service Requested 02/21/2021 02/21/2022 1 1 Encounter Details Date Type Department Care Team (Late st Contact Info) Description 02/21/2021 Orders [place] [address] Lillian Franklin APRN Leg cramps; Neuropathy Social History Tobacco Use [...] Text Report Department: Vascular Surgery Lab Patient: [id number] (TERRY MCLAUGHLIN) CPT: 32410 ICD10: R25.2;G62.9 Referring Physician: LILLIAN FRANKLIN APRN [...] [facility] 03/07/2021 1:52 PM EDT Lillian Franklin FILM LIBRARY CLERK VASCULAR ORDERABLE S [facility] documented in this encounter Visit Diagnoses Diagnosis Leg cramps Cramp of limb Neuropathy Mononeuritis of unspecified site documented in this encounter Care Teams Cosmetics Supervisor Relationship Specialty Start Date End Date Francesca Curiel APRN [address] [place] [address] PCP - General Family Medicine 02/20/21 documented as of this encounter
--- OUTSIDE RECORDS SUMMARY | 2024-10-01 11:00 | XMS_ITS | Encounter Summary ---
Author Organization [facility] Address [address] [place] [address] Care Team Providers Care Maintenance Tech Name Role Phone Francesca Curiel APRN Primary Care Provider +1 -[phone] Encounter Details Date Type Department Care Team (Latest Contact Info) Description 12/28/2022 10:04 EDT - 12/28/2022 23:59 EDT Hospital Encounter [address] [place] [address] Chronic pain of right knee [...] Info) Description 12/01/2024 9:50 EST Office Visit [facility] Dermatology [address] [place] [address] Anirudh Asher PA-C [address] [place] [address], [address] [place] [address] documented as of this encounter [...] RIGHT 4 OR MORE VIEWS 3 (accession [id number]), 4 (accession [id number]) views ?? HISTORY: ??Left Knee for Comparison Procedure Note Jerson Pitts MD - 12/28/2022 EXAM/TECHNIQUE: 12/28/2022 10:15 AM XR KNEE LEFT 3 VIEWS, XR KNEE RIGHT 4OR MORE VIEWS 3 (accession [id number]), 4 (accession [id number]) views HISTORY: Left Knee for Comparison IMPRESSION [...] RIGHT 4 OR MORE VIEWS 3 (accession [id number]), 4 (accession [id number]) views ?? HISTORY: ??Left Knee for Comparison Procedure Note Jerson Pitts MD - 12/28/2022 EXAM/TECHNIQUE: 12/28/2022 10:15 AM XR KNEE LEFT 3 VIEWS, XR KNEE RIGHT 4OR MORE VIEWS 3 (accession [id number]), 4 (accession [id number]) views HISTORY: Left Knee for Comparison IMPRESSION FINDINGS / IMPRESSION: * Right knee 4 views: Compartment degenerative changes which are severein the patellofemoral compartment. Moderate joint effusion. Mild osseousdemineralization. * Left knee 3 views: Tricompartment degenerative changes which aremoderate. Brenna Shoemaker PA-C IMG DIAGNOSTIC IMAGING OR DERABLES Final Result documented in this encounter Visit Diagnoses Diagnosis Chronic pain of right knee documented in this encounter Care Teams Maintenance Tech Relationship Specialty Start Date End Date Francesca Curiel APRN [facility] [address] [place] [address] PCP - General 03/22/22 documented as of this encounter
--- OUTSIDE RECORDS SUMMARY | 2024-10-01 11:00 | XMS_ITS | Encounter Summary ---
Author Organization [facility] Address [address] [place] [address] Care Team Providers Care Insurance Claims Analyst Name Role Phone Francesca Curiel APRN Primary Care Provider +1 -[phone] Reason for Visit * Reason Comments EMG (Electomyography) * Office Procedure (Routine/Next Available) - Authorization Not Required Specialty Diagnoses / Procedures [facility] Referred To Contact Neurology Diagnoses Chronic midline low back pain without sciatica Procedures EMG/NERVE CONDUCTION STUDY Oneil Charles MD Phone: tel: fax: Los Dias MD Phone: tel: fax: Referral ID Status Reason Start Date Expiration Date Visits Requested Visits Authorized [id number] Authorization Not Required Specialty Services Required 09/17/20 22 1 1 Encounter Details Date Type Department Care Team (Late st Contact Info) Description 10/18/2022 9:[address] [facility] [address] [place] [address] Los Dias MD 130 [facility] [address] [place] [address] Pain in right lower leg [...] 10/18/2022 0900 ESTAssociated Order(s): EMG/NERVE CONDUCTION STUDY [facility] Clinical Neurophysiology Nerve Conduction and Electromyography [...] conduction testing done by Dr. Parrish at [facility] was suggestive of peripheral neuropathy. EMG [...] symptoms.Prior nerve conduction testing abnormalities noted in [facility] testing were likely due to cool limb noted in the report rather than a neurogenic process. Los Dias MD documented in this encounter Plan of Treatment Upcoming Encounters Date Type Department Care Team (Late st Contact Info) Description 12/01/2024 9:50 EST Office Visit [facility] Dermatology [address] [place] [address] Anirudh Asher PA-C [address] [place] [address], [address] [place] [address] documented as of this encounter Procedures Procedure Name Priority Date/Time Associated Diagnosis Comments EMG/NERVE CONDUCTION STUDY Routine/Next Available 10/18/2022 9:00 EST Chronic midline low back pain without sciatica documented in this encounter Results * EMG/NERVE CONDUCTION STUDY (10/18/2022 9:00 EST) Narrative [facility] - 10/18/2022 9:00 EST Los Dias MD ? 10/18/2022 ??9:42 [facility] Clinical Neurophysiology Nerve Conduction and Electromyography Report PATIENT NAME: Cristo Guo PATIENT : 1960 PCP: ??Francesca Kirsty Curiel DATE OF SERVICE: 10/18/2022 History: Cristo [...] conduction testing done by Dr. Parrish at [facility] was suggestive of peripheral neuropathy. ??EMG [...] ??Prior nerve conduction testing abnormalities noted in [facility] testing were likely due to cool limb noted in the report rather than a neurogenic process. Los Dias MD us Oneil Charles MD PROCEDURE/MINOR SURGICAL OR DERABLES Final Result [facility] documented in this encounter Visit Diagnoses Diagnosis Pain in right lower leg- Primary Chronic midline low back pain without sciatica documented in this encounter Care Teams Insurance Claims Analyst Relationship Specialty Start Date End Date Francesca Curiel, SENIOR NET ARCHITECT [address] [place] [address] PCP - General 03/22/22 documented as of this encounter
--- OUTSIDE RECORDS SUMMARY | 2024-10-01 11:00 | XMS_ITS | Encounter Summary ---
Author Organization [facility] [place] [address] Care Team Providers Care Olive Picker Name Role Phone Francesca Curiel APRN Primary Care Provider +1 -[phone] Encounter Details Date Type Department Care Team (Late st Contact Info) Description 06/20/2022 Ancillary Procedure Radiology Library at [facility] [place] [address] Francesca Curiel APRN [address] [place] [phone] Social History Tobacco Use Types Packs/Day Years [...] DX Spine (06/20/2022 12:00 AM EDT) Narrative [facility] - 07/26/2022 11:27 AM EDT This exam is auto-finalizing. It's purpose is for storage only. Francesca Curiel APRN IMG FILM LIBRARY ORDERABLES [facility] [place], [place] documented in this encounter Visit Diagnoses Not on filedocumented in this encounter Care Teams Olive Picker Relationship Specialty Start Date End Date Francesca Curiel APRN [address] [place] [address] PCP - General Family Medicine 02/20/21 documented as of this encounter
--- OUTSIDE RECORDS SUMMARY | 2024-10-01 11:00 | XMS_ITS | Encounter Summary ---
Author Organization [facility] [place] [address] Care Team Providers Care Front Services Agent Name Role Phone Francesca Curiel APRN Primary Care Provider +1 -[phone] Encounter Details Date Type Department Care Team (Late st Contact Info) Description 03/23/2021 Ancillary Procedure Radiology Library at [facility] [place] [address] Francesca Curiel APRN [address] [place] [phone] Social History Tobacco Use Types Packs/Day Years [...] DX Spine (03/23/2021 12:00 AM EDT) Narrative [facility] - 07/26/2022 11:22 AM EDT This exam is auto-finalizing. It's purpose is for storage only. Francesca Curiel APRN IMG FILM LIBRARY ORDERABLES [facility] [place], [place] documented in this encounter Visit Diagnoses Not on filedocumented in this encounter Care Teams Front Services Agent Relationship Specialty Start Date End Date Francesca Curiel APRN [address] [place] [address] PCP - General Family Medicine 02/20/21 documented as of this encounter
--- OUTSIDE RECORDS SUMMARY | 2024-10-01 11:00 | XMS_ITS | Encounter Summary ---
Author Organization [facility] Address [address] [place] [address] Care Team Providers Care Lathe Scalper Operator Name Role Phone Francesca Curiel APRN Primary Care Provider +1 -[phone] Encounter Details Date Type Department Care Team (Latest Contact Info) Description 09/17/2022 8:43 EST - 09/17/2022 23:59 EST Hospital Encounter [address] [place] [address] Low back pain, unspecified back [...] Info) Description 12/01/2024 9:50 EST Office Visit [facility] Dermatology [address] [place], [place] [phone] Anirudh Ahser PA-C [address] [place] [address], [facility] [address] [place] [address] documented as of this encounter [...] present documented in this encounter Care Teams Lathe Scalper Operator Relationship Specialty Start Date End Date Francesca Curiel APRN 26 [facility] JERALDJacquelyn [address] [place] [address] PCP - General 03/22/22 documented as of this encounter
--- OUTSIDE RECORDS SUMMARY | 2024-10-01 11:00 | XMS_ITS | Encounter Summary ---
Author Organization [facility] Address [address] [place] [address] Care Team Providers Care Packaging Tech Name Role Phone Francesca Curiel APRN Primary Care Provider +1 -[phone] Encounter Details Date Type Department Care Team (Late st Contact Info) Description 08/24/2021 Lab Requisition [facility] Pathology & Laboratory Medicine - [address] [address] Outr Resulting Lab, Provider Social History Tobacco [...] as of this encounter Plan of Treatment Upcoming Encounters Date Type Department Care Team (Late st Contact Info) Description 12/01/2024 9:50 EST Office Visit [facility] Dermatology [address] [place] [address] Anirudh Asher, TESSIE 111 [facility], [address] [place] [address] documented as of this encounter [...] 66.0 55.8 - 66.1 % 08/25/2021 11:55 [facility] Alpha-1 % 3.4 2.9 - 4.9 % 08/25/2021 11:55 [facility] Alpha-2 % 7.6 7.1 - 11.8 % 08/25/2021 11:55 [facility] Beta % 9.5 8.4 - 13.1 % 08/25/2021 11:55 [facility] Gamma % 13.5 11.1 - 18.8 % 08/25/2021 11:55 [facility] SPEP Comment No apparent monoclonal protein seen on serum electrophoresis 08/25/2021 11:55 [facility] Comment:See scanned/suppleme ntary report. Total Protein 7.4 6.3 - 8.2 g/dL 08/25/2021 11:55 [facility] Blood VENOUS BLOOD / Unknown 08/24/2021 9:45 EST 08/24/2021 21:06 EST us Provider Outr Resulting Lab CHEMISTRY & BLOOD GA S ORDERABLES Final Result [facility] [address] [place] [address] * PROTEIN, TOTAL (08/24/2021 9:45 EST) Blood VENOUS BLOOD / Unknown 08/24/2021 9:45 EST 08/24/2021 21:06 EST us Provider Outr Resulting Lab CHEMISTRY & BLOOD GA S ORDERABLES Final Result [facility] [address] [place] [address] documented in this encounter Visit Diagnoses Not on filedocumented in this encounter Care Teams Packaging Tech Relationship Specialty Start Date End Date Francesca Curiel APRN 26 [facility] [address] [place] [address] PCP - General 03/22/22 documented as of this encounter
--- OUTSIDE RECORDS SUMMARY | 2024-10-01 11:00 | XMS_ITS | Encounter Summary ---
Author Organization [facility] Address [address] [place] [address] Care Team Providers Care Cone Examiner Name Role Phone Francesca Curiel APRN Primary Care Provider +1 -[phone] Reason for Referral * Office Procedure (Routine/Next Available) - Authorization Not Required Specialty Diagnoses / Procedures Referred By Contac t Referred To Contact Neurology Diagnoses Chronic midline low back pain without sciatica Procedures EMG/NERVE CONDUCTION STUDY Oneil Charles MD Phone: tel: fax: Los Dias MD Phone: tel: fax: Referral ID Status Reason Start Date Expiration Date Visits Requested Visits Authorized [id number] Authorization Not Required Specialty Services Required 09/17/20 22 1 1 Encounter Details Date Type Department Care Team (Late st Contact Info) Description 09/17/2022 Orders Only [facility] Spine Program - [address] [address] Oneil Charles MD [address] [place] [address] Chronic midline low back pain without [...] Info) Description 12/01/2024 9:50 EST Office Visit [facility] Dermatology [address] [place] [address] Anirudh Asher PA-C [address] [place] [address] [address] [place] [address] documented as of this encounter Results * EMG/NERVE CONDUCTION STUDY (10/18/2022 9:00 EST) Narrative [facility] - 10/18/2022 9:00 EST Los Dias MD ? 10/18/2022 ??9:42 [facility] Clinical Neurophysiology Nerve Conduction and Electromyography Report [...] conduction testing done by Dr. Parrish at [facility] was suggestive of peripheral neuropathy. ??EMG [...] ??Prior nerve conduction testing abnormalities noted in [facility] testing were likely due to cool limb noted in the report rather than a neurogenic process. Los Dias MD us Oneil Charles MD PROCEDURE/MINOR SURGICAL OR DERABLES Final Result [facility] documented in this encounter Visit Diagnoses Diagnosis Chronic midline low back pain without sciatica- Primary Pain in right lower leg- Primary Chronic midline low back pain without sciatica documented in this encounter Care Teams Cone Examiner Relationship Specialty Start Date End Date Francesca Curiel APRN 26 [facility] [address] [place] [address] PCP - General 03/22/22 documented as of this encounter
--- OUTSIDE RECORDS SUMMARY | 2024-10-01 11:00 | XMS_ITS | Encounter Summary ---
Author Organization [facility] Address [address] [place] [address] Care Team Providers Care Stone And Plate Preparer Apprentice Name Role Phone Francesca Curiel APRN Primary Care Provider +1 -[phone] Reason for Visit * Reason Onset Date Comments Coordination Of Care 11/15/2022 Encounter Details Date Type Department Care Team (Late st Contact Info) Description 11/15/2022 Telephone [facility] Spine Program - [address] [place] [address] Oneil Charles MD [address] [place] [address] Coordination Of Care Social History Tobacco [...] Info) Description 12/01/2024 9:50 EST Office Visit [facility] Dermatology [address] [place] [address] Anirudh Asher PA-C 111 [facility], [address] [place] [address] documented as of this encounter Visit Diagnoses Not on filedocumented in this encounter Care Teams Stone And Plate Preparer Apprentice Relationship Specialty Start Date End Date Francesca Curiel APRN 26 [facility] [address] [place] [phone] PCP - General 03/22/22 documented as of this encounter
--- OUTSIDE RECORDS SUMMARY | 2024-10-01 11:00 | XMS_ITS | Encounter Summary ---
Author Organization [facility] [place] [address] Care Team Providers Care Instructor Warper Name Role Phone Francesca Curiel APRN Primary Care Provider +1 -[phone] Encounter Details Date Type Department Care Team (Late st Contact Info) Description 02/21/2021 Ancillary Procedure Radiology Library at [facility] [place] [address] Francesca Curiel APRN [address] [place] [address] Social History Tobacco Use Types [...] DX Spine (02/21/2021 12:00 AM EDT) Narrative [facility] - 07/26/2022 11:24 AM EDT This exam is auto-finalizing. It's purpose is for storage only. Francesca Curiel APRN IMPraneeth FILM LIBRARY ORDERABLES [facility] [place], [place] documented in this encounter Visit Diagnoses Not on filedocumented in this encounter Care Teams Instructor Warper Relationship Specialty Start Date End Date Francesca Curiel APRN [address] [place] [address] PCP - General Family Medicine 02/20/21 documented as of this encounter
--- OUTSIDE RECORDS SUMMARY | 2024-10-01 11:00 | XMS_ITS | Encounter Summary ---
Author Organization [facility] Address [address] [place] [address] Care Team Providers Care Engineering Supplies Sales Name Role Phone Francesca Curiel APRN Primary Care Provider +1 -[phone] Reason for Visit * Laboratory Services (Routine/Next Available) - New Request Specialty Diagnoses / Procedures [facility] Referred To Contact Diagnoses Pain of both sacroiliac joints Procedures SED RATE Jaimee Singh PA-C Phone: tel: fax: Referral ID Status Reason Start Date Expiration Date V isits Requested Visits Authorized [id number] New Request 07/05/2022 1 1 Encounter Details Date Type Department Care Team (Late st Contact Info) Description 09/17/2022 12:05 EST Phlebotomy Only [facility] - Outpatient Phlebotomy Drawing [address] [place] [address] Lab, [facility] Phlebotomy Pain of [...] Info) Description 12/01/2024 9:50 EST Office Visit [facility] Dermatology [address] [place] [address] Anirudh Asher PA-C 111 [facility], [address] [place] [address] documented as of this encounter [...] Negative Not Applicable 09/19/2022 14:09 EST [facility] Interpretation SEE NOTE 09/19/2022 14:09 EST [facility] Comment: RESULT: HLA-B27 antigen was not detected. ADDITIONAL INFORMATION Method: Flow Cytometry CLIA: [id number] ??CLIA Filler Block Inserter Remover: CASIMIRO CLARK MD,PhD Test Performed by: [facility] [address] Filler Block Inserter Remover: Casimiro Clark M.D. Ph.D.; CLIA# [id number] Blood VENOUS BLOOD / Unknown Venipuncture / Unknown 09/17/2022 12:18 EST 09/17/2022 13:59 EST Jamiee Singh PA-C TISSUE TYPING ORDERABLES Fi nal Result [facility] [address] [place] [address] * C REACTIVE PROTEIN (09/17/2022 12:18 EST) C-Reactive Protein <5.0 <10.0 mg/L 09/17/2022 13:52 EST [facility] Blood VENOUS BLOOD / Unknown Venipuncture / Unknown 09/17/2022 12:18 EST 09/17/2022 13:18 EST Jaimee Singh PA-C CHEMISTRY & BLOOD GAS ORDER MAISHA Final Result Performing Organization Address City/[facility]/ZIP Co de Phone Number [facility] [address] [place] [address] * SED RATE (09/17/2022 12:18 EST) Sed Rate <1 0 - 20 mm/hr 09/17/2022 14:05 EST [facility] Blood VENOUS BLOOD / Unknown Venipuncture / Unknown 09/17/2022 12:18 EST 09/17/2022 13:59 EST Jaimee Singh PA-C HEMATOLOGY & PF4 ORDERABLES Final Result Performing Organization Address City/[facility]/ZIP Co de Phone Number [facility] [address] [place] [address] documented in this encounter Visit Diagnoses Diagnosis Pain of both sacroiliac joints Disorders of sacrum Bilateral leg pain Pain in limb documented in this encounter Care Teams Engineering Supplies Sales Relationship Specialty Start Date End Date Francesca Curiel APRN 26 [facility] [address] [place] [phone] PCP - General 03/22/22 documented as of this encounter
--- OUTSIDE RECORDS SUMMARY | 2024-10-01 11:00 | XMS_ITS | Encounter Summary ---
Author Organization [facility] Address [address] [place] [address] Care Team Providers Care Cod Clerk Name Role Phone Francesca Curiel APRN Primary Care Provider +1 -[phone] Encounter Details Date Type Department Care Team [...] Info) Description 12/01/2024 9:50 EST Office Visit [facility] Dermatology [address] [place] [address] Anirudh Asher PA-C 111 [facility], [address] [place] [address] documented as of this encounter Visit Diagnoses Not on filedocumented in this encounter Care Teams Cod Clerk Relationship Specialty Start Date End Date Francesca Curiel APRN [address] [place] [address] PCP - General 03/22/22 documented as of this encounter
--- OUTSIDE RECORDS SUMMARY | 2024-10-01 11:00 | XMS_ITS | Encounter Summary ---
Author Organization [facility] Address [address] [place] [address] Care Team Providers Care Biomedical Specialist Name Role Phone Francesca Curiel APRN Primary Care Provider +1 -[phone] Reason for Visit * Reason Onset Date Comments Other 04/17/2022 Encounter Details Date Type Department Care Team (Late st Contact Info) Description 04/17/2022 Telephone [facility] Orthopedics & Spine Medicine [address] [place], [place] [phone] Jaimee Singh PA-C [address] [facility] [address] [place] [address] Other Social History Tobacco Use [...] Info) Description 12/01/2024 9:50 EST Office Visit [facility] Dermatology [address] [place] [address] Anirudh Asher PA-C 111 [facility], [address] [place] [address] documented as of this encounter Visit Diagnoses Not on filedocumented in this encounter Care Teams Biomedical Specialist Relationship Specialty Start Date End Date Francesca Curiel APRN [address],[facility] [address] [place] [address] PCP - General 03/22/22 documented as of this encounter
--- OUTSIDE RECORDS SUMMARY | 2024-10-01 11:00 | XMS_ITS | Encounter Summary ---
Author Organization [facility] Address [address] [place] [address] Care Team Providers Care Signals Collector/Analyst Name Role Phone Francesca Curiel APRN Primary Care Provider +1 -[phone] Reason for Visit * Reason Onset Date Comments Other 04/02/2022 Encounter Details Date Type Department Care Team (Late st Contact Info) Description 04/02/2022 Telephone [facility] Orthopedics & Spine Medicine [address] [place], [place] [phone] Jaimee Singh PA-C 1311 [facility] [address] [place] [address] Other Social History Tobacco Use [...] Info) Description 12/01/2024 9:50 EST Office Visit [facility] Dermatology [address] [place], [place] [phone] Anirudh Asher, PAEliezerC [address] [place] [address], [address] [place] [phone] documented as of this encounter Visit Diagnoses Not on filedocumented in this encounter Care Teams Signals Collector/Analyst Relationship Specialty Start Date End Date Francesca Curiel APRN 26 [facility] [address] [place] [address] PCP - General 03/22/22 documented as of this encounter
--- OUTSIDE RECORDS SUMMARY | 2024-10-01 11:00 | XMS_ITS | Encounter Summary ---
Author Organization [facility] Address [address] [place] [address] Care Team Providers Care Manager Surgical Name Role Phone Francesca Curiel APRN Primary Care Provider +1 -[phone] Encounter Details Date Type Department Care Team (Late st Contact Info) Description 05/05/2022 Orders Only [facility] Orthopedics & Spine Medicine [address] [place], [place] [phone] Jaimee Singh PA-C 13[address] [facility] [address] [place] [address] Pain of both sacroiliac joints [...] Info) Description 12/01/2024 9:50 EST Office Visit [facility] Dermatology [address] [place] [address] Anirudh Asher PA-C 111 [facility] 5 [place] [address] documented as of this encounter Visit Diagnoses Diagnosis Pain of both sacroiliac joints- Primary Disorders of sacrum documented in this encounter Care Teams Manager Surgical Relationship Specialty Start Date End Date Francesca Curiel APRN [address] [place] [address] PCP - General 03/22/22 documented as of this encounter
--- OUTSIDE RECORDS SUMMARY | 2024-10-01 11:00 | XMS_ITS | Encounter Summary ---
Author Organization [facility] Address [address] [place] [address] Care Team Providers Care Ultimate Hoops Trainer Name Role Phone Francesca Curiel APRN Primary Care Provider +1 [phone] Encounter Details Date Type Department Care Team (Late st Contact Info) Description 03/29/2020 Lab Requisition [facility] Pathology & Laboratory Medicine - [address] [address] Outr Resulting Lab, Provider Social History Tobacco [...] Info) Description 12/01/2024 9:50 EST Office Visit [facility] Dermatology [address] [place] [address] Anirudh Asher PA-C [address] [facility], [address] [place] [address] documented as of this encounter Procedures Procedure Name Priority Date/Time Associated Diagnosis Comments ZZCOVID-19 TEST [facility] PCR Today 03/29/2020 9:50 EDT COVID-19 TESTING Routine 03/29/2020 9:50 EDT documented in this encounter Results * COVID-19 TEST [facility] PCR (03/29/2020 9:50 EDT) Swab ENTIRE NASOPHARYNX / Unknown 03/29/2020 9:50 EDT 03/29/2020 15:41 EDT us Provider Outr Resulting Lab MICROBIOLOGY - GENER AL ORDERABLES Final Result Performing Organization Address [facility] de Phone Number [facility] [address] [place] [address] * COVID-19 TESTING (03/29/2020 9:50 EDT) COVID-19 rt-PCR Result Negative Negative 03/29/2020 22:36 EDT [facility] Comment: This test has [...] history, and epidemiological information. Performed on the [employer] Fusion instrument Performing Lab Leonard [facility] 03/29/2020 22:36 EDT [facility] Swab 03/29/2020 9:50 EDT 03/29/2020 15:41 EDT us Provider Outr Resulting Lab MICROBIOLOGY - GENER AL ORDERABLES Final Result Performing Organization Address City/[facility] Co de Phone Number [facility] [address] [place] [address] documented in this encounter Visit Diagnoses Not on filedocumented in this encounter Care Teams Ultimate Hoops Trainer Relationship Specialty Start Date End Date Francesca Curiel APRN [address] [place] [phone] PCP - General 03/22/22 documented as of this encounter
--- OUTSIDE RECORDS SUMMARY | 2024-10-01 11:00 | XMS_ITS | Encounter Summary ---
Author Organization [facility] Address [address] [place] [address] Care Team Providers Care Story Editor Name Role Phone Francesca Curiel APRN Primary Care Provider +1 [phone] Reason for Visit * Reason Onset Date Comments Referral Request 04/13/2022 Encounter Details Date Type Department Care Team (Late st Contact Info) Description 04/13/2022 Telephone [facility] [address] [id number] Jaimee Singh PA-C [address] [place] [address] [place] [id number] Referral Request Social History Tobacco Use Types [...] gets xrays and MRI at [facility]. I told him that If he decides to proceed, to call me, and I could put him back on the cancellation list. Pt agreed * Telephone Encounter - Audrey Valerio - 04/17/2022 1546 EDT Sent referral to [facility] for injection. * Telephone Encounter - Alethea Bauer LPN - 04/17/2022 1309 EDT Pt left twice today, returning my call, I did call pt, he is happy to have order for bilat SI joint injections sent to [facility], I do not know why insurance said [facility] for injection out of network so he had to go to [facility], yet they did get approval for MRI at [facility], pt will make F/U after he gets MRI date. And if he does not hear from pain clinic in a week he will call [facility] pain clinic, reminded him once he gets injection date he needs an OV or TM to review results,pt happy with this plan.Audrey can you send SI joint injection order to [facility]. * Telephone Encounter - Marily Benz - 04/13/2022 1533 EDT Pt just called here, stating that he just missed call. And to call back at [phone] to discuss Insurance issue. * Telephone Encounter - Alethea Bauer LPN - 04/13/2022 1523 EDT I called pt, left VM to call me to discuss, little further down on referral Ngoc did speak with pt yesterday and [facility] would be covered as they are with in his insurance net work, I asked pt to callback and let me know he does want to go to [facility]. * Telephone Encounter - Marily Benz - 04/13/2022 0949 EDT Cassandra, Can you follow up with this patient? He LMM , but when I reviewed referral it showed this reply as denied: Dear Jaimee Singh: The referral that you have requested for Cristo Guo has been denied for the following reason: Not a Covered Benefit Comments: [facility] out of network with patient's insurance, patient is aware. Sincerely, Ngoc Brady There is nothing I can do unless he wants to be self pay? Let me know. Marily Moss documented in this encounter Plan of Treatment Upcoming Encounters Date Type Department Care Team (Late st Contact Info) Description 12/01/2024 9:50 EST Office Visit [facility] Dermatology [address] [place] [address] Anirudh Asher, TESSIE 111 [facility], [address] [place] [address] documented as of this encounter Visit Diagnoses Not on filedocumented in this encounter Care Teams Story Editor Relationship Specialty Start Date End Date Francesca Curiel APRN [address] [place] [phone] PCP - General 03/22/22 documented as of this encounter
--- OUTSIDE RECORDS SUMMARY | 2024-10-01 11:00 | XMS_ITS | Encounter Summary ---
Author Organization [facility] Address [address] [place] [address] Care Team Providers Care Air Lift Operator Name Role Phone Francesca Curiel APRN Primary Care Provider +1 [phone] Reason for Visit * Reason Comments New Patient Visit Sun damage on face. Worse on L cheek, becomes sore and bleeds intermittently * Referral (Routine) - Authorization Not Required Specialty Diagnoses / Procedures [facility] Referred To Contact Dermatology Diagnoses Chronic urticaria Jan Villasenor MD [address] [facility] [address] [place] [address] Phone: tel: fax: [facility] Dermatology [address] [address] Phone: tel: fax: Referral ID Status Reason Start Date Expiration Date Visits Requested Visits Authorized [id number] Authorization Not Required 1 1 Encounter Details Date Type Department Care Team (Late st Contact Info) Description 06/20/2023 8:30 EDT Office Visit [facility] Dermatology 3rd Floor [address] [address] Anirudh Asher PA-C [address] [place] [address], [facility] [address] [place] [phone] Actinic keratoses (Primary Dx); Lentigines; Diffuse photodamage [...] Info) Description 12/01/2024 9:50 EST Office Visit [facility] Dermatology [address] [place] [address] Anirudh Asher PA-C [address] [facility], [address] [place] [address] documented as of this encounter Visit Diagnoses Diagnosis Actinic keratoses- Primary Actinic keratosis Lentigines Other dyschromia Diffuse photodamage of skin Other chronic dermatitis due to solar radiation documented in this encounter Care Teams Air Lift Operator Relationship Specialty Start Date End Date Francesca Curiel, BALBIR [address] [place] [address] PCP - General 03/22/22 documented as of this encounter
--- OUTSIDE RECORDS SUMMARY | 2024-10-01 11:00 | XMS_ITS | Encounter Summary ---
Author Organization [facility] Address [address] [place] [address] Care Team Providers Care Superintendent Colliery Name Role Phone Francesca Curiel APRN Primary Care Provider [phone] [phone] Reason for Referral * PT/OT/ST (Routine/Next Available) - Closed Specialty Diagnoses / Procedures Referred By Contac t Referred To Contact Diagnoses Primary osteoarthritis of right knee Brenna Shoemaker PA-C Phone: tel: fax: Referral ID Status Reason Start Date Expiration Date V isits Requested Visits Authorized [id number] Closed Specialty Services Required 12/28/2022 1 1 Question Answer Reason for Request: PF arthritis Comments VMO intensive quad strengthening HEP Reason for Visit * Reason Comments Pain * Referral (Routine) - Receiving Office to Obtain Authorization Specialty Diagnoses / Procedures Referred By Contac t Referred To Contact Orthopedic Surgery Diagnoses Knee pain, right Francesca Curiel, BALBIR [address] [facility] [address] [place] [address] Phone: tel: fax: [facility] [place] [address] Phone: tel: fax: Referral ID Status Reason Start Date Expiration Date Visits Requested Visits Authorized [id number] Receiving Office to Obtain Authorization 1 1 Encounter Details Date Type Department Care Team (Late st Contact Info) Description 12/28/2022 10:30 EDT Office Visit [facility] [place] [address] Brenna Shoemaker PA-C [address] [place] [address] Chronic pain of right knee [...] block wasordered. Occupation: The patient works in [employer]. He uses knee pads that placed the [...] are often unintended grammatical, spelling, and other yard engineer errors. Please disregardthese errors. I spent a [...] called to verify the correctpatient, procedure, equipment, field support representative and site/side marked as required. Patient was prepped and draped in the usual sterile fashion. documented in this encounter Plan of Treatment Upcoming Encounters Date Type Department Care Team (Late st Contact Info) Description 12/01/2024 9:50 EST Office Visit [facility] Dermatology [address] [place] [address] Anirudh Asher PA-C 111 [facility], [address] [place] [address] Scheduled Referrals Name Type Priority Associated Diagnoses [...] knee documented in this encounter Results * LA ARTHROCENTESIS ASPIR&/INJ MAJOR JT/BURSA W/O US (12/28/2022 10:30 EDT) Narrative [facility] POINT OF CARE - 12/28/2022 10:30 [...] to verify the correct patient, procedure, equipment, field support representative and site/side marked as required. Patient was prepped and draped in the usual sterile fashion. us Brenna Shoemaker PA-C PROCEDURE/MINOR SURGICAL ORDERABLES Final Result [facility] POINT OF CARE * XR PELVIS 1-2 [...] without evidence of fracture. Brenna Shoemaker PA-C [facility] OR [...] RIGHT 4 OR MORE VIEWS 3 (accession [id number]), 4 (accession [id number]) views ?? HISTORY: ??Left Knee for Comparison Procedure Note Jerson Pitts MD - 12/28/2022 EXAM/TECHNIQUE: 12/28/2022 10:15 AM XR KNEE LEFT 3 VIEWS, XR KNEE RIGHT 4OR MORE VIEWS 3 (accession [id number]), 4 (accession [id number]) views HISTORY: Left Knee for Comparison IMPRESSION [...] RIGHT 4 OR MORE VIEWS 3 (accession [id number]), 4 (accession [id number]) views ?? HISTORY: ??Left Knee for Comparison Procedure Note Jerson Pitts MD - 12/28/2022 EXAM/TECHNIQUE: 12/28/2022 10:15 AM XR KNEE LEFT 3 VIEWS, XR KNEE RIGHT 4OR MORE VIEWS 3 (accession [id number]), 4 (accession [id number]) views HISTORY: Left Knee for Comparison IMPRESSION [...] mouth. added in this encounter Care Teams Superintendent Colliery Relationship Specialty Start Date End Date Francesca Curiel APRN [address] [facility] [address] [place] [address] PCP - General 03/22/22 documented as of this encounter
--- OUTSIDE RECORDS SUMMARY | 2024-10-01 11:00 | XMS_ITS | Encounter Summary ---
Author Organization [facility] Address [facility] [place] [address] Care Team Providers Care Digital Campaign Manager Name Role Phone Francesca Curiel APRN Primary Care Provider [phone] [phone] Reason for Visit * Consultation (Routine) - Closed Specialty Diagnoses / Procedures Referred By Patricia santana Referred To Contact Vascular Surgery Diagnoses Hereditary and idiopathic neuropathy, unspecified Francesca Curiel APRN [address] [place] [address] [facility] Vascular Surg [address] [place] [address] Referral ID Status Reason Start Date Expiration Date V isits Requested Visits Authorized [id number] Closed Consult, Test & [facility] PCP Updated and/or Approved 02/15/2021 02/15/2022 6 6 Encounter Details Date Type Department Care Team (Late st Contact Info) Description 03/07/2021 2:30 PM EDT Office Visit [place] [address] Oneil Ramos MD [facility] [place] [address] Bilateral leg pain Social History Tobacco Use [...] limb documented in this encounter Care Teams Digital Campaign Manager Relationship Specialty Start Date End Date Francesca Curiel APRN [address] [place] [address] PCP - General Family Medicine 02/20/21 documented as of this encounter
--- OUTSIDE RECORDS SUMMARY | 2024-10-01 11:00 | XMS_ITS | Encounter Summary ---
Author Organization [facility] Address [address] [place] [address] Care Team Providers Care Dinkey Operator Slate Name Role Phone Francesca Curiel APRN Primary Care Provider +1 [phone] Encounter Details Date Type Department Care Team [...] Info) Description 12/01/2024 9:50 EST Office Visit [facility] Dermatology [address] [place] [address] Anirudh Asher PA-C 111 [facility], [address] [place] [address] documented as of this encounter Visit Diagnoses Not on filedocumented in this encounter Care Teams Dinkey Operator Slate Relationship Specialty Start Date End Date Francesca Curiel APRN [address] [place] [address] PCP - General 03/22/22 documented as of this encounter
--- OUTSIDE RECORDS SUMMARY | 2024-10-01 11:00 | XMS_ITS | Encounter Summary ---
Author Organization [facility] Address [address] [place] [address] Care Team Providers Care Concrete Mixer Truck Driver Name Role Phone Francesca Curiel APRN Primary Care Provider +1 [phone] Encounter Details Date Type Department Care Team (Late st Contact Info) Description 08/10/2022 Orders Only [facility] Neurosurgery - [address] [address] India Pickens NP 111 [facility], [address] [place] [phone] Lumbar radiculopathy (Primary Dx) Social History Tobacco [...] Info) Description 12/01/2024 9:50 EST Office Visit [facility] Dermatology [address] [place], [place] [phone] Anirudh Asher PA-C 111 [facility], [address] [place] [phone] documented as of this encounter Visit Diagnoses Diagnosis Lumbar radiculopathy- Primary Thoracic or lumbosacral neuritis or radiculitis, unspecified documented in this encounter Care Teams Concrete Mixer Truck Driver Relationship Specialty Start Date End Date Francesca Curiel APRN [address] [place] [address] PCP - General 03/22/22 documented as of this encounter
--- NOTE | 2024-10-01 12:22 | ED.GENADUL_ITS ---
Discharge Plan Disposition Patient Disposition: Home Discharge Details Clinical Impression: Vertigo Primary Care Provider: Francesca Curiel ED Provider: Michael Maradiaga Home Meds and New Rx's Prescriptions: New meclizine 25 mg tablet 25 mg PO TID PRN (Reason: dizziness) Qty: 30 0RF No Action High Potency Iron 134 mg (27 mg iron) tablet 134 mg PO DAILY elderberry fruit and flower 460-115 mg capsule 1 cap PO DAILY saw palmetto 160 mg capsule 580 mg PO BID ropinirole 2 mg tablet 2 mg PO QHS Qty: 90 3RF Rx Instructions: administer 1-3 hours before bedtime cholecalciferol (vitamin D3) [Vitamin D3] 2,000 unit Capsule 2,000 unit PO DAILY vitamin E 400 UNIT capsule 400 unit PO DAILY Discharge Instructions Instructions: Vertigo ED Additional Instructions: Your brain MRI today was normal and did not reveal any signs or concerns for an intracranial process causing your dizziness Continue meclizine as needed You have been referred to neurology for follow-up if symptoms persist. You may benefit from vestibular therapy. Printout has been provided, but additional resources can be found on the Internet HPI General Date/Time Provider Initiated Documentation: 10/01/24 10:56 . Limitations to Documentation: no limitations . Information obtained by: patient . HPI Narrative: 64-year-old gentleman with out significant past medical history presents for evaluation of dizziness. He reports that he does have a history of dizziness or vertigo. He states that the onset of symptoms was last week. He was evaluated by outside urgent care. No imaging was obtained but he was started on meclizine. He contacted his PCP today because his symptoms have not resolved and they instructed him to come to the emergency department. He reports with any fast movements or head turns, he feels dizzy. He states when he walks he feels like he leans one-way. He states that he does not lean [address] He denies any headache. He reports that his vision just feels hazy, but denies any loss of vision or any diplopia. He denies any numbness or weakness. Denies any vomiting. Related Data Home Medications ?Medication ?Instructions ?Recorded ?Confirmed vitamin E 268 mg (400 unit) capsule 400 unit PO DAILY 04/23/18 10/01/24 cholecalciferol (vitamin D3) 50 2,000 unit PO DAILY 01/22/19 10/01/24 mcg (2,000 unit) capsule (Vitamin D3) elderberry fruit 460 mg-elderberry 1 cap PO DAILY 06/29/21 10/01/24 flower 115 mg capsule ferrous sulfate 134 mg (27 mg 134 mg PO DAILY 06/29/21 10/01/24 iron) tablet (High Potency Iron) saw amaetto 160 mg capsule 580 mg PO BID 06/29/21 10/01/24 ropinirole 2 mg tablet 2 mg PO QHS #90 tabs 01/23/24 10/01/24 meclizine 25 mg tablet 25 mg PO TID PRN dizziness #30 tabs 10/01/24 Previous Rx's ?Medication ?Instructions ?Recorded ropinirole 2 mg tablet 2 mg PO QHS #90 tabs 01/23/24 meclizine 25 mg tablet 25 mg PO TID PRN dizziness #30 tabs 10/01/24 Allergies Allergy/AdvReac Type Severity Reaction Status Date / Time No Known Allergies Allergy Verified 10/01/24 10:37 General Stated Complaint: Dizzy/Sync CASPER: 3 Exam Narrative Exam Narrative: Review of Systems: All systems reviewed & are unremarkable except as noted in HPI and below Well-developed, no acute distress NCAT No nystagmus, PERRL, normal conjunctiva Bilateral TMs clear without effusion or bulging RRR no murmur Unlabored respipatory effort CTAB no focal neurologic deficits, good strength throughout, no past-pointing Course Vital Signs Vital signs: Vital Signs Pulse 87 10/01/24 10:33 Respiratory Rate 14 10/01/24 10:33 Blood Pressure 139/86 10/01/24 10:33 Pulse Oximetry 99 10/01/24 10:33 Temperature 36.9 C 10/01/24 10:48 Temperature Source Oral 10/01/24 10:48 Pulse 76 10/01/24 11:45 Respiratory Rate 18 10/01/24 10:50 Respiratory Effort Normal, Non-Labored 10/01/24 10:50 Respiratory Depth Normal 10/01/24 10:50 Respiratory Pattern Normal 10/01/24 10:50 Blood Pressure 131/80 10/01/24 11:45 Blood Pressure Position Sitting 10/01/24 10:33 Pulse Oximetry 99 10/01/24 10:33 Oxygen Delivery Method Room Air 10/01/24 10:33 Oxygen Flow Rate 0 10/01/24 10:33 Pain Level 0 10/01/24 10:33 Medical Decision Making Emergent evaluation of dizziness. Initial differential includes vertigo, dehydration, CVA. Symptoms have been present for a week and have not resolved. He does not have any focal findings on neurologic exam. He does not have orthostatic changes in his vital signs. He is not hypertensive so I doubt press or other hypertensive emergency. EKG reviewed and independently interpreted: Sinus 78 normal axis no acute ischemic changes. I doubt cardiac etiology of these symptoms. Will get MRI to evaluate MRI does not reveal any stroke or other intracranial abnormality causing vertigo. On reevaluations the symptoms are very intermittent. He has no ataxia his gait is normal. I recommend continued meclizine as needed as this was helpful for him. I have referred him to neurology for follow-up and recommended vestibular physical therapy to help with any ongoing symptoms. Return precautions advised. Quality:SDOH Health Related Social Needs: No Data to Display PFSH All Active Problems (Updated 10/01/24 @ 13:15 by Michael Maradiaga MD) Vertigo (Acute) Right rotator cuff tear (Acute) Herpesviral vesicular dermatitis (Acute) Arthrofibrosis of total knee replacement (Acute) RIGHT S/P Manipulation under anesthesia: 07/08/2024 Calcific tendinitis of right shoulder (Acute) Sacroiliac joint dysfunction of both sides (Acute) Imbalance (Acute) Sensorineural hearing loss, bilateral (Acute) Restless leg (Acute) Hallux valgus (acquired), right foot (Acute) Impacted cerumen of both ears (Acute) Osteoarthritis of left patellofemoral joint (Chronic) Lumbar radiculitis (Acute) Hammertoe of left foot (Acute) Hallux valgus of left foot (Acute) Arthritis of carpometacarpal (CMC) joint of left thumb (Acute) Tendonitis involving right hip abductors (Acute) Tendonitis involving left hip abductors (Acute) Weakness of both hips (Acute) Arthritis of carpometacarpal (CMC) joint of right thumb (Acute) Nocturnal leg cramps (Acute 04/22/18) Conductive hearing loss, external ear (Acute 08/19/14) Medical History Hyperglycemia Actinic keratoses Acute hip pain, bilateral Degenerative disc disease Nausea Peripheral neuropathy Urticaria, acute Low back pain Foot pain, left DDD (degenerative disc disease), lumbar Right knee pain Bilateral hip pain Bilateral thumb pain Leg cramps Anemia Actinic keratitis Cold sore Nocturnal leg cramps Chronic pruritus Surgical History History of total right knee replacement (05/20/24) S/P surgical manipulation of knee joint (~07/2024) H/O radiofrequency ablation (RFA) of nerve of lumbar spine History of cardiac radiofrequency ablation (RFA) Pt. states it was not a CARDIAC ablation but in his back History of bunionectomy Hx of tonsillectomy EGD - MAC (04/28/18) Colonoscopy - MAC Colonoscopy - IV Sedation 2009- normal Family History Father Alzheimers disease Social History Smoking/Tobacco Use Status: Never Smoking risk assessment performed?: Yes Alcohol Intake: current Alcohol Intake frequency: a few times a month Alcohol type: beer Drug use: Never Substance use type: does not use Details: CBD salve on muscles. 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
== END 2024-10-01 13:35 | disposition home or self-care (01) ==
PROVIDERS: Emergency Provider Emergency Medicine; PCP Nurse Practitioner Family
DX: R42 Dizziness and giddiness (principal)
CPT/HCPCS: 93005; 99284; 70551; 93010

== ENCOUNTER 2024-10-08 01:51 | Outpatient (CLI) | payer BC, SELFPAY ==
--- NOTE | 2024-10-08 07:30 | DI.MRI_ITS ---
Exam(s) MR UPPER JOINT RT WO EXAM: MR UPPER JOINT RT WO CLINICAL HISTORY: rt shoulder pain,rt rotator cuff tear,calcific tendinitis,m75.101,m75.31. TECHNIQUE: Multiplanar multisequence MRI was performed. COMPARISON: Plain films 17 Feb 2024 FINDINGS: BONES: There is no fracture or contusion pattern. JOINTS:The acromioclavicular joint shows minimal spurring and a small amount of fluid. The glenohumeral joint shows no significant fluid. TENDONS: Supraspinatus: Thickening and intermediate signal. Focal area of high signal seen anteriorly at the attachment consistent with small full-thickness tear versus severe partial tear. Infraspinatus: Unremarkable. Subscapularis: Unremarkable. Teres Minor: Unremarkable. Biceps and Hurt: Unremarkable. MUSCLES: Unremarkable. GLENOID LABRUM: Not well evaluated without joint fluid or contrast. Fluid versus paralabral cyst adj acent to the anterior inferior labrum. Question of tear anteroinferiorly. SOFT TISSUES: The calcifications seen on plain films are not visible on the current exam. BURSAE: Subacromial and subdeltoid bursae show minimal fluid. Minimal fluid in the subcoracoid bursa . IMPRESSION: Focal tear at the anterior distal supraspinatus tendon. Question of anteroinferior labral tear and adjacent paralabral cyst. DATA REPOSITORY:
== END 2024-10-08 02:11 ==
LOC: DI 01:52
PROVIDERS: PCP Nurse Practitioner Family; Visit Provider Student in an Organized Health Care Education/Training Program
DX: M75.111 Incomplete rotator cuff tear or rupture of right shoulder, not specified as traumatic (principal)
CPT/HCPCS: 73221

== ENCOUNTER 2024-11-13 08:54 | Day surgery (SDC) | payer BC, SELFPAY ==
[2024-11-13] VITALS (24 sets, daily range): BP systolic 90–138; BP diastolic 45–86; PULSE 63–91; RESP 9–20; TEMP 36.2–36.8; O2SAT 95–100; BMI 21.7
--- NOTE | 2024-11-13 07:11 | W.PM.DSUDISC ---
Date of service: 11/13/24 Discharge Plan Disposition Patient Disposition: Home Condition: Stable Discharge Details Attending Provider: Cornelio Sanchez Primary Care Provider: Francesca Curiel Home Meds and New Rx's Prescriptions: New naproxen 250 mg tablet 250 - 500 mg PO BID PRN (Reason: moderate pain and swelling) Qty: 40 0RF oxycodone 5 mg tablet 5 - 10 mg PO .q4-6h MDD 30 mg PRN (Reason: severe pain) Qty: 18 0RF Continued High Potency Iron 134 mg (27 mg iron) tablet 134 mg PO DAILY elderberry fruit and flower 460-115 mg capsule 1 cap PO DAILY saw palmetto 160 mg capsule 580 mg PO BID ropinirole 2 mg tablet 2 mg PO QHS Qty: 90 3RF Rx Instructions: administer 1-3 hours before bedtime cholecalciferol (vitamin D3) [Vitamin D3] 2,000 unit Capsule 2,000 unit PO DAILY vitamin E 400 UNIT capsule 400 unit PO DAILY Discharge Instructions Additional Instructions: Surgery: Right shoulder arthroscopy with rotator cuff repair, biceps tenodesis, extensive debridement (including calcium removal), and subacromial decompression 11/13/24. Activity: For 6 weeks, you should keep your arm at your side in a neutral position at all times except for physical therapy. Do not try to lift or raise your arm using your own muscles. You should use the sling whenever you are out of the house. At home it is best to remove the sling and rest the arm on a pillow at your side or support the operative side with your other hand. You may allow the arm to dangle at your side. A physical therapy prescription will be sent electronically to begin in about 3 weeks. Standard protocol. Prescriptions: Naproxen 250 mg take 1-2 every 12 hours with a meal as needed for moderate pain Oxycodone 5 mg take 1-2 every 4-6 hours as needed for severe pain You may use [id number] Tylenol (acetaminophen) as needed for mild pain. These pain medications may be taken all at once or in different combinations as needed. Also, recommend Colace (docusate) as a stool softener as surgery and pain medicine cause constipation. You may try lkuv-lri-dqkaffw diphenhydramine (Benadryl) 25-50 mg nightly as a sleep aid Dressings: Remove shoulder bandage after 3 days. Leave the sticky Steri-Strips in place until they fall off or remove them after you shower. Cover the incisions with Band-Aids or leave them open to air. You may shower after 5 days. Follow-up: 10-[address] Sanchez You may take off the leg compression stockings this evening at home. You may also leave them on a few days longer if you have a history of leg swelling or edema. Let us know right away if you develop any redness, drainage, fevers, chest pain, or trouble breathing. Do not drink alcohol or drive for at least 24 hours after anesthesia. Please call the office during business hours with any questions or concerns. Discharge Orders Discharge Orders: Discharge Order (Routine); Ordered 11/13/24 Ordered By: Thais Lui DS: Diagnosis Discharge Diagnosis (1) Right rotator cuff tear: Status: Acute (2) Tear of right glenoid labrum: Status: Acute (3) Tendonitis of long head of biceps brachii of right shoulder: Status: Acute (4) Calcific tendinitis of right shoulder: Status: Acute
--- NOTE | 2024-11-13 07:30 | ROE_ITS ---
Operative Note Operative Note PRE-OP DIAGNOSIS: Right: 1. Rotator cuff tear 2. SLAP tear 3. Calcific tendinitis 4. Discomfort POST-OP DIAGNOSIS: same PROCEDURE: Right: 1. Rotator cuff repair, CPT# 73142. This involved repair of the supraspinatus using anchors and sutures to reattach the rotator cuff back to the footprint of the greater tuberosity. 2. Arthroscopic biceps tenodesis, CPT# 61177. This involved arthroscopically suturing and reattaching the long head of the biceps tendon to the proximal humerus at the superior margin of the bicipital groove with a screw at the correct tension. 3. Extensive debridement, CPT# 68590. This involved using arthroscopic hand instruments, power instruments, and radiofrequency instruments to release the long head of the biceps tendon and debride areas of panlabral tearing, SLAP tear, synovitis, and glenoid margin chondromalacia working with the glenohumeral joint anteriorly, superiorly, and posteriorly as well as rotator cuff calcium debridement and removal. 4. Subacromial decompression with partial acromioplasty, CPT# 23891. This involved using arthroscopic power instruments and a radiofrequency wand to complete a bursectomy and smooth the undersurface of the acromion. The special education teaching assistant was medically required in order to help assist in techniques above, which require positioning the arm, holding the arthroscope, and manipulating multiple instruments and sutures at the same time. This cannot be done without the help of an experienced special education teaching assistant. SURGEON: Cornelio Sanchez DISTRICT ATTORNEY: Thais Lui ANESTHESIA TYPE: Local By Surgeon, General LMA/ETT and Primary Nerve Block Refer to Anesthesia Record ESTIMATED BLOOD LOSS: 10 PATHOLOGY: none sent COMPLICATIONS: None Patient was transported to: PACU Patient's condition: stable Implants: Arthrex: 4.75mm SwiveLocks x 2 Indications: The patient was diagnosed with the above conditions and appropriately indicated for surgical intervention. Please see complete medical record for details. Findings: Exam under anesthesia: Full range of motion, no instability Glenohumeral joint: Moderate chondromalacia with higher grade cartilage loss along the anterior margin especially as well as somewhat inferiorly and posteriorly. Valadez labral degenerative tearing and some anterior partial detachment. Redundant superior labrum and SLAP tear unstable biceps anchor. Otherwise intact biceps. Intact subscapularis. Intact articular supraspinatus but thin and abnormal due to either degeneration or calcium. Subacromial space: Significant diminutive space, moderately significant bursitis, concealed rotator cuff tear with small amounts of calcium in the tear void. Hemorrhagic injection throughout the supraspinatus. Procedure Description: In the operating room, general anesthesia was induced. Bilateral shoulders were examined. The patient was positioned in the beachchair position. All bony prominences were well-padded. Preoperative antibiotics were administered. The shoulder was prepped and draped in the usual sterile fashion. The correct patient, procedure, and side of the procedure were all verified prior to incision. Starting through the posterior portal a standard complete diagnostic arthroscopy was performed of the glenohumeral joint including inspection of the long head of the biceps, anterior and superior labrum, subscapularis tendon, supraspinatus and infraspinatus tendons, and axillary recess. The glenoid and humeral head cartilage as well as the posterior labrum were inspected from an anterior viewing portal. Significant findings and interventions noted above. An all-arthroscopic suprapectoral biceps tenodesis was performed through an anterior portal using a Loop N Tack method with a SutureTape FiberLink cinched around and through the tendon. The biceps was tenotomized from the labrum and fixated with a suture anchor at the superior margin of the bicipital groove. The knotless repair suture shoulder around the biceps stump back through the anchor mechanism and tension and excellent additional security to the repair. Starting through the posterior portal, the arthroscope was directed into the subacromial space. A lateral 50 yard line lateral portal was created. A combination of power instruments and a radiofrequency ablator were used to debride bursitis anteriorly, posteriorly, and laterally as well as expose and smooth bone spurring on the undersurface of the acromion. The coracoacromial ligament was partially released. The bursectomy was completed viewing laterally and working from posteriorly and the rotator cuff was thoroughly inspected with findings noted above. The rotator cuff was thoroughly probed. The high-grade tear of the supraspinatus anterior centrally was not readily apparent. Carefully with arm rotation starting laterally blunt and then sharp instruments were used to probe the rotator cuff for thinness and softness and then elevate as much length as possible of healthy tendon from laterally until the switching stick fell into an apparent void. The cuff grasper was used to determine the depth and size of the tear with some calcium expressed and the mechanical shaver used to remove unhealthy tendon as well as the calcium deposit remnant. There were [place] rotator cuff attachments still present majority anteriorly and posteriorly of this tear area. The footprint was lightly abraded underneath and a small lateral area cleared of soft tissue. A speed fix type repair was done with an inverted horizontal mattress FiberTape and ripstop suture tape FiberLink in cinch mode passed with the scorpion and all 3 suture repair tails secured nicely with appropriate tension to a single lateral 4.75 mm SwiveLock anchor. The repair was stable through testing. The remainder of the rotator cuff did not have any other tearing that required repair. The shoulder was drained of arthroscopic fluid. All portal sites were copiously irrigated. These incisions were closed using 3-0 Monocryl in a buried fashion and then covered with Mastisol, Steri-Strips, Xeroform, dry gauze, and ABDs. The dressings were covered and secured with Medipore tape. The operative extremity was placed into a sling for immobilization. The patient awoke from anesthesia without complication and was transferred to the recovery room in a stable condition. Date of Procedure: 11/13/24
--- NOTE | 2024-11-13 09:29 | ANES.PREOP_ITS ---
General Info Date of Service Date Performed: 11/13/24 Height: 5 ft 9 in Weight: 66.7 kg Body Mass Index (BMI): 21.7 Surgical Procedure: Operation Date: 11/13/24 10:25 Proposed Procedure Side Surgeon p Shoulder Rotator Cuff Arthroscopic w/Extensive Debridement, Biceps Tenodesis, Subacromial Decompression Right Cornelio Sanchez MD Meds Allergies and Home Medications Allergies Allergy/AdvReac Type Severity Reaction Status Date / Time No Known Allergies Allergy Verified 11/13/24 09:14 Home Medication ?Medication ?Instructions ?Recorded vitamin E 268 mg (400 unit) capsule 400 unit PO DAILY 04/23/18 cholecalciferol (vitamin D3) 50 2,000 unit PO DAILY 01/22/19 mcg (2,000 unit) capsule (Vitamin D3) elderberry fruit 460 mg-elderberry 1 cap PO DAILY 06/29/21 flower 115 mg capsule ferrous sulfate 134 mg (27 mg 134 mg PO DAILY 06/29/21 iron) tablet (High Potency Iron) saw palmetto 160 mg capsule 580 mg PO BID 06/29/21 ropinirole 2 mg tablet 2 mg PO QHS #90 tabs 01/23/24 Current Visit Medications: Current Medications Generic Name Dose Route Start Last Admin Trade Name Freq PRN Reason Stop Dose Admin Ringer's Solution 1,000 mls @ 30 mls/hr 11/13/24 06:00 IV 11/13/24 23:59 INFUSION SUSIE Cefazolin Sodium/Dextrose 2 gm in 50 mls @ 100 mls/hr 11/13/24 06:00 Ancef Duplex IVPB 11/13/24 23:59 PREOP SUSIE Tranexamic Acid/Sodium Chloride 1,000 mg in 100 mls @ 600 mls/hr 11/13/24 06:00 IVPB 11/13/24 23:59 PREOP SUSIE IV Miscellaneous Supplies 1 each 11/13/24 06:00 Iv Access IV 11/13/24 23:59 DIRECTED SUSIE Oxycodone HCl 0 mg 11/13/24 07:10 Oxycodone 5 Mg Tab PO 12/13/24 07:09 Q3H PRN PRN Pain Sodium Chloride 0 ml 11/13/24 06:00 Normal Saline Flush 10 Ml Syr IV 11/13/24 23:59 PRN PRN Sodium Chloride 0 ml 02/07/25 06:00 Normal Saline 10 Ml Vial IJ 11/13/24 23:59 DIRECTED PRN Sterile Water 0 ml 11/13/24 06:00 Water,Injection,Sterile 10 Ml Vial IJ 11/13/24 23:59 DIRECTED PRN PFSH Active Problems Active Problems: Problem Status Onset Code Tear of right glenoid labrum Acute S43.431A Tendonitis of long head of biceps brachii of right shoulder Acute M75.21 Right rotator cuff tear Acute M75.101 Herpesviral vesicular dermatitis Acute B00.1 Arthrofibrosis of total knee replacement Acute T84.82XA Calcific tendinitis of right shoulder Acute M75.31 Sacroiliac joint dysfunction of both sides Acute M53.3 Imbalance Acute R26.89 Sensorineural hearing loss, bilateral Acute H90.3 Restless leg Acute G25.81 Hallux valgus (acquired), right foot Acute M20.11 Impacted cerumen of both ears Acute H61.23 Osteoarthritis of left patellofemoral joint Chronic M17.12 Lumbar radiculitis Acute M54.16 Hammertoe of left foot Acute M20.42 Hallux valgus of left foot Acute M20.12 Arthritis of carpometacarpal (CMC) joint of left thumb Acute M18.12 Tendonitis involving right hip abductors Acute M76.891 Tendonitis involving left hip abductors Acute M76.892 Weakness of both hips Acute R29.898 Arthritis of carpometacarpal (CMC) joint of right thumb Acute M18.11 Nocturnal leg cramps Acute 04/22/18 G47.62 Conductive hearing loss, external ear Acute 08/19/14 H90.2 Medical History Medical History Hyperglycemia Actinic keratoses Acute hip pain, bilateral Degenerative disc disease Nausea Peripheral neuropathy Urticaria, acute Low back pain Foot pain, left DDD (degenerative disc disease), lumbar Right knee pain Bilateral hip pain Bilateral thumb pain Leg cramps Anemia Actinic keratitis Cold sore Nocturnal leg cramps Chronic pruritus Surgical History Surgical History History of total right knee replacement (05/20/24) S/P surgical manipulation of knee joint (~07/2024) H/O radiofrequency ablation (RFA) of nerve of lumbar spine History of cardiac radiofrequency ablation (RFA) Pt. states it was not a CARDIAC ablation but in his back History of bunionectomy Hx of tonsillectomy EGD - MAC (04/28/18) Colonoscopy - MAC Colonoscopy - IV Sedation 2010- normal Tobacco Smoking/Tobacco Use Status: Never Alcohol Alcohol Intake: current Alcohol intake frequency: a few times a month Alcohol type: beer Substance Use Substance use: Never Substance use type: does not use Details: CBD salve on muscles. Vital Signs and Lab Results Vital Signs Most Recent Vital Signs in EMR: Most Recent Vital Signs Temp Pulse Resp BP Pulse Ox 36.4 C L 91 H 20 137/78 99 11/13/24 08:56 11/13/24 08:56 11/13/24 08:56 11/13/24 08:56 11/13/24 08:56 Lab Results Blood Type / Crossmatch: 2 No Data to Display Complete Blood Count: No Data to Display Complete Metabolic Panel: No Data to Display Liver Function Panel: No Data to Display Coagulation Panel: No Data to Display Cardiac Panel: No Data to Display Arterial Blood Gas: No Data to Display Venous Blood Gas: No Data to Display Pancreas Panel: No Data to Display Thyroid Panel: No Data to Display Infectious Disease: No Data to Display Blood Cultures: No Data to Display Toxicology Panel: No Data to Display Imaging and Studies Imaging and Studies Study information below may be from another EMR and interpreted by another provider. Please see original notes in EMR for more complete details. EKG Summary: 10/01/24: Exam: Resting ECG Reason for Exam: dizziness Patient Location: E HR:78 bpm ECG Measurements Heart Rate 78 AXIS DC 150 P 79 QRSd 79 QRS 73 QT 351 T62 QTc 401 Conclusion Sinus rhythm 78 normal axis no stemi I have reviewed and I agree with the emergency room physician's ECG interpretation. Anesthesia Assessment and Plan Anesthesia History Personal History: No History of Anesthesia Complications Family History: No Family History of Anesthesia Complications Exercise Tolerance Exercise Tolerance: Metabolic Equivalents>4 Pertinent Negatives Pertinent Negatives: No Symptoms of GERD, No Major Cardiovascular Symptoms or Complaints and No Major Pulmonary Symptoms or Complaints Cardiac & Pulmonary Exam Cardiac Exam: Normal S1/S2 Heart Sounds Pulmonary Exam: Clear Bilateral Breath Sounds Implantable Cardiac Device Does patient have a Pacemaker or an ICD?: No Airway Exam Known Difficult Airway: No Mallampati Class: 2 Mouth Opening: Normal (> 3cm) Thyromental Distance: Greater than 3 cm Neck Range of Motion: Full ROM Neck Circumference: Normal Teeth Condition: Normal Dentition ASA Classification ASA Score: ASA 2 Emergency Case?: No NPO Status NPO Status: NPO Clears >2 hours, Solids >8 hours Anesthesia Plan Resuscitation Status: Full Code Anesthesia Technique: General Anesthesia Airway Planned: Endotracheal Tube Pain Management: Surgeon and patient request nerve block Monitors Used: Standard Monitors and SedLine
[2024-11-13] MEDS: Lactated Ringers 1,000 ML 30 ML IV (09:33)
[2024-11-13] MEDS: ceFAZolin 2 GM/50 ML BAG IVPB (11:31)
[2024-11-13] MEDS: TRANEXAMIC ACID/SOD. CHL. 1,000 MG/100 ML BAG 600 MG IVPB (11:38)
--- NOTE | 2024-11-13 12:03 | W.ANESNERVE ---
Nerve Block Single Injection Procedure Date and Time Date Performed: 11/13/24 Procedure Start: 10:56 Location Where Procedure Performed Procedure Location: Day Surgery Unit Reason Performed: Postoperative Analgesia Requesting Provider: Cornelio Sanchez Timeout Performed Timeout Performed: Yes Monitoring Used ECG, Blood Pressure, SpO2 and See EMR for corresponding vital signs Sterility Sterility: Hand Hygiene, Surgical Cap, Surgical Mask, Sterile Gloves and Chlorhexidine Sedation Given During Procedure Sedation Given (Indicate Dose Given): Versed IV Dose:: 2mg and Precedex IV Dose:: 8mcg Patient Mental Status Patient Mental Status: Sedate with meaningful communication Nerve Block 1st Nerve Block: Laterality: Right Block Type: Interscalene (Low) Ultrasound Image Saved?: Yes Needle / Catheter Used: 80mm SonoPlex II Local Anesthetic Bolus (Indicate Dose Given): Lidocaine used for local infiltration of skin, Injected in 3-5ml increments after negative blood aspiration, Bupivacaine 0.5% Dose:: 10mL and Exparel Dose:: 10mL Additives (Indicate Dose Given): None Ultrasound: Sterile probe cover and gel used Nerve Stimulator: Supplement to Ultrasound use and No twitch or parasthesia noted < 0.5 mA Paresthesia: None Procedure Tolerated: No Complications Procedure Outcome: Successful Procedure Comment: Patient was having significant pain with restless legs. Following time out sedation administered and given some time to set in. Patient tolerated procedure well. Performed By: Deepika Oneil
[2024-11-13] MEDS: Bupivacaine 0.25% Pres-Free W/EPI 30 ML VIAL (12:07)
--- NOTE | 2024-11-13 13:29 | W.ANESPOSTOP ---
Postoperative Evaluation Date, Time and Location Date Performed: 11/13/24 Time Performed: 13:29 Patient Location: PACU Vital Signs Most Recent Imported Vital Signs: Most Recent Vital Signs Temp Pulse Resp BP Pulse Ox 36.8 C 76 14 138/86 98 11/13/24 11:03 11/13/24 11:03 11/13/24 11:03 11/13/24 11:03 11/13/24 11:03 Pain Score Most Recent Pain Score: Most Recent Pain Score Pain Level 0 11/13/24 11:03 Assessment Mental Status: Arousable with meaningful communication Airway and Respiratory Function: Patent airway with normal (patient baseline) respiratory exam Cardiovascular Function: Hemodynamically Stable Hydration Status: Adequately Hydrated Nausea & Vomiting: No Nausea or Vomiting Pain: Pain is tolerable per patient Peripheral Nerve Block: Regional nerve block not resolved at time of post operative discharge
[2024-11-13] MEDS: EPINEPHrine 10 MG/10 ML ML (13:32)
== END 2024-11-13 15:15 | disposition home or self-care (01) ==
LOC: SUR 08:54
PROVIDERS: PCP Nurse Practitioner Family; Visit Provider Student in an Organized Health Care Education/Training Program
PROC: (CPT 29827; principal; 2024-11-13 10:15)
DX: M75.101 Unspecified rotator cuff tear or rupture of right shoulder, not specified as traumatic (principal); S43.431A Superior glenoid labrum lesion of right shoulder, initial encounter; M75.21 Bicipital tendinitis, right shoulder; M75.31 Calcific tendinitis of right shoulder; X58.XXXA Exposure to other specified factors, initial encounter; G89.18 Other acute postprocedural pain
CPT/HCPCS: 29827; 29828; 29823; 29826; 64415; J0665; J0666; J0690; J1100; J2003; J2250; J2371; J2405; J2704

== ENCOUNTER 2025-01-05 12:16 | Day surgery (SDC) | payer BC, SELFPAY ==
[2025-01-05] VITALS (27 sets, daily range): BP systolic 106–131; BP diastolic 60–87; PULSE 63–81; RESP 9–16; TEMP 36.1–36.6; O2SAT 97–100; BMI 21.7
--- NOTE | 2025-01-05 11:14 | ANES.PREOP_ITS ---
General Info Date of Service Date Performed: 01/05/25 Height: 5 ft 9 in Weight: 66.7 kg Body Mass Index (BMI): 21.7 Surgical Procedure: Operation Date: 01/05/25 13:55 Proposed Procedure Side Surgeon p Knee Arthroscopy Synovectomy Right Jerson Calderon MD Meds Allergies and Home Medications Allergies Allergy/AdvReac Type Severity Reaction Status Date / Time No Known Allergies Allergy Verified 01/05/25 12:58 Home Medication ?Medication ?Instructions ?Recorded vitamin E 268 mg (400 unit) capsule 400 unit PO DAILY 04/23/18 cholecalciferol (vitamin D3) 50 2,000 unit PO DAILY 01/22/19 mcg (2,000 unit) capsule (Vitamin D3) elderberry fruit 460 mg-elderberry 1 cap PO DAILY 06/29/21 flower 115 mg capsule ferrous sulfate 134 mg (27 mg 134 mg PO DAILY 06/29/21 iron) tablet (High Potency Iron) saw palmetto 160 mg capsule 580 mg PO BID 06/29/21 naproxen 250 mg tablet 250 - 500 mg (1 - 2 x 250 mg) PO 11/13/24 BID PRN moderate pain and swelling #40 tabs ropinirole 2 mg tablet 2 mg PO QHS #90 tabs 01/05/25 Current Visit Medications: Current Medications Generic Name Dose Route Start Last Admin Trade Name Freq PRN Reason Stop Dose Admin Acetaminophen 1,000 mg 01/05/25 06:00 Acetaminophen 500 Mg Tab PO 01/05/25 23:59 PREOP SUSIE Acetaminophen 650 mg 01/05/25 11:03 Acetaminophen 325 Mg Tab PO 02/04/25 11:02 Q4H PRN PRN Hydrocodone Bitart/Acetaminophen 0 tab 01/05/25 11:03 Hydrocodone 5/Acetaminophen 325 Tab PO 02/04/25 11:02 Q3H PRN PRN Pain Celecoxib 400 mg 01/05/25 06:00 Celecoxib 200 Mg Cap PO 01/05/25 23:59 PREOP SUSIE Ringer's Solution 1,000 mls @ 80 mls/hr 01/05/25 06:00 IV 01/05/25 23:59 INFUSION SUSIE Cefazolin Sodium/Dextrose 2 gm in 50 mls @ 100 mls/hr 01/05/25 06:00 Ancef Duplex IVPB 01/05/25 23:59 PREOP SUSIE Tranexamic Acid/Sodium Chloride 1,000 mg in 100 mls @ 600 mls/hr 01/05/25 06:00 IVPB 01/05/25 23:59 DIRECTED COUNT INCLUDES THE [facility] IV Miscellaneous Supplies 1 each 01/05/25 06:00 Iv Access IV 01/05/25 23:59 DIRECTED COUNT INCLUDES THE [facility] Sodium Chloride 0 ml 01/05/25 06:00 Normal Saline Flush 10 Ml Syr IV 01/05/25 23:59 PRN PRN Sodium Chloride 0 ml 01/05/25 06:00 Normal Saline 10 Ml Vial IJ 01/05/25 23:59 DIRECTED PRN Sterile Water 0 ml 01/05/25 06:00 Water,Injection,Sterile 10 Ml Vial IJ 01/05/25 23:59 DIRECTED PRN PFSH Active Problems Active Problems: Problem Status Onset Code Unspecified lesions of oral mucosa Acute K13.70 Tear of right glenoid labrum Acute S43.431A Tendonitis of long head of biceps brachii of right shoulder Acute M75.21 Right rotator cuff tear Acute M75.101 Herpesviral vesicular dermatitis Acute B00.1 Arthrofibrosis of total knee replacement Acute T84.82XA Calcific tendinitis of right shoulder Acute M75.31 Sacroiliac joint dysfunction of both sides Acute M53.3 Imbalance Acute R26.89 Sensorineural hearing loss, bilateral Acute H90.3 Restless leg Acute G25.81 Hallux valgus (acquired), right foot Acute M20.11 Impacted cerumen of both ears Acute H61.23 Osteoarthritis of left patellofemoral joint Chronic M17.12 Lumbar radiculitis Acute M54.16 Hammertoe of left foot Acute M20.42 Hallux valgus of left foot Acute M20.12 Arthritis of carpometacarpal (CMC) joint of left thumb Acute M18.12 Tendonitis involving right hip abductors Acute M76.891 Tendonitis involving left hip abductors Acute M76.892 Weakness of both hips Acute R29.898 Arthritis of carpometacarpal (CMC) joint of right thumb Acute M18.11 Nocturnal leg cramps Acute 04/22/18 G47.62 Conductive hearing loss, external ear Acute 14 H90.2 Medical History Medical History Hyperglycemia Actinic keratoses Acute hip pain, bilateral Degenerative disc disease Nausea Peripheral neuropathy Urticaria, acute Low back pain Foot pain, left DDD (degenerative disc disease), lumbar Right knee pain Bilateral hip pain Bilateral thumb pain Leg cramps Anemia Actinic keratitis Cold sore Nocturnal leg cramps Chronic pruritus Surgical History Surgical History Hx of shoulder surgery RTCR History of total right knee replacement (05/20/24) S/P surgical manipulation of knee joint (~07/2024) H/O radiofrequency ablation (RFA) of nerve of lumbar spine History of cardiac radiofrequency ablation (RFA) Pt. states it was not a CARDIAC ablation but in his back History of bunionectomy Hx of tonsillectomy EGD - MAC (04/28/18) Colonoscopy - MAC Colonoscopy - IV Sedation 2010- normal Tobacco Smoking/Tobacco Use Status: Never Passive smoking exposure: No Alcohol Alcohol Intake: current Alcohol intake frequency: a few times a month Alcohol type: beer Substance Use Substance use: Never Substance use type: does not use Details: CBD salve on muscles. Vital Signs and Lab Results Lab Results Blood Type / Crossmatch: No Data to Display Complete Blood Count: No Data to Display Complete Metabolic Panel: No Data to Display Liver Function Panel: No Data to Display Coagulation Panel: No Data to Display Cardiac Panel: No Data to Display Arterial Blood Gas: No Data to Display Venous Blood Gas: No Data to Display Pancreas Panel: No Data to Display Thyroid Panel: No Data to Display Infectious Disease: No Data to Display Blood Cultures: No Data to Display Toxicology Panel: No Data to Display Imaging and Studies Imaging and Studies Study information below may be from another EMR and interpreted by another provider. Please see original notes in EMR for more complete details. EKG Summary: 10/01/24: Exam: Resting ECG Reason for Exam: dizziness Patient Location: E HR:78 bpm ECG Measurements Heart Rate 78 AXIS UT 150 P 79 QRSd 79 QRS 73 QT 351 T62 QTc 401 Conclusion Sinus rhythm 78 normal axis no stemi I have reviewed and I agree with the emergency room physician's ECG interpretation. Anesthesia Assessment and Plan Anesthesia History Personal History: No History of Anesthesia Complications Family History: No Family History of Anesthesia Complications Exercise Tolerance Exercise Tolerance: Metabolic Equivalents>4 Cardiac & Pulmonary Exam Cardiac Exam: Normal S1/S2 Heart Sounds Pulmonary Exam: Clear Bilateral Breath Sounds Implantable Cardiac Device Does patient have a Pacemaker or an ICD?: No Airway Exam Known Difficult Airway: No Mallampati Class: 2 Mouth Opening: Normal (> 3cm) Thyromental Distance: Greater than 3 cm Neck Range of Motion: Full ROM Neck Circumference: Normal Teeth Condition: Normal Dentition ASA Classification ASA Score: ASA 2 Emergency Case?: No NPO Status NPO Status: NPO Clears >2 hours, Solids >8 hours Anesthesia Plan Resuscitation Status: Full Code Anesthesia Technique: General Anesthesia Airway Planned: LMA Pain Management: Surgeon and patient request nerve block Monitors Used: Standard Monitors Preoperative Comments:: 64 yo male for knee scope s/p TKA and manipulation. Denies major health history change since his last anesthetic. Sig PMHx: peripheral neuropathy, never smoker, occ etOH. Previous Anes: - shoulder, glide 3 grade 1, easy mask - TKA, spinal chloro, prop sedation, no issues. - bunion, LMA 5.
--- NOTE | 2025-01-05 12:00 | W.PREOPHP ---
Assessment and Plan Assessment and plan (1) Arthrofibrosis of total knee replacement: Status: Acute Assessment and plan: Cristo is a 64-year-old who has arthrofibrosis about the right knee. He has improved with his manipulation although still has restriction in range of motion. At this point I recommend we proceed with an arthroscopic synovectomy with manipulation. He will follow this up with physical therapy as well as dynamic splinting. Hopefully this will ensure some improved range of motion. There are no other concerning symptoms or signs at this time. However, we will continue to follow closely. I once again reviewed the technical details of surgery today. I discussed the risk to include bleeding, infection, pain, continued stiffness, blood clot, need for repeat procedures. Despite these risk, he elects to proceed. History of Present Illness History of Present Illness Chief Complaint: Right Knee Arthrofibrosis s/p Replacement Narrative: Cristo is a 64-year-old who is status post right knee replacement. He is struggled range of motion afterwards. He did improve after manipulation anesthesia but is slowly regressed. Denies any start of pain. He denies any issues with the wound. He also recently had a rotator cuff tear which has been fixed. No chest pain shortness of breath. No other acute medical concerns. Review of Systems All systems reviewed & are unremarkable except as noted in HPI and below PFSH All Active Problems Unspecified lesions of oral mucosa (Acute) Tear of right glenoid labrum (Acute) Tendonitis of long head of biceps brachii of right shoulder (Acute) Right rotator cuff tear (Acute) s/p Right shoulder arthroscopy with rotator cuff repair, biceps tenodesis, extensive debridement (including calcium removal), and subacromial decompression 11/13/24 Herpesviral vesicular dermatitis (Acute) Arthrofibrosis of total knee replacement (Acute) RIGHT S/P Manipulation under anesthesia: 07/08/2024 Calcific tendinitis of right shoulder (Acute) Sacroiliac joint dysfunction of both sides (Acute) Imbalance (Acute) Sensorineural hearing loss, bilateral (Acute) Restless leg (Acute) Hallux valgus (acquired), right foot (Acute) Impacted cerumen of both ears (Acute) Osteoarthritis of left patellofemoral joint (Chronic) Lumbar radiculitis (Acute) Hammertoe of left foot (Acute) Hallux valgus of left foot (Acute) Arthritis of carpometacarpal (CMC) joint of left thumb (Acute) Tendonitis involving right hip abductors (Acute) Tendonitis involving left hip abductors (Acute) Weakness of both hips (Acute) Arthritis of carpometacarpal (CMC) joint of right thumb (Acute) Nocturnal leg cramps (Acute 04/22/18) Conductive hearing loss, external ear (Acute 08/19/14) Medical History Hyperglycemia Actinic keratoses Acute hip pain, bilateral Degenerative disc disease Nausea Peripheral neuropathy Urticaria, acute Low back pain Foot pain, left DDD (degenerative disc disease), lumbar Right knee pain Bilateral hip pain Bilateral thumb pain Leg cramps Anemia Actinic keratitis Cold sore Nocturnal leg cramps Chronic pruritus Surgical History Hx of shoulder surgery RTCR History of total right knee replacement (05/20/24) S/P surgical manipulation of knee joint (~07/2024) H/O radiofrequency ablation (RFA) of nerve of lumbar spine History of cardiac radiofrequency ablation (RFA) Pt. states it was not a CARDIAC ablation but in his back History of bunionectomy Hx of tonsillectomy EGD - MAC (04/28/18) Colonoscopy - MAC Colonoscopy - IV Sedation 2009- normal Family History Father Alzheimers disease Social History Smoking/Tobacco Use Status: Never Smoking risk assessment performed?: Yes Alcohol Intake: current Alcohol Intake frequency: a few times a month Alcohol type: beer Drug use: Never Substance use type: does not use Details: CBD salve on muscles. 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 What is your relationship status?: Panel score (0-1 are the most socially isolated patients): 1 What type of physical activity do you participate in: independent ambulation, regular exercise and weight lifting Duration: 30-45 minutes/day Frequency: 3-4 times per week Do you feel safe at home: Yes Do you feel safe in your relationship?: Yes Meds Allergies and Home Medications Allergies Allergy/AdvReac Type Severity Reaction Status Date / Time No Known Allergies Allergy Verified 01/05/25 12:58 Home Medications ?Medication ?Instructions ?Recorded ?Confirmed ?Type vitamin E 268 mg (400 unit) capsule 400 unit PO DAILY 04/23/18 01/05/25 History cholecalciferol (vitamin D3) 50 2,000 unit PO DAILY 01/22/19 01/05/25 History mcg (2,000 unit) capsule (Vitamin D3) elderberry fruit 460 mg-elderberry 1 cap PO DAILY 06/29/21 01/05/25 History flower 115 mg capsule ferrous sulfate 134 mg (27 mg 134 mg PO DAILY 06/29/21 01/05/25 History iron) tablet (High Potency Iron) saw palmetto 160 mg capsule 580 mg PO BID 06/29/21 01/05/25 History naproxen 250 mg tablet 250 - 500 mg (1 - 2 x 250 mg) PO 11/13/24 01/05/25 Rx BID PRN moderate pain and swelling #40 tabs ropinirole 2 mg tablet 2 mg PO QHS #90 tabs 01/05/25 01/05/25 Rx Exam Const General: cooperative, healthy appearing, comfortable and no acute distress Resp Auscultation: clear to auscultation bilaterally Cardio Rate: regular rate Rhythm: regular rhythm
[2025-01-05] MEDS: Acetaminophen 500 MG TAB 1000 MG PO (13:01)
[2025-01-05] MEDS: Celecoxib 200 MG CAP 400 MG PO (13:01)
[2025-01-05] MEDS: Lactated Ringers 1,000 ML 80 ML IV (13:20)
[2025-01-05] MEDS: ceFAZolin 2 GM/50 ML BAG IVPB (14:50)
[2025-01-05] MEDS: TRANEXAMIC ACID/SOD. CHL. 1,000 MG/100 ML BAG 600 MG IVPB (14:59)
--- NOTE | 2025-01-05 15:06 | W.ANESNERVE ---
Nerve Block Single Injection Procedure Date and Time Date Performed: 01/05/25 Procedure Start: 14:42 Location Where Procedure Performed Procedure Location: Day Surgery Unit Reason Performed: Postoperative Analgesia Requesting Provider: Jerson Calderon Timeout Performed Timeout Performed: Yes Monitoring Used ECG, Blood Pressure, SpO2 and See EMR for corresponding vital signs Sterility Sterility: Hand Hygiene, Surgical Cap, Surgical Mask, Sterile Gloves and Chlorhexidine Sedation Given During Procedure Sedation Given (Indicate Dose Given): Versed IV Dose:: 2 mg Patient Mental Status Patient Mental Status: Sedate with meaningful communication Nerve Block 1st Nerve Block: Laterality: Right Block Type: Adductor Canal Ultrasound Image Saved?: Yes Needle / Catheter Used: 100mm SonoPlex II Local Anesthetic Bolus (Indicate Dose Given): Lidocaine used for local infiltration of skin, Injected in 3-5ml increments after negative blood aspiration and Bupivacaine 0.25% Dose:: 10 ml Additives (Indicate Dose Given): Normal Saline Ultrasound: Sterile probe cover and gel used Nerve Stimulator: Supplement to Ultrasound use and No twitch or parasthesia noted < 0.5 mA Paresthesia: None Procedure Tolerated: No Complications and Patient tolerated well Procedure Outcome: Successful Performed By: Oneil Colindres
--- NOTE | 2025-01-05 15:10 | W.PM.DSUDISC ---
Date of service: 01/05/25 Discharge Plan Disposition Patient Disposition: Home Condition: Good Discharge Details Reason For Visit: Arthrofibrosis of right knee Attending Provider: Jerson Calderon Primary Care Provider: Francesca Curiel Home Meds and New Rx's Prescriptions: New hydrocodone-acetaminophen 5-325 mg tablet 1 tab PO Q6H PRN (Reason: severe pain) Qty: 6 0RF Rx Instructions: Take one tablet up to every 6 hours as needed for severe postoperative pain acetaminophen 500 mg tablet 500 mg PO Q6H PRN (Reason: pain) Qty: 60 2RF ibuprofen 600 mg tablet 600 mg PO TID PRN (Reason: pain) Qty: 60 0RF Continued High Potency Iron 134 mg (27 mg iron) tablet 134 mg PO DAILY elderberry fruit and flower 460-115 mg capsule 1 cap PO DAILY saw palmetto 160 mg capsule 580 mg PO BID cholecalciferol (vitamin D3) [Vitamin D3] 2,000 unit Capsule 2,000 unit PO DAILY ropinirole 2 mg tablet 2 mg PO QHS Qty: 90 3RF Rx Instructions: administer 1-3 hours before bedtime vitamin E 400 UNIT capsule 400 unit PO DAILY Discontinued naproxen 250 mg tablet 250 - 500 mg PO BID PRN (Reason: moderate pain and swelling) Qty: 40 0RF Discharge Instructions Additional Instructions: Knee Manipulation Discharge Instructions Activity: You should begin moving as soon as possible. You may work on flexion but also equally maintain extension. You may bear weight as tolerated, using crutches/walker only for support/comfort. You should apply ice to help with swelling and elevate when possible (especially in the first few days). Dressings: The knee dressing may come down after 48 hours. You may shower and get the wound wet at that time. You should keep the wounds covered with a bandaid until follow-up. Medications: - Recommend to take up to 500mg of Acetaminophen (Tylenol) every 6 hours and 600mg of Ibuprofen (Advil) every 8 hours as needed. These larger strength tablets were called in but you also may use [id number]. - A narcotic pain medication, Hydrocodone, was also prescribed to take as needed for severe breakthrough pain. Follow-up: 7-10 days Stand Alone Forms: Anesthesia Discharge Inst., Kvng Knee Arthroscopy, Rodri William ([facility]) Referrals: Jerson Calderon MD [ [facility] STAFF PHYSICIAN] - 01/18/25 11:00 am Equipment/Supplies: Partial Weight Bearing Crutches Activity:: Elevate Remove Dressings/Wound Care:: 48 hours Shower/Bathe:: 48 hours Diet:: As Tolerated Discharge Orders Discharge Orders: Discharge Order (Routine); Ordered 01/05/25 Ordered By: Tiana Rogel DS: Diagnosis Discharge Diagnosis (1) Arthrofibrosis of total knee replacement: Status: Acute
[2025-01-05] MEDS: Bupivacaine 0.25% Pres-Free 30 ML VIAL (15:12)
--- NOTE | 2025-01-05 15:38 | ROE_ITS ---
Operative Note Operative Note PRE-OP DIAGNOSIS: Arthrofibrosis of Knee Replacement - Right POST-OP DIAGNOSIS: same PROCEDURE: Arthroscopic Synovectomy of 3 Compartments with Manipulation -right knee SURGEON: Jerson Calderon ANESTHESIA TYPE: General LMA/ETT Refer to Anesthesia Record ESTIMATED BLOOD LOSS: 0 PATHOLOGY: none sent COMPLICATIONS: None Patient was transported to: PACU Patient's condition: stable Indications: I have seen Cristo in clinic for symptoms of arthrofibrosis of the knee following knee replacement surgery. Nonoperative measures were exhausted but disability due to lack of motion persisted. I discussed knee arthroscopy with synovectomy with maniuplation with the patient. I reviewed the risks of the procedure to include, but not limited to, bleeding, infection, pain, continued stiffness, re currence, blood clot. Despite these risks, the patient elected to proceed. Findings: Preoperative Range of Motion: Flexion: 95 Extension:0 Postoperative Range of Motion: Flexion:120 Extension:0 Procedure Description: Cristo was greeted in the preoperative holding area where the correct side was identified and marked. The consent was reviewed with the patient and signed. The history and physical was updated. All questions were answered. He was taken back to the operating room. The patient was placed into the supine position on the operating room table. All bony prominences were well padded. Prophylactic antibiotics in the form of Cefazolin were administered. Preoperative range of motion was assessed as 0 - 95. The right leg was then prepped with Chloraprep and draped in a standard fashion with stockinette and extremity drape. A timeout to confirm correct identity, side and site, procedure, allergies, anesthesia, and medical concerns was performed. A standard lateral portal was made at the lateral border of the patella tendon in line with the inferior pole of the patella, soft spot. The skin and deep tissue was incised sharply and the blunt trochar was inserted atraumatically. At this point had visualization of the femoral component. A superolateral portal was then established with spinal needle localization just superior and lateral to the patella. A knife was taken down through the skin and soft tissue to enter the knee joint. Starting in the superior compartment above the femoral component and anterior to the femur I released all scarring between the anterior femoral synovium and the overlying extensor mechanism. This was taken through all of any noticeable scar tissue until the superior patellar pouch was fully released and mobile. This resection was carried out mostly with electrocautery as well as shaver. Once this was released fully from lateral to medial superiorly I then continue working down the lateral gutter. All scar tissue in the lateral gutter was released so there is normal space and movement between the capsular tissues and the edge of the femoral component and femur. This was taken down through the lateral gutter such that I was able to identify the polyethylene to its posterior corner. Once again, all scar tissue in this area was resected so the polyethylene was easily visible and there is no interposed tissue in the back or the polyethylene was identified. I then continued to work anteriorly through the anterior compartment to the medial compartment. Adhesions between the capsule and the femur were released. This was continued up the medial gutter until it met up with the releases performed previously in the superior compartment. Any remnant scar tissue from around the patella was then removed with a shaver and electrocautery. The arthroscope was brought back into the suprapatellar pouch and the leg was in full extension. The knee was thoroughly irrigated with the arthroscopic fluid on high flow and pressure. Inflow was stopped and excess fluid was removed. A manipulation was performed. I first push the knee into flexion and was able to obtain 120 degrees. The wounds were closed with 4-0 Nylon. 0.25% bupivacaine was injected around the portal sites and into the knee. The wounds were dressed with Xeroform, 4x4 gauze, ABD pad, Kerlix and an SOLEDAD wrap. A cryo- cuff was applied. The patient tolerated the procedure well and was returned to the Same Day Surgery area in a stable condition suffering no known complication.. Date of Procedure: 01/05/25
--- NOTE | 2025-01-05 16:44 | W.ANESPOSTOP ---
Postoperative Evaluation Date, Time and Location Date Performed: 01/05/25 Time Performed: 16:18 Patient Location: Day Surgery Unit Vital Signs Most Recent Imported Vital Signs: Most Recent Vital Signs Temp Pulse Resp BP Pulse Ox 36.4 C L 66 14 116/82 99 01/05/25 16:17 01/05/25 16:17 01/05/25 16:17 01/05/25 16:17 01/05/25 16:17 Pain Score Most Recent Pain Score: Most Recent Pain Score Pain Level 0 01/05/25 16:17 Assessment Mental Status: Awake (Alert & Oriented to Patient Baseline) Airway and Respiratory Function: Patent airway with normal (patient baseline) respiratory exam Cardiovascular Function: Hemodynamically Stable Hydration Status: Adequately Hydrated Nausea & Vomiting: No Nausea or Vomiting Pain: Pt. Denies Any Pain Peripheral Nerve Block: Regional nerve block not resolved at time of post operative discharge
--- NOTE | 2025-01-05 17:26 | W.ANESPOSTOP ---
Postoperative Evaluation Date, Time and Location Date Performed: 01/05/25 Time Performed: 17:26 Patient Location: Day Surgery Unit Vital Signs Most Recent Imported Vital Signs: Most Recent Vital Signs Temp Pulse Resp BP Pulse Ox 36.4 C L 66 14 116/82 99 01/05/25 16:17 01/05/25 16:17 01/05/25 16:17 01/05/25 16:17 01/05/25 16:17 Most Recent Vital Signs Temp Pulse Resp BP Pulse Ox 36.4 C L 66 14 116/82 99 01/05/25 16:17 01/05/25 16:17 01/05/25 16:17 01/05/25 16:17 01/05/25 16:17 Pain Score Most Recent Pain Score: Most Recent Pain Score Pain Level 0 01/05/25 16:17 Assessment Mental Status: Awake (Alert & Oriented to Patient Baseline) Airway and Respiratory Function: Patent airway with normal (patient baseline) respiratory exam Cardiovascular Function: Hemodynamically Stable Hydration Status: Adequately Hydrated Nausea & Vomiting: No Nausea or Vomiting Pain: Pt. Denies Any Pain Peripheral Nerve Block: Patient did not receive a nerve block
== END 2025-01-05 17:20 | disposition home or self-care (01) ==
PROVIDERS: PCP Nurse Practitioner Family; Visit Provider Student in an Organized Health Care Education/Training Program
PROC: (CPT 29870; principal; 2025-01-05 13:45)
DX: T84.82XA Fibrosis due to internal orthopedic prosthetic devices, implants and grafts, initial encounter (principal); Z96.651 Presence of right artificial knee joint; G89.18 Other acute postprocedural pain; M25.561 Pain in right knee
CPT/HCPCS: 29876; 64447; J0665; J0690; J1100; J2250; J2405; J2704; J3010

== ENCOUNTER 2025-03-10 08:06 | Outpatient (REF) | payer BC, SELFPAY ==
[2025-03-10 15:01] LABS: Abs Immature Grans 0.02 10^3/uL (0.0-0.06); Absolute Basophil Count 0.09 10^3/uL (0.0-0.2); Absolute Eosinophil Count 0.11 10^3/uL (0.0-0.7); Absolute Lymphocyte Count 0.98 10^3/uL (1.2-3.4); Absolute Monocyte Count 0.65 10^3/uL (0.1-0.8); Absolute Neutrophil Count 3.89 10^3/uL (1.2-6.7); Basophils % 1.6 %; Eosinophils % 1.9 %; HCT 38.2 % (40.0-50.0); HGB 12.6 g/dL (13.5-17.5); Immature Grans % 0.3 %; Lymphocytes % 17.1 %; MCH 29.1 pg (27.0-33.0); MCV 88 fL (80-95); MPV 9.3 fL (8.0-11.0); Monocytes % 11.3 %; Neutrophils % 67.8 %; Platelet Count 374 10^3/uL (130-400); RBC 4.33 10^6/uL (4.36-5.78); RDW 13.9 % (11.8-14.1); WBC 5.74 10^3/uL (4.4-10.8)
[2025-03-10 15:13] LABS: Iron 82 ug/dL (65-175); Total Iron Binding Capacity 265 ug/dL (250-450); Transferrin Sat 31 % (20-55)
[2025-03-10 15:48] LABS: Ferritin 121 ng/mL (26-388)
== END 2025-03-10 08:07 | disposition home or self-care (01) ==
LOC: NCHCN 08:06
PROVIDERS: PCP Nurse Practitioner Family; Visit Provider Nurse Practitioner Family
DX: Z00.00 Encounter for general adult medical examination without abnormal findings (principal); D64.9 Anemia, unspecified
CPT/HCPCS: 82728; 83540; 83550; 85025

== ENCOUNTER 2025-05-17 15:22 | Outpatient (CLI) | payer BC, SELFPAY ==
--- NOTE | 2025-05-17 15:00 | DI.RAD_ITS ---
Exam(s) XR KNEE RT 2V AP,LAT EXAM: XR KNEE RT 2V AP,LAT CLINICAL HISTORY: ANNUAL F/U R TKA. TECHNIQUE: 2D digital imaging was performed. Two images were obtained. AP and lateral views were obtained. COMPARISON: CR XR KNEE RT 1V from 06/04/2024 CR XR STANDING ALIGNMENT from 06/04/2024 FINDINGS: BONES: There are stable post operative changes of a right total knee arthroplasty present. No fracture or dislocation. JOINTS: The orthopedic hardware is in good position. No evidence of hardware loosening. SOFT TISSUE: Normal. IMPRESSION: Stable right total knee arthroplasty. DATA REPOSITORY: RADIATION DOSE DELIVERED:
== END 2025-05-17 15:23 | disposition home or self-care (01) ==
LOC: DIORS 15:22
PROVIDERS: PCP Nurse Practitioner Family; Visit Provider Student in an Organized Health Care Education/Training Program
DX: T84.82XA Fibrosis due to internal orthopedic prosthetic devices, implants and grafts, initial encounter (principal); Z96.651 Presence of right artificial knee joint
CPT/HCPCS: 73560

== ENCOUNTER 2025-07-08 14:34 | Outpatient (REF) | payer BC, SELFPAY ==
[2025-07-08 15:44] LABS: Iron 78 ug/dL (65-175); Total Iron Binding Capacity 268 ug/dL (250-450)
[2025-07-08 20:12] LABS: ALT 23 U/L (16-63); AST 20 U/L (15-37); Albumin 3.8 g/dL (3.4-5.0); Alkaline Phosphatase 55 U/L (46-116); Anion Gap 13.0 mmol/L (3-11); BUN 12 mg/dL (7-18); Bilirubin, Total 0.7 mg/dL (0.2-1.0); CO2 26.0 mmol/L (21.0-32.0); Calcium 8.8 mg/dL (8.5-10.1); Chloride 103 mmol/L (98-107); Estimated GFR 98.21 (mL/min/1.73m2); Ferritin 179 ng/mL (26-388); Glucose 91 mg/dL (74-106); Potassium 4.5 mmol/L (3.5-5.1); Sodium 142 mmol/L (136-145); Total Protein 6.7 g/dL (6.4-8.2)
[2025-07-09 17:58] LABS: PSA, Diagnostic 1.4 ng/mL (<=4.5)
[2025-07-12 09:17] LABS: Transferrin 214 mg/dL (201-352)
== END 2025-07-08 14:35 | disposition home or self-care (01) ==
LOC: NCHCN 14:34
PROVIDERS: PCP Nurse Practitioner Family; Visit Provider Nurse Practitioner Family
DX: D64.9 Anemia, unspecified (principal)
CPT/HCPCS: 80053; 82728; 83540; 83550; 84153; 84466

== ENCOUNTER 2025-07-09 21:18 | Outpatient (REF) | payer BC, SELFPAY ==
[2025-07-09 21:35] LABS: Abs Immature Grans 0.01 10^3/uL (0.0-0.06); HCT 34.1 % (40.0-50.0); HGB 11.5 g/dL (13.5-17.5); Immature Grans % 0.2 %; MCH 29.3 pg (27.0-33.0); MCHC 33.7 % (32.0-36.0); MCV 87 fL (80-95); MPV 9.4 fL (8.0-11.0); Platelet Count 313 10^3/uL (130-400); RBC 3.93 10^6/uL (4.36-5.78); RDW 13.5 % (11.8-14.1); RDW-SD 43.1 fL; WBC 5.97 10^3/uL (4.4-10.8)
== END 2025-07-09 21:19 | disposition home or self-care (01) ==
LOC: NCHCN 21:18
PROVIDERS: PCP Nurse Practitioner Family; Visit Provider Nurse Practitioner Family
DX: D64.9 Anemia, unspecified (principal)
CPT/HCPCS: 85025

== ENCOUNTER 2025-07-29 08:15 | Outpatient (CLI) | payer BC, MEDICARE, SELFPAY ==
--- NOTE | 2025-07-29 06:00 | DI.RAD_ITS ---
Exam(s) XR PAIN CLINIC SACRIOILIAC 2V EXAM: XR PAIN CLINIC SACRIOILIAC 2V CLINICAL HISTORY: Dx: Sacroiliac Joint Injection. TECHNIQUE: Fluoroscopy was provided for the referring physician for guidance with performing pain clinic injection procedure. COMPARISON: No exams were available for comparison FINDINGS: Please see procedure note for details. Fluoro time: 30.6 seconds RADIATION DOSE DELIVERED: Ka,r=4.76 mGy
[2025-07-29 07:39] VITALS: BP 119/87; PULSE 81; RESP 18; TEMP 36.9; O2SAT 100
[2025-07-29 08:38] VITALS: PULSE 80; O2SAT 100
[2025-07-29 08:39] VITALS: BP 126/77; PULSE 79; PULSE 87; RESP 17
[2025-07-29 08:40] VITALS: PULSE 77; RESP 16; O2SAT 100
[2025-07-29 08:45] VITALS: BP 134/89; PULSE 84; PULSE 86; RESP 14; O2SAT 100
[2025-07-29 08:50] VITALS: PULSE 80; PULSE 83; RESP 19
[2025-07-29] MEDS: methylPREDNISolone ACETATE 40 MG/ML VIAL IJ (09:05)
[2025-07-29] MEDS: Nerve Block Tray 1 EACH MC (09:05)
[2025-07-29] MEDS: Omnipaque 240 MG/ML 50 ML BTL IJ (09:05)
--- NOTE | 2025-07-29 11:16 | PDOC.PAIN_ITS ---
Date of service: 07/29/25 Time of Service: 09:00 Pain Managment Procedure Note Procedure Note Procedure Note: PROCEDURE NOTE BILATERAL INTRA-ARTICULAR SACROILIAC JOINT INJECTION Date of Service: July 29, 2025 Patient: Cristo Guo Provider: Oneil Mendoza DO, MPH COMMENTS: I previously evaluated the patient in the office and their symptoms in relation to the sacroiliac joint pain have remained the same. Pre-operative diagnosis: Sacroiliac joint dysfunction ICD-10 M53.3 Post-operative diagnosis: Same Pre-procedure pain: VAS= 6/10 Cristo Guo has been referred to our [facility] for a Bilateral intra-articular Sacroiliac joint injection. Cristo was interviewed and the medical record reviewed. There were no medical, pharmacologic, radiographic or other structural contraindications to attempting a fluoroscopically-guided, contrast-enhanced, intra-articular Sacroiliac joint injection. The risks, benefits, and potential side effects of this procedure were reviewed with the patient. Questions and concerns were addressed. After it was clear that Cristo was fully informed about the procedure, the printed consent form was signed by the patient and myself. Cristo was placed in the prone position on the fluoroscopy table and an automated blood pressure cuff, 3 lead EKG, and pulse oximeter were applied. The skin entry point for approaching the Left sacroiliac joint was identified under the most advantageous fluoroscopic view and marked. Following thorough Chlorhexadine preparation of the skin and draping with sterile surgical drapes, 2 mls of 1% lidocaine was infiltrated into the skin at the entry point and the surrounding subcutaneous tissues. Next, a 3.5 22G spinal needle was placed under fluoroscopic guidance into the Left sacroiliac joint. Intra-articular placement was confirmed by a clear arthrogram resulting from the injection of 0.25ml of Omnipaque-240. Next, 1 ml of Depo- Medrol 40 mg/ml was injected intra- articularly with an initial reproduction of a significant component of the usual pain. This was followed with 1 ml of 1% Lidocaine. The needle was then removed without difficulty. (49 ml of Omnipaque-240 was wasted). The exact procedure was completed on the opposite sacroiliac joint. Cristo's vital signs were stable throughout the procedure and were as recorded in nursing records. Follow up plans and appointments were discussed with Cristo. Post procedure instructions were given as documented in nursing records. Having met discharge criteria, Crist[facility] was [facility] the [facility] COMMENTS: Post-procedure pain: VAS= 0/10. If the patient receives at least 50% improvement in pain and/or function for at least 3 months, this procedure can be repeated if needed. I personally performed this entire procedure. ONEIL MENDOZA DO, MPH ABPMR-subspecialty board certification in Pain Medicine [facility] Coding Conscious Sedation used for procedure: No CPT Codes: SI Joint Inj; incl Fluoro * BILATERAL* - [id number] ([id number]) Additional Codes: Date of Service () Diagnoses: sacroiliac joint dysfunction
== END 2025-07-29 08:16 | disposition home or self-care (01) ==
LOC: PC 08:15
PROVIDERS: PCP Nurse Practitioner Family; Visit Provider Preventive Medicine Occupational Medicine
DX: M53.3 Sacrococcygeal disorders, not elsewhere classified (principal); M54.50 Low back pain, unspecified
CPT/HCPCS: 27096; 72200; J1010; Q9967